=== PATIENT | male | born 1960 | race Caucasian/White ===

== ENCOUNTER 2020-12-09 10:29 | Outpatient (REF) | payer MEDICARE, SELFPAY ==
[2020-12-09 11:38] LABS: MANUAL DIFF FLAG NO
[2020-12-09 11:49] LABS: Basophils Absolute Auto 0.1 X10*3/uL (0.0-0.2); Eosinophils Absolute Auto 0.2 X10*3/uL (0.0-0.4); Hematocrit 36.5 % (42-52); Imm Gran Abs Auto 0.03 X10*3/uL (0.00-0.03); Imm Gran Pct Auto 0.5 % (0.0-0.4); Lymphocytes Absolute Auto 1.3 X10*3/uL (1.2-4.9); Lymphocytes Percent Auto 21.9 % (20-40); Mean Corpuscular HGB Conc 35.6 g/dl (31.0-36.0); Mean Corpuscular Hemoglobin 34.6 pg (27.0-33.0); Mean Corpuscular Volume 97.1 fL (80-98); Mean Platelet Volume 9.7 fL (9.4-12.4); Monocytes Absolute Auto 0.4 X10*3/uL (0.1-1.2); Monocytes Percent Auto 5.8 % (2-11); Neutrophils Percent Auto 66.8 % (45-73); Platelet Count 158 X10*3/uL (160-400); Red Blood Count 3.76 X10*6/uL (4.60-5.80); Red Cell Distribution Width 12.1 % (11.0-16.0)
[2020-12-09 11:57] LABS: Alanine Aminotransferase 37 U/L (0-40); Albumin Level 4.5 g/dL (3.5-5.0); Alkaline Phosphatase 88 U/L (39-117); Anion Gap 12 (12-20); Aspartate Amino Transferase 32 U/L (5-37); Bilirubin Total 0.5 mg/dL (0.0-1.0); Blood Urea Nitrogen 18 mg/dL (9-16); Calcium 8.9 mg/dL (8.4-10.2); Carbon Dioxide 24 mmol/L (22-29); Chloride 107 mmol/L (96-108); Cholesterol 180 mg/dL; Estimated Glomerular Filt Rate > 60; Glucose Random 220 mg/dL (60-115); HDL Cholesterol 47 mg/dL; LDL Cholesterol Calculated 72 mg/dl; Potassium 3.8 mmol/L (3.3-5.1); Sodium 139 mmol/L (135-145); Total Protein 7.1 g/dL (6.5-8.0); Triglycerides 306 mg/dL
[2020-12-09 12:22] LABS: Free T4 (Free Thyroxine) 0.74 ng/dL (0.71-1.85); Prostate Specific Antigen Scr 0.68 ng/mL (<0.05-4.0); Thyroid Stimulating Hormone 2.72 uIU/mL (0.32-4.0)
[2020-12-09 12:31] LABS: Estimated Average Glucose 151 mg/dL; Hemoglobin A1c % 6.9 %
[2020-12-09 12:43] LABS: Folate > 20.0 ng/mL (> or = 4.0); Vitamin B12 916 pg/mL (200-900)
[2020-12-09 13:00] LABS: Microalbum/Creatinine Ratio Ur 26.6 ug/mg cr
== END 2020-12-09 10:30 | disposition home or self-care (01) ==
LOC: HO.LAB 10:29
PROVIDERS: PCP Internal Medicine; Visit Provider Internal Medicine
DX: Z12.5 Encounter for screening for malignant neoplasm of prostate (principal); E11.65 Type 2 diabetes mellitus with hyperglycemia; E78.00 Pure hypercholesterolemia, unspecified; I25.10 Atherosclerotic heart disease of native coronary artery without angina pectoris; I10 Essential (primary) hypertension; R56.9 Unspecified convulsions
CPT/HCPCS: 36415; 80053; 80061; 82043; 82607; 82746; 83036; 84153; 84439; 84443; 85025

== ENCOUNTER 2021-06-14 09:57 | Outpatient (REF) | payer MEDICARE, SELFPAY ==
[2021-06-14 10:04] LABS: MANUAL DIFF FLAG NO
[2021-06-14 10:51] LABS: Basophils Absolute Auto 0.1 X10*3/uL (0.0-0.2); Basophils Percent Auto 0.7 % (0-2); Eosinophils Absolute Auto 0.3 X10*3/uL (0.0-0.4); Eosinophils Percent Auto 4.1 % (0-4); Hematocrit 38.7 % (42-52); Hemoglobin 13.6 g/dl (14.0-18.0); Imm Gran Abs Auto 0.03 X10*3/uL (0.00-0.03); Imm Gran Pct Auto 0.4 % (0.0-0.4); Lymphocytes Absolute Auto 1.6 X10*3/uL (1.2-4.9); Lymphocytes Percent Auto 22.5 % (20-40); Mean Corpuscular HGB Conc 35.1 g/dl (31.0-36.0); Mean Corpuscular Hemoglobin 34.1 pg (27.0-33.0); Mean Platelet Volume 9.3 fL (9.4-12.4); Monocytes Absolute Auto 0.5 X10*3/uL (0.1-1.2); Monocytes Percent Auto 6.8 % (2-11); Neutrophils Absolute Auto 4.6 X10*3/uL (2.0-8.3); Neutrophils Percent Auto 65.5 % (45-73); Platelet Count 167 X10*3/uL (160-400); Red Blood Count 3.99 X10*6/uL (4.60-5.80); Red Cell Distribution Width 11.7 % (11.0-16.0)
[2021-06-14 11:18] LABS: Alanine Aminotransferase 34 U/L (0-40); Albumin Level 4.5 g/dL (3.5-5.0); Alkaline Phosphatase 89 U/L (39-117); Anion Gap 14 (12-20); Aspartate Amino Transferase 32 U/L (5-37); Bilirubin Total 0.5 mg/dL (0.0-1.0); Blood Urea Nitrogen 15 mg/dL (9-16); Calcium 9.1 mg/dL (8.4-10.2); Carbon Dioxide 25 mmol/L (22-29); Chloride 105 mmol/L (96-108); Cholesterol 188 mg/dL; Estimated Glomerular Filt Rate > 60; Glucose Random 127 mg/dL (60-115); HDL Cholesterol 42 mg/dL; Iron 107 mcg/dL (45-160); LDL Cholesterol Calculated 68 mg/dl; Percent Iron Saturation 39 % (15-50); Potassium 4.4 mmol/L (3.3-5.1); Sodium 140 mmol/L (135-145); Total Iron Binding Capacity 275 mcg/dL (228-428); Total Protein 7.3 g/dL (6.5-8.0); Triglycerides 392 mg/dL; Unsaturated Iron Binding 168 ug/dL
[2021-06-14 11:25] LABS: Estimated Average Glucose 111 mg/dL; Hemoglobin A1c % 5.5 %
[2021-06-14 11:39] LABS: Ferritin 275 ng/mL (20-250); Free T4 (Free Thyroxine) 0.76 ng/dL (0.71-1.85); Thyroid Stimulating Hormone 4.39 uIU/mL (0.32-4.0)
[2021-06-14 11:40] LABS: Creatinine Urine 149.97 mg/dL; Microalbum/Creatinine Ratio Ur 3.3 ug/mg cr
[2021-06-14 13:18] LABS: Prostate Specific Antigen Scr 0.76 ng/mL (<0.05-4.0)
[2021-06-16 08:50] LABS: Folate > 20.0 ng/mL (> or = 4.0); Vitamin B12 820 pg/mL (200-900)
== END 2021-06-14 09:58 | disposition home or self-care (01) ==
LOC: HO.LAB 09:57
PROVIDERS: PCP Internal Medicine; Visit Provider Internal Medicine
DX: E11.65 Type 2 diabetes mellitus with hyperglycemia (principal); E78.00 Pure hypercholesterolemia, unspecified; Z12.5 Encounter for screening for malignant neoplasm of prostate
CPT/HCPCS: 36415; 80053; 80061; 82043; 82607; 82728; 82746; 83036; 83540; 84153; 84439; 84443; 85025

== ENCOUNTER 2021-09-17 10:09 | Outpatient (REF) | payer MEDICARE, SELFPAY ==
[2021-09-17 10:20] LABS: MANUAL DIFF FLAG NO
[2021-09-17 10:50] LABS: Basophils Absolute Auto 0.1 X10*3/uL (0.0-0.2); Basophils Percent Auto 1.2 % (0-2); Eosinophils Absolute Auto 0.2 X10*3/uL (0.0-0.4); Eosinophils Percent Auto 3.5 % (0-4); Hematocrit 40.3 % (42.0-52.0); Hemoglobin 13.9 g/dl (14.0-18.0); Imm Gran Abs Auto 0.03 X10*3/uL (0.00-0.03); Imm Gran Pct Auto 0.5 % (0.0-0.4); Lymphocytes Absolute Auto 1.2 X10*3/uL (1.2-4.9); Lymphocytes Percent Auto 19.7 % (20-40); Mean Corpuscular HGB Conc 34.5 g/dl (31.0-36.0); Mean Corpuscular Volume 95.7 fL (80.0-98.0); Mean Platelet Volume 9.2 fL (9.4-12.4); Monocytes Absolute Auto 0.3 X10*3/uL (0.1-1.2); Monocytes Percent Auto 5.7 % (2-11); Neutrophils Absolute Auto 4.1 x10*3/uL (2.0-8.3); Neutrophils Percent Auto 69.4 % (45-73); Platelet Count 171 X10*3/uL (160-400); Red Blood Count 4.21 X10*6/uL (4.60-5.80); Red Cell Distribution Width 11.9 % (11.0-16.0); White Blood Count 5.9 X10*3/uL (4.8-10.8)
[2021-09-17 11:15] LABS: Alanine Aminotransferase 46 U/L (0-40); Albumin Level 4.6 g/dL (3.5-5.0); Alkaline Phosphatase 83 U/L (39-117); Anion Gap 13 (12-20); Aspartate Amino Transferase 36 U/L (5-37); Bilirubin Total 0.5 mg/dL (0.0-1.0); Blood Urea Nitrogen 14 mg/dL (9-16); Calcium 9.5 mg/dL (8.4-10.2); Carbon Dioxide 25 mmol/L (22-29); Chloride 103 mmol/L (96-108); Cholesterol 196 mg/dL; Estimated Glomerular Filt Rate > 60; Glucose Random 173 mg/dL (60-115); HDL Cholesterol 48 mg/dL; LDL Cholesterol Calculated 80 mg/dl; Potassium 4.4 mmol/L (3.3-5.1); Sodium 137 mmol/L (135-145); Total Protein 7.6 g/dL (6.5-8.0); Triglycerides 343 mg/dL
[2021-09-17 11:39] LABS: Thyroid Stimulating Hormone 2.84 uIU/mL (0.32-4.0)
[2021-09-17 11:45] LABS: Creatinine Urine 139.21 mg/dL
[2021-09-17 11:47] LABS: Carbamazepine Tegretol 9.5 mcg/mL (5.0-12.0)
== END 2021-09-17 10:10 | disposition home or self-care (01) ==
LOC: HO.LAB 10:09
PROVIDERS: PCP Internal Medicine; Visit Provider Internal Medicine
DX: E11.65 Type 2 diabetes mellitus with hyperglycemia (principal); R56.9 Unspecified convulsions; E78.00 Pure hypercholesterolemia, unspecified; I10 Essential (primary) hypertension
CPT/HCPCS: 36415; 80053; 80061; 80156; 84439; 84443; 85025

== ENCOUNTER 2021-12-18 13:41 | Outpatient (REF) | payer MEDICARE, SELFPAY ==
[2021-12-18 13:59] LABS: MANUAL DIFF FLAG NO
[2021-12-18 14:29] LABS: Basophils Absolute Auto 0.1 X10*3/uL (0.0-0.2); Basophils Percent Auto 1.4 % (0-2); Eosinophils Absolute Auto 0.2 X10*3/uL (0.0-0.4); Eosinophils Percent Auto 3.8 % (0-4); Hematocrit 36.9 % (42.0-52.0); Hemoglobin 13.2 g/dl (14.0-18.0); Imm Gran Abs Auto 0.02 X10*3/uL (0.00-0.03); Imm Gran Pct Auto 0.4 % (0.0-0.4); Lymphocytes Absolute Auto 0.8 X10*3/uL (1.2-4.9); Lymphocytes Percent Auto 16.3 % (20-40); Mean Corpuscular HGB Conc 35.8 g/dl (31.0-36.0); Mean Corpuscular Hemoglobin 34.1 pg (27.0-33.0); Mean Corpuscular Volume 95.3 fL (80.0-98.0); Mean Platelet Volume 9.3 fL (9.4-12.4); Monocytes Absolute Auto 0.4 X10*3/uL (0.1-1.2); Monocytes Percent Auto 8.6 % (2-11); Neutrophils Absolute Auto 3.5 x10*3/uL (2.0-8.3); Neutrophils Percent Auto 69.5 % (45-73); Platelet Count 147 X10*3/uL (160-400); Red Blood Count 3.87 X10*6/uL (4.60-5.80); Retic HGB Equivalent 37.4 pg (30.0-35.0); Reticulocytes Absolute 0.115 X10*6/uL (0.026-0.095)
[2021-12-18 14:36] LABS: Alanine Aminotransferase 39 U/L (0-40); Albumin Level 4.4 g/dL (3.5-5.0); Alkaline Phosphatase 80 U/L (39-117); Anion Gap 11 (12-20); Aspartate Amino Transferase 34 U/L (5-37); Bilirubin Total 0.8 mg/dL (0.0-1.0); Blood Urea Nitrogen 14 mg/dL (9-16); Calcium 9.3 mg/dL (8.4-10.2); Carbon Dioxide 25 mmol/L (22-29); Chloride 103 mmol/L (96-108); Cholesterol 149 mg/dL; Estimated Glomerular Filt Rate > 60; Glucose Random 232 mg/dL (60-115); HDL Cholesterol 42 mg/dL; Iron 105 mcg/dL (45-160); LDL Cholesterol Calculated 45 mg/dl; Percent Iron Saturation 37 % (15-50); Potassium 4.3 mmol/L (3.3-5.1); Sodium 135 mmol/L (135-145); Total Iron Binding Capacity 281 mcg/dL (228-428); Total Protein 7.3 g/dL (6.5-8.0); Triglycerides 312 mg/dL; Unsaturated Iron Binding 176 ug/dL
[2021-12-18 14:58] LABS: Ferritin 291 ng/mL (20-250)
[2021-12-18 15:14] LABS: Folate > 20.0 ng/mL (> or = 4.0); Vitamin B12 774 pg/mL (200-900)
== END 2021-12-18 13:42 | disposition home or self-care (01) ==
LOC: HO.LAB 13:41
PROVIDERS: PCP Internal Medicine; Visit Provider Internal Medicine
DX: E11.65 Type 2 diabetes mellitus with hyperglycemia (principal); E78.00 Pure hypercholesterolemia, unspecified
CPT/HCPCS: 36415; 80053; 80061; 82607; 82728; 82746; 83540; 85025; 85045

== ENCOUNTER 2022-02-09 08:16 | Day surgery (SDC) | payer MEDICARE, SELFPAY ==
[2022-02-03 15:03] VITALS: BMI 32.5
--- NOTE | 2022-02-05 13:48 | HO.ANESPROP2 ---
Documented by User: Hannah Harkins NP 02/05/22 13:49 HPI - Anesthesia Eval Consult details Narrative: 61yo M for Colonoscopy PMFSH Active Problems Active Problems: All Active Problems (Updated 02/03/22 @ 15:03 by Carolyn Valdes, ANGELO) Eczema (Acute) TSH elevation (Acute) Generalized anxiety disorder (Acute) Tubular adenoma of colon (Acute) CKD (chronic kidney disease) stage 3, GFR 30-59 ml/min (Acute) Melanoma (Acute) Hypertension (Acute) Type 2 diabetes mellitus with hyperglycemia (Acute) Anxiety (Acute) GERD (gastroesophageal reflux disease) (Acute) Obesity (BMI 30-39.9) (Acute) Seizures (Acute) Hypercholesterolemia (Acute) Coronary artery disease (Acute) DDD (degenerative disc disease), lumbar (Acute) Past Medical History Medical History Anxiety Bile salt-induced diarrhea Coronary artery disease DDD (degenerative disc disease), lumbar GERD (gastroesophageal reflux disease) Hypercholesterolemia Hypertension Melanoma Obesity (BMI 30-39.9) Seizures Type 2 diabetes mellitus with hyperglycemia Family History Family History Father No problems noted. Mother Myocardial infarction Diabetes Hypertension CVD (cardiovascular disease) Son In good health Daughter In good health Surgical History Surgical History History of cholecystectomy History of excision of mass History of inguinal hernia repair History of intravascular stent placement History of melanoma excision History of surgery History of umbilical hernia repair Social History Social History Housing: Apartment Are you a primary resident caregiver to a significant other at home: No Do you presently have visiting nurse or other home services: No Alcohol intake: current Alcohol intake frequency: does not drink Patient Tobacco Use Status: Former Tobacco user Quit Date: 1992 Tobacco use type: Cigarette e-Cigarette/Vaping Use: Never Used Second Hand Smoke Exposure: No Have you been hit, kicked, punched, or otherwise hurt by someone within the past year? If so, by whom?: No Are you DNR?: No Advance Directives: No (will bring dos) Advance Directives Information Provided: Yes Advance Directives on File: No Recently lost weight without trying: No service: No Current occupational status: disabled Cognitive needs: No Hearing needs: No Vision needs: Yes Meds Allergies Allergy/AdvReac Type Severity Reaction Status Date / Time atorvastatin Allergy Intermediate Muscle Verified 02/03/22 15:01 cramps hydrochlorothiazide Allergy Intermediate advised to Verified 02/03/22 15:01 avoid metformin Allergy Intermediate Gastrointestinal Verified 02/03/22 15:01 Upset Home Medications Medication Instructions Recorded Confirmed Last Taken Type aspirin 81 mg tablet,delayed 81 mg PO DAILY 09/10/20 02/03/22 Unknown History release (Adult Aspirin Regimen) tadalafil 20 mg tablet (Cialis) 20 mg PO DAILY PRN 09/10/20 02/03/22 Unknown History sodium bicarbonate 650 mg tablet 650 mg PO BID 02/03/22 02/03/22 02/09/22 07:00 History Exam Exam Date and Time: February 05, 2022 1348 Height,Weight and Vital Signs: Height 6 ft Weight 108.862 kg Pertinent Lab Results Pertinent Lab Results: Laboratory Tests 12/18/21 12/18/21 13:58 13:58 WBC 5.0 Hgb 13.2 L Hct 36.9 L Plt Count 147 L Sodium 135 Potassium 4.3 Chloride 103 Carbon Dioxide 25 BUN 14 Creatinine 1.01 Assessment and Plan Assessment Anesthesia Assessment: Chart Reviewed Documented by User: Regina Gates MD 02/09/22 10:22 [facility] Active Problems Active Problems: All Active Problems (Updated 02/03/22 @ 15:03 by Carolyn Valdes, ANGELO) Eczema (Acute) TSH elevation (Acute) Tubular adenoma of colon (Acute) CKD (chronic kidney disease) stage 3, GFR 30-59 ml/min (Acute) Melanoma (Acute) Hypertension (Acute) Type 2 diabetes mellitus with hyperglycemia (Acute) Anxiety (Acute) GERD (gastroesophageal reflux disease) (Acute) Obesity (BMI 30-39.9) (Acute) Seizures (Acute) Hypercholesterolemia (Acute) Coronary artery disease (Acute). Denies recent chest pain DDD (degenerative disc disease), lumbar (Acute) Denies HARRIETT or snoring Denies use of tadalafil in last couple of weeks Past Medical History Medical History Anxiety Bile salt-induced diarrhea Coronary artery disease DDD (degenerative disc disease), lumbar GERD (gastroesophageal reflux disease) Hypercholesterolemia Hypertension Melanoma Obesity (BMI 30-39.9) Seizures Type 2 diabetes mellitus with hyperglycemia Family History Family History Father No problems noted. Mother Myocardial infarction Diabetes Hypertension CVD (cardiovascular disease) Son In good health Daughter In good health Family history of problems with anesthesia: No Surgical History Surgical History History of cholecystectomy History of excision of mass History of inguinal hernia repair History of intravascular stent placement History of melanoma excision History of surgery History of umbilical hernia repair History of Problems with Anesthesia: No Social History Social History Housing: Apartment Are you a primary resident caregiver to a significant other at home: No Do you presently have visiting nurse or other home services: No Alcohol intake: current Alcohol intake frequency: does not drink Patient Tobacco Use Status: Former Tobacco user Quit Date: 1992 Tobacco use type: Cigarette e-Cigarette/Vaping Use: Never Used Second Hand Smoke Exposure: No Have you been hit, kicked, punched, or otherwise hurt by someone within the past year? If so, by whom?: No Are you DNR?: No Advance Directives: No (will bring dos) Advance Directives Information Provided: Yes Advance Directives on File: No Recently lost weight without trying: No service: No Current occupational status: disabled Cognitive needs: No Hearing needs: No Vision needs: Yes Meds Allergies Allergy/AdvReac Type Severity Reaction Status Date / Time atorvastatin Allergy Intermediate Muscle Verified 02/03/22 15:01 cramps hydrochlorothiazide Allergy Intermediate advised to Verified 02/03/22 15:01 avoid metformin Allergy Intermediate Gastrointestinal Verified 02/03/22 15:01 Upset Home Medications Medication Instructions Recorded Confirmed Last Taken Type aspirin 81 mg tablet,delayed 81 mg PO DAILY 09/10/20 02/03/22 Unknown History release (Adult Aspirin Regimen) tadalafil 20 mg tablet (Cialis) 20 mg PO DAILY PRN 09/10/20 02/03/22 Unknown History sodium bicarbonate 650 mg tablet 650 mg PO BID 02/03/22 02/03/22 02/09/22 07:00 History Exam Height,Weight and Vital Signs: Height 6 ft Weight 108.862 kg Vital Signs Temp Pulse Resp BP Pulse Ox 02/09/22 08:48 97.7 F 72 16 152/71 H 97 Pertinent Lab Results Pertinent Lab Results: Laboratory Tests 12/18/21 12/18/21 13:58 13:58 WBC 5.0 Hgb 13.2 L Hct 36.9 L Plt Count 147 L Sodium 135 Potassium 4.3 Chloride 103 Carbon Dioxide 25 BUN 14 Creatinine 1.01 Lab Results 02/09/22 Range/Units 09:13 POC Glucose 105 (60-115) mg/dL Airway Mallampati Class: III TM Dist: >3cm Neck ROM: Full Denture: Upper and Lower Heart: RRR Lungs: CTAB Assessment and Plan Final Anesthetic Review Family History of Problems with Anesthesia: No History of Problems with Anesthesia: No NPO: Yes ASA Class: III Final Preanesthetic Review: No Changes in Pt Med Stat, Meds/Allgs Chart Reviewed, Consent Obtained/Reviewed and Anes Risks/Benef Reviewed Patient Risk: Intermediate Procedure Risk: Low Assessment/Block/Sedation in SS: Assess/Block/Sedation-SS Anesthetic Plan Anesthetic Plan: MAC: Disposition: Standard PACU
[2022-02-09 08:34] VITALS: BMI 32.5
[2022-02-09 08:48] VITALS: BP 152/71; PULSE 72; RESP 16; TEMP 36.5; O2SAT 97; BMI 32.5
[2022-02-09] MEDS: Lactated Ringers 1,000 ML 100 ML IVCONT (09:18)
[2022-02-09 09:21] LABS: Glucose, Whole Blood 105 mg/dL (60-115)
[2022-02-09 10:30] VITALS: BP 107/41; PULSE 82; RESP 12; TEMP 36.6; O2SAT 94
--- NOTE | 2022-02-09 10:31 | P.BOP_ITS ---
Brief Operative Note Date of Service: 02/09/22 Pre-op diagnosis: Screening Post-op diagnosis: other (Diverticulosis) Procedure: Colonoscopy to the cecum and TI Surgeon: Juanito Youssef Anesthesia: MAC Was an Quality Review Specialist used for this Procedure?: No Estimated blood loss (mL): 0 Pathology: none sent Condition: stable Disposition: PACU
[2022-02-09 10:45] VITALS: BP 119/61; PULSE 80; RESP 15; TEMP 36.6; O2SAT 96
--- NOTE | 2022-02-09 12:10 | OP_ITS ---
SURGEON: Juanito Youssef MD INDICATIONS: The patient presents for evaluation of colorectal cancer screening and personal history of tubular adenoma of the colon. Full consent was obtained from him for this, including risks of bleeding and perforation. PREOPERATIVE DIAGNOSIS: POSTOPERATIVE DIAGNOSIS: PROCEDURE PERFORMED: Colonoscopy to the cecum and terminal ileum. ESTIMATED BLOOD LOSS: COMPLICATIONS: ANESTHESIA: Monitored anesthesia care. ASSISTANTS: SPECIMENS: PREOPERATIVE DIAGNOSES: Colorectal cancer screening and personal history of tubular adenoma of the colon. POSTOPERATIVE DIAGNOSES: Colorectal cancer screening and personal history of tubular adenoma of the colon, diverticulosis and internal hemorrhoids. DESCRIPTION OF PROCEDURE: The patient was placed in the left lateral decubitus position. The digital rectal exam revealed no abnormalities. The Olympus video pediatric colonoscope was entered into the rectum and advanced easily to the cecum. Once in the cecum, I did identify normal-appearing cecal pouch with appendiceal orifice and a normal-appearing ileocecal valve. The terminal ileum was cannulated and appeared normal. The scope was withdrawn back in the colon. The entire cecum and ileocecal valve appeared normal. The scope was slowly withdrawn assessing all mucosal surfaces carefully. Preparation for the most part was excellent other than some small areas of liquid stool, which were suctioned away as best as possible. I did not visualize any sign of polyps, colitis, nor angiodysplasia. There was a mild amount of sigmoid diverticulosis. In the rectum, scope was retroflexed visualizing small internal hemorrhoids, but no other pathology. The rectal mucosa appeared normal. The scope was straightened and withdrawn from the patient. He tolerated the procedure well and was returned to the recovery area in stable condition. IMPRESSION: 1. Sigmoid diverticulosis. 2. Small internal hemorrhoids. PLAN: Given his previous history, I would recommend a followup colonoscopy in 5 years for further screening. He will otherwise see me on a p.r.n. basis. He was advised to resume his aspirin today. MD JAMEEL Liu/ADAN / [id number]
== END 2022-02-09 11:28 | disposition home or self-care (01) ==
PROVIDERS: PCP Internal Medicine; Visit Provider Internal Medicine
PROC: 0DJD8ZZ Inspection of Lower Intestinal Tract, Via Natural or Artificial Opening Endoscopic (ICD-10-PCS; CPT 45378; principal; 2022-02-09 09:10)
DX: Z12.11 Encounter for screening for malignant neoplasm of colon (principal); Z86.010 Personal history of colon polyps; K57.30 Diverticulosis of large intestine without perforation or abscess without bleeding; K64.8 Other hemorrhoids; K21.9 Gastro-esophageal reflux disease without esophagitis; I25.10 Atherosclerotic heart disease of native coronary artery without angina pectoris; Z98.61 Coronary angioplasty status; I25.2 Old myocardial infarction; E78.5 Hyperlipidemia, unspecified; I10 Essential (primary) hypertension; R56.9 Unspecified convulsions; E11.9 Type 2 diabetes mellitus without complications; Z79.84 Long term (current) use of oral hypoglycemic drugs; Z79.82 Long term (current) use of aspirin; Z79.899 Other long term (current) drug therapy; Z85.820 Personal history of malignant melanoma of skin; Z90.49 Acquired absence of other specified parts of digestive tract; Z87.891 Personal history of nicotine dependence
CPT/HCPCS: G0105; 82947

== ENCOUNTER 2022-03-24 10:39 | Outpatient (REF) | payer MEDICARE, SELFPAY ==
[2022-03-24 13:05] LABS: Alanine Aminotransferase 22 U/L (0-40); Albumin Level 4.7 g/dL (3.5-5.0); Alkaline Phosphatase 45 U/L (39-117); Anion Gap 11 (12-20); Aspartate Amino Transferase 25 U/L (5-37); Bilirubin Total 0.5 mg/dL (0.0-1.0); Blood Urea Nitrogen 13 mg/dL (9-16); Calcium 9.1 mg/dL (8.4-10.2); Carbon Dioxide 25 mmol/L (22-29); Chloride 103 mmol/L (96-108); Cholesterol 131 mg/dL; Estimated Glomerular Filt Rate > 60; Glucose Random 93 mg/dL (60-115); HDL Cholesterol 52 mg/dL; LDL Cholesterol Calculated 63 mg/dl; Potassium 4.4 mmol/L (3.3-5.1); Sodium 135 mmol/L (135-145); Total Protein 7.3 g/dL (6.5-8.0); Triglycerides 84 mg/dL
== END 2022-03-24 10:40 | disposition home or self-care (01) ==
LOC: HO.LAB 10:39
PROVIDERS: PCP Internal Medicine; Visit Provider Internal Medicine
DX: E78.00 Pure hypercholesterolemia, unspecified (principal)
CPT/HCPCS: 36415; 80053; 80061

== ENCOUNTER 2022-03-27 15:15 | Outpatient (REF) | payer MEDICARE, SELFPAY ==
--- NOTE | ~2022-03-27 | XR_ITS ---
EXAMINATION: XR RIBS, LEFT CLINICAL INFORMATION: Chest pain COMPARISON: None TECHNIQUE: 3 views of the left ribs were obtained. Chest PA 1 view FINDINGS: Lungs: Both lungs are well-expanded and clear acute process. The heart size and pulmonary vascularity is normal. There is moderate spondylosis and levoscoliosis of dorsal spine. No lytic process. There are surgical allison along the left axilla from previous intervention. XR/XR ribs LT min 3V w CXR1V IMPRESSION: Unremarkable chest exam. Moderate levoscoliosis.
== END 2022-03-27 15:16 | disposition home or self-care (01) ==
LOC: HO.XRAY 15:15
PROVIDERS: PCP Internal Medicine; Visit Provider Internal Medicine
DX: R07.9 Chest pain, unspecified (principal)
CPT/HCPCS: 71101

== ENCOUNTER 2022-07-20 13:46 | Outpatient (RCR) | payer MEDICARE, SELFPAY ==
--- NOTE | 2022-07-20 15:09 | MHC.PT.EP ---
[facility] [place] Office [place] Office [place] Office [address] [phone] F: [phone] F: [phone] F: [phone] F: [phone] Physical Therapy Plan of Care Date of Evaluation: Date of Surgery: n/a Diagnosis: R leg achilles tendinitis Assessment: Patient is a 61 year old male presenting to PT with complaints of pain in his R Achilles. Pt reports onset of pain began a few weeks ago due to insidious onset. He presents today with impairments in pain, gastroc tightness, functional strength. Pt's current occupation is retired, with baseline physical activities including ambulating, stair negotiation, ADLs. 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 Clinical presentation today is most consistent with signs and sx associated with possible achilles tendonitis and pt will benefit from skilled PT to address the following problems and impairments noted upon evaluation: pain, gastroc tightness, functional strength. These problems limit the patient with the following functional activities: ambulating, stair negotiation, ADLs. The prescribed treatment plan of care is medically necessary. Co-morbidities of hx cancer melanoma not currently getting treatment, T2DM, HTN, seizures were identified and taken into considerations of plan of care. Pt was educated on HEP, role of PT, prognosis, POC. Pt would benefit from skilled PT 2 x week x 4 weeks however he would prefer to work on an HEP at home so this was provided for him today and chart will be left open x 30 days. Frequency and Duration: The patient will be seen 2 x week x 4 weeks Short Term Goals: Pt will demonstrate initial understanding of HEP in 1 visit. Weld Technician Goals: Pt will demonstrate compliance with HEP in 2 visits. Treatment Plan: Modalities to reduce pain, spasms and effusion. Manual therapy to restore motion and function. Therapeutic exercise to improve strength and flexibility. Neuromuscular re-education for posture and balance. Therapeutic activities to return to functional activities of daily living. Electronically signed by: Lilliam Arroyo, PT, DPT, ATC Please sign and return to therapist. Thank you for your referral.
--- NOTE | 2022-08-19 10:53 | MHC.PT.DC ---
[facility] [place] Office [place] Office [place] Office [address] [phone] F: [phone] F: [phone] F: [phone] F: [phone] Physical Therapy Discharge Report Diagnosis: R leg achilles tendinitis Date of Surgery: n/a Date of Evaluation: 07/20/22 Date of Discharge: 08/19/22 Treatments to Date: 1 Cancellations to Date: 0 No Shows to Date: 0 Discharge Status: Discharge Summary: Pt has not attended PT in >30 days. Pt status unknown at this time and therefore to be d/c per policy. Electronically signed by: Lilliam Arroyo, PT, DPT, ATC Please sign and return to therapist. Thank you for your referral.
== END 2022-08-19 10:53 | disposition home or self-care (01) ==
LOC: HO.PTCHIC 13:46
PROVIDERS: PCP Internal Medicine; Visit Provider Internal Medicine
DX: M76.61 Achilles tendinitis, right leg (principal)
CPT/HCPCS: 97110; 97162

== ENCOUNTER 2022-09-23 11:20 | Outpatient (REF) | payer MEDICARE, SELFPAY ==
[2022-09-23 11:36] LABS: MANUAL DIFF FLAG NO
[2022-09-23 12:15] LABS: Basophils Absolute Auto 0.1 X10*3/uL (0.0-0.2); Basophils Percent Auto 1.6 % (0-2); Eosinophils Absolute Auto 0.2 X10*3/uL (0.0-0.4); Eosinophils Percent Auto 3.3 % (0-4); Hematocrit 37.2 % (42.0-52.0); Imm Gran Abs Auto 0.02 X10*3/uL (0.00-0.03); Imm Gran Pct Auto 0.4 % (0.0-0.4); Lymphocytes Absolute Auto 1.5 X10*3/uL (1.2-4.9); Lymphocytes Percent Auto 26.6 % (20-40); Mean Corpuscular HGB Conc 34.9 g/dl (31.0-36.0); Mean Corpuscular Hemoglobin 33.7 pg (27.0-33.0); Mean Corpuscular Volume 96.4 fL (80.0-98.0); Monocytes Absolute Auto 0.4 X10*3/uL (0.1-1.2); Monocytes Percent Auto 7.1 % (2-11); Neutrophils Absolute Auto 3.3 x10*3/uL (2.0-8.3); Platelet Count 200 X10*3/uL (160-400); Red Blood Count 3.86 X10*6/uL (4.60-5.80); Red Cell Distribution Width 11.9 % (11.0-16.0); White Blood Count 5.5 X10*3/uL (4.8-10.8)
[2022-09-23 12:35] LABS: Estimated Average Glucose 82 mg/dL; Hemoglobin A1c % 4.5 %
[2022-09-23 12:53] LABS: B Type Natriuretic Peptide 16 pg/mL (<100)
[2022-09-23 13:12] LABS: Alanine Aminotransferase 22 U/L (0-40); Albumin Level 4.6 g/dL (3.5-5.0); Alkaline Phosphatase 44 U/L (39-117); Anion Gap 11 (12-20); Aspartate Amino Transferase 24 U/L (5-37); Bilirubin Total 0.5 mg/dL (0.0-1.0); Blood Urea Nitrogen 12 mg/dL (9-16); Calcium 9.3 mg/dL (8.4-10.2); Carbon Dioxide 24 mmol/L (22-29); Chloride 104 mmol/L (96-108); Cholesterol 124 mg/dL; Estimated Glomerular Filt Rate > 60; Glucose Random 87 mg/dL (60-115); HDL Cholesterol 50 mg/dL; LDL Cholesterol Calculated 56 mg/dl; Potassium 4.4 mmol/L (3.3-5.1); Sodium 135 mmol/L (135-145); Triglycerides 93 mg/dL
[2022-09-23 13:30] LABS: Free T4 (Free Thyroxine) 0.83 ng/dL (0.71-1.85); Prostate Specific Antigen Scr 0.83 ng/mL (<0.05-4.0); Thyroid Stimulating Hormone 2.69 uIU/mL (0.32-4.0)
[2022-09-23 13:33] LABS: Folate 17.3 ng/mL (> or = 4.0); Vitamin B12 919 pg/mL (200-900)
[2022-09-23 14:02] LABS: Appearance Urine Clear; Color Urine Dark Yellow; Glucose Urine UA Negative (Negative); Leukocyte Esterase Urine Negative (Negative); Nitrite Urine Negative (Negative); PH 6.5 (5.0-9.0); Urine Blood Negative (Negative); Urine Ketones Negative (Negative); Urine Protein Negative (Neg-Trace)
[2022-09-23 14:10] LABS: Bacteria Urine None Seen (None Seen); Hyaline Casts Urine 0-2 /LPF (0-2); RBC Urine 0-2 /HPF (0-2); Squamous Epithelial Cell Urine 0-2 /HPF (0-2); WBC Urine 0-5 /HPF (0-5)
[2022-09-23 14:33] LABS: Microalbum/Creatinine Ratio Ur 5.6 ug/mg cr
== END 2022-09-23 11:21 | disposition home or self-care (01) ==
LOC: HO.LAB 11:20
PROVIDERS: PCP Internal Medicine; Visit Provider Internal Medicine
DX: E11.65 Type 2 diabetes mellitus with hyperglycemia (principal); E78.00 Pure hypercholesterolemia, unspecified; Z12.5 Encounter for screening for malignant neoplasm of prostate
CPT/HCPCS: 36415; 80053; 80061; 81001; 82043; 82607; 82746; 83036; 83880; 84153; 84439; 84443; 85025

== ENCOUNTER 2022-12-15 13:34 | Outpatient (REF) | payer MEDICARE, SELFPAY ==
[2022-12-15 13:53] LABS: MANUAL DIFF FLAG NO
[2022-12-15 14:32] LABS: Basophils Absolute Auto 0.1 X10*3/uL (0.0-0.2); Basophils Percent Auto 0.8 % (0-2); Eosinophils Absolute Auto 0.2 X10*3/uL (0.0-0.4); Eosinophils Percent Auto 3.4 % (0-4); Hematocrit 35.9 % (42.0-52.0); Imm Gran Abs Auto 0.03 X10*3/uL (0.00-0.03); Imm Gran Pct Auto 0.5 % (0.0-0.4); Immature Retic Fraction 21.5 % (2.3-13.4); Lymphocytes Absolute Auto 1.7 X10*3/uL (1.2-4.9); Mean Corpuscular HGB Conc 36.2 g/dl (31.0-36.0); Mean Corpuscular Hemoglobin 34.7 pg (27.0-33.0); Mean Corpuscular Volume 95.7 fL (80.0-98.0); Mean Platelet Volume 9.3 fL (9.4-12.4); Monocytes Absolute Auto 0.4 X10*3/uL (0.1-1.2); Monocytes Percent Auto 5.5 % (2-11); Neutrophils Absolute Auto 4.1 x10*3/uL (2.0-8.3); Neutrophils Percent Auto 63.8 % (45-73); Platelet Count 193 X10*3/uL (160-400); Red Blood Count 3.75 X10*6/uL (4.60-5.80); Red Cell Distribution Width 12.2 % (11.0-16.0); Retic HGB Equivalent 39.1 pg (30.0-35.0); Reticulocyte Percent 3.1 % (0.5-1.8); Reticulocytes Absolute 0.117 X10*6/uL (0.026-0.095); White Blood Count 6.4 X10*3/uL (4.8-10.8)
[2022-12-15 14:45] LABS: Estimated Average Glucose 94 mg/dL; Hemoglobin A1c % 4.9 %
[2022-12-15 15:03] LABS: Carbamazepine Tegretol 10.9 mcg/mL (5.0-12.0)
[2022-12-15 15:05] LABS: Iron 137 mcg/dL (45-160); Percent Iron Saturation 44 % (15-50); Total Iron Binding Capacity 309 mcg/dL (228-428); Unsaturated Iron Binding 172 ug/dL
[2022-12-15 15:19] LABS: Ferritin 343 ng/mL (20-250)
== END 2022-12-15 13:35 | disposition home or self-care (01) ==
LOC: HO.LAB 13:34
PROVIDERS: PCP Internal Medicine; Visit Provider Internal Medicine
DX: R56.9 Unspecified convulsions (principal); K21.9 Gastro-esophageal reflux disease without esophagitis; E11.65 Type 2 diabetes mellitus with hyperglycemia
CPT/HCPCS: 36415; 80156; 82728; 83036; 83540; 85025; 85045

== ENCOUNTER 2023-06-18 13:59 | Outpatient (REF) | payer MEDICARE, SELFPAY ==
[2023-06-18 14:21] LABS: MANUAL DIFF FLAG NO
[2023-06-18 14:50] LABS: Basophils Absolute Auto 0.1 X10*3/uL (0.0-0.2); Basophils Percent Auto 1.3 % (0-2); Eosinophils Absolute Auto 0.2 X10*3/uL (0.0-0.4); Eosinophils Percent Auto 3.8 % (0-4); Hematocrit 36.1 % (42.0-52.0); Hemoglobin 12.6 g/dl (14.0-18.0); Imm Gran Abs Auto 0.02 X10*3/uL (0.00-0.03); Imm Gran Pct Auto 0.4 % (0.0-0.4); Lymphocytes Absolute Auto 1.5 X10*3/uL (1.2-4.9); Lymphocytes Percent Auto 26.5 % (20-40); Mean Corpuscular HGB Conc 34.9 g/dl (31.0-36.0); Mean Corpuscular Hemoglobin 33.9 pg (27.0-33.0); Mean Platelet Volume 9.1 fL (9.4-12.4); Monocytes Absolute Auto 0.4 X10*3/uL (0.1-1.2); Monocytes Percent Auto 7.2 % (2-11); Neutrophils Absolute Auto 3.4 x10*3/uL (2.0-8.3); Neutrophils Percent Auto 60.8 % (45-73); Platelet Count 184 X10*3/uL (160-400); Red Blood Count 3.72 X10*6/uL (4.60-5.80); Red Cell Distribution Width 11.8 % (11.0-16.0); White Blood Count 5.5 X10*3/uL (4.8-10.8)
[2023-06-18 15:29] LABS: Carbamazepine Tegretol 8.9 mcg/mL (5.0-12.0)
[2023-06-18 15:36] LABS: Alanine Aminotransferase 22 U/L (0-40); Albumin Level 4.6 g/dL (3.5-5.0); Alkaline Phosphatase 40 U/L (39-117); Anion Gap 12 (12-20); Aspartate Amino Transferase 25 U/L (5-37); Bilirubin Total 0.5 mg/dL (0.0-1.0); Blood Urea Nitrogen 13 mg/dL (9-16); Calcium 9.3 mg/dL (8.4-10.2); Carbon Dioxide 25 mmol/L (22-29); Chloride 104 mmol/L (96-108); Estimated Average Glucose 88 mg/dL; Estimated Glomerular Filt Rate > 60; Glucose Random 107 mg/dL (60-115); Hemoglobin A1c % 4.7 % (<6.0); Potassium 4.2 mmol/L (3.3-5.1); Sodium 137 mmol/L (135-145)
[2023-06-18 15:46] LABS: Free T4 (Free Thyroxine) 0.82 ng/dL (0.71-1.85)
[2023-06-18 16:28] LABS: Creatinine Urine 119.39 mg/dL
== END 2023-06-18 14:00 | disposition home or self-care (01) ==
LOC: HO.LAB 13:59
PROVIDERS: PCP Internal Medicine; Visit Provider Internal Medicine
DX: E11.65 Type 2 diabetes mellitus with hyperglycemia (principal); R56.9 Unspecified convulsions; Z79.899 Other long term (current) drug therapy
CPT/HCPCS: 36415; 80053; 80156; 82570; 83036; 84439; 84443; 85025

== ENCOUNTER 2023-06-22 13:11 | Outpatient (AMB) | payer MEDICARE, SELFPAY ==
[2023-06-22 13:14] VITALS: BP 144/88; PULSE 84; O2SAT 98; BMI 31.7
--- NOTE | 2023-06-22 13:14 | MHC.PC.OV ---
Vital Signs 06/22/23 13:14 Height 6 ft Weight 234 lb BMI 31.7 BP 144/88 H Blood Pressure Location Lt brachial Position Sitting Pulse 84 Pulse Source Pulse Oximeter Pulse Oximetry (%) 98 Oxygen Delivery Method Room Air Intake Visit Reasons: 6 month FLU Allergies atorvastatin Allergy (Intermediate, Verified 06/22/23 13:14) Muscle cramps hydrochlorothiazide Allergy (Intermediate, Verified 06/22/23 13:14) advised to avoid metformin Allergy (Intermediate, Verified 06/22/23 13:14) Gastrointestinal Upset Medication List - Last Reconciled 06/22/23 by Mati Richter MD amlodipine 10 mg PO DAILY aspirin (Adult Aspirin Regimen) 81 mg PO DAILY blood sugar diagnostic ([employer] Verio test strips) 1 strip miscellaneous BID 90 days carbamazepine 400 mg (2 x 200 mg) PO BID diclofenac sodium 1% (Voltaren Arthritis Pain) 4 grams topical QID fenofibrate 160 mg PO DAILY 90 days glimepiride 4 mg PO BID 90 days lancets (Mesh Systemsuch Delica Plus Lancet) 33 gauge miscellaneous BID 90 days metoprolol tartrate 100 mg PO BID omeprazole 40 mg PO DAILY rosuvastatin 20 mg PO DAILY 90 days semaglutide (Ozempic) 2 mg (0.75 mL) subcut QWEEK sodium bicarbonate 650 mg PO BID tadalafil (Cialis) 20 mg PO DAILY PRN tizanidine 4 mg PO Q8H PRN tramadol 100 mg (2 x 50 mg) PO TID PRN 90 days Tobacco use date assessed: 09/28/22 Fall risk assessment: No Falls in past year Last assessed Fall Risk: 06/22/23 Dental Screening Dental Screen Date: 06/22/23 Did you have a dental visit in the last 12 months?: No Did you have a dental problem in the last 6 months where you did not have access to dental care?: No Was dental information given to patient?: Patient has dentist HPI 6 month FLU HPI Details 62-year-old obese male with coronary artery disease hypertension GERD hypercholesterolemia diabetes mellitus controlled and generalized anxiety disorder last seen in December 2022. Patient is up-to-date with colonoscopy. Patient is up-to-date with eye exam I sent and surgery associates May 2023 [facility] Medical History Hypertension Type 2 diabetes mellitus with hyperglycemia Anxiety GERD (gastroesophageal reflux disease) Bile salt-induced diarrhea Obesity (BMI 30-39.9) Melanoma Seizures Hypercholesterolemia Coronary artery disease DDD (degenerative disc disease), lumbar Surgical History History of surgery History of excision of mass History of cholecystectomy History of intravascular stent placement History of umbilical hernia repair History of melanoma excision History of inguinal hernia repair Family History Father No problems noted. Mother Myocardial infarction Diabetes Hypertension CVD (cardiovascular disease) Son In good health Daughter In good health Social History Housing: Apartment Are you a primary rn care manager to a significant other at home: No Do you presently have visiting nurse or other home services: No Alcohol intake: current Alcohol intake frequency: does not drink Patient Tobacco Use Status: Former Tobacco user Quit Date: 1992 Tobacco use type: Cigarette e-Cigarette/Vaping Use: Never Used Second Hand Smoke Exposure: No service: No Current occupational status: disabled Cognitive needs: No Hearing needs: No Vision needs: Yes Questionnaire PHQ-9 Over the last 2 weeks, how often have you been bothered by any of the following problems? 1. Little interest or pleasure in doing things: not at all 2. Feeling down, depressed, or hopeless: not at all 3. Trouble falling or staying asleep, or sleeping too much: not at all 4. Feeling tired or having little energy: not at all 5. Poor appetite or overeating: not at all 6. Feeling bad about yourself - or that you are a failure or have let yourself or your family down: not at all 7. Trouble concentrating on things, such as reading the newspaper or watching television: not at all 8. Moving or speaking so slowly that other people could have noticed. Or the opposite - being so fidgety or restless that you have been moving around a lot more than usual: not at all 9. Thoughts that you would be better off or of hurting yourself in some way: not at all Total score: 0 Depression Screening Interpretation: Negative Depression Screening Done: Yes Source: Developed by Drs. Juanito Barroso, Julia Dickinson, Benny Odonnell and colleagues, with an educational micheal from [employer]. Thrive Questionnaire Date Thrive assessed: 09/28/22 AUDIT C Alcohol Use Questionnaire (AUDIT-C) 1. How often do you have a drink containing alcohol?: Never 2. How many drinks containing alcohol do you have on a typical day when you are drinking?: 1 or 2 3. How often do you have six or more drinks on one occasion?: Never Total Score: 0 NATALIE-7 AMB Questionnaire NATALIE-7 Date NATALIE - 7 assessed: 09/28/22 Source: Developed by Drs. Juanito Barroso, Julia Dickinson, Benny Odonnell and colleagues, with an educational micheal from [employer]. Physical exam (Primary Care) Vital Signs: Last Vital Signs Pulse 84 06/22/23 13:14 BP 144/88 H 06/22/23 13:14 Pulse Ox 98 06/22/23 13:14 Oxygen Delivery Method Room Air 06/22/23 13:14 BMI result Body Mass Index 31.7 Tobacco/Smoking Status: Tobacco use Status Tobacco use date assessed 09/28/22 06/22/23 13:20 Patient Tobacco Use Status Former Tobacco user 06/22/23 13:20 Tobacco use type Cigarette 06/22/23 13:20 e-Cigarette/Vaping Use Never Used 06/22/23 13:20 PHQ-9: PHQ-9 Score PHQ-9: Total score 0 06/22/23 13:20 Depression Screening Interpretation: Negative Thrive Assessment: Date of Thrive Assessment Date Thrive assessed 09/28/22 06/22/23 13:20 Const General: alert; No acute distress Eyes Conjunctivae: conjunctivae normal Resp Auscultation: clear to auscultation bilaterally Cardio Rate: regular rate Rhythm: regular rhythm GI Inspection: Yes normal to inspection Extrem General: Yes normal to inspection and No edema Assessment and Plan Assessment & Plan (1) Type 2 diabetes mellitus with hyperglycemia: Comment: [facility] Code(s): E11.65 - Type 2 diabetes mellitus with hyperglycemia Qualifiers: Diabetes mellitus academic affairs assistant insulin use: without care home use Qualified Code(s): E11.65 - Type 2 diabetes mellitus with hyperglycemia Plan: Decrease the amount of carbohydrate intake, pasta, bread, rice and potatoes are all sugar and that is aside from all the sweet stuff, remember that fruits are good but they are Sweet also. Hemoglobin A1c goal of less than 6.5. Patient is on Ozempic glimepiride 4 mg twice a day (2) Obesity (BMI 30-39.9): Code(s): E66.9 - Obesity, unspecified Plan: Diet and exercise (3) Coronary artery disease: Comment: PTCA RCA and OM 2002 occluded LAD diagonal Code(s): I25.10 - Atherosclerotic heart disease of council coronary artery without angina pectoris Qualifiers: Coronary Disease-Associated Artery/Lesion type: council artery [place] vs. transplanted heart: council heart Associated angina: without angina Qualified Code(s): I25.10 - Atherosclerotic heart disease of council coronary artery without angina pectoris Plan: Control the cholesterol, weight, blood pressure, diabetes (4) Hypercholesterolemia: Code(s): E78.00 - Pure hypercholesterolemia, unspecified Plan: Avoid fried foods, chicken skin, eggs, butter margarine, pastries and meat. Be it pork or beef they have a lot of cholesterol LDL goal of less than 70 and triglyceride of less than 150 patient is taking fenofibrate 160 mg once a day and rosuvastatin 20 mg once a day last blood work was September 2022 (5) Generalized anxiety disorder: Code(s): F41.1 - Generalized anxiety disorder Plan: Stable (6) Hypertension: Code(s): I10 - Essential (primary) hypertension Qualifiers: Hypertension type: essential hypertension Qualified Code(s): I10 - Essential (primary) hypertension Plan: Continue with blood pressure medication. Decrease salt intake and exercise patient takes amlodipine 10 mg once a day metoprolol 100 mg twice a day Orders: Orders Comprehensive Met. Panel Today E11.65 - Type 2 diabetes mellitus with hyperglycemia Free T4 (Free Thyroxine) Today E11.65 - Type 2 diabetes mellitus with hyperglycemia Ferritin Today N18.30 - Chronic kidney disease, stage 3 unspecified Complete Blood Count Auto Diff Today E11.65 - Type 2 diabetes mellitus with hyperglycemia Vitamin B12 and Folate Today E11.65 - Type 2 diabetes mellitus with hyperglycemia Lipid Panel Today E11.65 - Type 2 diabetes mellitus with hyperglycemia, E78.00 - Pure hypercholesterolemia, unspecified Prostate Specific Antigen Scr Today E11.65 - Type 2 diabetes mellitus with hyperglycemia Creatinine Urine Today E11.65 - Type 2 diabetes mellitus with hyperglycemia Microalbumin, Random (w Creat) Today E11.65 - Type 2 diabetes mellitus with hyperglycemia IRON PROFILE Today N18.30 - Chronic kidney disease, stage 3 unspecified Reticulocyte Count Today N18.30 - Chronic kidney disease, stage 3 unspecified Coding Level of Care Code Est Pt Level 4 (42515) Diagnoses Type 2 diabetes mellitus with hyperglycemia, without long-term current use of insulin E11.65 Diabetes mellitus academic affairs assistant insulin use: without academic affairs assistant use Obesity (BMI 30-39.9) E66.9 Coronary artery disease involving council coronary artery of council heart without angina pectoris I25.10 Coronary Disease-Associated Artery/Lesion type: council artery [place] vs. transplanted heart: council heart Associated angina: without angina Hypercholesterolemia E78.00 Generalized anxiety disorder F41.1 Essential hypertension I10 Hypertension type: essential hypertension
== END 2023-06-22 13:47 | disposition home or self-care (01) ==
PROVIDERS: PCP Internal Medicine; Visit Provider Internal Medicine
DX: E11.65 Type 2 diabetes mellitus with hyperglycemia (principal); E66.9 Obesity, unspecified; I25.10 Atherosclerotic heart disease of native coronary artery without angina pectoris; Z68.31 Body mass index [BMI] 31.0-31.9, adult; E78.00 Pure hypercholesterolemia, unspecified; F41.1 Generalized anxiety disorder; I10 Essential (primary) hypertension
CPT/HCPCS: 99214

== ENCOUNTER 2023-07-20 14:06 | Outpatient (AMB) | payer MEDICARE, SELFPAY ==
[2023-07-20 16:17] VITALS: BP 148/80; PULSE 78; TEMP 36.5; O2SAT 98
--- NOTE | 2023-07-20 16:17 | AM.OFFWIN_ITS ---
Intake Vital Signs 07/20/23 16:17 Height 6 ft BMI Reason not done Patient refused/unable BP 148/80 H Blood Pressure Location Rt brachial Position Sitting Pulse 78 Pulse Source Pulse Oximeter Temp 97.7 F Temp Source Temporal Artery Scan Pulse Oximetry (%) 98 Oxygen Delivery Method Room Air Intake Visit Reasons: EP lower back pain Intake Note: pt is here for c/o back pain denies injury Patient Tobacco Use Status: Former Tobacco user Quit Date: 1992 Allergies atorvastatin Allergy (Intermediate, Verified 07/29/23 17:42) Muscle cramps hydrochlorothiazide Allergy (Intermediate, Verified 07/29/23 17:42) advised to avoid metformin Allergy (Intermediate, Verified 07/29/23 17:42) Gastrointestinal Upset Medication List - Last Reconciled 07/29/23 by Kong Bae MD amlodipine 10 mg PO DAILY aspirin (Adult Aspirin Regimen) 81 mg PO DAILY blood sugar diagnostic (LocalL[employer]uch Verio test strips) 1 strip miscellaneous BID 90 days carbamazepine 400 mg (2 x 200 mg) PO BID diclofenac sodium 1% (Voltaren Arthritis Pain) 4 grams topical QID fenofibrate 160 mg PO DAILY 90 days glimepiride 4 mg PO BID 90 days lancets (Thrill OnTouch Delica Plus Lancet) 33 gauge miscellaneous BID 90 days metoprolol tartrate 100 mg PO BID omeprazole 40 mg PO DAILY rosuvastatin 20 mg PO DAILY 90 days semaglutide (Ozempic) 2 mg (0.75 mL) subcut QWEEK sodium bicarbonate 650 mg PO BID tadalafil (Cialis) 20 mg PO DAILY PRN tizanidine 4 mg PO Q8H PRN tramadol 100 mg (2 x 50 mg) PO TID PRN 90 days Do you need a note to return to daycare/school/sports/work: Yes HPI EP lower back pain HPI Details Patient presents to the office for a sick visit. Complaining of lower back pain for the past week. No history of fall or trauma prior to the onset of symptoms. No urinary incontinence. No fevers or chills. Pain is worse on bending forwards or sideways. Relieve done sitting down. Pain is radiating into the gluteal area. [facility] Medical History Hypertension Type 2 diabetes mellitus with hyperglycemia Anxiety GERD (gastroesophageal reflux disease) Bile salt-induced diarrhea Obesity (BMI 30-39.9) Melanoma Seizures Hypercholesterolemia Coronary artery disease DDD (degenerative disc disease), lumbar Surgical History History of surgery History of excision of mass History of cholecystectomy History of intravascular stent placement History of umbilical hernia repair History of melanoma excision History of inguinal hernia repair Family History Father No problems noted. Mother Myocardial infarction Diabetes Hypertension CVD (cardiovascular disease) Son In good health Daughter In good health Housing: Apartment Are you a primary vocational childcare teacher to a significant other at home: No Do you presently have visiting nurse or other home services: No Alcohol intake: current Alcohol intake frequency: does not drink Patient Tobacco Use Status: Former Tobacco user Quit Date: 1992 Tobacco use type: Cigarette e-Cigarette/Vaping Use: Never Used Second Hand Smoke Exposure: No service: No Current occupational status: disabled Cognitive needs: No Hearing needs: No Vision needs: Yes Physical Exam Vital Signs: Last Vital Signs Temp 97.7 F 07/20/23 16:17 Pulse 78 07/20/23 16:17 BP 148/80 H 07/20/23 16:17 Pulse Ox 98 07/20/23 16:17 Oxygen Delivery Method Room Air 07/20/23 16:17 General: Yes no CVA tenderness Back/Spine/Pelvis Other: No paraspinal spasm. Back: no CVA tenderness Assessment & Plan Assessment & Plan (1) Lower thoracic back pain: Code(s): M54.6 - Pain in thoracic spine Plan: Continue to use tramadol. Heating pad and stretching exercises suggested. If symptoms do not improve, to follow up here. Coding Level of Care Code Est Pt Level 3 (81278) Diagnoses Lower thoracic back pain M54.6
== END 2023-07-20 16:52 | disposition home or self-care (01) ==
PROVIDERS: PCP Internal Medicine; Visit Provider Internal Medicine
DX: M54.6 Pain in thoracic spine (principal)
CPT/HCPCS: 99213

== ENCOUNTER 2023-12-27 10:19 | Outpatient (REF) | payer MEDICARE, SELFPAY ==
[2023-12-27 10:34] LABS: MANUAL DIFF FLAG NO
[2023-12-27 10:47] LABS: Basophils Absolute Auto 0.1 X10*3/uL (0.0-0.2); Basophils Percent Auto 1.2 % (0-2); Eosinophils Absolute Auto 0.2 X10*3/uL (0.0-0.4); Eosinophils Percent Auto 4.2 % (0-4); Hematocrit 35.7 % (42.0-52.0); Hemoglobin 12.9 g/dl (14.0-18.0); Imm Gran Abs Auto 0.02 X10*3/uL (0.00-0.03); Imm Gran Pct Auto 0.4 % (0.0-0.4); Immature Retic Fraction 17.8 % (2.3-13.4); Lymphocytes Absolute Auto 1.3 X10*3/uL (1.2-4.9); Lymphocytes Percent Auto 26.4 % (20-40); Mean Corpuscular HGB Conc 36.1 g/dl (31.0-36.0); Mean Corpuscular Hemoglobin 34.2 pg (27.0-33.0); Mean Corpuscular Volume 94.7 fL (80.0-98.0); Mean Platelet Volume 8.8 fL (9.4-12.4); Monocytes Absolute Auto 0.3 X10*3/uL (0.1-1.2); Monocytes Percent Auto 6.7 % (2-11); Neutrophils Absolute Auto 3.1 x10*3/uL (2.0-8.3); Neutrophils Percent Auto 61.1 % (45-73); Platelet Count 178 X10*3/uL (160-400); Red Blood Count 3.77 X10*6/uL (4.60-5.80); Red Cell Distribution Width 11.9 % (11.0-16.0); Retic HGB Equivalent 38.3 pg (30.0-35.0); Reticulocyte Percent 3.1 % (0.5-1.8); Reticulocytes Absolute 0.115 X10*6/uL (0.026-0.095)
[2023-12-27 11:25] LABS: Alanine Aminotransferase 27 U/L (0-40); Albumin Level 4.6 g/dL (3.5-5.0); Alkaline Phosphatase 47 U/L (39-117); Anion Gap 9 (12-20); Aspartate Amino Transferase 27 U/L (5-37); Bilirubin Total 0.4 mg/dL (0.0-1.0); Blood Urea Nitrogen 12 mg/dL (9-16); Calcium 9.2 mg/dL (8.4-10.2); Carbon Dioxide 25 mmol/L (22-29); Chloride 106 mmol/L (96-108); Cholesterol 118 mg/dL (<200); Estimated Glomerular Filt Rate > 60; Glucose Random 105 mg/dL (60-115); HDL Cholesterol 43 mg/dL (>40); Iron 101 mcg/dL (45-160); LDL Cholesterol Calculated 52 mg/dL (<100); Percent Iron Saturation 34 % (15-50); Potassium 4.1 mmol/L (3.3-5.1); Sodium 136 mmol/L (135-145); Total Iron Binding Capacity 298 mcg/dL (228-428); Triglycerides 119 mg/dL (<150); Unsaturated Iron Binding 197 ug/dL
[2023-12-27 11:42] LABS: Ferritin 332 ng/mL (20-250); Free T4 (Free Thyroxine) 0.86 ng/dL (0.71-1.85)
[2023-12-27 11:44] LABS: Creatinine Urine 198.19 mg/dL
[2023-12-27 11:51] LABS: Folate 16.2 ng/mL (> or = 4.0); Prostate Specific Antigen Scr 0.58 ng/mL (<0.05-4.0); Vitamin B12 944 pg/mL (200-900)
== END 2023-12-27 10:20 | disposition home or self-care (01) ==
LOC: HO.LAB 10:19
PROVIDERS: PCP Internal Medicine; Visit Provider Internal Medicine
DX: Z12.5 Encounter for screening for malignant neoplasm of prostate (principal); E11.22 Type 2 diabetes mellitus with diabetic chronic kidney disease; E11.65 Type 2 diabetes mellitus with hyperglycemia; N18.30 Chronic kidney disease, stage 3 unspecified; E78.00 Pure hypercholesterolemia, unspecified
CPT/HCPCS: 36415; 80053; 80061; 82043; 82570; 82607; 82728; 82746; 83540; 84153; 84439; 85025; 85045

== ENCOUNTER 2023-12-28 14:02 | Outpatient (AMB) | payer MEDICARE, SELFPAY ==
--- NOTE | 2023-12-28 14:42 | A.OFFPC_ITS ---
Vital Signs 12/28/23 14:43 Height 6 ft Weight 241 lb BMI 32.7 BP 138/70 Blood Pressure Location Lt brachial Position Sitting Pulse 75 Pulse Source Pulse Oximeter Pulse Oximetry (%) 97 Oxygen Delivery Method Room Air Intake Visit Reasons: DM Allergies atorvastatin Allergy (Intermediate, Verified 12/28/23 14:43) Muscle cramps hydrochlorothiazide Allergy (Intermediate, Verified 12/28/23 14:43) advised to avoid metformin Allergy (Intermediate, Verified 12/28/23 14:43) Gastrointestinal Upset Tobacco use date assessed: 12/28/23 Fall risk assessment: No Falls in past year Last assessed Fall Risk: 12/28/23 Dental Screening Dental Screen Date: 12/28/23 Did you have a dental visit in the last 12 months?: No Did you have a dental problem in the last 6 months where you did not have access to dental care?: No Was dental information given to patient?: No HPI DM HPI Details 63-year-old obese male with controlled d iabetes mellitus coronary artery disease hypercholesterolemia generalized anxiety disorder hypertension last seen in June 2023. Patient's colonoscopy was last done in 2021 and 5 years. Review of the notes was seen by the Urgent Center in July for low back pain on tramadol. Patient is being followed up by Nephrology also June 2023 diagnosis of chronic kidney disease stage 2 hypertensive diabetes renal tubular acidosis question of Keytruda related advised to keep hydrated continue to monitor blood work on sodium bicarb 650 mg t once a day deny hypoglycemia [facility] Medical History (Updated 12/28/23 @ 15:03 by Mati Richter MD) CKD (chronic kidney disease) stage 3, GFR 30-59 ml/min Hypertension Type 2 diabetes mellitus with hyperglycemia Anxiety GERD (gastroesophageal reflux disease) Bile salt-induced diarrhea Obesity (BMI 30-39.9) Melanoma Seizures Hypercholesterolemia Coronary artery disease DDD (degenerative disc disease), lumbar Surgical History History of surgery History of excision of mass History of cholecystectomy History of intravascular stent placement History of umbilical hernia repair History of melanoma excision History of inguinal hernia repair Family History Father No problems noted. Mother Myocardial infarction Diabetes Hypertension CVD (cardiovascular disease) Son In good health Daughter In good health Social History Housing: Apartment Are you a primary customer care assistant to a significant other at home: No Do you presently have visiting nurse or other home services: No Alcohol intake: current Alcohol intake frequency: does not drink Patient Tobacco Use Status: Former Tobacco user Quit Date: 1992 Tobacco use type: Cigarette e-Cigarette/Vaping Use: Never Used Second Hand Smoke Exposure: No service: No Current occupational status: disabled Cognitive needs: No Hearing needs: No Vision needs: Yes Questionnaire PHQ-9 Over the last 2 weeks, how often have you been bothered by any of the following problems? 1. Little interest or pleasure in doing things: not at all 2. Feeling down, depressed, or hopeless: not at all 3. Trouble falling or staying asleep, or sleeping too much: not at all 4. Feeling tired or having little energy: not at all 5. Poor appetite or overeating: not at all 6. Feeling bad about yourself - or that you are a failure or have let yourself or your family down: not at all 7. Trouble concentrating on things, such as reading the newspaper or watching television: not at all 8. Moving or speaking so slowly that other people could have noticed. Or the opposite - being so fidgety or restless that you have been moving around a lot more than usual: not at all 9. Thoughts that you would be better off or of hurting yourself in some way: not at all Total score: 0 Depression Screening Interpretation: Negative Depression Screening Done: Yes Source: Developed by Drs. Juanito Barroso, Julia Dickinson, Benny Odonnell and colleagues, with an educational micheal from [employer]. Thrive Questionnaire Date Thrive assessed: 12/28/23 I am a: Patient What is your living situation today?: I have a steady place to live Within the past 12 months, did the food you bought not last and you didn't have the money to get more?: Never true Within the past 12 months, did you worry whether your food would run out before you got money to buy more?: Never true Do you have trouble paying for medicines?: No Do you have trouble getting transportation to medical appointments?: No Do you have trouble paying your heating and electricity bill?: No Do you have trouble taking care of your child, family member or friend?: No Do you have trouble with day-to-day activities such as bathing, preparing meals, shopping, managing finances, etc.?: No Are you currently unemployed and looking for a job?: No Are you interested in more education?: No Currently or been in a relationship where the following occur: no concerns reported THRIVE Score: 0 AUDIT C Alcohol Use Questionnaire (AUDIT-C) 1. How often do you have a drink containing alcohol?: Never 2. How many drinks containing alcohol do you have on a typical day when you are drinking?: 1 or 2 3. How often do you have six or more drinks on one occasion?: Never Total Score: 0 NATALIE-7 AMB Questionnaire NATALIE-7 Date NATALIE - 7 assessed: 12/28/23 Feeling nervous, anxious, or on edge: 0 = Not at all Not being able to stop or control worryin = Not at all Worrying too much about different things: 0 = Not at all Trouble relaxin = Not at all Being so restless that it is hard to sit still: 0 = Not at all Becoming easily annoyed or irritable: 0 = Not at all Feeling afraid as if something awful might happen: 0 = Not at all Total NATALIE-7 score (0-4 normal; 5-9 mild; 10-14 moderate; 15-21 severe): 0 Source: Developed by Drs. Juanito Barroso, Julia Dickinson, Benny Odonnell and colleagues, with an educational micheal from [employer]. Physical exam (Primary Care) Vital Signs: Last Vital Signs Pulse 75 12/28/23 14:43 BP 138/70 12/28/23 14:43 Pulse Ox 97 12/28/23 14:43 Oxygen Delivery Method Room Air 12/28/23 14:43 BMI result Body Mass Index 32.7 Tobacco/Smoking Status: Tobacco use Status Tobacco use date assessed 12/28/23 12/28/23 14:44 Patient Tobacco Use Status Former Tobacco user 12/28/23 14:44 Tobacco use type Cigarette 12/28/23 14:44 e-Cigarette/Vaping Use Never Used 12/28/23 14:44 PHQ-9: PHQ-9 Score PHQ-9: Total score 0 12/28/23 15:22 Depression Screening Interpretation: Negative Thrive Assessment: Date of Thrive Assessment Date Thrive assessed 12/28/23 12/28/23 14:44 Currently or been in a relationship where the following occur: no concerns reported Const General: alert; No acute distress Eyes Conjunctivae: conjunctivae normal Resp Auscultation: clear to auscultation bilaterally Cardio Rate: regular rate Rhythm: regular rhythm GI Inspection: Yes normal to inspection Extrem General: Yes normal to inspection and No edema Results AMB Hemoglobin A1c AMB Hemoglobin A1c 4.7 % Last Edit by Mily Velazco CMA on 12/28/23 15 :06 Immunizations pneumoc 20-daya conj-dip cr(PF) 0.5 mL IM syringe Performing Provider: Mati Richter MD Performing Location: [facility] Administered by: Mily Velazco CMA on 12/28/23 15:19 Dose Route Admin Location Dispensed Lot Number Expiration Date [employer] 0.5 mL IM Right Deltoid 0.5 mL [id number] 01/04/25 [employer] VIS Given Date VIS Provided VIS Publication Date 12/28/23 Single Vaccine 21 Eligibility Eligibility Date Funding Source Not [facility] Eligible 12/28/23 Private Results Reviewed Results Reviewed: Laboratory Last Values Hgb A1c (Clinic) 4.7 % (4.0-6.0) 12/28/23 14:45 Assessment and Plan Assessment & Plan (1) Type 2 diabetes mellitus with hyperglycemia: Comment: [facility] Code(s): E11.65 - Type 2 diabetes mellitus with hyperglycemia Qualifiers: Diabetes mellitus penitentiary insulin use: without terminal carman use Qualified Code(s): E11.65 - Type 2 diabetes mellitus with hyperglycemia Plan: Decrease the amount of carbohydrate intake, pasta, bread, rice and potatoes are all sugar and that is aside from all the sweet stuff, remember that fruits are good but they are Sweet also. Hemoglobin A1c goal of less than 7.0. Patient on Ozempic glimepiride (2) GERD (gastroesophageal reflux disease): Code(s): K21.9 - Gastro-esophageal reflux disease without esophagitis Qualifiers: Esophagitis presence: without esophagitis Qualified Code(s): K21.9 - Gastro-esophageal reflux disease without esophagitis Plan: Avoid the foods that causes that usually spicy foods, tomato products, juices, coffee, soda and foods that your sensitive to. After eating do not lie down, allow 3-4 hours before in lie down. And keep the head of bed above 30 degrees to avoid the acid from going up. (3) Obesity (BMI 30-39.9): Code(s): E66.9 - Obesity, unspecified Plan: Diet and exercise (4) Hypercholesterolemia: Code(s): E78.00 - Pure hypercholesterolemia, unspecified Plan: Avoid fried foods, chicken skin, eggs, butter margarine, pastries and meat. Be it pork or beef they have a lot of cholesterol LDL goal of less than 70 and triglyceride of less than 150 on fenofibrate and rosuvastatin (5) Coronary artery disease: Comment: PTCA RCA and OM 2002 occluded LAD diagonal Code(s): I25.10 - Atherosclerotic heart disease of [place] coronary artery without angina pectoris Qualifiers: Associated angina: without angina Coronary Disease-Associated Artery/Lesion type: [place] artery [place] vs. transplanted heart: [place] heart Qualified Code(s): I25.10 - Atherosclerotic heart disease of [place] coronary artery without angina pectoris Plan: Control the cholesterol, weight, blood pressure, diabetes continue with aspirin 81 mg once a day (6) Chronic kidney disease, stage II (mild): Code(s): N18.2 - Chronic kidney disease, stage 2 (mild) Plan: Patient follows up with Nephrology keep diabetes under control keep blood pressure under control avoid NSAIDs keep well hydrated Orders: Orders AMB Hemoglobin A1c Today Z13.9 - Encounter for screening, unspecified Pneumococcal 20 Immunization Today Z23 - Encounter for immunization Coding Level of Care Code Est Pt Level 4 (19960) Diagnoses Type 2 diabetes mellitus with hyperglycemia, without long-term current use of insulin E11.65 Diabetes mellitus penitentiary insulin use: without terminal carman use Gastroesophageal reflux disease without esophagitis K21.9 Esophagitis presence: without esophagitis Obesity (BMI 30-39.9) E66.9 Hypercholesterolemia E78.00 Coronary artery disease involving [place] coronary artery of [place] heart without angina pectoris I25.10 Associated angina: without angina Coronary Disease-Associated Artery/Lesion type: [place] artery [place] vs. transplanted heart: [place] heart Chronic kidney disease, stage II (mild) N18.2
[2023-12-28 14:43] VITALS: BP 138/70; PULSE 75; O2SAT 97; BMI 32.7
== END 2023-12-28 15:37 | disposition home or self-care (01) ==
PROVIDERS: PCP Internal Medicine; Visit Provider Internal Medicine
DX: Z23 Encounter for immunization (principal); E11.65 Type 2 diabetes mellitus with hyperglycemia; K21.9 Gastro-esophageal reflux disease without esophagitis; E78.00 Pure hypercholesterolemia, unspecified; I25.10 Atherosclerotic heart disease of native coronary artery without angina pectoris; N18.2 Chronic kidney disease, stage 2 (mild)
CPT/HCPCS: 83036; 90471; 90677; 99214

== ENCOUNTER 2024-05-09 10:49 | Outpatient (REF) | payer MEDICARE, SELFPAY ==
[2024-05-09 11:10] LABS: MANUAL DIFF FLAG NO
[2024-05-09 11:42] LABS: Basophils Absolute Auto 0.1 X10*3/uL (0.0-0.2); Eosinophils Absolute Auto 0.2 X10*3/uL (0.0-0.4); Eosinophils Percent Auto 4.1 % (0-4); Hematocrit 35.4 % (42.0-52.0); Hemoglobin 12.7 g/dl (14.0-18.0); Imm Gran Abs Auto 0.04 X10*3/uL (0.00-0.03); Imm Gran Pct Auto 0.8 % (0.0-0.4); Immature Retic Fraction 20.2 % (2.3-13.4); Lymphocytes Absolute Auto 1.1 X10*3/uL (1.2-4.9); Mean Corpuscular HGB Conc 35.9 g/dl (31.0-36.0); Mean Corpuscular Hemoglobin 33.9 pg (27.0-33.0); Mean Corpuscular Volume 94.4 fL (80.0-98.0); Mean Platelet Volume 8.9 fL (9.4-12.4); Monocytes Absolute Auto 0.4 X10*3/uL (0.1-1.2); Monocytes Percent Auto 7.6 % (2-11); Neutrophils Absolute Auto 3.1 x10*3/uL (2.0-8.3); Neutrophils Percent Auto 63.5 % (45-73); Platelet Count 196 X10*3/uL (160-400); Red Blood Count 3.75 X10*6/uL (4.60-5.80); Red Cell Distribution Width 11.7 % (11.0-16.0); Reticulocyte Percent 3.1 % (0.5-1.8); Reticulocytes Absolute 0.115 X10*6/uL (0.026-0.095); White Blood Count 4.9 X10*3/uL (4.8-10.8)
[2024-05-09 11:49] LABS: Estimated Average Glucose 85 mg/dL; Hemoglobin A1c % 4.6 % (<6.0)
[2024-05-09 12:46] LABS: Creatinine Urine 141.15 mg/dL
[2024-05-09 12:47] LABS: Alanine Aminotransferase 18 U/L (0-40); Albumin Level 4.6 g/dL (3.5-5.0); Alkaline Phosphatase 42 U/L (39-117); Anion Gap 10 (12-20); Aspartate Amino Transferase 22 U/L (5-37); Bilirubin Total 0.5 mg/dL (0.0-1.0); Blood Urea Nitrogen 14 mg/dL (9-16); Calcium 9.2 mg/dL (8.4-10.2); Carbon Dioxide 24 mmol/L (22-29); Chloride 103 mmol/L (96-108); Cholesterol 115 mg/dL (<200); Estimated Glomerular Filt Rate > 60; Glucose Random 101 mg/dL (60-115); HDL Cholesterol 48 mg/dL (>40); Iron 113 mcg/dL (45-160); LDL Cholesterol Calculated 43 mg/dL (<100); Percent Iron Saturation 37 % (15-50); Potassium 4.4 mmol/L (3.3-5.1); Sodium 133 mmol/L (135-145); Total Iron Binding Capacity 306 mcg/dL (228-428); Triglycerides 120 mg/dL (<150); Unsaturated Iron Binding 193 ug/dL
[2024-05-09 12:50] LABS: Ferritin 284 ng/mL (20-250); Free T4 (Free Thyroxine) 0.82 ng/dL (0.71-1.85); Thyroid Stimulating Hormone 2.71 uIU/mL (0.32-4.0)
[2024-05-09 13:03] LABS: Folate > 20.0 ng/mL (> or = 4.0); Prostate Specific Antigen Scr 0.59 ng/mL (<0.05-4.0); Vitamin B12 904 pg/mL (200-900)
== END 2024-05-09 10:50 | disposition home or self-care (01) ==
LOC: HO.LAB 10:49
PROVIDERS: PCP Internal Medicine; Visit Provider Internal Medicine
DX: N18.2 Chronic kidney disease, stage 2 (mild) (principal); E78.00 Pure hypercholesterolemia, unspecified; E11.65 Type 2 diabetes mellitus with hyperglycemia; E11.22 Type 2 diabetes mellitus with diabetic chronic kidney disease; Z12.5 Encounter for screening for malignant neoplasm of prostate
CPT/HCPCS: 36415; 80053; 80061; 82043; 82570; 82607; 82728; 82746; 83036; 83540; 84153; 84439; 84443; 85025; 85045

== ENCOUNTER 2024-05-11 14:00 | Outpatient (AMB) | payer MEDICARE, SELFPAY ==
--- NOTE | 2024-05-11 14:01 | MHC.PC.OV ---
Vital Signs 05/11/24 14:02 Height 6 ft Weight 235 lb BMI 31.9 BP 124/58 L Blood Pressure Location Lt brachial Position Sitting Pulse 79 Pulse Source Pulse Oximeter Pulse Oximetry (%) 95 Oxygen Delivery Method Room Air Intake Visit Reasons: DM [employer] Travel Counselor Required: No Accompanied by: Spouse Allergies atorvastatin Allergy (Intermediate, Verified 05/11/24 14:02) Muscle cramps hydrochlorothiazide Allergy (Intermediate, Verified 05/11/24 14:02) advised to avoid metformin Allergy (Intermediate, Verified 05/11/24 14:02) Gastrointestinal Upset Tobacco use date assessed: 12/28/23 Fall risk assessment: No Falls in past year Last assessed Fall Risk: 05/11/24 Dental Screening Dental Screen Date: 12/28/23 HPI DM HPI Details 63-year-old obese male(noted 6 lb weight loss) with diabetes mellitus controlled GERD hypercholesterolemia coronary artery disease chronic kidney disease coming in for follow-up. Last seen in December 2023. Patient's colonoscopy is up-to-date February 2022. [facility] Medical History (Updated 12/28/23 @ 15:03 by Mati Richter MD) CKD (chronic kidney disease) stage 3, GFR 30-59 ml/min Hypertension Type 2 diabetes mellitus with hyperglycemia Anxiety GERD (gastroesophageal reflux disease) Bile salt-induced diarrhea Obesity (BMI 30-39.9) Melanoma Seizures Hypercholesterolemia Coronary artery disease DDD (degenerative disc disease), lumbar Surgical History History of surgery History of excision of mass History of cholecystectomy History of intravascular stent placement History of umbilical hernia repair History of melanoma excision History of inguinal hernia repair Family History Father No problems noted. Mother Myocardial infarction Diabetes Hypertension CVD (cardiovascular disease) Son In good health Daughter In good health Social History Housing: Apartment Are you a primary health care consultant to a significant other at home: No Do you presently have visiting nurse or other home services: No Alcohol intake: current Alcohol intake frequency: does not drink Patient Tobacco Use Status: Former Tobacco user Tobacco use type: Cigarette e-Cigarette/Vaping Use: Never Used Second Hand Smoke Exposure: No service: No Current occupational status: disabled Cognitive needs: No Hearing needs: No Vision needs: Yes Questionnaire PHQ-9 Over the last 2 weeks, how often have you been bothered by any of the following problems? 1. Little interest or pleasure in doing things: not at all 2. Feeling down, depressed, or hopeless: not at all 3. Trouble falling or staying asleep, or sleeping too much: not at all 4. Feeling tired or having little energy: not at all 5. Poor appetite or overeating: not at all 6. Feeling bad about yourself - or that you are a failure or have let yourself or your family down: not at all 7. Trouble concentrating on things, such as reading the newspaper or watching television: not at all 8. Moving or speaking so slowly that other people could have noticed. Or the opposite - being so fidgety or restless that you have been moving around a lot more than usual: not at all 9. Thoughts that you would be better off or of hurting yourself in some way: not at all Total score: 0 Depression Screening Interpretation: Negative Depression Screening Done: Yes Source: Developed by Drs. Juanito Barroso, Julia Dickinson, Benny Odonnell and colleagues, with an educational micheal from [employer]. Thrive Questionnaire Date Thrive assessed: 12/28/23 AUDIT C Alcohol Use Questionnaire (AUDIT-C) 1. How often do you have a drink containing alcohol?: Never 2. How many drinks containing alcohol do you have on a typical day when you are drinking?: 1 or 2 3. How often do you have six or more drinks on one occasion?: Never Total Score: 0 NATALIE-7 AMB Questionnaire NATALIE-7 Date NATALIE - 7 assessed: 12/28/23 Source: Developed by Drs. Juanito Barroso, Julia Dickinson, Benny Odonnell and colleagues, with an educational micheal from [employer]. Physical exam (Primary Care) Vital Signs: Last Vital Signs Pulse 79 05/11/24 14:02 BP 124/58 L 05/11/24 14:02 Pulse Ox 95 05/11/24 14:02 Oxygen Delivery Method Room Air 05/11/24 14:02 BMI result Body Mass Index 31.9 Tobacco/Smoking Status: Tobacco use Status Tobacco use date assessed 12/28/23 05/11/24 14:01 Patient Tobacco Use Status Former Tobacco user 05/11/24 14:01 Tobacco use type Cigarette 05/11/24 14:01 e-Cigarette/Vaping Use Never Used 05/11/24 14:01 PHQ-9: PHQ-9 Score PHQ-9: Total score 0 05/11/24 14:08 Depression Screening Interpretation: Negative Thrive Assessment: Date of Thrive Assessment Date Thrive assessed 12/28/23 05/11/24 14:01 Const General: alert; No acute distress Eyes Conjunctivae: conjunctivae normal Resp Auscultation: clear to auscultation bilaterally Cardio Rate: regular rate Rhythm: regular rhythm GI Inspection: Yes normal to inspection Extrem General: Yes normal to inspection and No edema Assessment and Plan Assessment & Plan (1) Type 2 diabetes mellitus with hyperglycemia: Comment: [facility] Code(s): E11.65 - Type 2 diabetes mellitus with hyperglycemia Qualifiers: Diabetes mellitus assisted insulin use: without assisted use Qualified Code(s): E11.65 - Type 2 diabetes mellitus with hyperglycemia Plan: Decrease the amount of carbohydrate intake, pasta, bread, rice and potatoes are all sugar and that is aside from all the sweet stuff, remember that fruits are good but they are Sweet also. Hemoglobin A1c goal of less than 6.5. Patient takes glimepiride 4 mg twice a day Ozempic 2 mg once a week (2) Obesity (BMI 30-39.9): Code(s): E66.9 - Obesity, unspecified Plan: Diet and exercise (3) GERD (gastroesophageal reflux disease): Code(s): K21.9 - Gastro-esophageal reflux disease without esophagitis Qualifiers: Esophagitis presence: without esophagitis Qualified Code(s): K21.9 - Gastro-esophageal reflux disease without esophagitis Plan: Avoid the foods that causes that usually spicy foods, tomato products, juices, coffee, soda and foods that your sensitive to. After eating do not lie down, allow 3-4 hours before in lie down. And keep the head of bed above 30 degrees to avoid the acid from going up. (4) Hypercholesterolemia: Code(s): E78.00 - Pure hypercholesterolemia, unspecified Plan: Avoid fried foods, chicken skin, eggs, butter margarine, pastries and meat. Be it pork or beef they have a lot of cholesterol LDL goal of less than 70 and triglyceride of less than 150. Fenofibrate 160 mg once a day and rosuvastatin 20 mg once a (5) Coronary artery disease: Comment: PTCA RCA and OM 2002 occluded LAD diagonal Code(s): I25.10 - Atherosclerotic heart disease of [place] coronary artery without angina pectoris Qualifiers: Coronary Disease-Associated Artery/Lesion type: [place] artery [place] vs. transplanted heart: [place] heart Associated angina: without angina Qualified Code(s): I25.10 - Atherosclerotic heart disease of [place] coronary artery without angina pectoris Plan: Control the cholesterol, weight, blood pressure, diabetes continue with aspirin 81 mg once (6) Hypertension: Code(s): I10 - Essential (primary) hypertension Qualifiers: Hypertension type: essential hypertension Qualified Code(s): I10 - Essential (primary) hypertension Plan: Continue with blood pressure medication. Decrease salt intake and exercise presently on metoprolol 100 mg twice a day amlodipine 10 mg once a day. (7) Generalized anxiety disorder: Code(s): F41.1 - Generalized anxiety disorder Plan: On carbamazepine. Coding Level of Care Code Est Pt Level 4 (59326) Complex EM visit Add On G2211 Diagnoses Type 2 diabetes mellitus with hyperglycemia, without long-term current use of insulin E11.65 Diabetes mellitus intermediate accountant insulin use: without assisted use Obesity (BMI 30-39.9) E66.9 Gastroesophageal reflux disease without esophagitis K21.9 Esophagitis presence: without esophagitis Hypercholesterolemia E78.00 Coronary artery disease involving [place] coronary artery of [place] heart without angina pectoris I25.10 Coronary Disease-Associated Artery/Lesion type: [place] artery [place] vs. transplanted heart: [place] heart Associated angina: without angina Essential hypertension I10 Hypertension type: essential hypertension Generalized anxiety disorder F41.1
[2024-05-11 14:02] VITALS: BP 124/58; PULSE 79; O2SAT 95; BMI 31.9
== END 2024-05-11 15:14 | disposition home or self-care (01) ==
PROVIDERS: PCP Internal Medicine; Visit Provider Internal Medicine
DX: E11.65 Type 2 diabetes mellitus with hyperglycemia (principal); K21.9 Gastro-esophageal reflux disease without esophagitis; E78.00 Pure hypercholesterolemia, unspecified; I25.10 Atherosclerotic heart disease of native coronary artery without angina pectoris; I10 Essential (primary) hypertension; F41.1 Generalized anxiety disorder
CPT/HCPCS: 99214; G2211

== ENCOUNTER 2024-07-12 13:11 | Outpatient (AMB) | payer MEDICARE, SELFPAY ==
[2024-07-12 13:17] VITALS: BP 130/68; PULSE 72; O2SAT 98; BMI 32.0
--- NOTE | 2024-07-12 13:17 | A.OFFPC_ITS ---
Vital Signs 07/12/24 13:17 Height 6 ft Weight 236 lb BMI 32.0 BP 130/68 Blood Pressure Location Lt brachial Position Sitting Pulse 72 Pulse Source Pulse Oximeter Pulse Oximetry (%) 98 Oxygen Delivery Method Room Air Intake Visit Reasons: PE-see comm Allergies atorvastatin Allergy (Intermediate, Verified 07/12/24 13:17) Muscle cramps hydrochlorothiazide Allergy (Intermediate, Verified 07/12/24 13:17) advised to avoid metformin Allergy (Intermediate, Verified 07/12/24 13:17) Gastrointestinal Upset pembrolizumab [From Keytruda] Allergy (Intermediate, Unverified 07/12/24 13:35) creatinine lisinopril Adverse Reaction (Intermediate, Unverified 07/12/24 13:35) increase creatinine Medication List - Last Reconciled 07/12/24 by Mati Richter MD amlodipine 10 mg PO DAILY aspirin (Adult Aspirin Regimen) 81 mg PO DAILY blood sugar diagnostic (Service[employer] Verio test strips) 1 strip miscellaneous BID 90 days carbamazepine 400 mg (2 x 200 mg) PO BID diclofenac sodium 1% (Voltaren Arthritis Pain) 4 grams topical QID fenofibrate 160 mg PO DAILY 90 days glimepiride 4 mg PO BID 90 days lancets (GumiyoTouch Delica Plus Lancet) 33 gauge miscellaneous BID 90 days metoprolol tartrate 100 mg PO BID omeprazole 40 mg PO DAILY rosuvastatin 20 mg PO DAILY 90 days semaglutide (Ozempic) 2 mg (0.75 mL) subcut QWEEK sodium bicarbonate 650 mg PO BID tizanidine 4 mg PO Q8H PRN tramadol 100 mg (2 x 50 mg) PO TID PRN 90 days Tobacco use date assessed: 12/28/23 Fall risk assessment: No Falls in past year Last assessed Fall Risk: 07/12/24 Dental Screening Dental Screen Date: 12/28/23 HPI PE-see comm HPI Details 63-year-old obese male with diabetes ann-marie litus GERD hypercholesterolemia coronary artery disease hypertension generalized anxiety disorder coming in for physical exam last seen in 05/26/2024. Patient's last colonoscopy was done in February 2022 5 years review of the notes just so Nephrology June 26 2024 diagnosis of chronic kidney disease stage 2 hypertension renal hypoperfusion, Ender inhibitor resolved non-anion gap metabolic acidosis with positive urine anion gap consistent with renal tubular acidosis question of Keytruda related. Prescribed sodium bicarb 650 mg twice a day avoid using NSAIDs need to get blood sugars under better control fluid restriction of 1.5 L per day diabetes I test 06/01/2024 no retinopathy mild cataract floaters PFSH Medical History (Updated 07/12/24 @ 13:57 by Mati Richter MD) CKD (chronic kidney disease) stage 3, GFR 30-59 ml/min Hypertension Type 2 diabetes mellitus with hyperglycemia Anxiety GERD (gastroesophageal reflux disease) Bile salt-induced diarrhea Obesity (BMI 30-39.9) Melanoma Seizures Hypercholesterolemia Coronary artery disease DDD (degenerative disc disease), lumbar Surgical History History of surgery History of excision of mass History of cholecystectomy History of intravascular stent placement History of umbilical hernia repair History of melanoma excision History of inguinal hernia repair Family History Father No problems noted. Mother Myocardial infarction Diabetes Hypertension CVD (cardiovascular disease) Son In good health Daughter In good health Social History (Updated 07/12/24 @ 13:38 by Mati Richter MD) Housing: Apartment Are you a primary caretaker to a significant other at home: No Do you presently have visiting nurse or other home services: No Alcohol intake: former Patient Tobacco Use Status: Former Tobacco user Tobacco use type: Cigarette Years Smoked: quit 1996 e-Cigarette/Vaping Use: Never Used Second Hand Smoke Exposure: No service: No Current occupational status: disabled Cognitive needs: No Hearing needs: No Vision needs: Yes Questionnaire PHQ-9 Over the last 2 weeks, how often have you been bothered by any of the following problems? 1. Little interest or pleasure in doing things: not at all 2. Feeling down, depressed, or hopeless: not at all 3. Trouble falling or staying asleep, or sleeping too much: not at all 4. Feeling tired or having little energy: not at all 5. Poor appetite or overeating: not at all 6. Feeling bad about yourself - or that you are a failure or have let yourself or your family down: not at all 7. Trouble concentrating on things, such as reading the newspaper or watching television: not at all 8. Moving or speaking so slowly that other people could have noticed. Or the opposite - being so fidgety or restless that you have been moving around a lot more than usual: not at all 9. Thoughts that you would be better off or of hurting yourself in some way: not at all Total score: 0 Source: Developed by Drs. Juanito Barroso, Julia Dickinson, Benny Odonnell and colleagues, with an educational micheal from [employer]. Thrive Questionnaire Date Thrive assessed: 07/12/24 I am a: Patient What is your living situation today?: I have a steady place to live Within the past 12 months, did the food you bought not last and you didn't have the money to get more?: Often true Within the past 12 months, did you worry whether your food would run out before you got money to buy more?: Never true Do you have trouble paying for medicines?: No Do you have trouble getting transportation to medical appointments?: No Do you have trouble paying your heating and electricity bill?: No Do you have trouble taking care of your child, family member or friend?: No Do you have trouble with day-to-day activities such as bathing, preparing meals, shopping, managing finances, etc.?: No Are you currently unemployed and looking for a job?: No Are you interested in more education?: No Please select the resources that you would like help with: None Currently or been in a relationship where the following occur: No concerns reported THRIVE Score: 1 AUDIT C Alcohol Use Questionnaire (AUDIT-C) 1. How often do you have a drink containing alcohol?: Never 2. How many drinks containing alcohol do you have on a typical day when you are drinking?: 1 or 2 3. How often do you have six or more drinks on one occasion?: Never Total Score: 0 NATALIE-7 AMB Questionnaire NATALIE-7 Date NATALIE - 7 assessed: 07/12/24 Feeling nervous, anxious, or on edge: 1 = Several days Not being able to stop or control worryin = Several days Worrying too much about different things: 1 = Several days Trouble relaxin = Not at all Being so restless that it is hard to sit still: 0 = Not at all Becoming easily annoyed or irritable: 1 = Several days Feeling afraid as if something awful might happen: 0 = Not at all Total NATALIE-7 score (0-4 normal; 5-9 mild; 10-14 moderate; 15-21 severe): 4 Source: Developed by Drs. Juanito Barroso, Julia Dickinson, Benny Odonnell and colleagues, with an educational micheal from [employer]. Review of Systems Const Denies poor appetite and Denies weakness Eyes Denies no additional complaints ENT Reports Normal hearing present, Denies dizziness, Denies nasal congestion, Denies tinnitus and Denies sore throat Card Denies chest pain, Denies syncope, Denies rapid heart rate and Denies dyspnea Resp Denies cough and Denies dyspnea GI Denies change in stool character, Reports constipation, Denies diarrhea, Denies nausea and Denies vomiting Denies dysuria and Denies urinary frequency Neuro Reports Normal hearing present, Denies confusion, Denies dizziness, Denies syncope and Denies weakness Psych Denies confusion Physical exam (Primary Care) Vital Signs: Last Vital Signs Pulse 72 07/12/24 13:17 BP 130/68 07/12/24 13:17 Pulse Ox 98 07/12/24 13:17 Oxygen Delivery Method Room Air 07/12/24 13:17 BMI result Body Mass Index 32.0 Tobacco/Smoking Status: Tobacco use Status Tobacco use date assessed 12/28/23 07/12/24 13:23 Patient Tobacco Use Status Former Tobacco user 07/12/24 13:23 Tobacco use type Cigarette 07/12/24 13:23 e-Cigarette/Vaping Use Never Used 07/12/24 13:23 PHQ-9: PHQ-9 Score PHQ-9: Total score 0 07/12/24 13:23 Thrive Assessment: Date of Thrive Assessment Date Thrive assessed 07/12/24 07/12/24 13:23 Currently or been in a relationship where the following occur: No concerns reported Const General: alert and awake; No confusion Orientation/consciousness: No confusion HENMT Head: Yes normocephalic Ears: external ears normal and TM's normal bilaterally Face and sinus: Yes normal facial exam Mouth: moist mucous membranes Throat: Yes tonsils normal Eyes Conjunctivae: conjunctivae normal Pupils: Equal, round and reactive pupils present and Pupil accommodation reflex normal Direct Ophthalmoscopy: normal light reflex Neck Neck: No lymphadenopathy Thyroid: Thyroid normal Chest Chest palpation & inspection: normal inspection of the chest Resp Effort & Inspection: normal respiratory effort and no audible wheezes Auscultation: clear to auscultation bilaterally, no crackles, no wheezes and lung sounds not diminished Cardio Rate: regular rate Rhythm: regular rhythm Peripheral pulses: radial pulses present and dorsalis pedis present GI Other: declinedrectal diastasis recti and umbilical hernia Palpation (GI): no masses Auscultation: normal bowel sounds and normoactive bowel sounds Rectal Exam - Male: Yes deferred Other: declined Back/Spine/Pelvis Other: pedal pulse good pin prick sensory problem on the sole of feet Skin General skin exam: no rashes or lesions noted Rashes: no rashes Neuro General: deep tendon reflexes 2+ bilaterally and No confusion Cranial nerves: Yes Equal, round and reactive pupils present, Yes Midline tongue present, Yes Normal hearing present and Yes Ability to bilaterally elevate shoulders present Cognition (Neuro): normal cognition Gait exam (Neuro): Normal gait present Motor exam (neuro): 5/5 motor strength present throughout Deep tendon reflexes (DTR's): Right brachioradialis reflex intensity grade: 2+, Left brachioradialis reflex intensity grade: 2+, Right patellar reflex intensity grade: 2+ and Left patellar reflex intensity grade: 2+ Extrem General: No edema Coding Level of Care Code Est Pt Prev Care >65y(87698) Diagnoses Annual physical exam Z00.00 Type 2 diabetes mellitus with hyperglycemia, without long-term current use of insulin E11.65 Diabetes mellitus oysterman insulin use: without oysterman use Obesity (BMI 30-39.9) E66.9 Coronary artery disease involving [place] coronary artery of [place] heart without angina pectoris I25.10 Coronary Disease-Associated Artery/Lesion type: [place] artery [place] vs. transplanted heart: [place] heart Associated angina: without angina Hypercholesterolemia E78.00 Generalized anxiety disorder F41.1 Chronic kidney disease, stage II (mild) N18.2 Essential hypertension I10 Hypertension type: essential hypertension Diabetic polyneuropathy associated with type 2 diabetes mellitus E11.42 Diabetes mellitus type: type 2 Diabetes mellitus complication detail: diabetic polyneuropathy Diastasis recti M62.08 Umbilical hernia without obstruction and without gangrene K42.9 Obstruction and gangrene presence: without obstruction or gangrene Assessment & Plan Assessment & Plan (1) Annual physical exam: Code(s): Z00.00 - Encounter for general adult medical examination without abnormal findings Category: Medical Plan: Patient is advised to eat healthy, keep well hydrated, keep active and have adequate sleep. (2) Type 2 diabetes mellitus with hyperglycemia: Comment: [facility] Code(s): E11.65 - Type 2 diabetes mellitus with hyperglycemia Category: Medical Qualifiers: Diabetes mellitus oysterman insulin use: without oysterman use Qualified Code(s): E11.65 - Type 2 diabetes mellitus with hyperglycemia Plan: Decrease the amount of carbohydrate intake, pasta, bread, rice and potatoes are all sugar and that is aside from all the sweet stuff, remember that fruits are good but they are Sweet also. Hemoglobin A1c goal of less than 7.0 on glimepiride 4 mg twice a day Ozempic 2 mg once a week up-to-date with eye exam (3) Obesity (BMI 30-39.9): Code(s): E66.9 - Obesity, unspecified Category: Medical Plan: Diet and exercise (4) Coronary artery disease: Comment: PTCA RCA and OM 2002 occluded LAD diagonal Code(s): I25.10 - Atherosclerotic heart disease of [place] coronary artery without angina pectoris Category: Medical Qualifiers: Coronary Disease-Associated Artery/Lesion type: [place] artery [place] vs. transplanted heart: [place] heart Associated angina: without angina Qualified Code(s): I25.10 - Atherosclerotic heart disease of [place] coronary artery without angina pectoris Plan: Control the cholesterol, weight, blood pressure, diabetes continue with aspirin 81 mg once a (5) Hypercholesterolemia: Code(s): E78.00 - Pure hypercholesterolemia, unspecified Category: Medical Plan: Avoid fried foods, chicken skin, eggs, butter margarine, pastries and meat. Be it pork or beef they have a lot of cholesterol LDL goal of less than 70 and triglyceride of less than 150 05/26/2024 last blood work patient on fenofibrate 160 mg once a day and rosuvastatin 20 mg once a day (6) Generalized anxiety disorder: Code(s): F41.1 - Generalized anxiety disorder Category: Medical Plan: Stable (7) Chronic kidney disease, stage II (mild): Code(s): N18.2 - Chronic kidney disease, stage 2 (mild) Category: Medical Plan: Patient has seen Nephrology and continuing to monitor. Need to control the blood pressure and cholesterol and diabetes (8) Hypertension: Code(s): I10 - Essential (primary) hypertension Category: Medical Qualifiers: Hypertension type: essential hypertension Qualified Code(s): I10 - Essential (primary) hypertension Plan: Continue with blood pressure medication. Decrease salt intake and exercise on metoprolol 100 mg twice a day amlodipine 10 mg once a day. (9) Diabetic neuropathy: Code(s): E11.40 - Type 2 diabetes mellitus with diabetic neuropathy, unspecified Category: Medical Qualifiers: Diabetes mellitus type: type 2 Diabetes mellitus complication detail: diabetic polyneuropathy Qualified Code(s): E11.42 - Type 2 diabetes mellitus with diabetic polyneuropathy Plan: monitor to prevent infections (10) Diastasis recti: Code(s): M62.08 - Separation of muscle (nontraumatic), other site Category: Medical Plan: Discussed that the abdominal wall muscles are weak and discussed about strengthening that with exercise (11) Umbilical hernia: Code(s): K42.9 - Umbilical hernia without obstruction or gangrene Category: Medical Qualifiers: Obstruction and gangrene presence: without obstruction or gangrene Qualified Code(s): K42.9 - Umbilical hernia without obstruction or gangrene Plan: Avoid heavy lifting
== END 2024-07-12 13:57 | disposition home or self-care (01) ==
LOC: HO.HMCH 13:11
PROVIDERS: PCP Internal Medicine; Visit Provider Internal Medicine
DX: Z00.00 Encounter for general adult medical examination without abnormal findings (principal); I12.9 Hypertensive chronic kidney disease with stage 1 through stage 4 chronic kidney disease, or unspecified chronic kidney disease; E11.65 Type 2 diabetes mellitus with hyperglycemia; E11.42 Type 2 diabetes mellitus with diabetic polyneuropathy; E66.9 Obesity, unspecified; Z68.32 Body mass index [BMI] 32.0-32.9, adult; I25.10 Atherosclerotic heart disease of native coronary artery without angina pectoris; E78.00 Pure hypercholesterolemia, unspecified; F41.1 Generalized anxiety disorder; N18.2 Chronic kidney disease, stage 2 (mild); M62.08 Separation of muscle (nontraumatic), other site; K42.9 Umbilical hernia without obstruction or gangrene

== ENCOUNTER → 2024-07-12 13:11 | Outpatient (BNVA) | payer MEDICARE, SELFPAY | PROVIDERS: PCP Internal Medicine; Visit Provider Internal Medicine | DX: E11.65 Type 2 diabetes mellitus with hyperglycemia (principal); E66.9 Obesity, unspecified; I25.10 Atherosclerotic heart disease of native coronary artery without angina pectoris; E78.00 Pure hypercholesterolemia, unspecified; F41.1 Generalized anxiety disorder; I12.9 Hypertensive chronic kidney disease with stage 1 through stage 4 chronic kidney disease, or unspecified chronic kidney disease; E11.22 Type 2 diabetes mellitus with diabetic chronic kidney disease; N18.2 Chronic kidney disease, stage 2 (mild); E11.42 Type 2 diabetes mellitus with diabetic polyneuropathy; M62.08 Separation of muscle (nontraumatic), other site; K42.9 Umbilical hernia without obstruction or gangrene | CPT/HCPCS: 96127; 99397 ==

== ENCOUNTER 2025-01-03 11:08 | Outpatient (REF) | payer MEDICARE, SELFPAY ==
--- OUTSIDE RECORDS SUMMARY | 2025-01-03 12:43 | XMS_ITS | Clinical Summary ---
Author Organization [facility] Address [address] [place] [address] Phone Care Team Providers Care Beef Breaker Name Role Phone Mati Richter MD Primary Care Provider [phone] Allergies Active Allergy Reactions Criticality Noted Date Comments Metformin Other (see comments) 01/26/2021 Medications Semaglutide,0.25 or 0.5MG/DOS, (Ozempic, 0.25 or 0.5 MG/DOSE,) 2 MG/1.5ML solution pen-injector Inject under the skin Active carBAMazepine (Carbatrol) 200 MG 12 hr capsule Take 1 capsule by mouth 4 (four) times a day Active metoprolol tartrate (LOPRESSOR) 100 MG tablet Take 100 mg by mouth 2 (two) times a day 0 Active omeprazole (PriLOSEC) [address] capsule Take 1 capsule by mouth 1 (one) time each day Active traMADol (ULTRAM) 50 MG tablet Take 1 tablet by mouth 4 (four) times a day Active tiZANidine (ZANAFLEX) 4 MG tablet TAKE 1 TABLET BY MOUTH EVERY 8 HOURS NEEDED FOR MUSCLE SPASTICITY 1 Active rosuvastatin (CRESTOR) 20 MG tablet Take 20 mg by mouth 1 (one) time each day 2 Active fenofibrate (TRIGLIDE) 160 MG tablet Take 160 mg by mouth 1 (one) time each day 3 Active Lancets (OneTouch Delica Plus [id number]) [facility] [place] USE TO TEST TWICE DAILY DIRECTED 3 Active aspirin (ST ANGEL) 81 MG EC tablet Take 81 mg by mouth 1 (one) time each day Active sodium bicarbonate 650 MG tablet Take 1 tablet (650 mg total) by mouth 1 (one) time each day 90 tablet 3 3 Active amLODIPine (NORVASC) 10 MG tablet Take 10 mg by mouth 1 (one) time each day Active glimepiride (AMARYL) 4 MG tablet Take 4 mg by mouth 1 (one) time each day before breakfast Active Active Problems Problem Noted Date Diagnosed Date Metabolic acidosis 06/22/2022 Hypertensive chronic kidney disease 06/22/2022 Acute nontraumatic kidney injury 01/26/2021 Hypertensive heart and renal disease with (congestive) heart failure 01/26/2021 Chronic kidney disease stage 2 01/26/2021 Abscess of axilla 05/21/2020 Anemia in neoplastic disease 05/21/2020 Stage 3 chronic kidney disease 05/21/2020 Weight loss 05/21/2020 Diabetes mellitus 04/22/2020 History of myocardial infarction 04/22/2020 History of placement of stent for coronary arter y disease 04/22/2020 History of cholecystectomy 04/22/2020 H/O Spinal surgery 04/22/2020 History of repair of umbilical hernia 04/22/2020 Malignant melanoma 04/22/2020 History of malignant basal cell neoplasm of skin 07/26/2019 Overview (01/26/2021): Overview: 2019 L medial cheek Chronic pain 05/22/2019 Disorder of coronary artery 05/22/2019 Overview (01/26/2021): Overview: S/p Old WI and stent Gastroesophageal reflux disease 05/22/2019 H/O Malignant melanoma 05/22/2019 Overview (01/26/2021): Overview: 05/2010 original left upper back, surveillance x 5yrs Hyperlipidemia 05/22/2019 Seizure disorder 05/22/2019 Type 2 diabetes mellitus without complication Metastatic malignant neoplasm to skin of back Overview (01/26/2021): Overview: Excision 07/2018, 05/2019; Dx 07/2016 Malignant melanoma of skin of trunk 08/12/2018 Resolved Problems Problem Noted Date Diagnosed Date Resolved Date Metabolic renal disease 01/26/202106/06 Family History Medical History Relation Comments Diabetes Mother Hypertension Mother Diabetes Sibling brother Relation Status Comments Father Mother Sibling Social History Tobacco Use Types Packs/Day Years Used Date Smoking Tobacco: Never Smokeless Tobacco: Never Tobacco Cessation:Counseling Given: No Alcohol Use Standard Drinks/Week Comments No 0 (1 standard drink = 0.6 oz pur e alcohol) Sex and Gender Information Value Date Recorded Sex Assigned at Not on file Legal Sex Male 4:58 PM EST Gender Identity Not on file Sexual Orientation Not on file Last Filed Vital Signs Vital Sign Reading Time Taken Comments Blood Pressure 132/70 06/26/2024 1:23 PM EDT Pulse 82 06/26/2024 1:23 PM EDT Temperature - - Respiratory Rate - - Oxygen Saturation 98% 05/19/2021 9:52 AM EDT Inhaled Oxygen Concentration - - Weight 107 kg (236 lb 12.8 oz) 06/26/2024 1:23 P M EDT Height 182.9 cm (6') 11/10/2021 4:36 PM EST Body Mass Index 32.12 11/10/2021 4:36 PM EST Plan of Treatment Upcoming Encounters Date Type Department Care Team (Late st Contact Info) Description 06/25/2025 2:15 PM EDT Office Visit [facility] [address] [phone] Jeromy Mancia MD [address] [phone] Health Maintenance Due Date Last Done Comments Pneumococcal Vaccine: 50+ Ye ars (1 of 2 - PCV) 1977 Colorectal Cancer Screening: Annual FOBT 12/23/2007 Colorectal Cancer Screening: Colonoscopy 12/23/2007 Colorectal Cancer Screening: Sigmoidoscopy 12/23/2007 Diabetes: Hemoglobin A1C 10/04/2020 Diabetes: Ophthalmology Exam 10/04/2020 Diabetes: Pedal Pulse Checked 10/04/2020 Diabetes: Sensory Foot Exam 10/04/2020 Diabetes: Visual Foot Exam 10/04/2020 Influenza Vaccine (Season Ended) 2025 05/17/20 23 Hepatitis B Vaccine Aged Out No longe r eligible based on patient's age to complete this topic Insurance [employer] [place] [id number] [employer] Care Teams Beef Breaker Relationship Specialty Start Date End Date Mati Richter MD [address] [place] PCP - General 09/16/20
--- OUTSIDE RECORDS SUMMARY | 2025-01-03 12:43 | XMS_ITS | Clinical Summary ---
Author Organization [employer] [facility] it Address [address] [place] [address] Care Team Providers Care Senior Instructional Designer Name Role Phone Mati Richter MD Primary Care Provider [phone] Surgical History Surgery Date Site/Laterality Comments CHOLECYSTECTOMY PROCEDURE: MD CHOLECYSTECTOMY OTHER SURGICAL HISTORY 05/15/2019 Left PROCEDURE: HISTORY OTHER; COMMENT: lateral to scar Malig melanoma,07/22/18left mid back-metastatic malignant melanoma,05/2010excision of Melanoma mid back,Bilat axil sentinel lymph node biopsies; HERNIA REPAIR Bilateral PROCEDURE: HISTORICAL HERNIA REPAIR/ING Medical History Medical History Date Comments History of melanoma 05/22/2019 DX:History o f melanoma; COMMENT: 05/2010 original left upper back, surveillance x 5yrs Seizure disorder (CMS/HCC V2 4, CMS/HCC V28) 05/22/2019 DX:Seizure disorder (HCC) Hyperlipidemia 05/22/2019 DX:Hyperlipidemi a GERD (gastroesophageal reflux disease) 05/22/2019 DX:GERD (gastroesophageal reflux disease) Hypertension 05/22/2019 DX:Hypertension Osteoarthritis 05/22/2019 DX:Osteoarthriti s Type 2 diabetes mellitus wit hout complications (CMS/HCC V24, CMS/HCC V28) 05/22/2019 DX:Type 2 diabetes mellitus without complications (HCC) CAD (coronary artery disease) 05/22/2019 DX :CAD (coronary artery disease); COMMENT: S/p Old [place] and stent Secondary malignant neoplasm of skin of back (CMS/HCC V24, CMS/HCC V28) 05/15/2019 DX:Secondary malign ant neoplasm of skin of back (HCC); COMMENT: Excision 07/2018, 05/2019; Dx 07/2016 Chronic neck and back pain 05/22/2019 DX:Ch ronic neck and back pain History of basal cell carcinoma (BCC) 07/26/2019 DX:History of basal cell carcinoma (BCC); COMMENT: 2019 L medial cheek Family History Medical History Relation Name Comments No Known Problems Brother x 4 Other: Metastatic Cancer Mother's side Au nt, from cancer Breast cancer Sister Relation Name Status Comments Brother Mother's side Sister Alive Social History Tobacco Use Types Packs/Day Years Used Date Smoking Tobacco: Former Cigarettes Q uit: 09/06/1997 Smokeless Tobacco: Never Alcohol Use Standard Drinks/Week Comments No 0 (1 standard drink = 0.6 oz pur e alcohol) Sex and Gender Information Value Date Recorded Sex Assigned at Not on file Legal Sex Male 11:01 PM EST Gender Identity Not on file Sexual Orientation Not on file Obstetrics History Plan of Treatment Health Maintenance Due Date Last Done Comments Diabetes: Annual GFR (Glomer ular Filtration Rate) 1958 COVID-19 Vaccine (#1) 12/23/1963 Diabetes: Annual Foot Exam 1968 Diabetes: Annual Retina Eye Exam 1968 DTaP,Tdap,and Td Vaccines (1 - Tdap) 1977 Pneumococcal Vaccine: 50+ Ye ars (1 of 2 - PCV) 1977 Zoster Vaccines (1 of 2) 1977 Abdominal Aortic Aneurysm (A AA) Screen 08/09/2022 Cholesterol Screening (Lipid Panel) 08/09/2022 Colorectal Cancer Screening: Colonoscopy 08/09/2022 Depression Screening 08/09/2022 Hepatitis C Screening 08/09/2022 Social Influencers of Health Screening 08/09/2022 Diabetes: Annual Urine Albumin-Creatinine Ratio (uACR) 08/20/2022 Diabetes: Blood Sugar Contro l Test (HGBA1C) 08/20/2022 Hypertension/CHF/CAD Annual BMP Blood Test 08/20/2022 Falls Risk Assessment 12/23/2023 Influenza Vaccine (Season Ended) 2025 RSV Immunization Adult Patie nts (1 - 1-dose 75+ series) 2033 HIB Vaccines Aged Out No longer eligi ble based on patient's age to complete this topic HPV Vaccines Aged Out No longer eligi ble based on patient's age to complete this topic Hepatitis A Vaccines Aged Out No long er eligible based on patient's age to complete this topic Hepatitis B Vaccines Aged Out No long er eligible based on patient's age to complete this topic IPV Vaccines Aged Out No longer eligi ble based on patient's age to complete this topic MMR Vaccines Aged Out No longer eligi ble based on patient's age to complete this topic Meningococcal ACWY Vaccine Aged Out N o longer eligible based on patient's age to complete this topic Meningococcal B Vaccine Aged Out No l onger eligible based on patient's age to complete this topic RSV Immunization Patients Un irma 20 months Aged Out No longer eligible b ased on patient's age to complete this topic Varicella Vaccines Aged Out No longer eligible based on patient's age to complete this topic Care Teams Senior Instructional Designer Relationship Specialty Start Date End Date Mati Richter MD [address] [place] [address] Dr [address] [facility] [place] [place] [address] PCP - General Internal Medicine 04/06/19
--- OUTSIDE RECORDS SUMMARY | 2025-01-03 12:43 | XMS_ITS | Clinical Summary ---
Author Organization [facility] Address [address] [place] [address] Care Team Providers Care Appraiser Land Name Role Phone Po, Mati Ramon MD Primary Care Provider [phone] Allergies Active Allergy Reactions Criticality Noted Date Comments Metformin 07/26/2019 Medications Medication Sig Dispensed Refills Start Date End Date Status omeprazole (PriLOSEC) 40 MG capsule Take 40 mg by mouth daily. 0 Active glimepiride (AMARYL) tablet 4 mg Take 4 mg by mouth every morning before breakfast. 0 Active traMADol (ULTRAM) 50 MG tablet Take 50 mg by mouth every 6 (six) hours as needed for pain. 0 Active tiZANidine (ZANAFLEX) 4 MG tablet Take 4 mg by mouth every 6 (six) hours as needed. 0 Active SITagliptin (JANUVIA) 100 MG tablet Take 100 mg by mouth daily. 0 Active AMLODIPINE BESYLATE 10 MG PO TABS Take 10 mg by mouth daily. 0 Active carBAMazepine (CARBATROL) 200 MG 12 hr capsule Take 200 mg by mouth 2 (two) times a day. 0 Active rosuvastatin (CRESTOR) tablet 10 mg Take 5 mg by mouth daily. 0 Active metoprolol tartrate (LOPRESSOR) 100 MG tablet Take 100 mg by mouth 2 (two) times a day. 0 02/20/2020 Active sodium bicarbonate 650 MG tablet Take 1 tablet (650 mg total) by mouth 2 (two) times a day. 60 tablet 1 05/09/2020 Active Semaglutide (OZEMPIC, 0.25 OR 0.5 MG/DOSE, SC) Inject under the skin once a week. 0 Active Active Problems Problem Noted Date Diagnosed Date Anemia complicating neoplastic disease 0 Stage 3 chronic kidney disease 05/21/2020 Weight loss 05/21/2020 Axillary abscess 05/21/2020 Diabetes mellitus 04/22/2020 History of coronary artery stent placement 04/22 History of laparoscopic cholecystectomy 04/22/20 History of lymph node biopsy 04/22/2020 History of lymph node dissection of left axilla 04/22/2020 History of umbilical hernia repair 04/22/2020 History of myocardial infarction 04/22/2020 Malignant melanoma 04/22/2020 History of basal cell carcinoma (BCC) 07/26/2019 Overview: Overview: 2019 L medial cheek Coronary artery disease invo lving autologous vein coronary bypass graft without angina pectoris 05/22/2019 Overview: Overview: S/p Old [place] and stent Chronic neck and back pain 05/22/2019 Gastroesophageal reflux disease 05/22/2019 History of melanoma 05/22/2019 Overview: Overview: 05/2010 original left upper back, surveillance x 5yrs Hyperlipidemia 05/22/2019 Seizure disorder 05/22/2019 Type 2 diabetes mellitus without complications 0 05/22/2019 Secondary malignant neoplasm of skin of back 05/2019 Overview: Overview: Excision 07/2018, 05/2019; Dx 07/2016 Malignant melanoma of torso excluding breast 03/2018 Social History Tobacco Use Types Packs/Day Years Used Date Smoking Tobacco: Former Smokeless Tobacco: Never Sex and Gender Information Value Date Recorded Sex Assigned at Not on file Gender Identity Not on file Sexual Orientation Not on file Last Filed Vital Signs Vital Sign Reading Time Taken Comments Blood Pressure 154/63 04/01/2021 3:31 PM EDT Pulse 79 04/01/2021 3:31 PM EDT Temperature 36.7 ??C (98.1 ??F) 04/01/2021 3:31 PM ED T Respiratory Rate - - Oxygen Saturation 97% 04/01/2021 3:31 PM EDT Inhaled Oxygen Concentration - - Weight 110.5 kg (243 lb 9.6 oz) 04/01/2021 3:31 PM EDT Height 175.3 cm (5' 9 ) 04/01/2021 3:31 PM EDT Body Mass Index 35.97 04/01/2021 3:31 PM EDT Plan of Treatment Health Maintenance Due Date Last Done Comments Hepatitis C Screening 1960 COVID-19 Vaccine (#1) 12/23/1963 Depression Screening 1970 BMI Counseling 1976 Preventative Health Evaluation 1976 DTap / Tdap / Td (1 - Tdap) 1977 Colon Cancer Screening (Colonoscopy) 12/23/2003 Pneumococcal Vaccine (2 of 2 - PCV) 09/18/2017 09/18/2016 Fall Risk Assessment 12/23/2023 Influenza Vaccine (#1) 2024 8, 06/01/2017, 06/26/2016 RSV Adult > 60+ Yrs or (1 - 1-dose 75+ series) 2033 Shingrix-Zoster Vaccine Completed 07/20/20 18, 05/18/2018 Hepatitis B Vaccines Aged Out No long er eligible based on patient's age to complete this topic RSV Ped < 20 months Aged Out No longe r eligible based on patient's age to complete this topic Care Teams Appraiser Land Relationship Specialty Start Date End Date Mati Richter MD [address] [place] [address] [address] [facility] [place] [address] PCP - General Internal Medicine 08/12/18
[2025-01-03 13:25] LABS: MANUAL DIFF FLAG NO
[2025-01-03 13:49] LABS: Basophils Absolute Auto 0.1 X10*3/uL (0.0-0.2); Basophils Percent Auto 0.9 % (0-2); Eosinophils Absolute Auto 0.2 X10*3/uL (0.0-0.4); Eosinophils Percent Auto 3.1 % (0-4); Hematocrit 35.4 % (42.0-52.0); Hemoglobin 12.1 g/dl (14.0-18.0); Imm Gran Abs Auto 0.05 X10*3/uL (0.00-0.03); Imm Gran Pct Auto 0.8 % (0.0-0.4); Immature Retic Fraction 29.4 % (2.3-13.4); Lymphocytes Absolute Auto 1.3 X10*3/uL (1.2-4.9); Mean Corpuscular HGB Conc 34.2 g/dl (31.0-36.0); Mean Corpuscular Hemoglobin 33.4 pg (27.0-33.0); Mean Corpuscular Volume 97.8 fL (80.0-98.0); Mean Platelet Volume 9.1 fL (9.4-12.4); Monocytes Absolute Auto 0.4 X10*3/uL (0.1-1.2); Monocytes Percent Auto 5.8 % (2-11); Neutrophils Absolute Auto 4.4 x10*3/uL (2.0-8.3); Neutrophils Percent Auto 68.4 % (45-73); Platelet Count 278 X10*3/uL (160-400); Red Blood Count 3.62 X10*6/uL (4.60-5.80); Red Cell Distribution Width 12.2 % (11.0-16.0); Retic HGB Equivalent 36.2 pg (30.0-35.0); Reticulocyte Percent 3.5 % (0.5-1.8); Reticulocytes Absolute 0.127 X10*6/uL (0.026-0.095); White Blood Count 6.4 X10*3/uL (4.8-10.8)
[2025-01-03 13:58] LABS: Estimated Average Glucose 94 mg/dL; Hemoglobin A1C 98.8375 umol/L; Hemoglobin A1c % 4.9 % (<6.0); Total Hemoglobin (HGBA1C) 3244.2658 umol/L
[2025-01-03 14:13] LABS: Alanine Aminotransferase 22 U/L (0-40); Albumin Level 4.5 g/dL (3.5-5.0); Alkaline Phosphatase 45 U/L (39-117); Anion Gap 12 (12-20); Aspartate Amino Transferase 28 U/L (5-37); Bilirubin Total 0.4 mg/dL (0.0-1.0); Blood Urea Nitrogen 13 mg/dL (9-16); Calcium 9.5 mg/dL (8.4-10.2); Carbon Dioxide 26 mmol/L (22-29); Chloride 102 mmol/L (96-108); Estimated Glomerular Filt Rate > 60; Glucose Random 119 mg/dL (60-115); Iron 95 mcg/dL (45-160); Percent Iron Saturation 34 % (15-50); Potassium 4.8 mmol/L (3.3-5.1); Sodium 135 mmol/L (135-145); Total Iron Binding Capacity 277 mcg/dL (228-428); Total Protein 7.3 g/dL (6.5-8.0); Unsaturated Iron Binding 182 ug/dL
[2025-01-03 14:16] LABS: Ferritin 366 ng/mL (20-250); Free T4 (Free Thyroxine) 0.89 ng/dL (0.71-1.85); Thyroid Stimulating Hormone 2.37 uIU/mL (0.32-4.0)
[2025-01-03 14:23] LABS: Folate 16.4 ng/mL (> or = 4.0); Vitamin B12 1173 pg/mL (200-900)
== END 2025-01-03 11:09 | disposition home or self-care (01) ==
LOC: HO.HMGCLDS 11:08
PROVIDERS: PCP Internal Medicine; Visit Provider Internal Medicine
DX: E11.65 Type 2 diabetes mellitus with hyperglycemia (principal)
CPT/HCPCS: 36415; 80053; 82607; 82728; 82746; 83036; 83540; 84439; 84443; 85025; 85045

== ENCOUNTER 2025-01-09 13:11 | Outpatient (AMB) | payer MEDICARE, SELFPAY ==
[2025-01-09 13:24] VITALS: BP 138/72; PULSE 92; O2SAT 96; BMI 32.4
--- NOTE | 2025-01-09 13:24 | MHC.PC.OV ---
Vital Signs 01/09/25 13:24 Height 6 ft Weight 239 lb BMI 32.4 BP 138/72 Blood Pressure Location Rt brachial Position Sitting Pulse 92 Pulse Source Pulse Oximeter Pulse Oximetry (%) 96 Oxygen Delivery Method Room Air Intake Visit Reasons: DM Allergies atorvastatin Allergy (Intermediate, Verified 01/09/25 13:24) Muscle cramps hydrochlorothiazide Allergy (Intermediate, Verified 01/09/25 13:24) advised to avoid metformin Allergy (Intermediate, Verified 01/09/25 13:24) Gastrointestinal Upset pembrolizumab [From Keytruda] Allergy (Intermediate, Verified 01/09/25 13:24) creatinine lisinopril Adverse Reaction (Intermediate, Verified 01/09/25 13:24) increase creatinine Medication List - Last Reconciled 01/09/25 by Mati Richter MD amlodipine 10 mg PO DAILY aspirin (Adult Aspirin Regimen) 81 mg PO DAILY blood sugar diagnostic (SPORT[employer] Verio test strips) 1 strip miscellaneous BID 90 days carbamazepine 400 mg (2 x 200 mg) PO BID diclofenac sodium 1% (Voltaren Arthritis Pain) 4 grams topical QID fenofibrate 160 mg PO DAILY 90 days glimepiride 4 mg PO BID 90 days lancets (Big Data PartnershipTouch Delica Plus Lancet) 33 gauge miscellaneous BID 90 days metoprolol tartrate 100 mg PO BID omeprazole 40 mg PO DAILY rosuvastatin 20 mg PO DAILY 90 days semaglutide (Ozempic) 2 mg (0.75 mL) subcut QWEEK sodium bicarbonate 650 mg PO BID tizanidine 4 mg PO Q8H PRN tramadol 100 mg (2 x 50 mg) PO TID PRN 90 days Tobacco use date assessed: 01/09/25 Fall risk assessment: No Falls in past year Last assessed Fall Risk: 01/09/25 Dental Screening Dental Screen Date: 01/09/25 Did you have a dental visit in the last 12 months?: Yes Did you have a dental problem in the last 6 months where you did not have access to dental care?: No Was dental information given to patient?: Patient has dentist [facility] Medical History (Updated 01/09/25 @ 14:04 by Mati Richter MD) CKD (chronic kidney disease) stage 3, GFR 30-59 ml/min Hypertension Type 2 diabetes mellitus with hyperglycemia Anxiety GERD (gastroesophageal reflux disease) Bile salt-induced diarrhea Obesity (BMI 30-39.9) Melanoma Seizures Hypercholesterolemia Coronary artery disease DDD (degenerative disc disease), lumbar Surgical History History of surgery History of excision of mass History of cholecystectomy History of intravascular stent placement History of umbilical hernia repair History of melanoma excision History of inguinal hernia repair Family History Father No problems noted. Mother Myocardial infarction Diabetes Hypertension CVD (cardiovascular disease) Son In good health Daughter In good health Social History (Updated 07/12/24 @ 13:38 by Mati Richter MD) Housing: Apartment Are you a primary family day carer to a significant other at home: No Do you presently have visiting nurse or other home services: No Alcohol intake: former Patient Tobacco Use Status: Former Tobacco user Tobacco use type: Cigarette Years Smoked: quit 1996 e-Cigarette/Vaping Use: Never Used Second Hand Smoke Exposure: No service: No Current occupational status: disabled Cognitive needs: No Hearing needs: No Vision needs: Yes Questionnaire PHQ-9 Over the last 2 weeks, how often have you been bothered by any of the following problems? 1. Little interest or pleasure in doing things: not at all 2. Feeling down, depressed, or hopeless: not at all 3. Trouble falling or staying asleep, or sleeping too much: not at all 4. Feeling tired or having little energy: several days 5. Poor appetite or overeating: not at all 6. Feeling bad about yourself - or that you are a failure or have let yourself or your family down: not at all 7. Trouble concentrating on things, such as reading the newspaper or watching television: not at all 8. Moving or speaking so slowly that other people could have noticed. Or the opposite - being so fidgety or restless that you have been moving around a lot more than usual: not at all 9. Thoughts that you would be better off or of hurting yourself in some way: not at all Total score: 1 Depression Screening Interpretation: Positive Depression Screening Done: Yes 81520 - PHQ-9 Billing: Yes Source: Developed by Drs. Juanito Barroso, Julia BBenny Shane and colleagues, with an educational micheal from [employer]. Thrive Questionnaire Date Thrive assessed: 01/09/25 I am a: Patient What is your living situation today?: I have a steady place to live Within the past 12 months, did the food you bought not last and you didn't have the money to get more?: Never true Within the past 12 months, did you worry whether your food would run out before you got money to buy more?: Never true Do you have trouble paying for medicines?: No Do you have trouble getting transportation to medical appointments?: No Do you have trouble paying your heating and electricity bill?: No Do you have trouble taking care of your child, family member or friend?: No Do you have trouble with day-to-day activities such as bathing, preparing meals, shopping, managing finances, etc.?: No Are you currently unemployed and looking for a job?: No Are you interested in more education?: No Please select the resources that you would like help with: None Currently or been in a relationship where the following occur: No concerns reported THRIVE Score: 0 AUDIT C Alcohol Use Questionnaire (AUDIT-C) 1. How often do you have a drink containing alcohol?: Never 3. How often do you have six or more drinks on one occasion?: Never Total Score: 0 NATALIE-7 AMB Questionnaire NATALIE-7 Date NATALIE - 7 assessed: 01/09/25 Feeling nervous, anxious, or on edge: 1 = Several days Not being able to stop or control worryin = Not at all Worrying too much about different things: 0 = Not at all Trouble relaxin = Not at all Being so restless that it is hard to sit still: 0 = Not at all Becoming easily annoyed or irritable: 0 = Not at all Feeling afraid as if something awful might happen: 0 = Not at all Total NATALIE-7 score (0-4 normal; 5-9 mild; 10-14 moderate; 15-21 severe): 1 Source: Developed by Drs. Juanito Barroso, Benny Rae and colleagues, with an educational micheal from [employer]. NATALIE-7 Assessment Billing NATALIE-7 Assessment Tool: NATALIE-7 Assessment 04262 Physical exam (Primary Care) Vital Signs: Last Vital Signs Pulse 92 05/06/25 13:24 BP 138/72 01/09/25 13:24 Pulse Ox 96 01/09/25 13:24 Oxygen Delivery Method Room Air 01/09/25 13:24 BMI result Body Mass Index 32.4 Tobacco/Smoking Status: Tobacco use Status Tobacco use date assessed 01/09/25 01/09/25 13:25 Patient Tobacco Use Status Former Tobacco user 01/09/25 13:25 Tobacco use type Cigarette 01/09/25 13:25 e-Cigarette/Vaping Use Never Used 01/09/25 13:25 PHQ-9: PHQ-9 Score PHQ-9: Total score 1 01/09/25 14:18 Depression Screening Interpretation: Positive Thrive Assessment: Date of Thrive Assessment Date Thrive assessed 01/09/25 01/09/25 13:25 Currently or been in a relationship where the following occur: No concerns reported Const General: alert; No acute distress Eyes Conjunctivae: conjunctivae normal Resp Auscultation: clear to auscultation bilaterally Cardio Rate: regular rate Rhythm: regular rhythm GI Inspection: Yes normal to inspection Extrem General: Yes normal to inspection and No edema Immunizations Tenivac (PF) 5 Lf unit-2 Lf unit/0.5 mL intramuscular suspension Performing Provider: Mati Richter MD [facility] Administered by: Mily Velazco CMA on 01/09/25 14:18 Dose Route Admin Location Dispensed Lot Number Expiration Date NDC Main Line Station Engineer 0.5 mL IM Left Deltoid 0.5 mL [id number] 11/04/26 29909-697-44 [employer] VIS Given Date VIS Provided VIS Publication Date 01/09/25 Single Vaccine 21 Eligibility Eligibility Date Funding Source Not [facility] Eligible 01/09/25 Private Coding Level of Care Code Est Pt Level 4 (77834) Complex EM visit Add On G2211 Diagnoses Essential hypertension I10 Hypertension type: essential hypertension Type 2 diabetes mellitus with hyperglycemia, without long-term current use of insulin E11.65 Diabetes mellitus marine oil terminal superintendent insulin use: without [facility] use Hypercholesterolemia E78.00 Coronary artery disease involving chitim[place] coronary artery of chitimacha heart without angina pectoris I25.10 Associated angina: without angina Coronary Disease-Associated Artery/Lesion type: chitimacha artery Lime vs. transplanted heart: chitimacha heart Obesity (BMI 30-39.9) E66.9 Gastroesophageal reflux disease without esophagitis K21.9 Esophagitis presence: without esophagitis Chronic kidney disease, stage II (mild) N18.2 Low back pain M54.50 Shoulder pain, right M25.511 Additional Codes NATALIE-7 Assessment Billing - NATALIE-7 Assessment Tool: NATALIE-7 Assessment 78151 ([id number]) PHQ-9 - 06039 - PHQ-9 Billing: Yes ([id number]) Assessment & Plan Assessment & Plan (1) Hypertension: Code(s): I10 - Essential (primary) hypertension Category: Medical Qualifiers: Hypertension type: essential hypertension Qualified Code(s): I10 - Essential (primary) hypertension Plan: Continue with blood pressure medication. Decrease salt intake and exercise on amlodipine 10 mg once a day metoprolol 100 mg twice a day (2) Type 2 diabetes mellitus with hyperglycemia: Comment: [facility] Code(s): E11.65 - Type 2 diabetes mellitus with hyperglycemia Category: Medical Qualifiers: Diabetes mellitus marine oil terminal superintendent insulin use: without marine oil terminal superintendent use Qualified Code(s): E11.65 - Type 2 diabetes mellitus with hyperglycemia Plan: Decrease the amount of carbohydrate intake, pasta, bread, rice and potatoes are all sugar and that is aside from all the sweet stuff, remember that fruits are good but they are Sweet also. Normal hemoglobin A1c hemoglobin A1c goal of less than 6.5 on glimepiride 4 mg twice a day Ozempic 2 mg once a week (3) Hypercholesterolemia: Code(s): E78.00 - Pure hypercholesterolemia, unspecified Category: Medical Plan: Avoid fried foods, chicken skin, eggs, butter margarine, pastries and meat. Be it pork or beef they have a lot of cholesterol on rosuvastatin 20 mg once a day (4) Coronary artery disease: Comment: PTCA RCA and OM 2002 occluded LAD diagonal Code(s): I25.10 - Atherosclerotic heart disease of chitimacha coronary artery without angina pectoris Category: Medical Qualifiers: Associated angina: without angina Coronary Disease-Associated Artery/Lesion type: chitim[place] artery Lime vs. transplanted heart: chitimacha heart Qualified Code(s): I25.10 - Atherosclerotic heart disease of chitimacha coronary artery without angina pectoris Plan: Control the cholesterol, weight, blood pressure, diabetes continue with aspirin 81 mg once a day (5) Obesity (BMI 30-39.9): Code(s): E66.9 - Obesity, unspecified Category: Medical Plan: Diet and exercise (6) GERD (gastroesophageal reflux disease): Code(s): K21.9 - Gastro-esophageal reflux disease without esophagitis Category: Medical Qualifiers: Esophagitis presence: without esophagitis Qualified Code(s): K21.9 - Gastro-esophageal reflux disease without esophagitis Plan: Avoid the foods that causes that usually spicy foods, tomato products, juices, coffee, soda and foods that your sensitive to. After eating do not lie down, allow 3-4 hours before in lie down. And keep the head of bed above 30 degrees to avoid the acid from going up. (7) Chronic kidney disease, stage II (mild): Code(s): N18.2 - Chronic kidney disease, stage 2 (mild) Category: Medical Plan: Keep well hydrated, avoid NSAIDs (8) Low back pain: Code(s): M54.50 - Low back pain, unspecified Category: Medical (9) Shoulder pain, right: Code(s): M25.511 - Pain in right shoulder Category: Medical Plan History of Present Illness The patient is a 64-year-old male presenting with a follow-up for chronic conditions including diabetes, hypertension, hypercholesterolemia, chronic kidney disease, and complaints of lower back and shoulder pain. He has a comprehensive medical history, including diabetes mellitus, GERD, seizures, hypercholesterolemia, coronary artery disease, hypertension, generalized anxiety disorder, and chronic kidney disease. Labs from December show stable anemia, normal platelet count, normal white blood cell count, normal electrolytes, and stable renal function. LDL cholesterol is well-controlled at 43 mg/dL as of May. Recent blood glucose was 119 mg/dL with normal hemoglobin A1c. He reports chronic lower back pain without specific history of trauma, and shoulder pain with some radiation into the arms. He is unsure about recent imaging for these pains. No alarming neurological signs were mentioned. Gastrointestinal and blood sugar control appears stable with existing medications. Dietary limitations due to financial constraints were noted, impacting his red meat consumption. Health Maintenance - Colonoscopy last done in 2021. - Blood pressure management: Amlodipine 10 mg once daily; Metoprolol 100 mg twice daily. - Diabetes management: Glimepiride 4 mg twice daily; Ozempic 2 mg weekly with an A1c goal of less than 6.5. - Cholesterol management: Rosuvastatin 20 mg daily. - CAD management: Aspirin 81 mg daily; emphasis on diet and exercise. - Adequate hydration and GERD management: Avoid NSAIDs. Social History - Financial constraints impacting dietary choices, limiting red meat intake. - Reports eating chicken and pork, avoids red meat due to financial limitations. - Not currently on any multivitamins due to lack of necessity and external supplements available. Review of Systems - Musculoskeletal: Reports lower back and shoulder pain with radiation into the arms. - Gastrointestinal: Denies any new or alarming symptoms; GERD known and managed. - Hematologic: Denies new symptoms regarding anemia; chronic anemia identified as stable. - Endocrine: Reports stable blood sugar levels; denies symptoms of hypoglycemia. - Psychiatric: Denies new or worsening symptoms of anxiety disorder. Physical Exam Results - Labs: - LDL cholesterol at 43 mg/dL (May 2024) - Blood glucose at 119 mg/dL (most recent) - Hemoglobin A1c within normal range - Stable anemia with normal platelet and white blood cell counts - Normal electrolytes and stable kidney function Plan The patient's glucose and cholesterol management remain on track with existing medication regimens focusing on maintaining target levels. Current blood pressure management with amlodipine and metoprolol continues effectively. Emphasis on maintaining current non-invasive management strategies for GERD and coronary artery disease remains with hydration and aspirin. Consideration is given to imaging studies for musculoskeletal complaints to assess any degenerative disease. Dietary options discussed concerning financial limitations impacting food choices, as well as addressing stable chronic anemia without further intervention unless changes occur. Patient was informed and verbally consented to the use of an ambient scribe for clinic note documentation during this visit. Discussion Notes I discussed with the patient the importance of maintaining control over his chronic conditions. We covered the rationale for his current medication regimen and reiterated the benefits and minor risks involved with his treatments, such as potential side effects of ozempic, glimepiride, and other medications involved in his care. Alternatives like Mounjaro were mentioned should weight management concerns persist with Ozempic. The patient understands the importance of routine monitoring and will schedule imaging when convenient to evaluate his musculoskeletal complaints. We emphasized adequate hydration, especially around NSAID avoidance for GERD management. Finally, he is aware of the importance of consistent dietary habits to mitigate anemia symptoms and agreed upon the provided instructions. Follow-up initiatives were scheduled according to routine care intervals for ongoing evaluation of his chronic conditions. Patient Instructions - Continue with current medications for blood pressure, cholesterol, and diabetes. - Maintain hydration and avoid NSAIDs to manage GERD. - Schedule imaging for lower back and shoulder when possible. - Monitor blood sugar levels and follow dietary recommendations. - Report any worsening of pain or new symptoms. - Seek follow-up for routine care and reevaluation of conditions. Orders: Orders Comprehensive Met. Panel 6 Months . - Type 2 diabetes mellitus with hyperglycemia Free T4 (Free Thyroxine) 6 Months . - Type 2 diabetes mellitus with hyperglycemia Vitamin B12 and Folate 6 Months . - Type 2 diabetes mellitus with hyperglycemia Microalbumin, Random (w Creat) 6 Months . - Type 2 diabetes mellitus with hyperglycemia Td Immunization Today Z23 - Encounter for immunization Complete Blood Count Auto Diff 6 Months . - Type 2 diabetes mellitus with hyperglycemia Thyroid Stimulating Hormone 6 Months . - Type 2 diabetes mellitus with hyperglycemia Prostate Specific Antigen Scr 6 Months . - Type 2 diabetes mellitus with hyperglycemia Lipid Panel 6 Months . - Type 2 diabetes mellitus with hyperglycemia, E78.00 - Pure hypercholesterolemia, unspecified Creatinine Urine 6 Months . - Type 2 diabetes mellitus with hyperglycemia Hemoglobin A1c 6 Months . - Type 2 diabetes mellitus with hyperglycemia XR lumbar spine 2-3V Today M54.50 - Low back pain, unspecified XR shoulder RT min 2V Today M25.511 - Pain in right shoulder Medications: Refilled semaglutide (Ozempic) administer 0.25 mg once weekly x 4 weeks; increase dose to 0.5 mg once weekly after 4 weeks 2 mg (0.75 mL) subcut QWEEK 3 mL 3RF . - Type 2 diabetes mellitus with hyperglycemia glimepiride 4 mg PO BID 180 tabs 2RF 90 days - Type 2 diabetes mellitus with hyperglycemia blood sugar diagnostic ([employer] Verio test strips) 1 strip miscellaneous BID 100 ea 3RF 90 days . - Type 2 diabetes mellitus with hyperglycemia
--- OUTSIDE RECORDS SUMMARY | 2025-01-09 14:23 | XMS_ITS | Clinical Summary ---
Author Organization [facility] Address [address] [place] [address] Phone Care Team Providers Care Survey Data Technician Name Role Phone Mati Richter MD Primary Care Provider [phone] Allergies Active Allergy Reactions Criticality Noted Date [...] day 3 Active Lancets (OneTouch Delica Plus [id number]) [facility] USE TO TEST TWICE DAILY DIRECTED 3 [...] artery 05/22/2019 Overview (01/26/2021): Overview: S/p Old PA and stent Gastroesophageal reflux disease 05/22/2019 H/O [...] Visit [facility] [address] [phone] Jeromy Mancia MD [address] [phone] Health Maintenance Due Date Last Done Comments [...] topic Insurance [employer] [place] [id number] [employer] Care Teams Survey Data Technician Relationship Specialty Start Date End Date Mati Richter MD [address] [place] PCP - General 09/16/20
--- OUTSIDE RECORDS SUMMARY | 2025-01-09 14:23 | XMS_ITS | Patient Health Record ---
Author Organization [facility] Address [address] [place] [address] Care Team Providers Care Practice Office Associate Name Role Phone Po Mati MATA Primary Care Provider Juanito Hart [phone] Allergies No Known Allergies Reason For Referral No Information Medications Medication SIG (Take, Route, Frequency, Duration) Notes Start Date End Date Status Januvia 100 MG 1 tablet Orally Once a day Active Lisinopril Active Metoprolol Tartrate 100 MG as directed O rally Twice a day Active traMADol HCl 50 MG 1 tablet as needed Orally Once a day Active amLODIPine Besy-Benazepril HCl 5-10 MG as directed Orally Active carBAMazepine ER 400 MG 1 tablet Orally Twice a day for 30 day(s) Active Lancets - as directed Active Glimepiride 4 MG 1 tablet with breakf ast or the first main meal of the day Orally Once a day Active One Touch/One Touch II Starter - as directed In Vitro Active FreeStyle Lite Activ e Omeprazole 40 MG 1 capsule 30 minutes before morning meal Orally Once a day for 30 day(s) Active Motrin Active Sodium Bicarbonate 650 MG as directed Orally Active TEGretol Active Rosuvastatin Calcium 20 MG 1 tablet Oral ly Once a day for 30 day(s) Active Aspirin 81 MG 1 tablet Orally Active tiZANidine HCl 4 MG 1 tablet as needed Orally Three times a day Active Immunizations Vaccine Route Administration Date Status Comme nts Influenza Unknown 07/23/2021 Administered Problems Problem Type SNOMED Code ICD Code Onset Dates Problem Status W/U Status Risk Notes Problem 580856948 Encounter for screening for malignant neoplasm of colon (Z12.11) Active confirmed Problem 656477348 History of adenomatous polyp of colon (Z86.010) Active confirmed Problem Screening for malignant neoplasm of rectum (477115874) Encounter for screening for malignant neoplasm of rectum (Z12.12) Active confirmed Problem 95861211 Abdominal pain, epigastric (R10.13) Active confirmed Problem History of polyp of colon (103027403) History of colon polyps (Z86.010) Active confirmed Problem 455721670 Gastroesophageal reflux disease, esophagitis presence not specified (K21.9) Active confirmed Problem Diverticulosis of colon (176443523) Diverticulosis of colon (K57.30) Active confirmed Plan Of Treatment Future Test Test Name Order Date UPPER GI ENDOSCOPY 10/08/2015 COLONOSCOPY 10/08/2015 COLONOSCOPY 01/07/2022 Insurance Providers Payer Name Payer Address Payer Phone Subscriber Number Group Number Insured Name Patient Relationship to Insured Coverage Start Date Coverage End Date [place] [employer] [facility] [address] [place] [phone] [id number] [employer] Self - patient is the insured Medical (General) History Medical History History ICD Code NIDDM [place] approx 2003 with 3 stents--no problem s since Melanoma--on the back--surgery as below Hyperlipidemia HTN Denies CVA,Lung disease,renal disease Seizures Colonoscopy 12/2015-multiple tubular kavitha omas removed EGD in 12/2015 with a minimal hiatal ashley ia, no esophagitis, no 's Surgical History Surgery Date(Month/Year) Melanoma with lymph nodes removed from l eft axilla 2009 Hernia-umbilical, abdominal wal [facility]
--- OUTSIDE RECORDS SUMMARY | 2025-01-09 14:23 | XMS_ITS | Clinical Summary ---
Author Organization [facility] it Address [address] [place] [address] Care Team Providers Care Master Yacht Name Role Phone Mati Richter MD Primary Care Provider [phone] Surgical History Surgery Date Site/Laterality Comments CHOLECYSTECTOMY PROCEDURE: [place] CHOLECYSTECTOMY OTHER SURGICAL HISTORY 05/15/2019 Left PROCEDURE: [...] :CAD (coronary artery disease); COMMENT: S/p Old ND and stent Secondary malignant neoplasm of skin [...] age to complete this topic Care Teams Master Yacht Relationship Specialty Start Date End Date Mati Richter MD [address] [place] [address] [address] [facility] [place] [address] PCP - General Internal Medicine 04/06/19
--- OUTSIDE RECORDS SUMMARY | 2025-01-09 14:23 | XMS_ITS | Clinical Summary ---
Author Organization [facility] Address [address] [place] [address] Care Team Providers Care Manager Strategic Name Role Phone Po, Mati Ramon MD Primary Care Provider [phone] Allergies Active Allergy Reactions Criticality Noted Date [...] angina pectoris 05/22/2019 Overview: Overview: S/p Old SC and stent Chronic neck and back pain [...] age to complete this topic Care Teams Manager Strategic Relationship Specialty Start Date End Date Mati Richter MD [address] [place] [address] [address] [facility] [place] [address] PCP - General Internal Medicine 08/12/18
== END 2025-01-09 14:26 | disposition home or self-care (01) ==
LOC: HO.HMCH 13:11
PROVIDERS: PCP Internal Medicine; Visit Provider Internal Medicine
DX: I12.9 Hypertensive chronic kidney disease with stage 1 through stage 4 chronic kidney disease, or unspecified chronic kidney disease (principal); E11.65 Type 2 diabetes mellitus with hyperglycemia; E66.9 Obesity, unspecified; Z68.32 Body mass index [BMI] 32.0-32.9, adult; N18.2 Chronic kidney disease, stage 2 (mild); E78.00 Pure hypercholesterolemia, unspecified; I25.10 Atherosclerotic heart disease of native coronary artery without angina pectoris; K21.9 Gastro-esophageal reflux disease without esophagitis; M54.50 Low back pain, unspecified; M25.511 Pain in right shoulder; Z23 Encounter for immunization

== ENCOUNTER → 2025-01-09 13:11 | Outpatient (BNVA) | payer MEDICARE, SELFPAY | PROVIDERS: PCP Internal Medicine; Visit Provider Internal Medicine | DX: E11.65 Type 2 diabetes mellitus with hyperglycemia (principal); Z23 Encounter for immunization; I12.9 Hypertensive chronic kidney disease with stage 1 through stage 4 chronic kidney disease, or unspecified chronic kidney disease; E11.22 Type 2 diabetes mellitus with diabetic chronic kidney disease; N18.2 Chronic kidney disease, stage 2 (mild); E78.00 Pure hypercholesterolemia, unspecified; I25.10 Atherosclerotic heart disease of native coronary artery without angina pectoris; E66.9 Obesity, unspecified; K21.9 Gastro-esophageal reflux disease without esophagitis; M54.50 Low back pain, unspecified; M25.511 Pain in right shoulder; Z79.82 Long term (current) use of aspirin; Z79.899 Other long term (current) drug therapy | CPT/HCPCS: 90471; 90714; 96127; 99212 ==

== ENCOUNTER 2025-01-12 13:22 | Outpatient (REF) | payer MEDICARE, SELFPAY ==
--- NOTE | ~2025-01-12 | XR_ITS ---
EXAMINATION: XR SHOULDER, RIGHT CLINICAL INFORMATION: M25.511 - Pain in right shoulder COMPARISON: None available. TECHNIQUE: AP external rotation, Grashey, scapular Y, and axillary views of the right shoulder. FINDINGS: No acute cortical disruption or malalignment. Well-corticated calcifications at the supraspinatus tendon insertion. Degenerative changes in the acromion clavicular joint. Vascular clips overlapping the right axillary region. XR/XR shoulder RT min 2V IMPRESSION: Tendinosis versus tendinopathy, supraspinatus. Electronically signed by: Jimmie Lugo MD 01/12/2025 02:04 PM EDT
--- NOTE | ~2025-01-12 | XR_ITS ---
EXAMINATION: XR LUMBOSACRAL SPINE CLINICAL INFORMATION: M54.50 - Low back pain, unspecified COMPARISON: March 29, 2017. TECHNIQUE: Three views of the lumbosacral spine. FINDINGS: Syndesmophyte formation and to the right L5-S1 and to the left L2-3. Multilevel endplate sclerosis and marginal osteophyte formation throughout the thoracic and lumbar spine with decreased intervertebral disc height. Multilevel marginal osteophyte formation lower thoracic spine. No acute cortical disruption or malalignment. Vascular complications, aorta. Vascular clips in the right upper quadrant abdomen. XR/XR lumbar spine 2-3V IMPRESSION: Multilevel thoracolumbar spondylosis without acute fracture or listhesis. Atherosclerosis disease, aorta. Prior cholecystectomy. Electronically signed by: Jimmie Lugo MD 01/12/2025 02:04 PM EDT
--- OUTSIDE RECORDS SUMMARY | 2025-01-12 13:26 | XMS_ITS | Patient Health Record ---
Author Organization [facility] Address [address] [place] [address] Care Team Providers Care Prizer Hand Name Role Phone Po Mati MATA Primary Care Provider Juanito Hart [phone] Allergies No Known Allergies Reason For Referral [...] Problem Status W/U Status Risk Notes Problem [id number] Encounter for screening for malignant neoplasm of colon (Z12.11) Active confirmed Problem 923483730 History of adenomatous polyp of colon (Z86.010) Active confirmed Problem Screening for malignant neoplasm of rectum (886674210) Encounter for screening for malignant neoplasm of rectum (Z12.12) Active confirmed Problem 93901008 Abdominal pain, epigastric (R10.13) Active confirmed Problem History of polyp of colon (059179402) History of colon polyps (Z86.010) Active confirmed Problem 111363778 Gastroesophageal reflux disease, esophagitis presence not specified (K21.9) Active confirmed Problem Diverticulosis of colon (341049473) Diverticulosis of colon (K57.30) Active confirmed Plan Of Treatment Future Test Test Name Order Date UPPER GI ENDOSCOPY 10/08/2015 COLONOSCOPY 10/08/2015 COLONOSCOPY 01/07/2022 Insurance Providers Payer Name Payer Address Payer Phone Subscriber Number Group Number Insured Name Patient Relationship to Insured Coverage Start Date Coverage End Date [employer] [facility] [address] [place] [phone] [id number] EVANS LR Self - patient is the insured Medical (General) History Medical History History ICD Code NIDDM SD approx 2003 with 3 stents--no problem s [...]
--- OUTSIDE RECORDS SUMMARY | 2025-01-12 13:27 | XMS_ITS | Clinical Summary ---
Author Organization [facility] Address [address] [place] [address] Phone Care Team Providers Care Photo Tech Name Role Phone Mati Richter MD Primary Care Provider [phone] Allergies Active Allergy Reactions Criticality Noted Date [...] day 3 Active Lancets (OneTouch Delica Plus [id number]) [facility] USE TO TEST TWICE DAILY [...] artery 05/22/2019 Overview (01/26/2021): Overview: S/p Old [place] and stent Gastroesophageal reflux disease 05/22/2019 H/O [...] Visit [facility] [address] [phone] Jeromy Mancia MD [address] [phone] Health Maintenance Due Date Last Done Comments [...] topic Insurance [employer] [place] [id number] [employer] Care Teams Photo Tech Relationship Specialty Start Date End Date Mati Richter MD [address] [place] PCP - General 09/16/20
--- OUTSIDE RECORDS SUMMARY | 2025-01-12 13:27 | XMS_ITS | Clinical Summary ---
Author Organization [facility] Address [address] [place] [address] Care Team Providers Care Industrial Roofer Name Role Phone Po, Mati Ramon MD Primary Care Provider [phone] Allergies Active Allergy Reactions Criticality Noted Date [...] angina pectoris 05/22/2019 Overview: Overview: S/p Old [place] and stent Chronic neck and back pain [...] age to complete this topic Care Teams Industrial Roofer Relationship Specialty Start Date End Date Mati Richter MD [address] [place] [address] [address] [facility] [place] [address] PCP - General Internal Medicine 08/12/18
== END 2025-01-12 13:23 | disposition home or self-care (01) ==
LOC: HO.XRAY 13:22
PROVIDERS: Visit Provider Internal Medicine
DX: M54.50 Low back pain, unspecified (principal); M25.511 Pain in right shoulder
CPT/HCPCS: 72100; 73030

== ENCOUNTER → 2025-01-12 13:27 | Outpatient (BNV) | payer MEDICARE, SELFPAY | PROVIDERS: Visit Provider Radiology Diagnostic Radiology | DX: M47.815 Spondylosis without myelopathy or radiculopathy, thoracolumbar region (principal); I70.0 Atherosclerosis of aorta; M25.511 Pain in right shoulder | CPT/HCPCS: 72100; 73030 ==

== ENCOUNTER 2025-02-13 14:41 | Outpatient (REF) | payer MEDICARE, SELFPAY ==
--- NOTE | ~2025-02-13 | XR_ITS ---
EXAMINATION: XR CHEST CLINICAL INFORMATION: R06.02 - Shortness of breath COMPARISON: March 27, 2022. TECHNIQUE: 2 views of the chest were obtained. FINDINGS: No consolidation, pleural effusion or pneumothorax. Cardiomediastinal silhouette size is normal. Multilevel thoracic spondylosis. Mild S-shaped curvature of the thoracic spine. Vascular clips in the both axillary regions and lateral aspect of the upper breast shadow. Metallic ring in the left nipple areolar region. XR/XR chest 2V IMPRESSION: No acute airspace disease. Stable chest. Electronically signed by: Jimmie Lugo MD 02/14/2025 07:10 AM EDT
[2025-02-13 16:06] LABS: MANUAL DIFF FLAG NO
[2025-02-13 16:36] LABS: Basophils Absolute Auto 0.1 X10*3/uL (0.0-0.2); Basophils Percent Auto 0.6 % (0-2); Eosinophils Absolute Auto 0.4 X10*3/uL (0.0-0.4); Eosinophils Percent Auto 2.4 % (0-4); Hematocrit 30.7 % (42.0-52.0); Hemoglobin 10.1 g/dl (14.0-18.0); Imm Gran Abs Auto 0.11 X10*3/uL (0.00-0.03); Imm Gran Pct Auto 0.8 % (0.0-0.4); Mean Corpuscular HGB Conc 32.9 g/dl (31.0-36.0); Mean Corpuscular Hemoglobin 31.6 pg (27.0-33.0); Mean Corpuscular Volume 95.9 fL (80.0-98.0); Mean Platelet Volume 9.1 fL (9.4-12.4); Monocytes Absolute Auto 0.6 X10*3/uL (0.1-1.2); Monocytes Percent Auto 4.2 % (2-11); Neutrophils Absolute Auto 12.2 x10*3/uL (2.0-8.3); Platelet Count 301 X10*3/uL (160-400); Red Cell Distribution Width 12.3 % (11.0-16.0); White Blood Count 14.4 X10*3/uL (4.8-10.8)
[2025-02-13 16:42] LABS: Appearance Urine Clear; Color Urine Dark Yellow; Glucose Urine UA 250 mg/dL (Negative); Leukocyte Esterase Urine Negative (Negative); Nitrite Urine Negative (Negative); PH 6.5 (5.0-9.0); Specific Gravity - Urine 1.025 (1.005-1.025); Urine Blood Negative (Negative); Urine Ketones Trace mg/dL (Negative); Urine Protein Trace mg/dL (Neg-Trace)
[2025-02-13 16:54] LABS: Creatinine Urine 142.85 mg/dL
[2025-02-13 17:07] LABS: Alanine Aminotransferase 28 U/L (0-40); Albumin Level 3.9 g/dL (3.5-5.0); Alkaline Phosphatase 85 U/L (39-117); Anion Gap 8 (12-20); Aspartate Amino Transferase 38 U/L (5-37); Bilirubin Total 0.4 mg/dL (0.0-1.0); Blood Urea Nitrogen 11 mg/dL (9-16); C Reactive Protein 15.48 mg/dL (< or = 0.50); Calcium 9.2 mg/dL (8.4-10.2); Carbon Dioxide 28 mmol/L (22-29); Chloride 105 mmol/L (96-108); Estimated Glomerular Filt Rate > 60; Glucose Random 156 mg/dL (60-115); Magnesium 2.1 mg/dL (1.6-2.6); Phosphorus 1.1 mg/dL (2.7-4.5); Sodium 137 mmol/L (135-145); Total Protein 7.6 g/dL (6.5-8.0)
[2025-02-13 17:21] LABS: Free T4 (Free Thyroxine) 1.05 ng/dL (0.71-1.85)
[2025-02-13 17:26] LABS: Erythrocyte Sedimentation Rate 117 MM/HR (0-15)
[2025-02-13 18:34] LABS: Amylase 60 U/L (28-100); Lipase 42 U/L (8-78)
== END 2025-02-13 14:42 | disposition home or self-care (01) ==
LOC: HO.XRAY 14:41
PROVIDERS: PCP Internal Medicine; Visit Provider Internal Medicine
DX: M54.50 Low back pain, unspecified (principal); M25.511 Pain in right shoulder; E11.65 Type 2 diabetes mellitus with hyperglycemia; I12.9 Hypertensive chronic kidney disease with stage 1 through stage 4 chronic kidney disease, or unspecified chronic kidney disease; N18.2 Chronic kidney disease, stage 2 (mild); K21.9 Gastro-esophageal reflux disease without esophagitis; E66.9 Obesity, unspecified; Z68.31 Body mass index [BMI] 31.0-31.9, adult; I25.10 Atherosclerotic heart disease of native coronary artery without angina pectoris; E78.00 Pure hypercholesterolemia, unspecified; R06.02 Shortness of breath; R30.0 Dysuria; Z79.82 Long term (current) use of aspirin; Z79.899 Other long term (current) drug therapy
CPT/HCPCS: 36415; 71046; 80053; 81003; 82150; 82550; 82570; 83690; 83735; 84100; 84439; 85025; 85652; 86140; 96127; 99212

== ENCOUNTER 2025-02-13 14:41 | Outpatient (AMB) | payer MEDICARE, SELFPAY ==
[2025-02-13 14:45] VITALS: BP 144/68; PULSE 85; TEMP 36.2; O2SAT 98; BMI 31.1
--- NOTE | 2025-02-13 14:45 | MHC.PC.OV ---
Vital Signs 02/13/25 14:45 Height 6 ft Weight 229 lb 8 oz BMI 31.1 BP 144/68 H Blood Pressure Location Lt brachial Position Sitting Pulse 85 Pulse Source Pulse Oximeter Temp 97.1 F Temp Source Temporal Artery Scan Pulse Oximetry (%) 98 Oxygen Delivery Method Room Air Intake Visit Reasons: stomach pain not much of an appetite Director Talent Acquisition Required: No Accompanied by: Spouse Allergies atorvastatin Allergy (Intermediate, Verified 02/13/25 14:59) Muscle cramps hydrochlorothiazide Allergy (Intermediate, Verified 02/13/25 14:59) advised to avoid metformin Allergy (Intermediate, Verified 02/13/25 14:59) Gastrointestinal Upset pembrolizumab [From Keytruda] Allergy (Intermediate, Verified 02/13/25 14:59) creatinine lisinopril Adverse Reaction (Intermediate, Verified 02/13/25 14:59) increase creatinine Medication List - Last Reconciled 02/13/25 by Mati Richter MD amlodipine 10 mg PO DAILY aspirin (Adult Aspirin Regimen) 81 mg PO DAILY blood sugar diagnostic ([employer] Verio test strips) 1 strip miscellaneous BID 90 days carbamazepine 400 mg (2 x 200 mg) PO BID diclofenac sodium 1% (Voltaren Arthritis Pain) 4 grams topical QID fenofibrate 160 mg PO DAILY 90 days glimepiride 4 mg PO BID 90 days lancets ([employer] Delica Plus Lancet) 33 gauge miscellaneous BID 90 days metoprolol tartrate 100 mg PO BID omeprazole 40 mg PO DAILY rosuvastatin 20 mg PO DAILY 90 days semaglutide (Ozempic) 2 mg (0.75 mL) subcut QWEEK sodium bicarbonate 650 mg PO BID tizanidine 4 mg PO Q8H PRN tramadol 100 mg (2 x 50 mg) PO TID PRN 90 days Tobacco use date assessed: 02/13/25 Fall risk assessment: No Falls in past year Last assessed Fall Risk: 02/13/25 Dental Screening Dental Screen Date: 02/13/25 Did you have a dental visit in the last 12 months?: No Did you have a dental problem in the last 6 months where you did not have access to dental care?: No Was dental information given to patient?: No (No teeth) PFSH Medical History CKD (chronic kidney disease) stage 3, GFR 30-59 ml/min Hypertension Type 2 diabetes mellitus with hyperglycemia Anxiety GERD (gastroesophageal reflux disease) Bile salt-induced diarrhea Obesity (BMI 30-39.9) Melanoma Seizures Hypercholesterolemia Coronary artery disease DDD (degenerative disc disease), lumbar Surgical History History of surgery History of excision of mass History of cholecystectomy History of intravascular stent placement History of umbilical hernia repair History of melanoma excision History of inguinal hernia repair Family History Father No problems noted. Mother Myocardial infarction Diabetes Hypertension CVD (cardiovascular disease) Son In good health Daughter In good health Social History Housing: Apartment Are you a primary daycare assistant to a significant other at home: No Do you presently have visiting nurse or other home services: No Alcohol intake: former Patient Tobacco Use Status: Former Tobacco user Tobacco use type: Cigarette Years Smoked: quit 1996 e-Cigarette/Vaping Use: Never Used Second Hand Smoke Exposure: No service: No Current occupational status: disabled Cognitive needs: No Hearing needs: No Vision needs: Yes Questionnaire PHQ-9 Over the last 2 weeks, how often have you been bothered by any of the following problems? 1. Little interest or pleasure in doing things: not at all 2. Feeling down, depressed, or hopeless: not at all 3. Trouble falling or staying asleep, or sleeping too much: not at all 4. Feeling tired or having little energy: several days 5. Poor appetite or overeating: not at all 6. Feeling bad about yourself - or that you are a failure or have let yourself or your family down: not at all 7. Trouble concentrating on things, such as reading the newspaper or watching television: not at all 8. Moving or speaking so slowly that other people could have noticed. Or the opposite - being so fidgety or restless that you have been moving around a lot more than usual: not at all 9. Thoughts that you would be better off or of hurting yourself in some way: not at all Total score: 1 Depression Screening Interpretation: Negative Depression Screening Done: Yes 01861 - PHQ-9 Billing: Yes Source: Developed by Drs. Juanito Barroso, Benny Rae and colleagues, with an educational micheal from [employer]. Thrive Questionnaire Date Thrive assessed: 02/13/25 I am a: Patient What is your living situation today?: I have a steady place to live Within the past 12 months, did the food you bought not last and you didn't have the money to get more?: Never true Within the past 12 months, did you worry whether your food would run out before you got money to buy more?: Never true Do you have trouble paying for medicines?: No Do you have trouble getting transportation to medical appointments?: No Do you have trouble paying your heating and electricity bill?: No Do you have trouble taking care of your child, family member or friend?: No Do you have trouble with day-to-day activities such as bathing, preparing meals, shopping, managing finances, etc.?: No Are you currently unemployed and looking for a job?: No Are you interested in more education?: No Please select the resources that you would like help with: None Currently or been in a relationship where the following occur: No concerns reported THRIVE Score: 0 AUDIT C Alcohol Use Questionnaire (AUDIT-C) 1. How often do you have a drink containing alcohol?: Never 3. How often do you have six or more drinks on one occasion?: Never Total Score: 0 NATALIE-7 AMB Questionnaire NATALIE-7 Date NATALIE - 7 assessed: 01/09/25 Feeling nervous, anxious, or on edge: 1 = Several days Not being able to stop or control worryin = Not at all Worrying too much about different things: 0 = Not at all Trouble relaxin = Not at all Being so restless that it is hard to sit still: 0 = Not at all Becoming easily annoyed or irritable: 0 = Not at all Feeling afraid as if something awful might happen: 0 = Not at all Total NATALIE-7 score (0-4 normal; 5-9 mild; 10-14 moderate; 15-21 severe): 1 Source: Developed by Drs. Juanito Barroso, Benny Rae and colleagues, with an educational micheal from [employer]. NATALIE-7 Assessment Billing NATALIE-7 Assessment Tool: NATALIE-7 Assessment 08030 Physical exam (Primary Care) Vital Signs: Last Vital Signs Temp 97.1 F 02/13/25 14:45 Pulse 85 02/13/25 14:45 BP 144/68 H 02/13/25 14:45 Pulse Ox 98 02/13/25 14:45 Oxygen Delivery Method Room Air 02/13/25 14:45 BMI result Body Mass Index 31.1 Tobacco/Smoking Status: Tobacco use Status Tobacco use date assessed 02/13/25 02/13/25 14:46 Patient Tobacco Use Status Former Tobacco user 02/13/25 14:46 Tobacco use type Cigarette 02/13/25 14:46 e-Cigarette/Vaping Use Never Used 02/13/25 14:46 PHQ-9: PHQ-9 Score PHQ-9: Total score 1 02/13/25 15:27 Depression Screening Interpretation: Negative Thrive Assessment: Date of Thrive Assessment Date Thrive assessed 02/13/25 02/13/25 15:02 Currently or been in a relationship where the following occur: No concerns reported Const General: alert; No acute distress Eyes Conjunctivae: conjunctivae normal Resp Auscultation: clear to auscultation bilaterally Cardio Rate: regular rate Rhythm: regular rhythm GI Inspection: Yes normal to inspection Extrem General: Yes normal to inspection and No edema Coding Level of Care Code Est Pt Level 4 (98581) Complex EM visit Add On G2211 Diagnoses Low back pain M54.50 Shoulder pain, right M25.511 Type 2 diabetes mellitus with hyperglycemia, without long-term current use of insulin E11.65 Diabetes mellitus exterminator insulin use: without care home use Essential hypertension I10 Hypertension type: essential hypertension Gastroesophageal reflux disease without esophagitis K21.9 Esophagitis presence: without esophagitis Obesity (BMI 30-39.9) E66.9 Coronary artery disease involving [place] coronary artery of [place] heart without angina pectoris I25.10 Associated angina: without angina Coronary Disease-Associated Artery/Lesion type: [place] artery [place] vs. transplanted heart: [place] heart Hypercholesterolemia E78.00 SOB (shortness of breath) R06.02 Additional Codes NATALIE-7 Assessment Billing - NATALIE-7 Assessment Tool: NATALIE-7 Assessment 91284 ([id number]) PHQ-9 - 82959 - PHQ-9 Billing: Yes ([id number]) Assessment & Plan Assessment & Plan (1) Low back pain: Code(s): M54.50 - Low back pain, unspecified Category: Medical Plan: About keeping active and losing the weight (2) Shoulder pain, right: Code(s): M25.511 - Pain in right shoulder Category: Medical Plan: X-ray results showing tendinosis (3) Type 2 diabetes mellitus with hyperglycemia: Comment: [facility] Code(s): E11.65 - Type 2 diabetes mellitus with hyperglycemia Category: Medical Qualifiers: Diabetes mellitus care home insulin use: without care home use Qualified Code(s): E11.65 - Type 2 diabetes mellitus with hyperglycemia Plan: Decrease the amount of carbohydrate intake, pasta, bread, rice and potatoes are all sugar and that is aside from all the sweet stuff, remember that fruits are good but they are Sweet also. On glimepiride 4 mg twice a day Ozempic 2 mg once a week (4) Hypertension: Code(s): I10 - Essential (primary) hypertension Category: Medical Qualifiers: Hypertension type: essential hypertension Qualified Code(s): I10 - Essential (primary) hypertension Plan: Continue with blood pressure medication. Decrease salt intake and exercise on metoprolol 100 mg twice a day amlodipine 10 mg once a day (5) GERD (gastroesophageal reflux disease): Code(s): K21.9 - Gastro-esophageal reflux disease without esophagitis Category: Medical Qualifiers: Esophagitis presence: without esophagitis Qualified Code(s): K21.9 - Gastro-esophageal reflux disease without esophagitis Plan: Avoid the foods that causes that usually spicy foods, tomato products, juices, coffee, soda and foods that your sensitive to. After eating do not lie down, allow 3-4 hours before in lie down. And keep the head of bed above 30 degrees to avoid the acid from going up. (6) Obesity (BMI 30-39.9): Code(s): E66.9 - Obesity, unspecified Category: Medical Plan: Diet and exercise (7) Coronary artery disease: Comment: PTCA RCA and OM 2002 occluded LAD diagonal Code(s): I25.10 - Atherosclerotic heart disease of [place] coronary artery without angina pectoris Category: Medical Qualifiers: Associated angina: without angina Coronary Disease-Associated Artery/Lesion type: [place] artery [place] vs. transplanted heart: [place] heart Qualified Code(s): I25.10 - Atherosclerotic heart disease of [place] coronary artery without angina pectoris Plan: Control the cholesterol, weight, blood pressure, diabetes on aspirin 81 mg once a day (8) Hypercholesterolemia: Code(s): E78.00 - Pure hypercholesterolemia, unspecified Category: Medical Plan: Avoid fried foods, chicken skin, eggs, butter margarine, pastries and meat. Be it pork or beef they have a lot of cholesterol on rosuvastatin 20 mg once a day (9) SOB (shortness of breath): Code(s): R06.02 - Shortness of breath Category: Medical Plan History of Present Illness The patient is a 64-year-old male presenting with musculoskeletal pain and unexplained weight loss. He has chronic back pain due to multilevel thoracolumbar spondylosis without fracture and shoulder pain associated with tendon inflammation. Additionally, the patient has lost 10 pounds over the last month, and reports extreme fatigue, reduced appetite, and daily headaches. His diabetes regimen includes glimepiride and Ozempic, though he questions their role in his current health status due to nausea concerns. December's labs indicated chronic anemia, normal electrolytes, stable renal function, and normal liver numbers. The patient has chest pain and has experienced increased shortness of breath and fatigue, consistent with his history of coronary artery disease. No recent procedures have been performed, and he has not articulated specific dietary or activity alterations. Health Maintenance - Colonoscopy last performed in 2021 - LDL cholesterol of 43 noted in May; current plan includes rosuvastatin 20 mg once a day - Discussed keeping active and weight loss strategies Social History - Patient is obese and has reported difficulties with mobility due to back and shoulder pains - Mentioned reduced appetite and current intake of minimal food such as toast - Reports drinking sugar-free electrolyte drinks to maintain hydration Review of Systems - Cardiovascular: Reports chest pain; denies productive cough - Respiratory: Reports shortness of breath - Gastrointestinal: Denies nausea; reports diminished appetite and bowel irregularities - Musculoskeletal: Reports back and shoulder pain - Neurological: Reports daily headaches - General: Reports fatigue - Genitourinary: Denies urinary problems - Dermatological: Denies rashes Physical Exam - Musculoskeletal- Pain on the right shoulder noted upon examination, difficulty with mobility due to back and shoulder pain mentioned Results - X-rays indicating tendon inflammation in the right shoulder and multilevel thoracolumbar spondylosis - Blood tests in December showing chronic anemia, normal electrolytes, stable renal function, and normal liver studies - Blood sugar elevated at 119; hemoglobin A1c within normal range Plan We shall perform a chest X-ray as well as obtain laboratory tests to evaluate muscle breakdown and electrolyte, renal, and metabolic statuses to better understand the patient's musculoskeletal pain and unexplained weight loss. Adjustments in the management of diabetes include considering lowering glimepiride dosage due to reduced intake. The coronary artery disease requires continued adherence to aspirin and rosuvastatin therapy. Monitoring and managing renal function with awareness of potential dehydration is emphasized. Follow-up assessment after test results will ascertain any necessary treatment modification. Patient was informed and verbally consented to the use of an ambient scribe for clinic note documentation during this visit. Discussion Notes We discussed with the patient the potential causes of his musculoskeletal pain and the need for X-ray and additional lab work to understand better and evaluate ongoing symptoms like unexplained weight loss, fatigue, and headaches. We considered medication adjustment for diabetes management while ensuring awareness of dehydration risks due to nausea and poor appetite. The patient was informed about continuing coronary care, the benefits of regular monitoring, and refraining from activities that could exacerbate his current pain symptoms. The patient consented to all diagnostic and management plans, understanding the balance of controlling chronic conditions while addressing acute issues. Patient Instructions - Go to the lab today for blood tests and the chest X-ray. - Return for follow-up after test results are available. - Monitor your blood sugar at home; if it becomes too low, reduce glimepiride dosage. - Stay hydrated with sugar-free electrolyte drinks. - Engage in light activity but avoid strenuous exercises that worsen pain. - Continue taking medications as prescribed for your coronary artery disease and cholesterol. Orders: Orders Complete Blood Count Auto Diff Today R06.02 - Shortness of breath Comprehensive Met. Panel Today R06.02 - Shortness of breath Creatine Kinase Total Today R06.02 - Shortness of breath C Reactive Protein Today R06.02 - Shortness of breath XR chest 2V Today R06.02 - Shortness of breath Free T4 (Free Thyroxine) Today R06.02 - Shortness of breath UA CC w/rflx Micro + Cult Today R06.02 - Shortness of breath, R30.0 - Dysuria Magnesium Today R06.02 - Shortness of breath Phosphorus Today R06.02 - Shortness of breath Erythrocyte Sedimentation Rate Today R06.02 - Shortness of breath Medications: Changed From glimepiride 4 mg PO BID 90 days 180 tabs 2RF E11.65 - Type 2 diabetes mellitus with hyperglycemia To glimepiride 4 mg PO QAM 90 tabs 2RF 90 days E11.65 - Type 2 diabetes mellitus with hyperglycemia
--- OUTSIDE RECORDS SUMMARY | 2025-02-13 17:40 | XMS_ITS | Patient Health Record ---
Author Organization [facility] Address [address] [place] [address] Care Team Providers Care Income Auditor Name Role Phone Po Mati MATA Primary Care Provider Juanito Hart [phone] Allergies No Known Allergies Reason For Referral [...] Problem Status W/U Status Risk Notes Problem 342253961 Encounter for screening for malignant neoplasm of colon (Z12.11) Active confirmed Problem 298477516 History of adenomatous polyp of colon (Z86.010) Active confirmed Problem Screening for malignant neoplasm of rectum (739872525) Encounter for screening for malignant neoplasm of rectum (Z12.12) Active confirmed Problem 43155143 Abdominal pain, epigastric (R10.13) Active confirmed Problem History of polyp of colon (594498105) History of colon polyps (Z86.010) Active confirmed Problem 227856588 Gastroesophageal reflux disease, esophagitis presence not specified (K21.9) Active confirmed Problem Diverticulosis of colon (433817877) Diverticulosis of colon (K57.30) Active confirmed Plan Of Treatment Future Test Test Name Order Date UPPER GI ENDOSCOPY 10/08/2015 COLONOSCOPY 10/08/2015 COLONOSCOPY 01/07/2022 Insurance Providers Payer Name Payer Address Payer Phone Subscriber Number Group Number Insured Name Patient Relationship to Insured Coverage Start Date Coverage End Date [employer] [facility] [address] [place] [phone] [id number] EVANS LR Self - patient is the insured Medical (General) History Medical History History ICD Code NIDDM DE approx 2003 with 3 stents--no problem s [...]
== END 2025-02-13 15:50 | disposition home or self-care (01) ==
LOC: HO.HMCH 14:42
PROVIDERS: Visit Provider Internal Medicine
DX: E11.65 Type 2 diabetes mellitus with hyperglycemia (principal); E66.9 Obesity, unspecified; Z68.31 Body mass index [BMI] 31.0-31.9, adult; M54.50 Low back pain, unspecified; M25.511 Pain in right shoulder; I10 Essential (primary) hypertension; K21.9 Gastro-esophageal reflux disease without esophagitis; I25.10 Atherosclerotic heart disease of native coronary artery without angina pectoris; E78.00 Pure hypercholesterolemia, unspecified; R06.02 Shortness of breath

== ENCOUNTER → 2025-02-13 16:11 | Outpatient (BNV) | payer MEDICARE, SELFPAY | PROVIDERS: PCP Internal Medicine; Visit Provider Radiology Diagnostic Radiology | DX: R06.02 Shortness of breath (principal) | CPT/HCPCS: 71046 ==

== ENCOUNTER 2025-02-20 11:46 | Inpatient (IN) | payer MEDICARE, SELFPAY ==
[2025-02-20] VITALS (8 sets, daily range): BP systolic 140–167; BP diastolic 59–72; PULSE 84–95; RESP 16–25; TEMP 36.4–37.3; O2SAT 95–100; BMI 31.1
--- NOTE | ~2025-02-20 | XR_ITS ---
EXAMINATION: XR HIP, RIGHT CLINICAL INFORMATION: leg pain COMPARISON: None available. TECHNIQUE: AP pelvis, and Two views of the right hip. FINDINGS: No fracture. Alignment is anatomic. Hip joint space is maintained. Vascular calcifications noted in the soft tissues. XR/XR hip RT w PEL1V IMPRESSION: Normal right hip. Electronically signed by: Jack Cohen MD 02/21/2025 04:11 PM EDT RP
--- NOTE | ~2025-02-20 | XR_ITS ---
EXAMINATION: XR FEMUR, LEFT CLINICAL INFORMATION: pain; lung/civer lesions?bone involvment COMPARISON: None available. TECHNIQUE: AP and lateral views of the left femur were obtained. FINDINGS: No fracture, dislocation, or suspicious bone lesion. Imaged joints appear grossly normal. Vascular calcifications present in the soft tissues. XR/XR femur LT 2V IMPRESSION: No suspicious bone lesion detected. Normal left femur. Electronically signed by: Jack Cohen MD 02/21/2025 04:12 PM EDT
--- NOTE | ~2025-02-20 | CT_ITS ---
EXAMINATION: CT ABDOMEN AND PELVIS WITH CONTRAST CLINICAL INFORMATION: Abdominal pain and nausea COMPARISON: December 02, 2015 TECHNIQUE: Multidetector volumetric images were obtained from the superior aspect of the liver through the pubic symphysis following administration 85 mL of Omnipaque 350 intravenous contrast. Sagittal and coronal reformatted images were obtained on the technologist's workstation. Oral contrast: No This CT examination was performed using dose optimization techniques as appropriate, variously including the following: *Automated exposure control *Adjustment of mA and/or kV according to patient size (this includes techniques or standardized protocols for targeted exams where dose is matched to indication/reason for exam; i.e. extremities or head) *Use of iterative reconstruction technique DLP: 693 mGY*cm FINDINGS: LUNG BASES: There is an incompletely imaged mass in the posterior left lower lobe contacting pleura. It measures 14 x 22 mm (AP by transverse). The cephalad half of the mass is not included in this study. Centrally, it demonstrates fluid signal. Posteriorly, there is a 5 mm thick solid appearing wall. The anterior wall is thin. LIVER, GALLBLADDER, AND BILIARY TREE: There are numerous low attenuating lesions in the liver that are not clearly cystic and not present on the prior CT The gallbladder is surgically absent. There are clips in the gallbladder fossa. PANCREAS: Unremarkable. SPLEEN: 16.9 cm long axis, previously 15 cm ADRENAL GLANDS: [Line appears thickened. Right adrenal gland is within normal limits. KIDNEYS AND URETERS: The kidneys are normal in size, shape, and attenuation. No hydronephrosis, hydroureter, or calculi seen. No perinephric stranding. BLADDER: Unremarkable. GASTROINTESTINAL TRACT: Stomach and duodenum are unremarkable. Numerous pseudodiverticula are present in the descending and sigmoid colon without evidence of adjacent inflammatory response. Findings internal ileum are within normal limits. ABDOMINAL WALL: Fat-containing umbilical hernia is present. It is unchanged. LYMPH NODES: Normal. VASCULAR: Moderate atherosclerotic calcification is present in the abdominal aorta, renal artery celiac, and SMA origins, iliac, and femoral arteries. Vascular calcifications are increased from the prior. PELVIC VISCERA: Unremarkable. OSSEOUS STRUCTURES: Moderate to severe degenerative disc disease is noted throughout the lumbar spine with moderate facet arthropathy. Degenerative changes are also present in the lower thoracic spine. Degenerative changes are increased since the prior. There is a healed posterior right rib fracture, unchanged. Moderate degenerative changes present in the SI joints. CT/CT abdomen pelvis w IV con IMPRESSION: Numerous indeterminate liver lesions are present that could represent metastatic disease or hepatocellular carcinoma. Consider nonemergent dynamic CT or MR liver exam after IV contrast has cleared. Indeterminate nodule in the posterior left lower lung contacting pleura. There is central fluid density, but the posterior wall is 5 mm thick and the cephalad half of the mass is not included in the study. Follow up CT chest with IV contrast. Splenomegaly, increased. Degenerative changes, increased. Vascular atherosclerotic disease, increased. Diverticulosis of the descending and sigmoid colon. No acute inflammation. Fleischner guidelines were followed. Electronically signed by: Alex Dueñas MD 02/20/2025 03:27 PM EDT
--- NOTE | ~2025-02-20 | US_ITS ---
CLINICAL HISTORY: ? DVT; PAIN VENOUS DUPLEX ULTRASOUND RIGHT LOWER EXTREMITY Comparison: None provided Findings: The visualized deep veins are fully compressible with normal Doppler color flow and spectral tracings. There is a cystic lesion in the popliteal fossa measuring 2.1 x 0.5 x 1.8 cm. IMPRESSION: 1. Negative for right lower extremity deep vein thrombosis. 2. Small popliteal/Gordon's cyst. This document has been electronically signed by: Magdalene Medina DO on 02/20/2025 17:56:49
--- NOTE | ~2025-02-20 | XR_ITS ---
EXAMINATION: XR CHEST CLINICAL INFORMATION: cough COMPARISON: None available. TECHNIQUE: 2 views of the chest were obtained. FINDINGS: The cardiac, hilar, and mediastinal contours are normal. The lungs are clear bilaterally. There is no pneumothorax or pleural effusion. There is no focal osseous or soft tissue abnormality. Surgical clips noted left greater than right axillary regions. XR/XR chest 2V IMPRESSION: No active pulmonary disease. Electronically signed by: Jack Cohen MD 02/20/2025 01:27 PM EDT
--- NOTE | 2025-02-20 11:52 | ED.GENADULT ---
HPI - General Adult General Chief complaint: General Medical Stated complaint: Kidney Faiure Time Seen by Provider: 02/20/25 11:56 History of Present Illness HPI narrative: Patient is a 64-year-old male with a history of coronary artery disease. Status post stent x2. Also had a history of abdominal hernia status post mesh status post gallbladder removal presented today with having nonspecific abdominal pain generalized malaise weakness. No fever no chills. No chest pain no diaphoresis. Feels very tired has a history of low phosphate. Patient denies any pain in the legs. Denies any coughing congestion upper respiratory symptoms that is new. Has a history of coughing. Feels very tired. Has abdominal cramping. There has been decrease in appetite. Patient's stool questionably is darker in color. Related Data Home Medications ?Medication ?Instructions ?Recorded ?Confirmed aspirin 81 mg tablet,delayed 81 mg PO DAILY 09/10/20 02/13/25 release (Adult Aspirin Regimen) semaglutide 2 mg/dose (8 mg/3 mL) 2 mg subcut QWEEK 02/20/25 02/20/25 subcutaneous pen injector (Ozempic) Previous Rx's ?Medication ?Instructions ?Recorded sodium bicarbonate 650 mg tablet 650 mg PO BID #270 tabs 07/28/24 lancets 33 gauge (OneTouch Delica 33 gauge miscellaneous BID 90 days 08/12/24 Plus Lancet) #100 ea amlodipine 10 mg tablet 10 mg PO DAILY #90 tabs 10/06/24 fenofibrate 160 mg tablet 160 mg PO DAILY 90 days #90 tabs 11/04/24 carbamazepine 200 mg tablet 400 mg (2 x 200 mg) PO BID #360 12/15/24 tabs rosuvastatin 20 mg tablet 20 mg PO DAILY 90 days #90 tabs 01/05/25 glimepiride 4 mg tablet 4 mg PO QAM 90 days #90 tabs 02/13/25 potassium phosphate, monobasic 500 1,000 mg (2 x 500 mg) PO DAILY #6 02/13/25 mg soluble tablet (K-Phos Original) tabs blood sugar diagnostic (OneTouch 1 strip miscellaneous BID 90 days 02/16/25 Verio test strips) #100 ea diclofenac sodium 1 % topical gel 4 g topical QID #100 grams 02/17/25 (Voltaren Arthritis Pain) metoprolol tartrate 100 mg tablet 100 mg PO BID #180 tabs 02/17/25 omeprazole 40 mg capsule,delayed 40 mg PO DAILY #90 caps 02/17/25 release tizanidine 4 mg tablet 4 mg PO Q8H PRN for muscle spasm 02/18/25 #90 tabs tramadol 50 mg tablet 100 mg (2 x 50 mg) PO TID PRN pain 02/18/25 90 days #450 tabs Allergies Allergy/AdvReac Type Severity Reaction Status Date / Time atorvastatin Allergy Intermediate Muscle Verified 02/20/25 11:50 cramps hydrochlorothiazide Allergy Intermediate advised to Verified 02/20/25 11:50 avoid metformin Allergy Intermediate Gastrointestinal Verified 02/20/25 11:50 Upset pembrolizumab [From Keytruda] Allergy Intermediate creatinine Verified 02/20/25 11:50 lisinopril AdvReac Intermediate increase Verified 02/20/25 11:50 creatinine Review of Systems Review of Systems: No fever no chills positive generalized malaise positive decreased appetite positive aches Yes all other systems are reviewed and are negative [facility] Past Medical History Attestation statement: The following information was validated with the patient. Medical History CKD (chronic kidney disease) stage 3, GFR 30-59 ml/min Hypertension Type 2 diabetes mellitus with hyperglycemia Anxiety GERD (gastroesophageal reflux disease) Bile salt-induced diarrhea Obesity (BMI 30-39.9) Melanoma Seizures Hypercholesterolemia Coronary artery disease DDD (degenerative disc disease), lumbar Surgical History History of surgery History of excision of mass History of cholecystectomy History of intravascular stent placement History of umbilical hernia repair History of melanoma excision History of inguinal hernia repair Family History Family History Father No problems noted. Mother Myocardial infarction Diabetes Hypertension CVD (cardiovascular disease) Son In good health Daughter In good health Social History Social History Housing: Apartment Are you a primary home health care coordinator to a significant other at home: No Do you presently have visiting nurse or other home services: No Alcohol intake: former Patient Tobacco Use Status: Former Tobacco user Tobacco use type: Cigarette Years Smoked: quit 1997 Smoked in Last 30 Days: No e-Cigarette/Vaping Use: Never Used Second Hand Smoke Exposure: No Use of substances other than those prescribed or required for medical reasons: No Advance Directives: No Advance Directives Information Provided: Yes Do you have a plan to hurt others: No Plan service: No Current occupational status: disabled Cognitive needs: No Hearing needs: No Vision needs: Yes Physical Exam ED Vital Signs: Vital Signs - 24 hr 02/20/25 11:49 02/20/25 14:00 02/20/25 16:06 Temperature 97.6 F 98.0 F 97.9 F Pulse Rate 87 84 91 Respiratory Rate 18 20 25 H Blood Pressure 167/72 H 163/67 H Pulse Oximetry 97 99 98 Oxygen Delivery Method Room Air Room Air Room Air BMI result Body Mass Index 31.1 Appearance: Alert. Oriented X3. No acute distress. Eyes: Pupils equal, round and reactive to light. ENT: Pharynx normal. Neck: Normal inspection. Neck supple. No lymph nodes noted. No crepitus CVS: Normal heart rate and rhythm. Pulses normal. Normal S1 and S2 Respiratory: No respiratory distress. Breath sounds normal. No Wheezing. No rales Abdomen: Soft and nontender. No rigidity. No distention. good BS x4 Skin: Skin warm and dry. Normal skin color. Normal skin turgor. Extremities: No lower extremity edema. Neurovascular intact to all extremities. No Lacerations. No Rash Neuro: Oriented X 3. No motor deficit. No sensory deficit. Moving all extermities. No slurred speech Course Course Course Narrative: RME, this is a rapid medical exam performed by Rufus Guerrero please refer to primary provider for complete H&P- 64-year-old male past medical history significant for diabetes, chronic kidney disease, GERD, coronary artery disease presents for evaluation of general malaise. He reports he feels similar to when he had renal failure 5 years ago. He reports decreased urination. He complains of subjective fevers and chills. Plan for basic labs, urinalysis and virus testing Medications Administered Generic Name Dose Route Start Last Admin Trade Name Freq PRN Reason Stop Dose Admin Enoxaparin Sodium 40 mg 02/20/25 18:00 02/20/25 17:55 Enoxaparin Sodium 40 Mg/0.4 Ml Syringe SUBCUT 40 mg Q24H ILA Administration Potassium Phosphate 15 mmol in 250 mls @ 62.5 mls/hr 02/20/25 13:30 02/20/25 17:22 Kphos IV 02/20/25 21:29 62.5 mls/hr Q4H ILA Administration Discontinued Medications Generic Name Dose Route Start Last Admin Trade Name Freq PRN Reason Stop Dose Admin Sodium Chloride 1,000 mls @ 999 mls/hr 02/20/25 13:15 02/20/25 13:52 Ns IV 02/20/25 14:15 999 mls/hr .Q1H1M ILA Administration Iohexol 100 ml 02/20/25 15:05 02/20/25 15:05 Iohexol 350 Mg/Ml 100 Ml Infus..Btl IV 02/20/25 15:06 85 ml ONCE ONE Administration Medical Decision Making Medical Decision Making [facility] Narrative: Patient is a 64-year-old male presented today with a history of abdominal pain generalized malaise weakness leg cramps. He is from home. Lost about 10 lb. I checked patient's labs which showed an elevated white count. A low phosphorus. Question etiology. Because the patient has nonspecific abdominal pain a CT scan of the abdomen pelvis was done. I reviewed radiology's reading the liver had multiple lesion consistent with possible metastasis. Finding was discussed with GI. Also discussed with hospitalist team for admission. IV hydration. Pain control. Workup of malignancy. Differential Diagnosis Differential Diagnoses: The differential diagnosis associated with the presentation includes Liver mass, low phosphorus Admission/Observation Consideration of admission/observation: Escalation of care including admission/observation considered Consult Healthcare Provider Management of the patient was discussed with: Hospitalist and Steam Pan Sponger (GI) Lab Data [facility] Lab Attestation statement: I reviewed the patient's lab results. 02/20/25 12:24 02/20/25 12:24 Labs: Lab Results 02/20/25 02/20/25 02/20/25 Range/Units 12:24 12:35 12:54 WBC 19.2 H (4.8-10.8) X10*3/uL RBC 3.27 L (4.60-5.80) X10*6/uL Hgb 10.1 L (14.0-18.0) g/dl Hct 31.0 L (42.0-52.0) % MCV 94.8 (80.0-98.0) fL MCH 30.9 (27.0-33.0) pg MCHC 32.6 (31.0-36.0) g/dl RDW 12.7 (11.0-16.0) % Plt Count 347 (160-400) X10*3/uL MPV 9.0 L (9.4-12.4) fL Immature Gran % (Auto) 0.8 H (0.0-0.4) % Neut % (Auto) 89.3 H (45-73) % Lymph % (Auto) 5.4 L (20-40) % [place] % (Auto) 3.2 (2-11) % Eos % (Auto) 0.9 (0-4) % Baso % (Auto) 0.4 (0-2) % Lymph # (Auto) 1.0 L (1.2-4.9) X10*3/uL [place] # (Auto) 0.6 (0.1-1.2) X10*3/uL Eos # (Auto) 0.2 (0.0-0.4) X10*3/uL Baso # (Auto) 0.1 (0.0-0.2) X10*3/uL Abs Immat Gran (auto) 0.16 H (0.00-0.03) X10*3/uL Absolute Neuts (auto) 17.1 H (2.0-8.3) x10*3/uL Absolute Nucleated RBC 0.000 (0.0-0.012) X10*3/uL Nucleated RBC % (auto) 0.0 (0.0-0.2) /100WBC Sodium 138 (135-145) mmol/L Potassium 4.8 (3.3-5.1) mmol/L Chloride 108 (96-108) mmol/L Carbon Dioxide 22 (22-29) mmol/L Anion Gap 13 (12-20) BUN 12 (9-16) mg/dL Creatinine 0.76 (0.5-1.4) mg/dL Estim Creat Clear Calc 119.1 Estimated GFR > 60 Random Glucose 209 H (60-115) mg/dL Lactic Acid (0.5-2.0) mmol/L Calcium 9.2 (8.4-10.2) mg/dL Phosphorus 1.4 L (2.7-4.5) mg/dL Magnesium 2.0 (1.6-2.6) mg/dL Total Bilirubin 0.3 (0.0-1.0) mg/dL AST 63 H (5-37) U/L ALT 25 (0-40) U/L Alkaline Phosphatase 107 (39-117) U/L Total Protein 8.1 H (6.5-8.0) g/dL Albumin 3.7 (3.5-5.0) g/dL Lipase 58 (8-78) U/L TSH 1.83 (0.32-4.0) uIU/mL Urine Color Yellow Urine Appearance Clear Urine pH 7.0 (5.0-9.0) Ur Specific [place] >= 1.030 H (1.005-1.025) Urine Protein Trace (Neg-Trace) mg/dL Urine Glucose (UA) >=1000 H (Negative) mg/dL Urine Ketones Negative (Negative) mg/dL Urine Blood Negative (Negative) Urine Nitrite Negative (Negative) Ur Leukocyte Esterase Negative (Negative) Urine RBC 0-2 (0-2) /HPF Urine WBC 0-5 (0-5) /HPF Ur Squamous Epith Cells 0-2 (0-2) /HPF Urine Bacteria None Seen (None Seen) Hyaline Casts 0-2 (0-2) /LPF Stool Occult Blood NEGATIVE (NEGATIVE) Influenza Type A (PCR) NEGATIVE (Negative) Influenza Type B (PCR) NEGATIVE (Negative) RSV RNA Qual (PCR) NEGATIVE (Negative) SARS-CoV-2 RNA (RT-PCR) NEGATIVE (Negative) 02/20/25 Range/Units 13:44 WBC (4.8-10.8) X10*3/uL RBC (4.60-5.80) X10*6/uL Hgb (14.0-18.0) g/dl Hct (42.0-52.0) % MCV (80.0-98.0) fL MCH (27.0-33.0) pg MCHC (31.0-36.0) g/dl RDW (11.0-16.0) % Plt Count (160-400) X10*3/uL MPV (9.4-12.4) fL Immature Gran % (Auto) (0.0-0.4) % Neut % (Auto) (45-73) % Lymph % (Auto) (20-40) % [place] % (Auto) (2-11) % Eos % (Auto) (0-4) % Baso % (Auto) (0-2) % Lymph # (Auto) (1.2-4.9) X10*3/uL [place] # (Auto) (0.1-1.2) X10*3/uL Eos # (Auto) (0.0-0.4) X10*3/uL Baso # (Auto) (0.0-0.2) X10*3/uL Abs Immat Gran (auto) (0.00-0.03) X10*3/uL Absolute Neuts (auto) (2.0-8.3) x10*3/uL Absolute Nucleated RBC (0.0-0.012) X10*3/uL Nucleated RBC % (auto) (0.0-0.2) /100WBC Sodium (135-145) mmol/L Potassium (3.3-5.1) mmol/L Chloride (96-108) mmol/L Carbon Dioxide (22-29) mmol/L Anion Gap (12-20) BUN (9-16) mg/dL Creatinine (0.5-1.4) mg/dL Estim Creat Clear Calc Estimated GFR Random Glucose (60-115) mg/dL Lactic Acid 1.9 (0.5-2.0) mmol/L Calcium (8.4-10.2) mg/dL Phosphorus (2.7-4.5) mg/dL Magnesium (1.6-2.6) mg/dL Total Bilirubin (0.0-1.0) mg/dL AST (5-37) U/L ALT (0-40) U/L Alkaline Phosphatase (39-117) U/L Total Protein (6.5-8.0) g/dL Albumin (3.5-5.0) g/dL Lipase (8-78) U/L TSH (0.32-4.0) uIU/mL Urine Color Urine Appearance Urine pH (5.0-9.0) Ur Specific [place] (1.005-1.025) Urine Protein (Neg-Trace) mg/dL Urine Glucose (UA) (Negative) mg/dL Urine Ketones (Negative) mg/dL Urine Blood (Negative) Urine Nitrite (Negative) Ur Leukocyte Esterase (Negative) Urine RBC (0-2) /HPF Urine WBC (0-5) /HPF Ur Squamous Epith Cells (0-2) /HPF Urine Bacteria (None Seen) Hyaline Casts (0-2) /LPF Stool Occult Blood (NEGATIVE) Influenza Type A (PCR) (Negative) Influenza Type B (PCR) (Negative) RSV RNA Qual (PCR) (Negative) SARS-CoV-2 RNA (RT-PCR) (Negative) Independent Interpretation I performed an independent interpretation of an: EKG (My interpretation patient's EKG showed a sinus rhythm heart rate is 90 CO QRS QTC normal no acute ST segment elevation), Plain X-Ray (My interpretation patient's chest x-ray is grossly negative no pneumonia no pneumothorax) and CT Scan (Questionable finding noted in the liver) Radiology Impression Discussion of test interpretation with radiology: I have reviewed the radiologist's reading. External Record Review External record reviewed: Inpatient record and Office record Social Determinants Patient?s care significantly limited by Social Determinants of Health including: Problems related to primary support group Discharge Plan Discharge Clinical Impression: Hypophosphatemia, Lesion of liver Patient Disposition: Admitted As Inpatient
[2025-02-20 12:28] LABS: MANUAL DIFF FLAG NO
[2025-02-20 12:30] LABS: Basophils Absolute Auto 0.1 X10*3/uL (0.0-0.2); Basophils Percent Auto 0.4 % (0-2); Eosinophils Absolute Auto 0.2 X10*3/uL (0.0-0.4); Eosinophils Percent Auto 0.9 % (0-4); Hemoglobin 10.1 g/dl (14.0-18.0); Imm Gran Abs Auto 0.16 X10*3/uL (0.00-0.03); Imm Gran Pct Auto 0.8 % (0.0-0.4); Lymphocytes Percent Auto 5.4 % (20-40); Mean Corpuscular HGB Conc 32.6 g/dl (31.0-36.0); Mean Corpuscular Hemoglobin 30.9 pg (27.0-33.0); Mean Corpuscular Volume 94.8 fL (80.0-98.0); Monocytes Absolute Auto 0.6 X10*3/uL (0.1-1.2); Monocytes Percent Auto 3.2 % (2-11); Neutrophils Absolute Auto 17.1 x10*3/uL (2.0-8.3); Neutrophils Percent Auto 89.3 % (45-73); Platelet Count 347 X10*3/uL (160-400); Red Blood Count 3.27 X10*6/uL (4.60-5.80); Red Cell Distribution Width 12.7 % (11.0-16.0); White Blood Count 19.2 X10*3/uL (4.8-10.8)
[2025-02-20 12:44] LABS: Appearance Urine Clear; Color Urine Yellow; Glucose Urine UA >=1000 mg/dL (Negative); Leukocyte Esterase Urine Negative (Negative); Nitrite Urine Negative (Negative); Specific Gravity - Urine >= 1.030 (1.005-1.025); UMIC TRIGGER UACC YES; Urine Blood Negative (Negative); Urine Ketones Negative (Negative); Urine Protein Trace mg/dL (Neg-Trace)
[2025-02-20 12:46] LABS: Bacteria Urine None Seen (None Seen); Hyaline Casts Urine 0-2 /LPF (0-2); RBC Urine 0-2 /HPF (0-2); Squamous Epithelial Cell Urine 0-2 /HPF (0-2); WBC Urine 0-5 /HPF (0-5)
[2025-02-20 12:46] LABS: Alanine Aminotransferase 25 U/L (0-40); Albumin Level 3.7 g/dL (3.5-5.0); Alkaline Phosphatase 107 U/L (39-117); Anion Gap 13 (12-20); Aspartate Amino Transferase 63 U/L (5-37); Bilirubin Total 0.3 mg/dL (0.0-1.0); Blood Urea Nitrogen 12 mg/dL (9-16); Calcium 9.2 mg/dL (8.4-10.2); Carbon Dioxide 22 mmol/L (22-29); Chloride 108 mmol/L (96-108); Creatinine Clr Calc Pharmacy 119.1; Estimated Glomerular Filt Rate > 60; Glucose Random 209 mg/dL (60-115); Lipase 58 U/L (8-78); Potassium 4.8 mmol/L (3.3-5.1); Sodium 138 mmol/L (135-145); Total Protein 8.1 g/dL (6.5-8.0)
[2025-02-20 13:00] LABS: OBS Int Ctl Valid YES; OBS1 NEGATIVE (NEGATIVE)
[2025-02-20 13:10] LABS: Influenza A PCR NEGATIVE (Negative); Influenza B PCR NEGATIVE (Negative); Resp Syncy Virus RNA Qual PCR NEGATIVE (Negative); SARS COV2 PCR INHOUSE NEGATIVE (Negative)
[2025-02-20 13:22] LABS: Phosphorus 1.4 mg/dL (2.7-4.5)
--- NOTE | 2025-02-20 13:22 | ECG_ITS ---
Test Reason : CP/ GENERAL WEAKNESS Blood Pressure : */* mmHG Vent. Rate : 83 BPM Atrial Rate : 83 BPM P-R Int : 192 ms QRS Dur : 126 ms QT Int : 394 ms P-R-T Axes : 55 45 11 degrees QTcB Int : 462 ms Normal sinus rhythm Possible Left atrial enlargement Left ventricular hypertrophy with QRS widening ( Sokolow-Cali , Mario product ) Abnormal ECG When compared with ECG of 02-Dec-2015 12:23, No significant change was found Referred By: Eugenie Welch Electronically Signed By: Austin Cueto
[2025-02-20 13:36] LABS: Thyroid Stimulating Hormone 1.83 uIU/mL (0.32-4.0)
[2025-02-20] MEDS: Potassium Phosphate/NS 15 MMOL/250 ML PLAST..BAG 62.5 MMOL IV ×2 (13:50→17:22)
[2025-02-20] MEDS: 0.9 % Sodium Chloride 1,000 ML 999 ML IV (13:52)
[2025-02-20 14:05] LABS: Lactic Acid 1.9 mmol/L (0.5-2.0)
--- OUTSIDE RECORDS SUMMARY | 2025-02-20 14:17 | XMS_ITS | Patient Health Record ---
Author Organization [facility] Address [address] [place] [address] Care Team Providers Care District Branch Manager Name Role Phone Po Mati MATA Primary Care Provider Juanito Hart [phone] Allergies No Known Allergies Reason For Referral [...] Problem Status W/U Status Risk Notes Problem [id number] Encounter for screening for malignant neoplasm of colon (Z12.11) Active confirmed Problem 967154644 History of adenomatous polyp of colon (Z86.010) Active confirmed Problem Screening for malignant neoplasm of rectum (894691953) Encounter for screening for malignant neoplasm of rectum (Z12.12) Active confirmed Problem [id number] Abdominal pain, epigastric (R10.13) Active confirmed Problem History of polyp of colon (578896668) History of colon polyps (Z86.010) Active confirmed Problem 069332948 Gastroesophageal reflux disease, esophagitis presence not specified (K21.9) Active confirmed Problem Diverticulosis of colon (090993756) Diverticulosis of colon (K57.30) Active confirmed Plan Of Treatment Future Test Test Name Order Date UPPER GI ENDOSCOPY 10/08/2015 COLONOSCOPY 10/08/2015 COLONOSCOPY 01/07/2022 Insurance Providers Payer Name Payer Address Payer Phone Subscriber Number Group Number Insured Name Patient Relationship to Insured Coverage Start Date Coverage End Date [place] [employer] [employer] [facility] [place] [address] [place] [phone] [id number] [employer] [place] Self - patient is the insured Medical (General) History Medical History History ICD Code NIDDM PR approx 2003 with 3 stents--no problem s [...]
[2025-02-20] MEDS: iohexoL 350 MG/ML 100 ML INFUS..BTL IV (15:05)
--- NOTE | 2025-02-20 16:45 | P.HPHOSP_ITS ---
History of Present Illness Date of Service: 02/20/25 Chief Complaint: tiredness Patient is a 64-year-old male with a history of coronary artery disease. Status post stent x2. Also had a history of abdominal hernia status post mesh status post gallbladder removal presented today with having nonspecific abdominal pain generalized malaise weakness. Apparently he has felt unwell over the last 5 weeks with poor appetite and possibly a 15 lb weight loss. Patient reports that normally he is independent. He denied fever, chills, nausea, vomiting, diarrhea, recent travel, sick contacts. Denies alcohol or tobacco use. Reported diffuse abdominal pain. Also reported right leg pain. Recently found to have hypophosphatemia. Abdominal CT showing numerous indeterminate liver lesions concerning for metastatic or hepatocellular carcinoma. White blood cell count of 19.2, mildly elevated blood pressure. Patient received 1 L of IV fluid in the ER. He will be admitted for further management and treatment of abdominal pain. Review of Systems 2 Review of Systems: Denies any recent fever chills or decrease in appetite respiratory denies any shortness of breath or cough cardiovascular denied chest pain gastrointestinal see HPI genitourinary denies any dysuria frequency or hematuria musculoskeletal denies any joint pain or swelling neuropsych denies any weakness or seizures all other systems reviewed are negative [facility] Medical History CKD (chronic kidney disease) stage 3, GFR 30-59 ml/min Hypertension Type 2 diabetes mellitus with hyperglycemia Anxiety GERD (gastroesophageal reflux disease) Bile salt-induced diarrhea Obesity (BMI 30-39.9) Melanoma Seizures Hypercholesterolemia Coronary artery disease DDD (degenerative disc disease), lumbar Family History Father No problems noted. Mother Myocardial infarction Diabetes Hypertension CVD (cardiovascular disease) Son In good health Daughter In good health Surgical History History of surgery History of excision of mass History of cholecystectomy History of intravascular stent placement History of umbilical hernia repair History of melanoma excision History of inguinal hernia repair Social History Housing: Apartment Are you a primary insurance healthcare consultant to a significant other at home: No Do you presently have visiting nurse or other home services: No Alcohol intake: former Patient Tobacco Use Status: Former Tobacco user Tobacco use type: Cigarette Years Smoked: quit 1997 Smoked in Last 30 Days: No e-Cigarette/Vaping Use: Never Used Second Hand Smoke Exposure: No Use of substances other than those prescribed or required for medical reasons: No Advance Directives: No Advance Directives Information Provided: Yes Do you have a plan to hurt others: No Plan service: No Current occupational status: disabled Cognitive needs: No Hearing needs: No Vision needs: Yes Meds Allergies Allergy/AdvReac Type Severity Reaction Status Date / Time atorvastatin Allergy Intermediate Muscle Verified 02/20/25 11:50 cramps hydrochlorothiazide Allergy Intermediate advised to Verified 02/20/25 11:50 avoid metformin Allergy Intermediate Gastrointestinal Verified 02/20/25 11:50 Upset pembrolizumab [From Keytruda] Allergy Intermediate creatinine Verified 02/20/25 11:50 lisinopril AdvReac Intermediate increase Verified 02/20/25 11:50 creatinine Active Medications: Current Medications Potassium Phosphate (Kphos) 15 mmol in 250 mls @ 62.5 mls/hr IV Q4H ILA Stop: 02/20/25 21:29 Last Admin: 02/20/25 13:50 Dose: 62.5 mls/hr Home Medications ?Medication ?Instructions ?Recorded ?Confirmed ?Last Taken ?Type aspirin 81 mg tablet,delayed 81 mg PO DAILY 09/10/20 02/13/25 Unknown History release (Adult Aspirin Regimen) semaglutide 2 mg/dose (8 mg/3 mL) 2 mg subcut QWEEK 02/20/25 02/20/25 Unknown History subcutaneous pen injector (Ozempic) Physical Exam 2 Vital Signs and Narrative: Vital Signs: Last Vital Signs Temp 97.9 F 02/20/25 16:06 Pulse 91 02/20/25 16:06 Resp 25 H 02/20/25 16:06 BP 163/67 H 02/20/25 16:06 Pulse Ox 98 02/20/25 16:06 O2 Del Method Room Air 02/20/25 16:06 BMI result Body Mass Index 31.1 Appearing in no acute distress head is normocephalic atraumatic eyes pupils are PERRLA sclera is anicteric mouth throat mucous membranes are intact and moist neck is supple no lymphadenopathy, no JVD noted lung sounds are clear to auscultation heart regular rate rhythm, clear S1, S2 positive bowel sounds, abdomen is soft, nontender neuro patient is alert x3, no focal deficits Results Labs 02/20/25 12:24 02/20/25 12:24 Labs: Laboratory Results - last 24 hr 02/20/25 02/20/25 02/20/25 12:24 12:35 12:54 MCV 94.8 MCH 30.9 MCHC 32.6 RDW 12.7 Plt Count 347 MPV 9.0 L Immature Gran % (Auto) 0.8 H Neut % (Auto) 89.3 H Lymph % (Auto) 5.4 L [place] % (Auto) 3.2 Eos % (Auto) 0.9 Baso % (Auto) 0.4 Lymph # (Auto) 1.0 L [place] # (Auto) 0.6 Eos # (Auto) 0.2 Baso # (Auto) 0.1 Abs Immat Gran (auto) 0.16 H Absolute Neuts (auto) 17.1 H Absolute Nucleated RBC 0.000 Nucleated RBC % (auto) 0.0 Anion Gap 13 Estim Creat Clear Calc 119.1 Estimated GFR > 60 Random Glucose 209 H Lactic Acid Calcium 9.2 Phosphorus 1.4 L Magnesium 2.0 Total Bilirubin 0.3 AST 63 H ALT 25 Alkaline Phosphatase 107 Total Protein 8.1 H Albumin 3.7 Lipase 58 TSH 1.83 Urine Color Yellow Urine Appearance Clear Urine pH 7.0 Ur Specific [place] >= 1.030 H Urine Protein Trace Urine Glucose (UA) >=1000 H Urine Ketones Negative Urine Blood Negative Urine Nitrite Negative Ur Leukocyte Esterase Negative Urine RBC 0-2 Urine WBC 0-5 Ur Squamous Epith Cells 0-2 Urine Bacteria None Seen Hyaline Casts 0-2 Stool Occult Blood NEGATIVE Influenza Type A (PCR) NEGATIVE Influenza Type B (PCR) NEGATIVE RSV RNA Qual (PCR) NEGATIVE SARS-CoV-2 RNA (RT-PCR) NEGATIVE 02/20/25 13:44 MCV MCH MCHC RDW Plt Count MPV Immature Gran % (Auto) Neut % (Auto) Lymph % (Auto) [place] % (Auto) Eos % (Auto) Baso % (Auto) Lymph # (Auto) [place] # (Auto) Eos # (Auto) Baso # (Auto) Abs Immat Gran (auto) Absolute Neuts (auto) Absolute Nucleated RBC Nucleated RBC % (auto) Anion Gap Estim Creat Clear Calc Estimated GFR Random Glucose Lactic Acid 1.9 Calcium Phosphorus Magnesium Total Bilirubin AST ALT Alkaline Phosphatase Total Protein Albumin Lipase TSH Urine Color Urine Appearance Urine pH Ur Specific [place] Urine Protein Urine Glucose (UA) Urine Ketones Urine Blood Urine Nitrite Ur Leukocyte Esterase Urine RBC Urine WBC Ur Squamous Epith Cells Urine Bacteria Hyaline Casts Stool Occult Blood Influenza Type A (PCR) Influenza Type B (PCR) RSV RNA Qual (PCR) SARS-CoV-2 RNA (RT-PCR) Imaging Radiologist's Impressions: Impressions Chest X-Ray 02/20/25 13:15 IMPRESSION: No active pulmonary disease. Electronically signed by: Jack Cohen MD 02/20/2025 01:27 PM EDT RP Abdomen/Pelvis CT 02/20/25 14:23 IMPRESSION: Numerous indeterminate liver lesions are present that could represent metastatic disease or hepatocellular carcinoma. Consider nonemergent dynamic CT or MR liver exam after IV contrast has cleared. Indeterminate nodule in the posterior left lower lung contacting pleura. There is central fluid density, but the posterior wall is 5 mm thick and the cephalad half of the mass is not included in the study. Follow up CT chest with IV contrast. Splenomegaly, increased. Degenerative changes, increased. Vascular atherosclerotic disease, increased. Diverticulosis of the descending and sigmoid colon. No acute inflammation. Fleischner guidelines were followed. Electronically signed by: Alex Dueñas MD 02/20/2025 03:27 PM EDT RP Assessment and Plan (1) Type 2 diabetes mellitus with hyperglycemia: Qualifiers: Diabetes mellitus laborer marine terminal insulin use: without laborer marine terminal use Q ualified Code(s): E11.65 - Type 2 diabetes mellitus with hyperglycemia Status: Acute Plan 64-year-old man admitted with abdominal pain and nausea Abdominal pain and nausea Abdominal CT showing numerous indeterminate liver lesions, nodule in the posterior left lower lung, splenomegaly Gastroenterology consultation Oncology consultation Pain management, antiemetics PPI Right leg pain DVT studies pending Leukocytosis No signs of infection at this time Monitor Normocytic anemia No obvious bleeding Monitor CBC Hypertension Stable blood pressure Diabetes mellitus type 2 Sliding scale GERD PPI DVT prophylaxis with Lovenox Full code Quality Stroke Does the patient have a stroke diagnosis?: No VTE Prior VTE?: No VTE Risk Level:: Medical - moderate - high VTE Device Contraindication: Treatment Not Indicated VTE Drug Contraindication: N/A - Med Ordered
[2025-02-20] MEDS: Enoxaparin Sodium 40 MG/0.4 ML SYRINGE SUBCUT (17:55)
[2025-02-20 18:16] LABS: Glucose, Whole Blood 103 mg/dL (60-115)
--- NOTE | 2025-02-20 19:41 | PHA.MEDREC ---
Addendum entered by Trent Kapoor [facility] 02/20/25 19:46: med rec reviewed Original Note: Pharmacy Consult ? Medication Reconciliation Pharmacy has completed the medication reconciliation. Spoke to patient to confirm med list. Patient states he is no longer taking Potassium Phosphate 1,000 mg. Patient confirmed Ozempic 2 mg every , last dose was 02/15/25. patient had all his morning medications today.
[2025-02-20] MEDS: Morphine Sulfate 4 MG/ML CARTRIDGE 3 MG IVPUSH (20:05)
[2025-02-20 20:20] LABS: Glucose, Whole Blood 133 mg/dL (60-115)
[2025-02-20] MEDS: amLODIPine Besylate 10 MG TABLET PO (23:38)
[2025-02-20] MEDS: Sodium Bicarbonate 650 MG TABLET PO (23:38)
[2025-02-20] MEDS: carBAMazepine 200 MG TABLET 400 MG PO (23:38)
[2025-02-20] MEDS: Aspirin Enteric Coated 81 MG TABLET.DR PO (23:38)
[2025-02-20] MEDS: Metoprolol Tartrate 100 MG TABLET PO (23:39)
[2025-02-21 02:48] VITALS: BP 151/64; PULSE 96; RESP 20; TEMP 37.2; O2SAT 96
[2025-02-21 06:08] LABS: MANUAL DIFF FLAG NO
[2025-02-21 06:23] LABS: Basophils Absolute Auto 0.1 X10*3/uL (0.0-0.2); Basophils Percent Auto 0.4 % (0-2); Eosinophils Absolute Auto 0.1 X10*3/uL (0.0-0.4); Eosinophils Percent Auto 0.8 % (0-4); Hematocrit 30.5 % (42.0-52.0); Hemoglobin 9.6 g/dl (14.0-18.0); Imm Gran Abs Auto 0.12 X10*3/uL (0.00-0.03); Imm Gran Pct Auto 0.7 % (0.0-0.4); Lymphocytes Absolute Auto 1.2 X10*3/uL (1.2-4.9); Lymphocytes Percent Auto 6.8 % (20-40); Mean Corpuscular HGB Conc 31.5 g/dl (31.0-36.0); Mean Corpuscular Hemoglobin 30.3 pg (27.0-33.0); Mean Corpuscular Volume 96.2 fL (80.0-98.0); Mean Platelet Volume 9.2 fL (9.4-12.4); Monocytes Absolute Auto 0.8 X10*3/uL (0.1-1.2); Monocytes Percent Auto 4.6 % (2-11); Neutrophils Absolute Auto 15.8 x10*3/uL (2.0-8.3); Neutrophils Percent Auto 86.7 % (45-73); Platelet Count 380 X10*3/uL (160-400); Red Blood Count 3.17 X10*6/uL (4.60-5.80); Red Cell Distribution Width 12.6 % (11.0-16.0); White Blood Count 18.2 X10*3/uL (4.8-10.8)
[2025-02-21 06:31] LABS: Anion Gap 12 (12-20); Blood Urea Nitrogen 9 mg/dL (9-16); Calcium 9.2 mg/dL (8.4-10.2); Carbon Dioxide 24 mmol/L (22-29); Chloride 107 mmol/L (96-108); Creatinine Clr Calc Pharmacy 137.2; Estimated Glomerular Filt Rate > 60; Glucose Random 123 mg/dL (60-115); Magnesium 1.9 mg/dL (1.6-2.6); Potassium 3.9 mmol/L (3.3-5.1); Sodium 139 mmol/L (135-145)
[2025-02-21 07:00] VITALS: BP 137/59; PULSE 81; RESP 15; TEMP 36.8; O2SAT 99
[2025-02-21 07:26] LABS: Glucose, Whole Blood 108 mg/dL (60-115)
[2025-02-21] MEDS: Morphine Sulfate 4 MG/ML CARTRIDGE 3 MG IVPUSH (07:55)
[2025-02-21] MEDS: Omeprazole 20 MG CAPSULE.DR PO (07:56)
[2025-02-21 08:01] LABS: Alanine Aminotransferase 22 U/L (0-40); Albumin Level 3.6 g/dL (3.5-5.0); Alkaline Phosphatase 108 U/L (39-117); Aspartate Amino Transferase 39 U/L (5-37); Bilirubin Direct 0.2 mg/dL (0.0-0.5); Bilirubin Total 0.3 mg/dL (0.0-1.0); Total Protein 7.5 g/dL (6.5-8.0)
[2025-02-21 08:22] VITALS: BP 155/64; PULSE 88; RESP 18; TEMP 36.5; O2SAT 98
[2025-02-21 08:37] LABS: Glucose, Whole Blood 114 mg/dL (60-115)
--- NOTE | 2025-02-21 09:20 | MHC.CM.PN ---
IMM DELIVERED PT LIVES WITH SPOUSE AND IS FUNCTIONALLY INDEPENDENT. PT HAS NO SERVICES OR DME. + HCP ON FILE AND VERIFIED. PCP DR[place] RE[place] [facility] [place]: HOME, NO SERVICES IS THE GOAL. PT'S SPOUSE WILL TRANSPORT. CM WILL CONTINUE TO FOLLOW FOR ANY CHANGE TO DC PLAN/NEEDS.
[2025-02-21] MEDS: Metoprolol Tartrate 100 MG TABLET PO (09:37)
[2025-02-21] MEDS: Multivitamin TABLET 1 TAB PO (09:37)
[2025-02-21] MEDS: carBAMazepine 200 MG TABLET 400 MG PO (09:37)
[2025-02-21] MEDS: Sodium Bicarbonate 650 MG TABLET PO (09:38)
[2025-02-21] MEDS: Fenofibrate 160 MG TABLET PO (09:38)
[2025-02-21] MEDS: 0.9 % Sodium Chloride Flush 3 ML SYRINGE IVFLUSH (09:38)
[2025-02-21] MEDS: Acetaminophen 325 MG TABLET 650 MG PO (09:50)
--- NOTE | 2025-02-21 10:58 | PM.HEMONCCN ---
Subjective - Subjective Chief complaint: Right leg pain Patient: new to practice Consult date: 02/21/25 Primary Care Provider: Mati Richter MD Senior Pl Sql Developer Utilized?: No - Yi Speaking HPI - Consult Narrative Reason for consult: Probable metastatic melanoma Narrative: Dedrick Cali is a 64 year old male with past medical history significant for malignant melanoma that was initially diagnosed and treated in [facility] who presented to ED with symptoms of chronic right leg pain. Patient is rather poor historian, information was gathered from his via telephone. Patient states that his leg pain has been ongoing for several months but in the last week it got worse. He has been in the process of going to physical therapy. He denies any swelling, numbness or tingling. He denies any problems moving his bowels or urinating. More recently, he is being followed by Dr. Orozco at [facility]. He says his last imaging for surveillance was over a year ago. Patient's also stated that patient received Keytruda for his melanoma around . He developed kidney problems and it was abandoned after a couple of cycles, he did not finished course. Patient has no other complaints such as loss of appetite or unexplained weight loss. No chest pain or shortness of breath. No cough, fever or chills. Review of Systems - Constitutional Reports as per [facility] Medical History: Medical History (Last Reviewed 02/20/25 @ 13:21 by Eugenie Welch MD) Anxiety Bile salt-induced diarrhea CKD (chronic kidney disease) stage 3, GFR 30-59 ml/min Coronary artery disease DDD (degenerative disc disease), lumbar GERD (gastroesophageal reflux disease) Hypercholesterolemia Hypertension Melanoma Obesity (BMI 30-39.9) Seizures Type 2 diabetes mellitus with hyperglycemia Family History: Family History (Last Reviewed 02/20/25 @ 13:21 by Eugenie Welch MD) Father No problems noted. Mother Myocardial infarction Diabetes Hypertension CVD (cardiovascular disease) Son In good health Daughter In good health Surgical History: Surgical History (Last Reviewed 02/20/25 @ 13:21 by Eugenie Welch MD) History of cholecystectomy History of excision of mass History of inguinal hernia repair History of intravascular stent placement History of melanoma excision History of surgery History of umbilical hernia repair Social History: Social History (Last Reviewed 02/20/25 @ 13:21 by Eugenie Welch MD) Living Situation History: Household Members: Spouse Housing: House Are you a primary emergency care tech to a significant other at home: No Do you presently have visiting nurse or other home services: No Tobacco History: Patient Tobacco Use Status: Former Tobacco user Tobacco use type: Cigarette Years Smoked: quit 1996 e-Cigarette/Vaping Use: Never Used Second Hand Smoke Exposure: No Occupation Assessmet: service: No Current occupational status: disabled Home Medications and Allergies Current Medications: Current Medications Acetaminophen (Acetaminophen 325 Mg Tablet) 650 mg PO Q6H PRN PRN Reason: Pain, Mild 1-3,fever,headache Last Admin: 02/21/25 09:50 Dose: 650 mg Amlodipine Besylate (Amlodipine Besylate 10 Mg Tablet) 10 mg PO BEDTIME [facility]; Protocol Last Admin: 02/20/25 23:38 Dose: 10 mg Aspirin (Aspirin Enteric Coated 81 Mg Tablet.Dr) 81 mg PO BEDTIME [facility] Last Admin: 02/20/25 23:38 Dose: 81 mg Calcium Carbonate (Calcium Carbonate 750 Mg Tab.Chew) 750 mg PO Q4H PRN PRN Reason: Heartburn Carbamazepine (Carbamazepine 200 Mg Tablet) 400 mg PO BID [facility] Last Admin: 02/21/25 09:37 Dose: 400 mg Dextrose (Dextrose 50 % 25 Gm/50 Ml Syringe) 25 gm IVPUSH Q15M PRN; Protocol PRN Reason: per Hypoglycemia Standing Ord. Enoxaparin Sodium (Enoxaparin Sodium 40 Mg/0.4 Ml Syringe) 40 mg SUBCUT Q24H [facility] Last Admin: 02/20/25 17:55 Dose: 40 mg Fenofibrate (Fenofibrate 160 Mg Tablet) 160 mg PO DAILY@0800 [facility] Last Admin: 02/21/25 09:38 Dose: 160 mg Glucose (Glucose Gel 15 Gm Gel..Gram.) 15 gm PO Q15M PRN; Protocol PRN Reason: per Hypoglycemia Standing Ord. Insulin Human Lispro (Insulin Lispro 100 Unit/Ml 3 Ml Vial) 0 unit SUBCUT QIDACHS [facility]; Protocol Last Admin: 02/21/25 09:40 Dose: Not Given Magnesium Hydroxide (Milk Of Magnesia 30 Ml Oral.Susp) 30 ml PO DAILY PRN PRN Reason: Constipation Melatonin (Melatonin 3 Mg Tablet) 6 mg PO BEDTIME PRN PRN Reason: Insomnia Metoprolol Tartrate (Metoprolol Tartrate 100 Mg Tablet) 100 mg PO BID [facility]; Protocol Last Admin: 02/21/25 09:37 Dose: 100 mg Morphine Sulfate (Morphine Sulfate 4 Mg/Ml Cartridge) 3 mg IVPUSH Q4H PRN; Protocol PRN Reason: Pain, Severe (Pain Scale 7-10) Last Admin: 02/21/25 07:55 Dose: 3 mg Multivitamins/Vitamin C (Multivitamin Tablet) 1 tab PO DAILY [facility] Last Admin: 02/21/25 09:37 Dose: 1 tab Patient Own Medication ( Rosuvastatin 10mg) 1 each PO BEDTIME [facility] Omeprazole (Omeprazole 20 Mg Capsule.Dr) 20 mg PO DAILY@629 [facility] Last Admin: 02/21/25 07:56 Dose: 20 mg Ondansetron HCl (Ondansetron Hcl 4 Mg/2 Ml Vial) 4 mg IVPUSH Q8H PRN PRN Reason: Nausea and Vomiting Sodium Bicarbonate (Sodium Bicarbonate 650 Mg Tablet) 650 mg PO BID [facility] Last Admin: 02/21/25 09:38 Dose: 650 mg Sodium Chloride (0.9 % Sodium Chloride Flush 3 Ml Syringe) 3 ml IVFLUSH QSHIFT [facility] Last Admin: 02/21/25 09:38 Dose: 3 ml Tramadol HCl (Tramadol Hcl 50 Mg Tablet) 100 mg PO TID PRN PRN Reason: Pain, Moderate(Pain Scale 4-6) Home Medications ?Medication ?Instructions ?Recorded ?Confirmed ?Type aspirin 81 mg tablet,delayed 81 mg PO BEDTIME 09/10/20 02/20/25 History release (Adult Aspirin Regimen) amlodipine 10 mg tablet 10 mg PO BEDTIME 02/20/25 02/20/25 History glimepiride 4 mg tablet 4 mg PO DAILY 02/20/25 02/20/25 History multivitamin with minerals-folic 1 tab PO DAILY 02/20/25 02/20/25 History acid 80 mcg chewable tablet (Centrum Adult 50 Plus) omeprazole 40 mg capsule,delayed 40 mg PO DAILY@30 02/20/25 02/20/25 History release rosuvastatin 20 mg tablet 20 mg PO BEDTIME 02/20/25 02/20/25 History semaglutide 2 mg/dose (8 mg/3 mL) 2 mg subcut TH 02/20/25 02/20/25 History subcutaneous pen injector (Ozempic) Allergies Allergy/AdvReac Type Severity Reaction Status Date / Time atorvastatin Allergy Intermediate Muscle Verified 02/20/25 11:50 cramps hydrochlorothiazide Allergy Intermediate advised to Verified 02/20/25 11:50 avoid metformin Allergy Intermediate Gastrointestinal Verified 02/20/25 11:50 Upset pembrolizumab (From Keytruda) Allergy Intermediate creatinine Verified 02/20/25 11:50 lisinopril AdvReac Intermediate increase Verified 02/20/25 11:50 creatinine Physical Exam Vital signs: Vital Signs Temp 97.7 F 02/21/25 08:22 Pulse 88 02/21/25 08:22 Resp 18 02/21/25 08:22 BP 155/64 H 02/21/25 08:22 Pulse Ox 98 02/21/25 08:22 O2 Del Method Room Air 02/21/25 08:22 Intake & Output 02/20/25 02/21/25 02/21/25 18:59 06:59 18:59 Intake Total 220.833 / 6787.230 9518 / 1470.833 Balance 220.833 / 0507.055 8270 / 1470.833 Intake: Intake, IV Amount 220.833 / 7056.202 0975 / 1470.833 0.9 % Sodium Chloride 1,000 ml 1000 / 1000 @ 999 mls/hr IV .Q1H1M [facility] Rx#: [id number] Potassium Phosphate/NS 15 mmol 220.833 / 470.833 250 / 470.833 In 250 ml @ 62.5 mls/hr IV Q4H [facility] Rx#:[id number] Other: Last Bowel Movement 02/20/25 Weight 103.873 kg Weight 103.873 kg - Constitutional Present: no acute distress, obese - Routine HEENT Exam Head: Present: normal inspection Eye: Present: EOMI, PERRL - Routine Neck Exam Present: supple. Absent: lymphadenopathy - Routine Respiratory Exam Present: CTAB. Absent: accessory muscle use - Routine Cardiovascular Exam Cardiovascular: Present: RRR, S1, S2 - Routine Abdominal Exam Present: soft - Routine Extremities Exam Absent: calf tenderness - Routine Skin Exam Present: intact. Absent: cyanosis - Routine Neurological Exam Present: alert, oriented X3 Hem/Onc Consult Result - Labs CBC & Chem 7: 02/21/25 04:24 02/21/25 04:24 Labs: Short CBC 02/20/25 02/21/25 Range/Units 12:24 04:24 WBC 19.2 H 18.2 H (4.8-10.8) X10*3/uL Hgb 10.1 L 9.6 L (14.0-18.0) g/dl Hct 31.0 L 30.5 L (42.0-52.0) % Plt Count 347 380 (160-400) X10*3/uL BMP 02/20/25 02/21/25 12:24 04:24 Sodium 138 139 Potassium 4.8 3.9 Chloride 108 107 Carbon Dioxide 22 24 BUN 12 9 Creatinine 0.76 0.66 Calcium 9.2 9.2 Liver Function 02/20/25 02/21/25 Range/Units 12:24 04:24 Total Bilirubin 0.3 0.3 (0.0-1.0) mg/dL Direct Bilirubin 0.2 (0.0-0.5) mg/dL AST 63 H 39 H (5-37) U/L ALT 25 22 (0-40) U/L Alkaline Phosphatase 107 108 (39-117) U/L Albumin 3.7 3.6 (3.5-5.0) g/dL Urine 02/20/25 Range/Units 12:35 Urine Color Yellow Urine Appearance Clear Urine pH 7.0 (5.0-9.0) Ur Specific [place] >= 1.030 H (1.005-1.025) Urine Protein Trace (Neg-Trace) mg/dL Urine Glucose (UA) >=1000 H (Negative) mg/dL Assessment and Plan Patient Active problem list reviewed?: Yes (1) Lesion of liver Status: Acute Assessment and plan: 1. This is a 64-year-old male with a history of malignant melanoma who presented with complaints of right leg pain and abdominal pain. Imaging with CT abdomen/pelvis with IV contrast demonstrated numerous indeterminate liver lesions that could represent metastatic disease. Incompletely imaged mass in the left lower lobe of lung. Reviewing scans with radiologist, these lesions appeared to be metastatic both at lung bases and in the liver. Patient has a history of malignant melanoma involving the back more than 10 years ago. Apparently he had surgery at [facility], 8 years after his surgery he had recurrence in his left axilla. He underwent axillary dissection and later received adjuvant immunotherapy with Keytruda for a couple of cycles. Unfortunately he developed renal failure and this was not pursued. He now follows up with Dr. Orozco at [facility]. He is being monitored by surveillance scans. His last scan or was over a year ago. I spoke to patient and about probable diagnosis of metastatic melanoma. He will need whole-body PET-CT and biopsy to confirm diagnosis. They would like to pursue this at [facility] with Dr. Orozco their current oncologist. 2. Right leg pain. CT abdomen shows degenerative changes in the spine. No lytic lesions noted. Recommend x-ray of right hip and femur, if negative ambulate patient. 3. Leukocytosis and normocytic anemia probably related to malignancy. LDH, CEA and ferritin level has been added to labs today. Thank you for the consultation. - Time Spent With Patient Time Spent with Patient (in minutes): 30
[2025-02-21 11:13] LABS: Glucose, Whole Blood 142 mg/dL (60-115)
[2025-02-21 12:00] VITALS: BP 145/65; PULSE 89; RESP 16; TEMP 36.1; O2SAT 92
[2025-02-21 14:17] LABS: Lactate Dehydrogenase 319 U/L (118-273)
[2025-02-21 14:32] LABS: Carcinoembryonic Antigen < 1.73 ng/mL; Ferritin 869 ng/mL (20-250)
[2025-02-21 15:09] VITALS: BP 153/65; PULSE 87; RESP 16; TEMP 37.3; O2SAT 97
--- NOTE | 2025-02-21 15:29 | P.DS_ITS ---
DS: Providers Provider Date of Service: 02/21/25 Date of admission: 02/20/25 16:50 Date of discharge: 02/21/25 Primary care physician: Mati Richter MD Consults: 02/21/25 07:46 Consult to Hematology / Oncology Routine Consulting Provider: [facility] Oncology/Hematology Reason for consultation: lung mass, liver mets Has provider been notified: No Attending physician on discharge: Andres Lewis Discharging clinician: Mily Wiseman DS: Diagnosis Discharge Diagnosis (1) Lesion of liver: Status: Acute DS: Summary Hospital Course Hospital Course: From H&P on the day of admission Patient is a 64-year-old male with a history of coronary artery disease. Status post stent x2. Also had a history of abdominal hernia status post mesh status post gallbladder removal presented today with having nonspecific abdominal pain generalized malaise weakness. Apparently he has felt unwell over the last 5 weeks with poor appetite and possibly a 15 lb weight loss. Patient reports that normally he is independent. He denied fever, chills, nausea, vomiting, diarrhea, recent travel, sick contacts. Denies alcohol or tobacco use. Reported diffuse abdominal pain. Also reported right leg pain. Recently found to have hypophosphatemia. Abdominal CT showing numerous indeterminate liver lesions concerning for metastatic or hepatocellular carcinoma. White blood cell count of 19.2, mildly elevated blood pressure. Patient received 1 L of IV fluid in the ER. He will be admitted for further management and treatment of abdominal pain. Abdominal pain/leg pain Patient has a history of malignant melanoma status post excision initially treated at [facility]. Came to the emergency department for evaluation of right lower extremity pain. Denies any abdominal pain. Abdominal imaging showing numerous indeterminate liver lesions, incompletely imaged mass in the posterior left lower lung. Concerning for malignancy, possible metastatic melanoma. We will need whole- body PET-CT and biopsy to confirm diagnosis. Patient and would like to pursue at [facility] where he is followed by Dr. Orozco, his current oncologist. Right leg pain DVT study negative for DVT. Did show Gordon cyst. Patient was able to ambulate without difficulty. Imaging of right femur,pelvis and hip unremarkable. Pain likely due to degenerative changes seen on imaging.. Moderate to severe degenerative disc disease is noted throughout the lumbar spine with moderate facet arthropathy. Degenerative changes are also present in the lower thoracic spine. Moderate degenerative changes present in the SI joints. Leukocytosis and normocytic anemia. Likely due to malignancy. LDH 319, CEA <1.73, ferritin level 869. Outpatient follow-up with Oncology Time Attestation Discharge Coordination Time (in mins): 32 Quality: Safe Use of Opioids Does Pt have an Active Cancer Diagnosis on the Problem List?: Yes Opioid Measure Date for [facility] Report: 01/22/25 Opioid Measure Time for [facility] Report: 16:50 Quality: Stroke Does the patient have a stroke diagnosis?: No Physical Exam Vital Signs: Vital Signs: Last Vital Signs Temp 99.1 F 02/21/25 15:09 Pulse 87 02/21/25 15:09 Resp 16 02/21/25 15:09 BP 153/65 H 02/21/25 15:09 Pulse Ox 97 02/21/25 15:09 O2 Del Method Room Air 02/21/25 15:09 BMI result Body Mass Index 31.1 Const: General: cooperative, no acute distress, alert and awake Nutritional Appearance: overweight Orientation/consciousness: patient oriented x3 Resp: Effort & Inspection: normal respiratory effort, able to speak in complete sentences, no respiratory distress and no use of accessory muscles Cardio: Rate: regular rate Neuro: General: patient oriented x3, moves all extremities and CN's II-XI intact bilaterally Extrem: Other: no edema or redness General: Yes no calf tenderness DS: Data Data Completed and Pending Labs on day of discharge: Laboratory Results - last 24 hr 02/20/25 02/20/25 02/21/25 18:10 20:07 04:24 WBC 18.2 H RBC 3.17 L Hgb 9.6 L Hct 30.5 L MCV 96.2 MCH 30.3 MCHC 31.5 RDW 12.6 Plt Count 380 MPV 9.2 L Immature Gran % (Auto) 0.7 H Neut % (Auto) 86.7 H Lymph % (Auto) 6.8 L [place] % (Auto) 4.6 Eos % (Auto) 0.8 Baso % (Auto) 0.4 Lymph # (Auto) 1.2 [place] # (Auto) 0.8 Eos # (Auto) 0.1 Baso # (Auto) 0.1 Abs Immat Gran (auto) 0.12 H Absolute Neuts (auto) 15.8 H Absolute Nucleated RBC 0.000 Nucleated RBC % (auto) 0.0 Sodium 139 Potassium 3.9 Chloride 107 Carbon Dioxide 24 Anion Gap 12 BUN 9 Creatinine 0.66 Estim Creat Clear Calc 137.2 Estimated GFR > 60 POC Glucose 103 133 H Random Glucose 123 H Calcium 9.2 Magnesium 1.9 Ferritin 869 H Total Bilirubin 0.3 Direct Bilirubin 0.2 AST 39 H ALT 22 Alkaline Phosphatase 108 Lactate Dehydrogenase 319 H Total Protein 7.5 Albumin 3.6 Carcinoembryonic Ag < 1.73 02/21/25 02/21/25 02/21/25 07:21 08:33 11:10 WBC RBC Hgb Hct MCV MCH MCHC RDW Plt Count MPV Immature Gran % (Auto) Neut % (Auto) Lymph % (Auto) [place] % (Auto) Eos % (Auto) Baso % (Auto) Lymph # (Auto) [place] # (Auto) Eos # (Auto) Baso # (Auto) Abs Immat Gran (auto) Absolute Neuts (auto) Absolute Nucleated RBC Nucleated RBC % (auto) Sodium Potassium Chloride Carbon Dioxide Anion Gap BUN Creatinine Estim Creat Clear Calc Estimated GFR POC Glucose 108 114 142 H Random Glucose Calcium Magnesium Ferritin Total Bilirubin Direct Bilirubin AST ALT Alkaline Phosphatase Lactate Dehydrogenase Total Protein Albumin Carcinoembryonic Ag Imaging CT scan - abdomen: Radiologist's impression: ITS Impressions Chest X-Ray 02/20/25 13:15 IMPRESSION: No active pulmonary disease. Electronically signed by: Jack Cohen MD 02/20/2025 01:27 PM EDT Abdomen/Pelvis CT 02/20/25 14:23 IMPRESSION: Numerous indeterminate liver lesions are present that could represent metastatic disease or hepatocellular carcinoma. Consider nonemergent dynamic CT or MR liver exam after IV contrast has cleared. Indeterminate nodule in the posterior left lower lung contacting pleura. There is central fluid density, but the posterior wall is 5 mm thick and the cephalad half of the mass is not included in the study. Follow up CT chest with IV contrast. Splenomegaly, increased. Degenerative changes, increased. Vascular atherosclerotic disease, increased. Diverticulosis of the descending and sigmoid colon. No acute inflammation. Fleischner guidelines were followed. Electronically signed by: Alex Dueñas MD 02/20/2025 03:27 PM EDT Femur X-Ray 02/21/25 14:57 IMPRESSION: No suspicious bone lesion detected. Normal left femur. Electronically signed by: Jack Cohen MD 02/21/2025 04:12 PM EDT RP Hip/Pelvis X-Ray 02/21/25 14:57 IMPRESSION: Normal right hip. Electronically signed by: Jack Cohen MD 02/21/2025 04:11 PM EDT RP Discharge Plan Discharge Anticipated Discharge Date/Time: 02/21/25 15:38 Patient Disposition: Home, Self-Care Discharge Diagnosis: Lung mass, liver lesions concerning for metastatic melanoma Referrals: Mati Richter MD [Primary Care Provider, Internal Medicine] - 1 Week Emi Boothe MD [Physician, Hematology & Oncology] - 1 Week Referral Note: numerous liver lesions; lung nodule Discharge Medications: Continued sodium bicarbonate 650 mg tablet 650 mg PO BID Qty: 270 2RF fenofibrate 160 mg tablet 160 mg PO DAILY 90 Days Qty: 90 3RF carbamazepine 200 mg tablet 400 mg PO BID Qty: 360 2RF diclofenac sodium [Voltaren Arthritis Pain] 1 % gel 4 g topical QID Qty: 100 2RF Rx Instructions: apply to single knee, ankle, foot; for foot includes sole/toes/top of foot metoprolol tartrate 100 mg tablet 100 mg PO BID Qty: 180 1RF tramadol 50 mg tablet 100 mg PO TID PRN (Reason: pain) 90 Days Qty: 450 1RF tizanidine 4 mg tablet 4 mg PO Q8H PRN (Reason: for muscle spasm) Qty: 90 2RF Ozempic 2 mg/dose (8 mg/3 mL) pen injector 2 mg subcut TH omeprazole 40 mg capsule,delayed release(DR/EC) 40 mg PO DAILY@0630 glimepiride 4 mg tablet 4 mg PO DAILY amlodipine 10 mg tablet 10 mg PO BEDTIME rosuvastatin 20 mg tablet 20 mg PO BEDTIME Centrum Adult 50 Plus 80 mcg Tablet,Chewable 1 tab PO DAILY aspirin [Adult Aspirin Regimen] 81 mg tablet,delayed release (DR/EC) 81 mg PO BEDTIME Discharge Orders: Discharge Order (Routine); Ordered 02/21/25 Ordered By: Mily Wiseman Activity on Discharge: As tolerated Stand Alone Forms: Patient Portal Discharge page Print Language: Khmer Care Plan Goals: See below Health Concerns: Lung nodule, liver lesions bakers cyst RLE leukocytosis anemia Plan of Treatment: Call to schedule follow-up appointment with oncologist for outpatient PET scan degenerative changes of lumbar spine, lower thoracic spine, SI joint likely cause of hip/leg pain Assessment: See discharge summary
[2025-02-21 16:15] LABS: Glucose, Whole Blood 99 mg/dL (60-115)
[2025-02-21] MEDS: Enoxaparin Sodium 40 MG/0.4 ML SYRINGE SUBCUT (17:55)
--- NOTE | 2025-02-21 18:38 | PC.NURSE ---
D/C With Cori STEPHENS.
== END 2025-02-21 18:43 | disposition home or self-care (01) | DRG 436 ==
LOC: HO.ED 16:15 → HO.EDOVER 17:14 → HO.S3 02-21 07:21
PROVIDERS: Internal Medicine; Physician Assistant; Admitting Provider Nurse Practitioner Acute Care; Emergency Provider Emergency Medicine Emergency Medical Services; PCP Internal Medicine; Visit Provider Physician Assistant Medical
DX: C78.7 Secondary malignant neoplasm of liver and intrahepatic bile duct (principal); C78.02 Secondary malignant neoplasm of left lung; M71.21 Synovial cyst of popliteal space [Baker], right knee; I12.9 Hypertensive chronic kidney disease with stage 1 through stage 4 chronic kidney disease, or unspecified chronic kidney disease; N18.9 Chronic kidney disease, unspecified; D63.0 Anemia in neoplastic disease; E11.22 Type 2 diabetes mellitus with diabetic chronic kidney disease; I25.10 Atherosclerotic heart disease of native coronary artery without angina pectoris; E83.39 Other disorders of phosphorus metabolism; Z95.5 Presence of coronary angioplasty implant and graft; Z20.822 Contact with and (suspected) exposure to COVID-19; Z79.82 Long term (current) use of aspirin; Z79.899 Other long term (current) drug therapy
CPT/HCPCS: 0241U; 36415; 71046; 73502; 73552; 74177; 80048; 80053; 80076; 81001; 82272; 82378; 82728; 82947; 83605; 83615; 83690; 83735; 84100; 84443; 85025; 87040; 93005; 93971; 99221; 99285; J1650; J2270; Q9967

== ENCOUNTER → 2025-02-20 13:11 | Outpatient (BNV) | payer MEDICARE, SELFPAY | PROVIDERS: Emergency Provider Emergency Medicine Emergency Medical Services; PCP Internal Medicine; Visit Provider Radiology Diagnostic Radiology | DX: K76.89 Other specified diseases of liver (principal); M71.21 Synovial cyst of popliteal space [Baker], right knee; R05.9 Cough, unspecified | CPT/HCPCS: 71046; 93971 ==

== ENCOUNTER → 2025-02-20 13:22 | Outpatient (BNV) | payer MEDICARE, SELFPAY | PROVIDERS: Admitting Provider Nurse Practitioner Acute Care; Emergency Provider Emergency Medicine Emergency Medical Services; PCP Internal Medicine; Visit Provider Internal Medicine Cardiovascular Disease | DX: I51.7 Cardiomegaly (principal) | CPT/HCPCS: 93010 ==

== ENCOUNTER 2025-02-20 16:50 | Outpatient (BNV) | payer MEDICARE, SELFPAY | END 2025-02-21 14:57 | PROVIDERS: Admitting Provider Nurse Practitioner Acute Care; Emergency Provider Emergency Medicine Emergency Medical Services; PCP Internal Medicine; Visit Provider Radiology Diagnostic Radiology | DX: M25.551 Pain in right hip (principal); M79.605 Pain in left leg | CPT/HCPCS: 73502; 73552 ==

== ENCOUNTER → 2025-02-20 16:50 | Outpatient (BNV) | payer MEDICARE, SELFPAY | PROVIDERS: Admitting Provider Nurse Practitioner Acute Care; Emergency Provider Emergency Medicine Emergency Medical Services; PCP Internal Medicine; Visit Provider Internal Medicine | DX: K76.89 Other specified diseases of liver (principal) | CPT/HCPCS: 99222 ==

== ENCOUNTER → 2025-02-20 16:50 | Outpatient (BNV) | payer MEDICARE, SELFPAY | PROVIDERS: Admitting Provider Nurse Practitioner Acute Care; Emergency Provider Emergency Medicine Emergency Medical Services; PCP Internal Medicine; Visit Provider Nurse Practitioner Acute Care | DX: K76.9 Liver disease, unspecified (principal) | CPT/HCPCS: 99223; 99239 ==

== ENCOUNTER 2025-02-27 13:06 | Outpatient (AMB) | payer MEDICARE, SELFPAY ==
--- NOTE | 2025-02-27 13:08 | MHC.PC.OV ---
Vital Signs 02/27/25 13:09 Height 6 ft Weight 217 lb 4 oz BMI 29.5 BP 142/68 H Blood Pressure Location Lt brachial Position Sitting Pulse 87 Pulse Source Pulse Oximeter Pulse Oximetry (%) 97 Oxygen Delivery Method Room Air Intake Visit Reasons: [facility] abd pain Bead Stringer Required: No Accompanied by: Spouse Allergies atorvastatin Allergy (Intermediate, Verified 02/27/25 13:09) Muscle cramps hydrochlorothiazide Allergy (Intermediate, Verified 02/27/25 13:09) advised to avoid metformin Allergy (Intermediate, Verified 02/27/25 13:09) Gastrointestinal Upset pembrolizumab (From [email or web address]) Allergy (Intermediate, Verified 02/27/25 13:09) creatinine lisinopril Adverse Reaction (Intermediate, Verified 02/27/25 13:09) increase creatinine Medication List - Last Reconciled 02/27/25 by Mati Richter MD amlodipine 10 mg PO BEDTIME aspirin (Adult Aspirin Regimen) 81 mg PO BEDTIME carbamazepine 400 mg (2 x 200 mg) PO BID diclofenac sodium 1% (Voltaren Arthritis Pain) 4 grams topical QID fenofibrate 160 mg PO DAILY 90 days glimepiride 4 mg PO DAILY metoprolol tartrate 100 mg PO BID multivit with min-folic acid 80 mcg (Centrum Adult 50 Plus) 1 tab PO DAILY omeprazole 40 mg PO DAILY@0630 rosuvastatin 20 mg PO BEDTIME semaglutide (Ozempic) 2 mg subcut TH sodium bicarbonate 650 mg PO BID tizanidine 4 mg PO Q8H PRN tramadol 100 mg (2 x 50 mg) PO TID PRN 90 days Tobacco use date assessed: 02/27/25 Fall risk assessment: No Falls in past year Last assessed Fall Risk: 02/27/25 Dental Screening Dental Screen Date: 02/27/25 Did you have a dental visit in the last 12 months?: No Did you have a dental problem in the last 6 months where you did not have access to dental care?: No Was dental information given to patient?: No [facility] Medical History CKD (chronic kidney disease) stage 3, GFR 30-59 ml/min Hypertension Type 2 diabetes mellitus with hyperglycemia Anxiety GERD (gastroesophageal reflux disease) Bile salt-induced diarrhea Obesity (BMI 30-39.9) Melanoma Seizures Hypercholesterolemia Coronary artery disease DDD (degenerative disc disease), lumbar Surgical History History of surgery History of excision of mass History of cholecystectomy History of intravascular stent placement History of umbilical hernia repair History of melanoma excision History of inguinal hernia repair Family History Father No problems noted. Mother Myocardial infarction Diabetes Hypertension CVD (cardiovascular disease) Son In good health Daughter In good health Social History Household Members: Spouse Housing: House Are you a primary care coordination manager to a significant other at home: No Do you presently have visiting nurse or other home services: No Alcohol intake: former Patient Tobacco Use Status: Former Tobacco user Tobacco use type: Cigarette Years Smoked: quit 1996 e-Cigarette/Vaping Use: Never Used Second Hand Smoke Exposure: No service: No Current occupational status: disabled Cognitive needs: No Hearing needs: No Vision needs: Yes Questionnaire PHQ-9 Over the last 2 weeks, how often have you been bothered by any of the following problems? 1. Little interest or pleasure in doing things: not at all 2. Feeling down, depressed, or hopeless: not at all 3. Trouble falling or staying asleep, or sleeping too much: not at all 4. Feeling tired or having little energy: several days 5. Poor appetite or overeating: not at all 6. Feeling bad about yourself - or that you are a failure or have let yourself or your family down: not at all 7. Trouble concentrating on things, such as reading the newspaper or watching television: not at all 8. Moving or speaking so slowly that other people could have noticed. Or the opposite - being so fidgety or restless that you have been moving around a lot more than usual: not at all 9. Thoughts that you would be better off or of hurting yourself in some way: not at all Total score: 1 Depression Screening Interpretation: Negative Depression Screening Done: Yes 38356 - PHQ-9 Billing: Yes Source: Developed by Drs. Juanito Barroso, Julia Dickinson, Benny Odonnell and colleagues, with an educational micheal from [employer]. Thrive Questionnaire Date Thrive assessed: 02/27/25 I am a: Patient What is your living situation today?: I have a steady place to live Within the past 12 months, did the food you bought not last and you didn't have the money to get more?: Never true Within the past 12 months, did you worry whether your food would run out before you got money to buy more?: Never true Do you have trouble paying for medicines?: No Do you have trouble getting transportation to medical appointments?: No Do you have trouble paying your heating and electricity bill?: No Do you have trouble taking care of your child, family member or friend?: No Do you have trouble with day-to-day activities such as bathing, preparing meals, shopping, managing finances, etc.?: No Are you currently unemployed and looking for a job?: No Are you interested in more education?: No Please select the resources that you would like help with: None Currently or been in a relationship where the following occur: No concerns reported THRIVE Score: 0 AUDIT C Alcohol Use Questionnaire (AUDIT-C) 1. How often do you have a drink containing alcohol?: Never 3. How often do you have six or more drinks on one occasion?: Never Total Score: 0 NATALIE-7 AMB Questionnaire NATALIE-7 Date NATALIE - 7 assessed: 02/27/25 Feeling nervous, anxious, or on edge: 1 = Several days Not being able to stop or control worryin = Not at all Worrying too much about different things: 0 = Not at all Trouble relaxin = Not at all Being so restless that it is hard to sit still: 0 = Not at all Becoming easily annoyed or irritable: 0 = Not at all Feeling afraid as if something awful might happen: 0 = Not at all Total NATALIE-7 score (0-4 normal; 5-9 mild; 10-14 moderate; 15-21 severe): 1 Source: Developed by Drs. Juanito Barroso, Julia Dickinson, Benny Odonnell and colleagues, with an educational micheal from [employer]. NATALIE-7 Assessment Billing NATALIE-7 Assessment Tool: NATALIE-7 Assessment 39279 Physical exam (Primary Care) Vital Signs: Oxygen Delivery Method Room Air 02/27/25 13:09 BMI result Body Mass Index 29.5 Tobacco/Smoking Status: Tobacco use Status Tobacco use date assessed 02/13/25 02/13/25 14:46 Patient Tobacco Use Status Former Tobacco user 02/21/25 16:30 Tobacco use type Cigarette 02/13/25 14:46 e-Cigarette/Vaping Use Never Used 02/13/25 14:46 Depression Screening Interpretation: Negative Thrive Assessment: Date of Thrive Assessment Date Thrive assessed 01/03/25 02/27/25 13:07 Currently or been in a relationship where the following occur: No concerns reported Const General: alert; No acute distress Eyes Conjunctivae: conjunctivae normal Resp Auscultation: clear to auscultation bilaterally Cardio Rate: regular rate Rhythm: regular rhythm GI Inspection: Yes normal to inspection Extrem General: Yes normal to inspection and No edema Coding Level of Care Code Est Pt Level 4 (84081) Complex EM visit Add On G2211 Diagnoses Lesion of liver K76.9 Pulmonary mass R91.8 Coronary artery disease involving [place] coronary artery of [place] heart without angina pectoris I25.10 Associated angina: without angina Coronary Disease-Associated Artery/Lesion type: [place] artery [place] vs. transplanted heart: [place] heart Essential hypertension I10 Hypertension type: essential hypertension Hypercholesterolemia E78.00 Generalized anxiety disorder F41.1 Type 2 diabetes mellitus with hyperglycemia, without long-term current use of insulin E11.65 Diabetes mellitus moth exterminator insulin use: without alf use Gastroesophageal reflux disease without esophagitis K21.9 Esophagitis presence: without esophagitis Melanoma C43.9 Additional Codes NATALIE-7 Assessment Billing - NATALIE-7 Assessment Tool: NATALIE-7 Assessment 87612 ([id number]) PHQ-9 - 11095 - PHQ-9 Billing: Yes ([id number]) Assessment & Plan Assessment & Plan (1) Lesion of liver: Comment: February 2025Numerous indeterminate liver lesions are present that could represent metastatic disease or hepatocellular carcinoma. Consider nonemergent dynamic CT or MR liver exam after IV contrast has cleared. Indeterminate nodule in the posterior left lower lung contacting pleura. There is central fluid density, but the posterior wall is 5 mm thick and the cephalad half of the mass is not included in the study. Follow up CT chest with IV contrast. Code(s): K76.9 - Liver disease, unspecified Category: Medical (2) Pulmonary mass: Comment: February 2025Numerous indeterminate liver lesions are present that could represent metastatic disease or hepatocellular carcinoma. Consider nonemergent dynamic CT or MR liver exam after IV contrast has cleared. Indeterminate nodule in the posterior left lower lung contacting pleura. There is central fluid density, but the posterior wall is 5 mm thick and the cephalad half of the mass is not included in the study. Follow up CT chest with IV contrast. Code(s): R91.8 - Other nonspecific abnormal finding of lung field Category: Medical (3) Coronary artery disease: Comment: PTCA RCA and OM 2002 occluded LAD diagonal Code(s): I25.10 - Atherosclerotic heart disease of [place] coronary artery without angina pectoris Category: Medical Qualifiers: Associated angina: without angina Coronary Disease-Associated Artery/Lesion type: [place] artery [place] vs. transplanted heart: [place] heart Qualified Code(s): I25.10 - Atherosclerotic heart disease of [place] coronary artery without angina pectoris Plan: Control the cholesterol, weight, blood pressure, diabetes (4) Hypertension: Code(s): I10 - Essential (primary) hypertension Category: Medical Qualifiers: Hypertension type: essential hypertension Qualified Code(s): I10 - Essential (primary) hypertension Plan: Continue with blood pressure medication. Decrease salt intake and exercise presently on amlodipine 10 mg once a day metoprolol 100 mg twice a day (5) Hypercholesterolemia: Code(s): E78.00 - Pure hypercholesterolemia, unspecified Category: Medical Plan: Avoid fried foods, chicken skin, eggs, butter margarine, pastries and meat. Be it pork or beef they have a lot of cholesterol LDL goal of less than 70 patient is on rosuvastatin 20 mg at bedtime and fenofibrate and triglyceride of less than 150 (6) Generalized anxiety disorder: Code(s): F41.1 - Generalized anxiety disorder Category: Medical Plan: Stable (7) Type 2 diabetes mellitus with hyperglycemia: Comment: [facility] Code(s): E11.65 - Type 2 diabetes mellitus with hyperglycemia Category: Medical Qualifiers: Diabetes mellitus alf insulin use: without alf use Qualified Code(s): E11.65 - Type 2 diabetes mellitus with hyperglycemia Plan: Decrease the amount of carbohydrate intake, pasta, bread, rice and potatoes are all sugar and that is aside from all the sweet stuff, remember that fruits are good but they are Sweet also. On glimepiride only (8) GERD (gastroesophageal reflux disease): Code(s): K21.9 - Gastro-esophageal reflux disease without esophagitis Category: Medical Qualifiers: Esophagitis presence: without esophagitis Qualified Code(s): K21.9 - Gastro-esophageal reflux disease without esophagitis Plan: Avoid the foods that causes that usually spicy foods, tomato products, juices, coffee, soda and foods that your sensitive to. After eating do not lie down, allow 3-4 hours before in lie down. And keep the head of bed above 30 degrees to avoid the acid from going up. (9) Melanoma: Comment: 2009 recurrence August 2018 Code(s): C43.9 - Malignant melanoma of skin, unspecified Category: Medical Plan History of Present Illness The patient is a 64-year-old male presenting with muscle aches, low back pain, right shoulder pain, and shortness of breath. He has a history of coronary artery disease, hypercholesterolemia, seizure disorder, diabetes mellitus, hypertension, generalized anxiety disorder, and melanoma. The patient reports experiencing muscle aches and pain in the low back and right shoulder, which have been persistent. He also reports shortness of breath, which prompted today's follow-up visit. Recent blood work indicated hypophosphatemia, for which replacement therapy was initiated. The patient has also experienced poor appetite and weight loss, but denies fever, chills, nausea, vomiting, or diarrhea. An abdominal CT was performed due to vague diffuse abdominal pain. The patient's last blood work revealed anemia with hemoglobin at 9.6 g/dL and hematocrit at 30.5%, along with elevated white blood cells at 18.2 x 10^9/L. Health Maintenance Social History Review of Systems - Musculoskeletal: Reports muscle aches, low back pain, right shoulder pain. - Respiratory: Reports shortness of breath. - Gastrointestinal: Reports poor appetite, weight loss, vague diffuse abdominal pain. Denies fever, chills, nausea, vomiting, diarrhea. Physical Exam Results - Labs: Hypophosphatemia identified in recent blood work. - Labs: Anemia with hemoglobin at 9.6 g/dL and hematocrit at 30.5%. - Labs: Elevated white blood cells at 18.2 x 10^9/L. - Imaging: Abdominal CT performed due to vague diffuse abdominal pain. Plan The management plan includes addressing the patient's coronary artery disease with a focus on maintaining cholesterol levels, aiming for an LDL goal of less than 100 mg/dL and triglycerides less than 150 mg/dL. The patient is currently on rosuvastatin 20 mg at bedtime and fenofibrate for lipid management. For hypertension, the patient is prescribed amlodipine 10 mg once daily and metoprolol 100 mg twice daily. Diabetes management includes glimepiride, with the condition noted as stable. Patient was informed and verbally consented to the use of an ambient scribe for clinic note documentation during this visit. Discussion Notes Patient Instructions Orders: Orders CT chest w IV con Today R91.8 - Other nonspecific abnormal finding of lung field US biopsy liver Today K76.9 - Liver disease, unspecified MR abdomen wo/w con Today K76.9 - Liver disease, unspecified Referrals Hematology & Oncology Referral C43.9 - Malignant melanoma of skin, unspecified, K76.9 - Liver disease, unspecified, R91.8 - Other nonspecific abnormal finding of lung field Medications: New oxycodone Partial Fill upon patient request. 5 mg PO BID PRN 30 tabs 0RF pain R91.8 - Other nonspecific abnormal finding of lung field Discontinued tramadol Discontinued Reason: Doctor's Order 100 mg (2 x 50 mg) PO TID 90 days PRN 450 tabs 1RF pain M51.36 - Other intervertebral disc degeneration, lumbar region
[2025-02-27 13:09] VITALS: BP 142/68; PULSE 87; O2SAT 97; BMI 29.5
--- OUTSIDE RECORDS SUMMARY | 2025-02-27 14:56 | XMS_ITS | Patient Health Record ---
Author Organization [facility] Address [address] [place] [address] Care Team Providers Care Vp Design Name Role Phone Po Mati MATA Primary Care Provider Juanito Hart [phone] Allergies No Known Allergies Reason For Referral [...] Problem Status W/U Status Risk Notes Problem [id number] Encounter for screening for malignant neoplasm of colon (Z12.11) Active confirmed Problem 968273792 History of adenomatous polyp of colon (Z86.010) Active confirmed Problem Screening for malignant neoplasm of rectum (935112333) Encounter for screening for malignant neoplasm of rectum (Z12.12) Active confirmed Problem 19525638 Abdominal pain, epigastric (R10.13) Active confirmed Problem History of polyp of colon (834265514) History of colon polyps (Z86.010) Active confirmed Problem 794538777 Gastroesophageal reflux disease, esophagitis presence not specified (K21.9) Active confirmed Problem Diverticulosis of colon (028230524) Diverticulosis of colon (K57.30) Active confirmed Plan Of Treatment Future Test Test Name Order Date UPPER GI ENDOSCOPY 10/08/2015 COLONOSCOPY 10/08/2015 COLONOSCOPY 01/07/2022 Insurance Providers Payer Name Payer Address Payer Phone Subscriber Number Group Number Insured Name Patient Relationship to Insured Coverage Start Date Coverage End Date [employer] [facility] [address] [place] [phone] [id number] [place] Self - patient is the insured Medical (General) History Medical History History ICD Code NIDDM PA approx 2003 with 3 stents--no problem s [...]
== END 2025-02-27 13:49 | disposition home or self-care (01) ==
LOC: HO.HMCH 13:07
PROVIDERS: PCP Internal Medicine; Visit Provider Internal Medicine
DX: E11.65 Type 2 diabetes mellitus with hyperglycemia (principal); K76.9 Liver disease, unspecified; C43.9 Malignant melanoma of skin, unspecified; R91.8 Other nonspecific abnormal finding of lung field; I25.10 Atherosclerotic heart disease of native coronary artery without angina pectoris; I10 Essential (primary) hypertension; E78.00 Pure hypercholesterolemia, unspecified; F41.1 Generalized anxiety disorder; K21.9 Gastro-esophageal reflux disease without esophagitis

== ENCOUNTER → 2025-02-27 13:06 | Outpatient (BNVA) | payer MEDICARE, SELFPAY | PROVIDERS: PCP Internal Medicine; Visit Provider Internal Medicine | DX: M51.360 Other intervertebral disc degeneration, lumbar region with discogenic back pain only (principal); R10.9 Unspecified abdominal pain; K76.9 Liver disease, unspecified; R91.8 Other nonspecific abnormal finding of lung field; I25.10 Atherosclerotic heart disease of native coronary artery without angina pectoris; I10 Essential (primary) hypertension; E78.00 Pure hypercholesterolemia, unspecified; F41.1 Generalized anxiety disorder; E11.65 Type 2 diabetes mellitus with hyperglycemia; K21.9 Gastro-esophageal reflux disease without esophagitis; C43.9 Malignant melanoma of skin, unspecified; M25.511 Pain in right shoulder; R06.02 Shortness of breath; G40.909 Epilepsy, unspecified, not intractable, without status epilepticus | CPT/HCPCS: 96127; 99212 ==

== ENCOUNTER → 2025-04-19 23:59 | Outpatient (BNV) | payer MEDICARE, SELFPAY | PROVIDERS: PCP Internal Medicine; Visit Provider Internal Medicine | DX: I13.0 Hypertensive heart and chronic kidney disease with heart failure and stage 1 through stage 4 chronic kidney disease, or unspecified chronic kidney disease (principal); I50.9 Heart failure, unspecified; E11.22 Type 2 diabetes mellitus with diabetic chronic kidney disease; N18.31 Chronic kidney disease, stage 3a | CPT/HCPCS: G0180 ==

== ENCOUNTER 2025-04-20 15:20 | Outpatient (AMB) | payer MEDICARE, SELFPAY ==
[2025-04-20 15:22] VITALS: BP 128/76; PULSE 88; O2SAT 97; BMI 28.3
--- NOTE | 2025-04-20 15:22 | MHC.PC.OV ---
Vital Signs 04/20/25 15:22 Height 6 ft Weight 208 lb 5.389 oz BMI 28.3 BP 128/76 Blood Pressure Location Lt brachial Position Sitting Pulse 88 Pulse Source Pulse Oximeter Pulse Oximetry (%) 97 Oxygen Delivery Method Room Air Intake Visit Reasons: [facility] 04/06 Research Contracts Supervisor Required: No Accompanied by: Self / Same As Patient Allergies atorvastatin Allergy (Intermediate, Verified 04/20/25 15:22) Muscle cramps hydrochlorothiazide Allergy (Intermediate, Verified 04/20/25 15:22) advised to avoid metformin Allergy (Intermediate, Verified 04/20/25 15:22) Gastrointestinal Upset pembrolizumab (From Keytruda) Allergy (Intermediate, Verified 04/20/25 15:22) creatinine lisinopril Adverse Reaction (Intermediate, Verified 04/20/25 15:22) increase creatinine Tobacco use date assessed: 04/20/25 Fall risk assessment: 1 Fall in past year Last assessed Fall Risk: 04/20/25 Dental Screening Dental Screen Date: 04/20/25 Did you have a dental visit in the last 12 months?: No Did you have a dental problem in the last 6 months where you did not have access to dental care?: No Was dental information given to patient?: No HPI HPI Comments History of Present Illness Details 64 y/o Male patient who presents to the clinic for HDF. He was admitted at [facility] on 03/27 - 04/09 for Rehab after he had ORIF right Femur. Pt has Melanoma with Metastatic to the Bones, Liver ?prostate etc Currently managed by [facility]. States that he recently had PET scan that showed possibly CHF. Pt c/o Chronic cough, and unable to lie flat due to SOB and Dsypnea. Pt asking for Cardiology referral. [facility] Medical History (Updated 03/26/25 @ 19:08 by Mati Richter MD) CKD (chronic kidney disease) stage 3, GFR 30-59 ml/min Hypertension Type 2 diabetes mellitus with hyperglycemia Anxiety GERD (gastroesophageal reflux disease) Bile salt-induced diarrhea Obesity (BMI 30-39.9) Melanoma Seizures Hypercholesterolemia Coronary artery disease DDD (degenerative disc disease), lumbar Surgical History (Updated 04/20/25 @ 17:18 by Barbara Snyder NP) S/P open reduction and internal fixation (ORIF) of fracture of lateral condyle of left femur History of surgery History of excision of mass History of cholecystectomy History of intravascular stent placement History of umbilical hernia repair History of melanoma excision History of inguinal hernia repair Family History Father No problems noted. Mother Myocardial infarction Diabetes Hypertension CVD (cardiovascular disease) Son In good health Daughter In good health Social History Household Members: Spouse Housing: House Are you a primary care program resident to a significant other at home: No Do you presently have visiting nurse or other home services: No Alcohol intake: former Patient Tobacco Use Status: Former Tobacco user Tobacco use type: Cigarette Years Smoked: 1996 e-Cigarette/Vaping Use: Never Used Second Hand Smoke Exposure: No service: No Current occupational status: disabled Cognitive needs: No Hearing needs: No Vision needs: Yes Questionnaire PHQ-9 Over the last 2 weeks, how often have you been bothered by any of the following problems? 1. Little interest or pleasure in doing things: not at all 2. Feeling down, depressed, or hopeless: not at all 3. Trouble falling or staying asleep, or sleeping too much: not at all 4. Feeling tired or having little energy: several days 5. Poor appetite or overeating: not at all 6. Feeling bad about yourself - or that you are a failure or have let yourself or your family down: not at all 7. Trouble concentrating on things, such as reading the newspaper or watching television: not at all 8. Moving or speaking so slowly that other people could have noticed. Or the opposite - being so fidgety or restless that you have been moving around a lot more than usual: not at all 9. Thoughts that you would be better off or of hurting yourself in some way: not at all Total score: 1 Depression Screening Interpretation: Negative Depression Screening Done: Yes Source: Developed by Drs. Juanito Barroso, Julia Dickinson, Benny Odonnell and colleagues, with an educational micheal from [employer]. Thrive Questionnaire Date Thrive assessed: 04/20/25 I am a: Patient What is your living situation today?: I have a steady place to live Within the past 12 months, did the food you bought not last and you didn't have the money to get more?: Never true Within the past 12 months, did you worry whether your food would run out before you got money to buy more?: Never true Do you have trouble paying for medicines?: No Do you have trouble getting transportation to medical appointments?: No Do you have trouble paying your heating and electricity bill?: No Do you have trouble taking care of your child, family member or friend?: No Do you have trouble with day-to-day activities such as bathing, preparing meals, shopping, managing finances, etc.?: No Are you currently unemployed and looking for a job?: No Are you interested in more education?: No Please select the resources that you would like help with: None Currently or been in a relationship where the following occur: No concerns reported THRIVE Score: 0 AUDIT C Alcohol Use Questionnaire (AUDIT-C) 1. How often do you have a drink containing alcohol?: Never 3. How often do you have six or more drinks on one occasion?: Never Total Score: 0 NATALIE-7 AMB Questionnaire NATALIE-7 Date NATALIE - 7 assessed: 04/20/25 Feeling nervous, anxious, or on edge: 1 = Several days Not being able to stop or control worryin = Not at all Worrying too much about different things: 0 = Not at all Trouble relaxin = Not at all Being so restless that it is hard to sit still: 0 = Not at all Becoming easily annoyed or irritable: 0 = Not at all Feeling afraid as if something awful might happen: 0 = Not at all Total NATALIE-7 score (0-4 normal; 5-9 mild; 10-14 moderate; 15-21 severe): 1 Source: Developed by Drs. Juanito Barroso, Julia Dickinson, Benny Odonnell and colleagues, with an educational micheal from [employer]. NATALIE-7 Assessment Billing NATALIE-7 Assessment Tool: NATALIE-7 Assessment 96402 Review of Systems Const All systems reviewed & are unremarkable except as noted in HPI and below Physical exam (Primary Care) Vital Signs: Last Vital Signs Pulse 88 04/20/25 15:22 BP 128/76 04/20/25 15:22 Pulse Ox 97 04/20/25 15:22 Oxygen Delivery Method Room Air 04/20/25 15:22 BMI result Body Mass Index 28.3 Tobacco/Smoking Status: Tobacco use Status Tobacco use date assessed 04/20/25 04/20/25 15:29 Patient Tobacco Use Status Former Tobacco user 04/20/25 15:29 Tobacco use type Cigarette 04/20/25 15:29 e-Cigarette/Vaping Use Never Used 04/20/25 15:29 PHQ-9: PHQ-9 Score PHQ-9: Total score 1 04/20/25 15:29 Depression Screening Interpretation: Negative Thrive Assessment: Date of Thrive Assessment Date Thrive assessed 04/20/25 04/20/25 15:29 Currently or been in a relationship where the following occur: No concerns reported Const General: no acute distress Nutritional Appearance: overweight Orientation/consciousness: patient oriented x3 Limitations: ambulation with walker Resp Effort & Inspection: normal respiratory effort Auscultation: clear to auscultation bilaterally Cardio Heart sounds: S1 normal heart sound present and S2 normal heart sound present GI Inspection: Yes distended Palpation (GI): Soft to palpation, Tenderness to palpation present (GI), no guarding and not rigid Auscultation: normal bowel sounds Rectal Exam - Male: Yes deferred Neuro General: patient oriented x3 and moves all extremities Psych Speech and movement: Normal speech and movement present Coding Level of Care Code Est Pt Level 4 (68877) Diagnoses Coronary artery disease involving [place] coronary artery of [place] heart without angina pectoris I25.10 Coronary Disease-Associated Artery/Lesion type: [place] artery [place] vs. transplanted heart: [place] heart Associated angina: without angina Melanoma C43.9 S/P open reduction and internal fixation (ORIF) of fracture of lateral condyle of left femur Z98.890; Z87.81 Additional Codes NATALIE-7 Assessment Billing - NATALIE-7 Assessment Tool: NATALIE-7 Assessment 08387 ([id number]) Time Spent (min) 20 Assessment & Plan Assessment & Plan (1) Coronary artery disease: Comment: PTCA RCA and OM 2002 occluded LAD diagonal Code(s): I25.10 - Atherosclerotic heart disease of [place] coronary artery without angina pectoris Category: Medical Qualifiers: Coronary Disease-Associated Artery/Lesion type: [place] artery [place] vs. transplanted heart: [place] heart Associated angina: without angina Qualified Code(s): I25.10 - Atherosclerotic heart disease of [place] coronary artery without angina pectoris Plan: Placed referral to Cardiology. (2) Melanoma: Comment: 2009 recurrence August 2018 Code(s): C43.9 - Malignant melanoma of skin, unspecified Category: Medical Plan: Managed by Oncology (3) S/P open reduction and internal fixation (ORIF) of fracture of lateral condyle of left femur: Code(s): Z98.890 - Other specified postprocedural states; Z87.81 - Personal history of (healed) traumatic fracture Category: Surgical Plan: Stable. Continue with Physical Therapy. Orders: Referrals Cardiology Referral I25.10 - Atherosclerotic heart disease of [place] coronary artery without angina pectoris
--- OUTSIDE RECORDS SUMMARY | 2025-04-20 15:22 | XMS_ITS | Encounter Summary ---
Author Organization [facility] Address [address] [address] Phone Care Team Providers Care Director Electrical Engineering Name Role Phone Mati Richter MD Primary Care Provider [phone] Encounter Details Date Type Department Care Team (Late st Contact Info) Description 04/16/2025 Orders Only [facility] [address] [phone] Jeromy Mancia MD [address] [phone] Chronic kidney disease stage 2; Metabolic acidosis, not otherwise specified; Hypertensive chronic kidney disease Social History Tobacco Use Types Packs/Day Years Used Date Smoking Tobacco: Never Smokeless Tobacco: Never Alcohol Use Standard Drinks/Week Comments No 0 (1 standard drink = 0.6 oz pur e alcohol) Sex and Gender Information Value Date Recorded Sex Assigned at Not on file Legal Sex Male 4:58 PM EST Gender Identity Not on file Sexual Orientation Not on file documented as of this encounter Plan of Treatment Upcoming Encounters Date Type Department Care Team (Late st Contact Info) Description 07/09/2025 2:15 PM EST Office Visit [facility] [address] [phone] Jeromy Mancia MD [address] [phone] documented as of this encounter Visit Diagnoses Diagnosis Chronic kidney disease stage 2 Metabolic acidosis, not otherwise specified Hypertensive chronic kidney disease documented in this encounter Care Teams Director Electrical Engineering Relationship Specialty Start Date End Date Mati Richter MD [address] [place], [place] PCP - General 09/16/20 documented as of this encounter
--- OUTSIDE RECORDS SUMMARY | 2025-04-20 15:22 | XMS_ITS | Patient Health Record ---
Author Organization [facility] Address [address] [place] [address] Care Team Providers Care Maintenance Mechanic 2Nd Shift Name Role Phone Po Mati MATA Primary Care Provider Juanito Hart [phone] Allergies No Known Allergies Reason For Referral [...] Problem Status W/U Status Risk Notes Problem [id number] Encounter for screening for malignant neoplasm of colon (Z12.11) Active confirmed Problem 493749619 History of adenomatous polyp of colon (Z86.010) Active confirmed Problem Screening for malignant neoplasm of rectum (590454826) Encounter for screening for malignant neoplasm of rectum (Z12.12) Active confirmed Problem 82567839 Abdominal pain, epigastric (R10.13) Active confirmed Problem History of polyp of colon (449207023) History of colon polyps (Z86.010) Active confirmed Problem 822589877 Gastroesophageal reflux disease, esophagitis presence not specified (K21.9) Active confirmed Problem Diverticulosis of colon (091342728) Diverticulosis of colon (K57.30) Active confirmed Plan Of Treatment Future Test Test Name Order Date UPPER GI ENDOSCOPY 10/08/2015 COLONOSCOPY 10/08/2015 COLONOSCOPY 01/07/2022 Insurance Providers Payer Name Payer Address Payer Phone Subscriber Number Group Number Insured Name Patient Relationship to Insured Coverage Start Date Coverage End Date [employer] [facility] [address] [place] [phone] [id number] [place] Self - patient is the [...]
--- OUTSIDE RECORDS SUMMARY | 2025-04-20 15:23 | XMS_ITS | Clinical Summary ---
Author Organization [facility] Address [address] [place] [address] Care Team Providers Care Thoracic Medicine Physician Name Role Phone Po, Mati Ramon MD Primary Care Provider [phone] Allergies Active Allergy Reactions Criticality Noted Date [...] angina pectoris 05/22/2019 Overview: Overview: S/p Old LA and stent Chronic neck and back pain [...] 79 04/01/2021 3:31 PM EDT Temperature 36.7 C (98.1 F) 04/01/2021 3:31 PM EDT Respiratory Rate - - Oxygen Saturation 97% [...] Fall Risk Assessment 12/23/2023 Influenza Vaccine (#1) 2025 8, 06/01/2017, 06/26/2016 RSV Adult > 60+ Yrs or (1 - 1-dose 75+ series) 2033 Shingrix-Zoster Vaccine Completed 07/20/20 18, 05/18/2018 Hepatitis B Vaccines Aged Out No long er eligible based on patient's age to complete this topic RSV Ped < 20 months Aged Out No longe r eligible based on patient's age to complete this topic Care Teams Thoracic Medicine Physician Relationship Specialty Start Date End Date Po, Mati Ramon MD [address] [place] [address] [address] [facility] [place] [address] PCP - General Internal Medicine 08/12/18
--- OUTSIDE RECORDS SUMMARY | 2025-04-20 15:23 | XMS_ITS | Clinical Summary ---
Author Organization [facility] Address [address] [place] [address] Phone Care Team Providers Care Employment Service Specialist Name Role Phone Mati Richter MD Primary Care Provider [phone] Allergies No known active allergies Medications amLODIPine (NORVASC) 10 mg tablet Take 1 tablet (10 mg total) by mouth at bedtime. Active carBAMazepine (TEGretol) 200 mg tablet Take 2 tablets (400 mg total) by mouth 2 (two) times a day. Active aspirin 81 mg EC tablet Take 1 tablet (81 mg total) by mouth at bedtime. Active blood sugar diagnostic (OneTouch Verio test strips) test strip TEST BLOOD GLUCOSE TWICE DAILY DIRECTED 5 Active glimepiride (AMARYL) 4 mg tablet Take 1 tablet (4 mg total) by mouth 2 (two) times a day. Active metoprolol tartrate (LOPRESSOR) 100 mg tablet Take 1 tablet (100 mg total) by mouth 2 (two) times a day. Active omeprazole (PriLOSEC) [address] capsule Take 1 capsule (40 mg total) by mouth 1 (one) time each day. Active rosuvastatin (CRESTOR) 20 mg tablet Take 1 tablet (20 mg total) by mouth at bedtime. Active Ozempic 2 mg/dose (8 mg/3 mL) injection pen INEJCT 2 MG UNDER THE SKIN EVERY WEEK 5 Active tiZANidine (ZANAFLEX) 4 mg tablet Take 1 tablet (4 mg total) by mouth every 8 (eight) hours if needed for muscle spasms. Active diclofenac (VOLTAREN) 1 % topical gel Apply 2 g topically 4 (four) times a day. Active fenofibrate (LOFIBRA) 160 mg tablet Take 1 tablet (160 mg total) by mouth 1 (one) time each day. Active sodium bicarbonate 650 mg tablet Take 1 tablet (650 mg total) by mouth 2 (two) times a day. Active traMADoL (ULTRAM) 50 mg tablet Take 2 tablets (100 mg total) by mouth every 8 (eight) hours if needed for severe pain. Max Daily Amount: 300 mg Active oxyCODONE (ROXICODONE) 5 mg immediate release tablet Take 1 tablet (5 mg total) by mouth every 6 (six) hours if needed for moderate pain. Max Daily Amount: 20 mg 15 tablet 5 Active oxyCODONE (ROXICODONE) 5 mg immediate release tablet take 1 tablet orally 2 times a day as needed for pain 5 03/22/20 Discontinu ed(Entered in Error) K-Phos Original 500 mg tablet Take 2 tablets (1,000 mg total) by mouth 1 (one) time each day. 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 ([facility] V24, [facility] V28) 03/02/2025 Seizure disorder ([facility] V24, [facility] V28) 02/05 Stage 3a chronic kidney disease ([facility] V24, S/[facility] V28) 03/02/2025 Malignant melanoma of torso excluding breast ([facility] V24, [facility] V28) 03/02/2025 Anemia complicating neoplastic disease 5 Encounters Date Type Department Care Team Description 04/12/2025 9:40 AM EDT - 04/12/2025 11:59 PM EDT Hospital Encounter [facility] Ortho Xray [address] [place] [address] Pain Discharge Disposition: Home or Self Care 04/05/2025 Lab Requisition [facility] [address] [place] [phone] Lindsey Alexander PA Encounter for other general examination 04/04/2025 Lab Requisition [facility] [address] [place] [address] Lindsey Alexander PA Encounter for other general examination 04/03/2025 Lab Requisition [facility] [address] [place] [phone] Lindsey Alexander PA Encounter for other general examination 03/29/2025 Lab Requisition [facility] [address] [place] [phone] Lindsey Alexander PA Encounter for other general examination 03/28/2025 Lab Requisition [facility] [address] [place] [phone] Brenna Payton PA Encounter for other general examination 03/27/[address] [facility] Hematology Oncology [address] [place] [address] Emi Alejandra MD 03/23/2025 7:48 AM EDT Anesthesia Event [facility] OR [address] [place] [phone] Jose Brunson MD 03/23/2025 7:30 AM EDT - 03/23/2025 9:[address] [facility] Main OR [address] [place] [address] Thomas Alarcon MD ORIF FEMUR, GLOBUS NAIL 03/23/[address] [facility] Hematology Oncology [address] [place] [phone] Keerthi Gamboa MA 03/22/2025 1:41 PM EDT - 03/27/2025 11:53 AM EDT Hospital Encounter [facility] Urology Unit [address] [place] [phone] Jose Perla MD Seralathan, Manikandan, MD Alam, Aroosa, MD Other fracture of right femur, initial encounter for closed fracture ([facility] V24, [facility] V28) (Primary Dx) Discharge Disposition: Care Home Facility 03/14/2025 9:01 AM EDT - 03/14/2025 11:59 PM EDT Hospital Encounter [facility] PET Scan [address] [place] [phone] Malignant melanoma of torso excluding breast ([facility] V24, [facility] V28) Discharge Disposition: Home or Self Care 03/02/2025 1:30 PM EDT Office Visit 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 Hematology Oncology [address] [place] [phone] Keerthi Gamboa MA from Last 3 Months Surgical History Surgery Date Site/Laterality Comments CHOLECYSTECTOMY PROCEDURE: IN CHOLECYSTECTOMY OTHER SURGICAL HISTORY 05/15/2019 Left PROCEDURE: HISTORY OTHER; COMMENT: lateral to scar Malig melanoma,07/22/18left mid back-metastatic malignant melanoma,05/2010excision of Melanoma mid back,Bilat axil sentinel lymph node biopsies; HERNIA REPAIR Bilateral PROCEDURE: HISTORICAL HERNIA REPAIR/ING CL PCI - PERCUTANEOUS CORONARY INTERVENT Medical History Medical History Date Comments History of melanoma 05/22/201905/2010 origi nal left upper back, surveillance x 5yrs Seizure disorder ([facility] V2 4, [facility] V28) 05/22/2019 DX:Seizure disorder ([facility]) Hyperlipidemia 05/22/2019 DX:Hyperlipidemi a GERD (gastroesophageal reflux disease) 05/22/2019 DX:GERD (gastroesophageal reflux disease) Hypertension 05/22/2019 DX:Hypertension Osteoarthritis 05/22/2019 DX:Osteoarthriti s Type 2 diabetes mellitus wit hout complications ([facility] V24, [facility] V28) 05/22/2019 DX:Type 2 diabetes mellitus without complications ([facility]) CAD (coronary artery disease) 05/22/2019 DX :CAD (coronary artery disease); COMMENT: S/p Old LA and stent Secondary malignant neoplasm of skin of back ([facility] V24, [facility] V28) 05/15/2019 DX:Secondary malign ant neoplasm of skin of back ([facility]); COMMENT: Excision 07/2018, 05/2019; Dx 07/2016 Chronic neck and back pain 05/22/2019 DX:Ch ronic neck and back pain History of basal cell carcinoma (BCC) 07/26/2019 DX:History of basal cell carcinoma (BCC); COMMENT: 2018 L medial cheek CHF (congestive heart failur e) ([facility] V24, [facility] V28) Anemia CKD (chronic kidney disease) Metastatic melanoma ([facility] V24, [facility] V28) to lymph nodes Family History Medical History Relation Name Comments [...] drink = 0.6 oz pur e alcohol) Food Risk Answer Date Recorded Within the past 12 months we worried whether our food would run out before we got money to buy more. Never true 03/26/2025 Within the past 12 months th e food we bought just didn't last and we didn't have money to get more. Never true 03/26/2025 Interpersonal Safety Answer Date Record ed Physical Abuse 03/22/2025 Verbal Abuse 03/22/2025 Sex and Gender Information Value Date Recorded Sex Assigned at Not on file Legal Sex Male 11:01 PM EST Gender Identity Not on file Sexual Orientation Not on file Obstetrics History Last Filed Vital Signs Vital Sign Reading Time Taken Comments Blood Pressure 130/52 03/27/2025 8:43 AM EDT Pulse 89 03/27/2025 8:43 AM EDT Temperature 36.7 C (98.1 F) 03/27/2025 8:43 AM EDT Respiratory Rate 18 03/27/2025 8:43 AM EDT Oxygen Saturation 100% 03/27/2025 8:43 AM EDT Inhaled Oxygen Concentration - - Weight 98.1 kg (216 lb 4.8 oz) 03/22/2025 9:07 P M EDT Height 177.8 cm (5' 10 ) 03/22/2025 9:07 PM EDT Body Mass Index 31.04 03/22/2025 9:07 PM EDT Plan of Treatment Upcoming Encounters Date Type Department Care Team (Late st Contact Info) Description 04/30/2025 10:[address] [facility] Ultrasound [address] [place] [phone] 05/03/2025 2:45 PM EDT Office Visit [facility] Hematology Oncology [address] [place] [phone] Chela-Emi Orozco MD [address] [place] [phone] Health Maintenance Due Date Last Done Comments Diabetes: Annual Foot Exam 1968 Diabetes: Annual Retina Eye Exam 1970 Hepatitis B Vaccines (3 of 3 - 19+ 3-dose series) 10/28/2019 09/02/2019, 02/28/2019 Abdominal Aortic Aneurysm (AAA) Screen 08/09/2022 Cholesterol Screening (Lipid Panel) 08/09/2022 Colorectal Cancer Screening: Colonoscopy 08/09/2022 Hepatitis C Screening 08/09/2022 Medicare Annual Wellness Visit 08/09/2022 Diabetes: Annual Urine Albumin-Creatinine Ratio (uACR) 08/20/2022 Diabetes: Blood Sugar Control Test (HGBA1C) 08/20/2022 Depression Screening 09/06/2024 COVID-19 Vaccine (8 - Pfizer risk ) 11/26/2024 05/29/2024, 06/15/2023, 07/01/2022, Additional history exists Influenza Vaccine (#1) 2025 , 05/17/2023, 06/10/2022, Additional history exists Social Influencers of Health Screening 03/26/2026 03/26/2025 Falls Risk Assessment 03/27/2026 03/27/2025 Diabetes: Annual GFR (Glomerular Filtration Rate) 04/05/2026 04/05/2025, 04/03/2025, 03/28/2025, Additional history exists Hypertension/CHF/CAD Annual BMP Blood Test 04/05/2026 04/05/2025, 04/03/2025, 03/28/2025, Additional history exists DTaP,Tdap,and Td Vaccines (3 - Td or Tdap) 01/09/2035 01/09/2025, 06/24/2015 Zoster Vaccines Completed 07/24/2018, 05/18/2018 RSV Immunization Adult Patients Completed 07/15/2023 Pneumococcal Vaccine: 50+ Years Completed 02/10/2024, 12/28/2023, 09/18/2016 HIB Vaccines Aged Out No longer eligi [...] to complete this topic RSV Immunization Patients Under 20 months Aged Out No longer eligible based on patient's age to complete this topic Varicella Vaccines Aged Out No longer eligible based on patient's age to complete this topic Medical Devices Implanted Type Area Optical Instrument Specialist Device Identifier Shelf Expiration Date Model / Serial / Lot K-Wire Ball Tip Guidewire [id number] [employer] - Sn/A - [id number] Implanted:Qty: 1 on 03/23/2025 by Thomas Alarcon MD at [facility] Internal and External Fixation Right: Femur [facility] [id number] 01/25/2032 6176.002 2S / N/A / [id number] K-Wire Thrd Drill Point [id number] - Sn/A - [id number] Implanted:Qty: 2 on 03/23/2025 by Thomas Alarcon MD at [facility] Internal and External Fixation Right: Femur [facility] [id number] 04/27/2031 6176.002 1S / N/A / [id number] Nail Trochant [id number] 130deg Rt [employer] Ti - Sn/A - [id number] Implanted:Qty: 1 on 03/23/2025 by Thomas Alarcon MD at [facility] Internal and External Fixation Right: Femur [facility] 08/23/2029 1176.604 0S / N/A / [id number] Screw Lag [id number] Ti [employer] Troch Nail Sys - Sn/A - [id number] Implanted:Qty: 1 on 03/23/2025 by Thomas Alarcon MD at [facility] Internal and External Fixation Right: Femur [facility] 1176.011 0S / N/A / N/A Screw Lcking 5x45mm Ti Ft [employer] Tibial Nail Sys - Sn/A - [id number] Implanted:Qty: 1 on 03/23/2025 by Thomas Alarcon MD at [facility] Internal and External Fixation Right: Femur [facility] [id number] 5S / N/A / N/A Procedures Procedure Name Priority Date/Time Associated Diagnosis Comments XR FEMUR 2+ VIEWS RIGHT Routine 04/12/2025 10:39 AM EDT Pain BASIC METABOLIC PANEL Routine 04/05/2025 5:27 AM EDT Encounter for other general examination OSMOLALITY Routine 04/05/2025 5:27 AM EDT Encounter for other general examination OSMOLALITY, URINE Routine 04/04/2025 5:4 6 AM EDT Encounter for other general examination SODIUM, URINE, RANDOM Routine 04/04/2025 5:46 AM EDT Encounter for other general examination COMPREHENSIVE METABOLIC PANEL Routine 04/03/2025 5:14 AM EDT Encounter for other general examination COMPLETE BLOOD COUNT Routine 04/03/2025 5:14 AM EDT Encounter for other general examination TYPE AND SCREEN Routine 03/29/2025 5:25 AM EDT Anemia, unspecified COMPLETE BLOOD COUNT Routine 03/29/2025 5:05 AM EDT Encounter for other general examination FERRITIN Routine 03/29/2025 5:05 AM EDT Encounter for other general examination IRON AND TIBC Routine 03/29/2025 5:05 AM EDT Encounter for other general examination MANUAL DIFFERENTIAL - SYSMEX WAM Routine 03/28/2025 7:02 AM EDT Encounter for other general examination CBC WITH AUTO DIFFERENTIAL Routine 03/28/2025 7:02 AM EDT Encounter for other general examination AMMONIA Routine 03/28/2025 7:02 AM EDT Encounter for other general examination MAGNESIUM Routine 03/28/2025 7:02 AM EDT Encounter for other general examination COMPREHENSIVE METABOLIC PANEL Routine 03/28/2025 7:02 AM EDT Encounter for other general examination CBC AND DIFFERENTIAL Routine 03/28/2025 7:02 AM EDT Encounter for other general examination POCT GLUCOSE BLOOD Routine 03/27/2025 11 :27 AM EDT POCT GLUCOSE BLOOD Routine 03/27/2025 8: 47 AM EDT POCT GLUCOSE BLOOD Routine 03/26/2025 7: 42 PM EDT POCT GLUCOSE BLOOD Routine 03/26/2025 4: 04 PM EDT POCT GLUCOSE BLOOD Routine 03/26/2025 11 :37 AM EDT POCT GLUCOSE BLOOD Routine 03/26/2025 8: 00 AM EDT POCT GLUCOSE BLOOD Routine 03/25/2025 7: 45 PM EDT POCT GLUCOSE BLOOD Routine 03/25/2025 4: 25 PM EDT POCT GLUCOSE BLOOD Routine 03/25/2025 10 :56 AM EDT POCT GLUCOSE BLOOD Routine 03/25/2025 8: 12 AM EDT POCT GLUCOSE BLOOD Routine 03/24/2025 7: 53 PM EDT POCT GLUCOSE BLOOD Routine 03/24/2025 5: 03 PM EDT POCT GLUCOSE BLOOD Routine 03/24/2025 11 :15 AM EDT POCT GLUCOSE BLOOD Routine 03/24/2025 6: 09 AM EDT POCT GLUCOSE BLOOD Routine 03/24/2025 12 :16 AM EDT POCT GLUCOSE BLOOD Routine 03/23/2025 9: 28 PM EDT POCT GLUCOSE BLOOD Routine 03/23/2025 11 :16 AM EDT OXYGEN THERAPY, ADULT Routine 03/23/2025 9:46 AM EDT OXYGEN THERAPY, ADULT Routine 03/23/2025 9:46 AM EDT XR FEMUR 2+ VIEWS RIGHT Routine 03/23/2025 9:27 AM EDT TH AN ENDOTRACHEAL(NO CHARGE) Routine 03/23/2025 8:13 AM EDT ORIF FEMUR 03/23/2025 7:48 AM EDT Fracture, hip, right, closed, initial encounter (CMS/HCC V24, CMS/HCC V28) Case Notes C ARM, MOVE TO 9 POCT GLUCOSE BLOOD Routine 03/23/2025 7: 02 AM EDT POCT GLUCOSE BLOOD Routine 03/23/2025 6: 18 AM EDT CBC WITH AUTO DIFFERENTIAL Routine 03/23/2025 6:17 AM EDT COMPREHENSIVE METABOLIC PANEL Routine 03/23/2025 6:17 AM EDT CBC AND DIFFERENTIAL Routine 03/23/2025 6:17 AM EDT POCT GLUCOSE BLOOD Routine 03/23/2025 4: 21 AM EDT ECG 12-LEAD Routine 03/22/2025 9:26 PM EDT CBC WITH AUTO DIFFERENTIAL STAT 03/22/2025 9:22 PM EDT TROPONIN I HIGH SENSITIVITY Timed 03/22/2025 9:22 PM EDT CBC AND DIFFERENTIAL STAT 03/22/2025 9:22 PM EDT TROPONIN I HIGH SENSITIVITY Timed 03/22/2025 8:20 PM EDT TY URINE CULTURE TUBE STAT 03/22/2025 7:32 PM EDT URINALYSIS WITH REFLEX MICROSCOPIC AND CULTURE STAT 03/22/2025 7:32 PM EDT URINALYSIS WITH REFLEX MICROSCOPIC AND CULTURE STAT 03/22/2025 7:[address] LOWER EXTREMITY WO CONTRAST RIGHT STAT 03/22/2025 3:[address] PELVIS WO CONTRAST STAT 03/22/2025 3:[address] CERVICAL SPINE WO CONTRAST STAT 03/22/2025 3:[address] HEAD WO CONTRAST STAT 03/22/2025 3 :58 PM EDT CBC WITH AUTO DIFFERENTIAL STAT 03/22/2025 2:03 PM EDT COMPREHENSIVE METABOLIC PANEL STAT 03/22/2025 2:03 PM EDT CBC AND DIFFERENTIAL STAT 03/22/2025 2:[address] WHOLE BODY SUBSEQUENT Routine 03/14/2025 11:34 AM EDT Malignant melanoma of torso excluding breast (CMS/HCC V24, CMS/HCC V28) CBC WITH AUTO DIFFERENTIAL Routine 03/02/2025 1:56 PM EDT Malignant melanoma of torso excluding breast (CMS/HCC V24, CMS/HCC V28) LACTATE DEHYDROGENASE Routine 03/02/2025 1:56 PM EDT Malignant melanoma of torso excluding breast (CMS/HCC V24, CMS/HCC V28) COMPREHENSIVE METABOLIC PANEL Routine 03/02/2025 1:56 PM EDT Malignant melanoma of torso excluding breast (CMS/HCC V24, CMS/HCC V28) CBC AND DIFFERENTIAL Routine 03/02/2025 1:56 PM EDT Malignant melanoma of torso excluding breast (CMS/HCC V24, CMS/HCC V28) from Last 3 Months Results * XR Femur 2+ Views Right (04/12/2025 10:39 AM EDT) Only the most recent of2 resultswithin the time period is included. Narrative [facility] PACS/VR - 04/12/2025 10:39 AM EDT This order has been auto-finalized and does not contain a result. us Raf Kaufman MD IMG XR PROCEDURES Final Resul t Performing Organization Address City/[facility]/ZIP Co de Phone Number [facility] PACS/VR * Osmolality (04/05/2025 5:27 AM EDT) Pathologist [facility] Osmolality Kyaw [phone] - 300 mOsm/kg LAB CHEMISTRY METHOD 04/05/2025 10:11 AM EDT [facility] Blood Venous blood specimen / Unknown Venipuncture / Unknown 04/05/2025 5:27 AM EDT 04/05/2025 8:15 AM EDT Lindsey HIDALGO LAB BLOOD ORDERABLES Final Re sult Performing Organization Address [facility] de Phone Number [facility] [address] [place] [address], [place] [phone] * (ABNORMAL) Basic metabolic panel (04/05/2025 5:27 AM EDT) [facility] Sodium 134 133 - 145 mmol/L LAB CHEMISTRY METHOD 04/05/2025 9:43 AM EDT [facility] Potassium 4.2 3.5 - 5.5 mmol/L LAB CHEMISTRY METHOD 04/05/2025 9:43 AM EDT [facility] Chloride 101 96 - 110 mmol/L LAB CHEMISTRY METHOD 04/05/2025 9:43 AM EDT [facility] CO2 28 21 - 32 mmol/L LAB CHEMISTRY METHOD 04/05/2025 9:43 AM EDT [facility] Anion Gap 5 3 - 11 LAB CHEMISTRY METHOD 04/05/2025 9:43 AM EDT [facility] Glucose 70 70 - 100 mg/dL LAB CHEMISTRY METHOD 04/05[facility]25 [facility] BUN 12 5 - 25 mg/dL LAB CHEMISTRY METHOD 04/05/2025 9:43 AM EDT [facility] Creatinine 0.64(L) 0.70 - 1.30 mg/dL LAB CHEMISTRY METHOD 04/05/2025 9:43 AM EDT [facility] eGFR 104 >=60 mL/min/1. 73m2 LAB CHEMISTRY METHOD 04/05/2025 9:43 AM EDT [facility] Comment:Calculation based on the Chronic Kidney Disease Epidemiology Collaboration (CKD-EPI) equation refit without adjustment for race. BUN/Creatinine Ratio 18.8 LAB CHEMISTRY METHOD 04/05/2025 9:43 AM EDT [facility] Calcium 10.0 8.5 - 10.5 mg/dL LAB CHEMISTRY METHOD 04/05/2025 9:43 AM EDT [facility] Blood Venous blood specimen / Unknown Venipuncture / Unknown 04/05/2025 5:27 AM EDT 04/05/2025 8:15 AM EDT us Lindsey HIDALGO LAB BLOOD ORDERABLES Final Re sult Performing Organization Address [facility]/ZIP Co de Phone Number [facility] [address] [place] [address], * Sodium, urine, random (04/04/2025 5:46 AM EDT) Sodium, Ur 36 mmol/L LAB CHEMISTRY METHOD 04/04/2025 9:33 AM EDT [facility] Urine Urine specimen obtained by clean catch procedure / Unknown Non-blood Collection / Unknown 04/04/2025 5:46 AM EDT 04/04/2025 7:18 AM EDT us Lindsey HIDALGO LAB URINE ORDERABLES Final Re sult [facility] [address] [place] [address], [place] [phone] * (ABNORMAL) Osmolality, urine (04/04/2025 5:46 AM EDT) [facility] Osmolality, Urine 225(L) 300 - 1,300 mOsm/kg LAB CHEMISTRY METHOD 04/04/2025 9:43 AM EDT [facility] Urine Urine specimen obtained by clean catch procedure / Unknown Non-blood Collection / Unknown 04/04/2025 5:46 AM EDT 04/04/2025 7:18 AM EDT Lindsey HIDALGO LAB URINE ORDERABLES Final Re sult [facility] [address] [place] [address], [place] [phone] * (ABNORMAL) Complete blood count (04/03/2025 5:14 AM EDT) Only the most recent of2 resultswithin the time period is included. [facility] WBC 27.8(H) 4.8 - 10.8 K/mcL LAB HEMETOLOGY METHOD 04/03/2025 8:52 AM [facility] RBC 2.80(L) 4.50 - 5.50 M/[facility] LAB HEMETOLOGY METHOD 04/03/2025 8:52 AM EDT [facility] Hemoglobin 8.2(L) 13.5 - 17.5 g/dL LAB HEMETOLOGY METHOD 04/03/2025 8:52 AM [facility] Hematocrit 27.7(L) 42.0 - 54.0 % LAB HEMETOLOGY METHOD 04/03/2025 8:52 AM T [facility] MCV 98.6(H) 79.0 - 98.0 FL LAB HEMETOLOGY METHOD 04/03/2025 8:52 AM EDT [facility] MCH 29.2 27.0 - 32.0 pcg LAB HEMETOLOGY METHOD 04/03/2025 8:52 AM EDT [facility] MCHC 29.6(L) 32.0 - 37.0 g/dL LAB HEMETOLOGY METHOD 04/03/2025 8:52 AM EDT [facility] RDW 17.8(H) 11.0 - 15.0 % LAB HEMETOLOGY METHOD 04/03/2025 8:52 AM EDT [facility] Platelets 350 130 - 400 K/mcL LAB HEMETOLOGY METHOD 04/03/2025 8:52 AM EDT [facility] MPV 9.5 7.0 - 11.0 FL LAB HEMETOLOGY METHOD 04/03/2025 8:52 AM EDT [facility] NRBC 0.1 <1.0 % LAB HEMETOLOGY METHOD 04/03/2025 8:52 AM EDT [facility] NRBC Absolute 0.02 <0.10 K/mcL LAB HEMETOLOGY METHOD 04/03/2025 8:52 AM EDT [facility] Blood Venous blood specimen / Unknown Venipuncture / Unknown 04/03/2025 5:14 AM EDT 04/03/2025 8:11 AM EDT us Lindsey HIDALGO LAB BLOOD ORDERABLES Final Re sult [facility] [address] [place] [address], * (ABNORMAL) Comprehensive metabolic panel (04/03/2025 5:14 AM EDT) Only the most recent of5 resultswithin the time period is included. Sodium 132(L) 133 - 145 mmol/L LAB CHEMISTRY METHOD 04/03/2025 9:34 AM EDT [facility] Potassium 4.1 3.5 - 5.5 mmol/L LAB CHEMISTRY METHOD 04/03/2025 9:34 AM [facility] Chloride 100 96 - 110 mmol/L LAB CHEMISTRY METHOD 04/03/2025 9:34 AM [facility] CO2 24 21 - 32 mmol/L LAB CHEMISTRY METHOD 04/03/2025 9:34 AM [facility] Anion Gap 8 3 - 11 LAB CHEMISTRY METHOD 04/03/2025 9:34 AM [facility] Glucose 72 70 - 100 mg/dL LAB CHEMISTRY METHOD 04/03/2025 9:34 AM [facility] BUN 16 5 - 25 mg/dL LAB CHEMISTRY METHOD 04/03/2025 9:34 AM [facility] Creatinine 0.67(L) 0.70 - 1.30 mg/dL LAB CHEMISTRY METHOD 04/03/2025 9:34 AM [facility] eGFR 103 >=60 mL/min/1. 73m2 LAB CHEMISTRY METHOD 04/03/2025 9:34 AM [facility] Comment:Calculation based on the Chronic Kidney Disease Epidemiology Collaboration (CKD-EPI) equation refit without adjustment for race. BUN/Creatinine Ratio 23.9 LAB CHEMISTRY METHOD 04/03/2025 9:34 AM [facility] Calcium 9.7 8.5 - 10.5 mg/dL LAB CHEMISTRY METHOD 04/03/2025 9:34 AM [facility] AST (SGOT) 20 10 - 42 unit/L LAB CHEMISTRY METHOD 04/03/2025 9:34 AM [facility] ALT (SGPT) 19 10 - 60 unit/L LAB CHEMISTRY METHOD 04/03/2025 9:34 AM [facility] Alkaline Phosphatase 303(H) 42 - 121 unit/L LAB CHEMISTRY METHOD 04/03/2025 9:34 AM [facility] Total Protein 7.3 6.0 - 8.0 g/dL LAB CHEMISTRY METHOD 04/03/2025 9:34 AM EDT [facility] Albumin 2.9(L) 3.2 - 5.0 g/dL LAB CHEMISTRY METHOD 04/03/2025 9:34 AM EDT [facility] Total Bilirubin 0.5 0.0 - 1.4 mg/dL LAB CHEMISTRY METHOD 04/03/2025 9:34 AM EDT [facility] Blood Venous blood specimen / Unknown Venipuncture / Unknown 04/03/2025 5:14 AM EDT 04/03/2025 8:11 AM EDT Lindsey HIDALGO LAB BLOOD ORDERABLES Final Re sult Performing Organization Address [facility]/ZIP Co de Phone Number [facility] [address] [place] [address], * Type and screen (03/29/2025 5:25 AM EDT) ABO Group O 03/29/2025 10:03 AM EDT [facility] Rh Type Negative 03/29/2025 10:03 AM EDT [facility] Antibody Screen Negative 03/29/2025 10:03 AM EDT [facility] Blood Venous blood specimen / Unknown Venipuncture / Unknown 03/29/2025 5:25 AM EDT 03/29/2025 8:03 AM EDT Ana Willson MD LAB BLOOD BANK TEST ORDERABLES Final Result [facility] [address] [place] [address], [place] [phone] * (ABNORMAL) Iron and TIBC (03/29/2025 5:05 AM EDT) Iron 48(L) 50 - 160 mcg/dL LAB CHEMISTRY METHOD 03/29/2025 8:31 AM EDT [facility] TIBC 238(L) 250 - 450 mcg/dL LAB CHEMISTRY METHOD 03/29/2025 8:31 AM EDT [facility] Iron Saturation 20 20 - 50 % LAB CHEMISTRY METHOD 03/29/2025 8:31 AM EDT [facility] Blood Venous blood specimen / Unknown Venipuncture / Unknown 03/29/2025 5:05 AM EDT 03/29/2025 7:50 AM EDT Lindsey HIDALGO LAB BLOOD ORDERABLES Final Re sult Performing Organization Address [facility]/ZIP Co de Phone Number [facility] [address] [place] [address], [place] [phone] * (ABNORMAL) Ferritin (03/29/2025 5:05 AM EDT) Ferritin 503(H) 26 - 388 ng/mL LAB CHEMISTRY METHOD 03/29/2025 8:31 AM EDT [facility] Blood Venous blood specimen / Unknown Venipuncture / Unknown 03/29/2025 5:05 AM EDT 03/29/2025 7:50 AM EDT Lindsey HIDALGO LAB BLOOD ORDERABLES Final Re sult Performing Organization Address City/[facility]/ZIP Co de Phone Number [facility] [address] [place] [address], [place] [phone] * (ABNORMAL) Manual differential (03/28/2025 7:02 AM EDT) Neutrophils % 82.0 % LAB HEMETOLOGY METHOD 03/28/2025 9:36 AM EDT [facility] Lymphocytes % 6.0 % LAB HEMETOLOGY METHOD 03/28/2025 9:36 AM EDT [facility] Monocytes % 2.0 % LAB HEMETOLOGY METHOD 03/28/2025 9:36 AM [facility] Eosinophils % 11.0 % LAB HEMETOLOGY METHOD 03/28/2025 9:36 AM [facility] Basophils % 0.0 % LAB HEMETOLOGY METHOD 03/28/2025 9:36 AM [facility] Neutrophils Absolute Manual 21.32(H) 1.50 - 7.00 K/mcL LAB HEMETOLOGY METHOD 03/28/2025 9:36 AM [facility] Lymphocytes Absolute 1.56 1.00 - 5.00 K/mcL LAB HEMETOLOGY METHOD 03/28/2025 9:36 AM [facility] Monocytes Absolute Manual 0.52 0.20 - 1.00 K/mcL LAB HEMETOLOGY METHOD 03/28/2025 9:36 AM [facility] Eosinophils Absolute Manual 2.86(H) 0.00 - 0.50 K/mcL LAB HEMETOLOGY METHOD 03/28/2025 9:36 AM [facility] Basophils Absolute Manual 0.00 0.00 - 0.20 K/mcL LAB HEMETOLOGY METHOD 03/28/2025 9:36 AM [facility] Rbc Morphology Consistent with indices Consistent with indices, Normal for LAB HEMETOLOGY METHOD 03/28/2025 9:36 AM [facility] Comment:RBC: Morphology agre es with CBC Platelet Morphology - WAM See Note(A) Normal LAB HEMETOLOGY METHOD 03/28/2025 9:36 AM [facility] Comment:PLT: Normal Blood Venous blood specimen / Unknown 03/28/2025 7:02 AM EDT 03/28/2025 8:10 AM EDT us Brenna HIDALGO LAB BLOOD ORDERABLES Final Re sult [facility] [address] [place] [address], * (ABNORMAL) CBC auto differential (03/28/2025 7:02 AM EDT) Only the most recent of5 resultswithin the time period is included. WBC 26.0(H) 4.8 - 10.8 K/mcL LAB HEMETOLOGY METHOD 03/28/2025 9:36 AM EDT [facility] RBC 2.50(L) 4.50 - 5.50 M/mcL LAB HEMETOLOGY METHOD 03/28/2025 9:36 AM EDT [facility] Hemoglobin 7.3(L) 13.5 - 17.5 g/dL LAB HEMETOLOGY METHOD 03/28/2025 9:36 AM EDT [facility] Hematocrit 24.5(L) 42.0 - 54.0 % LAB HEMETOLOGY METHOD 03/28/2025 9:36 AM EDT [facility] MCV 96.8 79.0 - 98.0 FL LAB HEMETOLOGY METHOD 03/28/2025 9:36 AM EDT [facility] MCH 28.9 27.0 - 32.0 pcg LAB HEMETOLOGY METHOD 03/28/2025 9:36 AM EDT [facility] MCHC 29.8(L) 32.0 - 37.0 g/dL LAB HEMETOLOGY METHOD 03/28/2025 9:36 AM EDT [facility] RDW 16.5(H) 11.0 - 15.0 % LAB HEMETOLOGY METHOD 03/28/2025 9:36 AM [facility] Platelets 327 130 - 400 K/mcL LAB HEMETOLOGY METHOD 03/28[facility]2025 [facility] MPV 9.5 7.0 - 11.0 FL LAB HEMETOLOGY METHOD 03/28/2025 9:36 AM EDT [facility] NRBC 0.0 <1.0 % LAB HEMETOLOGY METHOD 03/28/2025 9:36 AM EDT [facility] NRBC Absolute 0.00 <0.10 K/mcL LAB HEMETOLOGY METHOD 03/28/2025 9:36 AM EDT [facility] Blood Venous blood specimen / Unknown 03/28/2025 7:02 AM EDT 03/28/2025 8:10 AM EDT Brenna HIDALGO LAB BLOOD ORDERABLES Final Re sult Performing Organization Address [facility]/ZIP Co de Phone Number [facility] [address] [place] [address], [place] [phone] * Magnesium (03/28/2025 7:02 AM EDT) Magnesium 1.9 1.9 - 2.6 mg/dL LAB CHEMISTRY METHOD 03/28/2025 8:48 AM EDT [facility] Blood Venous blood specimen / Unknown Venipuncture / Unknown 03/28/2025 7:02 AM EDT 03/28/2025 8:10 AM EDT Brenna HIDALGO LAB BLOOD ORDERABLES Final Re sult [facility] [address] [place] [address], [place] [phone] * (ABNORMAL) Ammonia (03/28/2025 7:02 AM EDT) Ammonia 37(H) 11 - 35 mcmol/L LAB CHEMISTRY METHOD 03/28/2025 8:36 AM EDT [facility] Blood Venous blood specimen / Unknown 03/28/2025 7:02 AM EDT 03/28/2025 8:10 AM EDT us Brenna HIDALGO LAB BLOOD ORDERABLES Final Re sult Performing Organization Address City/[facility]/ZIP Co de Phone Number [facility] [address] [place] [address], [place] [phone] * (ABNORMAL) POCT Glucose, blood (03/27/2025 11:27 AM EDT) Only the most recent of20 resultswithin the time period is included. [facility] Glucose POCT 184(H) 70 - 100 mg/dL 03/27/2025 4:38 PM EDT [facility] Blood Capillary blood specimen / Unknown 03/27/2025 11:27 AM EDT 03/27/2025 4:40 PM EDT us Natali Saravia MD LAB POINT OF CARE TE ST DOCKED DEVICE UNSOLICITED RESULTS Final Result Performing Organization Address [facility] Co de Phone Number [facility] [address] [place] [address], [place] [phone] * TH AN ENDOTRACHEAL(NO CHARGE) (03/23/2025 8:13 AM EDT) Narrative Jose Brunson MD - 03/23/2025 8:13 AM EDT Jose Brunson MD 03/23/2025 8:15 AM General Information and Staff Patient location during procedure: OR Anesthesiologist: Jose Brunson MD Performed: anesthesiologist Performed by: Jose Brunson MD Authorized by: Jose Brunson MD Intubation Airway not difficult Urgency: elective Final Airway Details Successful airway: ETT Cuffed: yes Successful intubation technique: direct laryngoscopy Endotracheal tube insertion site: oral Blade: Cesar Blade size: #3 ETT size (mm): 7.0 Cormack-Lehane Classification: grade I - full view of glottis Placement verified by: chest auscultation and capnometry Cuff volume (mL): 7 Measured from: lips ETT to lips (cm): 21 Number of attempts at approach: 1 Ventilation between attempts: none Number of other approaches attempted: 0Final airway type: endotracheal airway Indications and Patient Condition Indications for airway management: anesthesia Spontaneous ventilation: present Sedation level: Yes Preoxygenated: yes Soft Tissue Damage: No Dentition unchanged: edentulous. Patient position: neutral Mask difficulty assessment: 0 - not attempted Start Time: 03/23/2025 7:56 AMStop Time: 03/23/2025 7:56 AM us Jose Brunson MD ANESTHESIA ORDERABLES Final Re sult * ECG 12 lead (03/22/2025 9:26 PM EDT) Ventricular Rate ECG 89 BPM GEMUSE Atrial Rate 89 BPM GEMUSE P-R Interval 182 ms GEMUSE QRS Duration 124 ms GEMUSE Q-T Interval 390 ms GEMUSE QTc 474 ms GEMUSE P Wave [place] 65 degrees GEMUSE R [place] 63 degrees GEMUSE T [place] 3 degrees GEMUSE ECG Interpretation Normal sinus rhythm Possible Left atrial enlargement Left ventricular hypertrophy with QRS widening T wave abnormality, consider inferior ischemia Abnormal ECG When compared with ECG of 23-APR-2020 22:02, Minimal criteria for Inferior infarct are no longer Present Nonspecific T wave abnormality now evident in Lateral leads QT has lengthened Confirmed by MD [place], Lambert ([id number]) on 03/23/2025 5:36:01 PM GEMUSE 03/22/2025 9:26 PM EDT 03/23/2025 5:36 PM EDT us Sanjuana HIDALGO ECG ORDERABLES Final Result GEMUSE * Troponin I high sensitivity (03/22/2025 9:22 PM EDT) Only the most recent of2 resultswithin the time period is included. Pathologist [facility] High Sensitivity Troponin I 5 <=79 ng/L LAB CHEMISTRY METHOD 03/22/2025 10:06 PM EDT [facility] Blood Venous blood specimen / Unknown Venipuncture / Unknown 03/22/2025 9:22 PM EDT 03/22/2025 9:34 PM EDT Narrative [facility] - 03/22/2025 10:06 PM EDT High levels of biotin in samples may falsely decrease hsTroponin values. Use caution when interpreting hsTroponin results in patients taking biotin who exhibit renal impairment (eGFR <60) or in patients taking more than 20 mg/day of biotin. us Sanjuana HIDALGO LAB BLOOD ORDERABLES Final Resu lt [facility] [address] [place] [address], [place] [phone] * (ABNORMAL) Urinalysis with reflex microscopic and culture (03/22/2025 7:32 PM EDT) Specific [place] Urine 1.026 1.003 - 1.030 LAB URINALYSIS - AUTOMATED METHOD 03/22/2025 8:[facility] pH, Urine 7.0 5.0 - 8.0 pH LAB URINALYSIS - AUTOMATED METHOD 03/22/2025 8:04 PM [facility] Leukocytes, Urine Negative Negative LAB URINALYSIS - AUTOMATED METHOD 03/22/2025 8:04 PM [facility] Nitrite, Urine Negative Negative LAB URINALYSIS - AUTOMATED METHOD 03/22/2025 8:04 PM [facility] Protein, Urine 30(A) <=Trace mg/dL LAB URINALYSIS - AUTOMATED METHOD 03/22/2025 8:04 PM [facility] Glucose, Urine Negative Negative mg/dL LAB URINALYSIS - AUTOMATED METHOD 03/22/2025 8:04 PM [facility] Ketones, Urine Trace(A) Negative mg/dL LAB URINALYSIS - AUTOMATED METHOD 03/22/2025 8:04 PM [facility] Urobilinogen , Urine 1.0 0.2 - 1.0 mg/dL LAB URINALYSIS - AUTOMATED METHOD 03/22/2025 8:04 PM EDT [facility] Bilirubin, Urine Negative Negative LAB URINALYSIS - AUTOMATED METHOD 03/22/2025 8:04 PM EDT [facility] Blood, Urine Small(A) Negative LAB URINALYSIS - AUTOMATED METHOD 03/22/2025 8:04 PM EDT [facility] RBC, Urine 18.2(H) 0 - 4 /HPF LAB URINALYSIS - AUTOMATED METHOD 03/22/2025 8:04 PM EDT [facility] WBC, Urine 1.3 0 - 4 /HPF LAB URINALYSIS - AUTOMATED METHOD 03/22/2025 8:04 PM EDT [facility] Squamous Epithelial, Urine 60 0 - 60 /LPF LAB URINALYSIS - AUTOMATED METHOD 03/22/2025 8:04 PM EDT [facility] Non-Squamous Epithelial, Urine 5-10 Transitional epithelial cells. /LPF 03/22/2025 8:04 PM EDT [facility] Bacteria, Urine Negative Negative /HPF LAB URINALYSIS - AUTOMATED METHOD 03/22/2025 8:04 PM EDT [facility] Hyaline Casts, Urine 1.2 0 - 3 /LPF LAB URINALYSIS - AUTOMATED METHOD 03/22/2025 8:04 PM EDT [facility] Urine Urine specimen obtained by clean catch procedure / Unknown Non-blood Collection / Unknown 03/22/2025 7:32 PM EDT 03/22/2025 7:42 PM EDT us Jose Perla MD LAB URINE ORDERABLES Final Resul t [facility] [address] [place] [address], [place] [phone] * Ty urine culture tube (03/22/2025 7:32 PM EDT) Extra Tube Hold for add-ons. 03/22/2025 9:01 PM EDT [facility] Comment:Auto resulted. Urine Urine specimen obtained by clean catch procedure / Unknown Non-blood Collection / Unknown 03/22/2025 7:32 PM EDT 03/22/2025 7:42 PM EDT us Jose Perla MD LAB URINE ORDERABLES Final Resul t [facility] [address] [place] [address], [place] [phone] * CT Lower Extremity wo Contrast Right (03/22/2025 3:58 PM EDT) Anatomical Region Laterality Modality Lower Extremities Right Computed Tomog jordy 03/22/2025 4:39 PM EDT Impressions 03/22/2025 4:47 PM EDT Displaced and angulated fracture of the proximal right femoral diaphysis with associated intramuscular hematoma. -------- FINAL REPORT -------- Dictated By: Keely Brown Dictated Date: 03/22/2025 16:39 ET Assigned Physician: Keely Brown Reviewed and Electronically Signed By: Keely Brown Signed Date: 03/22/2025 16:47 ET Workstation ID: [id number] Transcribed By: Self Edit Transcribed Date: 03/22/2025 16:39 ET Narrative 03/22/2025 4:47 PM EDT INDICATION: Trauma with right leg pain with concern for femoral fracture TECHNIQUE: CT scan of the right lower extremity obtained from just above the right hip through the right knee. Scanner: [employer] 64 slice VCT Dose reduction technique: ASIR (Adaptive statistical iterative reconstruction) and/or AEC (automated exposure control) Dose: total exam DLP 536 mGY per cm COMPARISON: No prior studies are available for comparison. FINDINGS: Significantly displaced right proximal femoral shaft fracture. There is overlapping of the fracture fragments by approximately 5 cm. 3 cm left to right displacement with mild angulation of the proximal fracture fragment. Multiple small bony fragments are noted along the fractured segment. Intramuscular hematoma/blood products noted at the level of the fracture extending along the mid thigh. No soft tissue gas. No radiopaque foreign body. Mild vascular calcification noted along the superficial femoral artery and above-knee popliteal artery. The cephalad aspect of the distal fracture fragment is located approximately 1 cm from profunda femoris branches. Knee within normal limits with lower leg located 90 degrees laterally. No femoral head or neck fracture. Greater and lesser trochanters are intact. Procedure Note Keely Brown MD - 03/22/2025 INDICATION: Trauma with right leg pain with concern for femoral fracture TECHNIQUE: CT scan of the right lower extremity obtained from just abovethe right hip through the right knee. Scanner: [employer] 64 slice VCT Dose reduction technique: ASIR (Adaptive statistical iterativereconstruction) and/or AEC (automated exposure control) Dose: total exam DLP 536 mGY per cm COMPARISON: No prior studies are available for comparison. FINDINGS: Significantly displaced right proximal femoral shaft fracture. There isoverlapping of the fracture fragments by approximately 5 cm. 3 cm left toright displacement with mild angulation of the proximal fracture fragment.Multiple small bony fragments are noted along the fractured segment. Intramuscular hematoma/blood products noted at the level of the fractureextending along the mid thigh. No soft tissue gas. No radiopaque foreignbody. Mild vascular calcification noted along the superficial femoral artery andabove- knee popliteal artery. The cephalad aspect of the distal fracturefragment is located approximately 1 cm from profunda femoris branches. Knee within normal limits with lower leg located 90 degrees laterally. Nofemoral head or neck fracture. Greater and lesser trochanters areintact. IMPRESSION: Displaced and angulated fracture of the proximal right femoral diaphysiswith associated intramuscular hematoma. -------- FINAL REPORT -------- Dictated By: Keely Brown Dictated Date: 03/22/2025 16:39 ET Assigned Physician: Keely Brown Reviewed and Electronically Signed By: Keely Brown Signed Date: 03/22/2025 16:47 ET Workstation ID: [id number] Transcribed By: Self Edit Transcribed Date: 03/22/2025 16:39 ET Jose Perla MD IMG CT PROCEDURES Final Result * CT Pelvis wo Contrast (03/22/2025 3:58 PM EDT) Anatomical Region Laterality Modality Body, Pelvis Computed Tomogra phy 03/22/2025 4:47 PM EDT Impressions 03/22/2025 4:55 PM EDT No acute pelvic fracture. Multiple osseous lytic lesions correspond to metastatic disease as noted on recent PET/CT from February 12, 2025. -------- FINAL REPORT -------- Dictated By: Keely Brown Dictated Date: 03/22/2025 16:47 ET Assigned Physician: Keely Brown Reviewed and Electronically Signed By: Keely Brown Signed Date: 03/22/2025 16:55 ET Workstation ID: [id number] Transcribed By: Self Edit Transcribed Date: 03/22/2025 16:47 ET Narrative 03/22/2025 4:55 PM EDT INDICATION: Pelvic trauma TECHNIQUE: CT scan of the pelvis obtained without contrast. Scanner: [employer] 64 slice VCT Dose reduction technique: ASIR (Adaptive statistical iterative reconstruction) and/or AEC (automated exposure control) Dose: total exam DLP 1616 mGY per cm COMPARISON: Outside CT scan of the pelvis from February 20, 2025. FINDINGS: No pelvic fracture noted. Degenerative changes. 17 mm lytic lesion within the left iliac bone adjacent to the anterior aspect of the upper SI joint. Subtle lytic changes noted anteriorly superior aspect of the left iliac bone also measuring 17 mm. 1 cm lytic lesion noted in a similar location on the right side. Intramuscular soft tissue tissue lesion noted on prior PET scan are not well demonstrated on noncontrast imaging. Right proximal femoral shaft fracture. Please see separate report for CT scan of the right lower extremity. Visualized bowel is unremarkable. Colonic diverticulosis without acute diverticulitis. Normal appendix. No free air or free fluid. Urinary bladder unremarkable with a urachal remnant. Grossly normal prostate gland and seminal vesicles. Procedure Note Keely Brown MD - 03/22/2025 INDICATION: Pelvic trauma TECHNIQUE: CT scan of the pelvis obtained without contrast. Scanner: [employer] 64 slice VCT Dose reduction technique: ASIR (Adaptive statistical iterativereconstruction) and/or AEC (automated exposure control) Dose: total exam DLP 1616 mGY per cm COMPARISON: Outside CT scan of the pelvis from February 20, 2025. FINDINGS: No pelvic fracture noted. Degenerative changes. 17 mm lytic lesion within the left iliac bone adjacent to the anterioraspect of the upper SI joint. Subtle lytic changes noted anteriorlysuperior aspect of the left iliac bone also measuring 17 mm. 1 cm lyticlesion noted in a similar location on the right side. Intramuscular soft tissue tissue lesion noted on prior PET scan are notwell demonstrated on noncontrast imaging. Right proximal femoral shaft fracture. Please see separate report for CTscan of the right lower extremity. Visualized bowel is unremarkable. Colonic diverticulosis without acutediverticulitis. Normal appendix. No free air or free fluid. Urinary bladder unremarkable with a urachal remnant. Grossly normalprostate gland and seminal vesicles. IMPRESSION: No acute pelvic fracture. Multiple osseous lytic lesions correspond to metastatic disease as notedon recent PET/CT from February 12, 2025. -------- FINAL REPORT -------- Dictated By: Keely Brown Dictated Date: 03/22/2025 16:47 ET Assigned Physician: Keely Brown Reviewed and Electronically Signed By: Keely Brown Signed Date: 03/22/2025 16:55 ET Workstation ID: [id number] Transcribed By: Self Edit Transcribed Date: 03/22/2025 16:47 ET Jose Perla MD IM CT PROCEDURES Final Result * CT Cervical Spine wo Contrast (03/22/2025 3:58 PM EDT) Anatomical Region Laterality Modality Spine, C-spine Computed Tomogra phy 03/22/2025 4:21 PM EDT Impressions 03/22/2025 4:31 PM EDT Degenerative changes without acute fracture or soft tissue swelling. 3 mm anterior subluxation of C5 on C6. Lytic changes in the T2 and T3 vertebral bodies with upper mediastinal lymphadenopathy. Metastatic disease suspected. Please see report from recent PET/CT dated March 14, 2025. -------- FINAL REPORT -------- Dictated By: Keely Brown Dictated Date: 03/22/2025 16:21 ET Assigned Physician: Keely Brown Reviewed and Electronically Signed By: Keely Brown Signed Date: 03/22/2025 16:31 ET Workstation ID: [id number] Transcribed By: Self Edit Transcribed Date: 03/22/2025 16:21 ET Narrative 03/22/2025 4:31 PM EDT INDICATION: Neck trauma Technique: CT scan of the cervical spine obtained without contrast. Scanner: [employer]Speed 64 slice VCT Dose reduction technique: ASIR (Adaptive statistical iterative reconstruction) and/or AEC (automated exposure control) Dose: total exam DLP 1269 mGY per cm Comparison: No prior studies available for comparison. FINDINGS: Vertebral bodies: Multilevel degenerative changes with mild kyphosis at the C7 level. No acute fracture. 3 mm anterior subluxation of C5 on C6. Bony fusion at the C4- C5 level. Multilevel facet hypertrophy. Bony lucency along the left side of the T2 vertebral body with 7 mm and 11 mm lesions. Lytic changes also noted within the partially imaged T3 vertebral bodies. Soft tissue: No evidence of prevertebral or paraspinal soft tissue swelling or hematoma. Other: Airway within normal limits. Moderate carotid vascular calcifications. Lung apices are clear. No significant thyroid abnormality. No cervical lymphadenopathy however lymphadenopathy noted within the upper mediastinum. Procedure Note Keely Brown MD - 03/22/2025 INDICATION: Neck trauma Technique: CT scan of the cervical spine obtained without contrast. Scanner: [employer] 64 slice VCT Dose reduction technique: ASIR (Adaptive statistical iterativereconstruction) and/or AEC (automated exposure control) Dose: total exam DLP 1269 mGY per cm Comparison: No prior studies available for comparison. FINDINGS: Vertebral bodies: Multilevel degenerative changes with mild kyphosis atthe C7 level. No acute fracture. 3 mm anterior subluxation of C5 on C6.Bony fusion at the C4- C5 level. Multilevel facet hypertrophy. Bony lucencyalong the left side of the T2 vertebral body with 7 mm and 11 mm lesions.Lytic changes also noted within the partially imaged T3 vertebralbodies. Soft tissue: No evidence of prevertebral or paraspinal soft tissueswelling or hematoma. Other: Airway within normal limits. Moderate carotid vascularcalcifications. Lung apices are clear. No significant thyroidabnormality. No cervical lymphadenopathy however lymphadenopathy noted within the uppermediastinum. IMPRESSION: Degenerative changes without acute fracture or soft tissue swelling. 3 mm anterior subluxation of C5 on C6. Lytic changes in the T2 and T3 vertebral bodies with upper mediastinallymphadenopathy. Metastatic disease suspected. Please see report fromrecent PET/CT dated March 14, 2025. -------- FINAL REPORT -------- Dictated By: Keely Brown Dictated Date: 03/22/2025 16:21 ET Assigned Physician: Keely Brown Reviewed and Electronically Signed By: Keely Brown Signed Date: 03/22/2025 16:31 ET Workstation ID: [id number] Transcribed By: Self Edit Transcribed Date: 03/22/2025 16:21 ET Jose Perla MD IMG CT PROCEDURES Final Result * CT Head wo Contrast (03/22/2025 3:58 PM EDT) Anatomical Region Laterality Modality Head and Neck Computed Tomogra phy 03/22/2025 4:10 PM EDT Impressions 03/22/2025 4:11 PM EDT No evidence of acute intracranial process on noncontrast head CT. Atrophy and age-related changes. -------- FINAL REPORT -------- Dictated By: Keely Brown Dictated Date: 03/22/2025 16:10 ET Assigned Physician: Keely Brown Reviewed and Electronically Signed By: Keely Brown Signed Date: 03/22/2025 16:11 ET Workstation ID: [id number] Transcribed By: Self Edit Transcribed Date: 03/22/2025 16:10 ET Narrative 03/22/2025 4:11 PM EDT INDICATION: Head trauma Technique: Axial images were obtained from the skull base to the vertex without contrast enhancement. Coronal and sagittal reformats obtained. Scanner: [employer] 64 slice VCT Dose reduction technique: ASIR (Adaptive statistical iterative reconstruction) Dose: total exam DLP 901 mGY per cm Comparison: No prior studies available for comparison. FINDINGS: Intracranial contents: No acute intracranial hemorrhage, midline shift or mass-effect. The ventricles, sulci, sylvian fissures and basilar cisterns are symmetrically enlarged most consistent with atrophy. There are no abnormal intra or extra- axial fluid collections. Bony structures/soft tissues: Within normal limits for the patient's age. Sinuses: paranasal sinuses are clear. Procedure Note Keely Brown MD - 03/22/2025 INDICATION: Head trauma Technique: Axial images were obtained from the skull base to the vertexwithout contrast enhancement. Coronal and sagittal reformats obtained. Scanner: [employer]elt 64 slice VCT Dose reduction technique: ASIR (Adaptive statistical iterativereconstruction) Dose: total exam DLP 901 mGY per cm Comparison: No prior studies available for comparison. FINDINGS: Intracranial contents: No acute intracranial hemorrhage, midline shift ormass- effect. The ventricles, sulci, sylvian fissures and basilar cisternsare symmetrically enlarged most consistent with atrophy. There are noabnormal intra or extra-axial fluid collections. Bony structures/soft tissues: Within normal limits for the patient'frankie. Sinuses: paranasal sinuses are clear. IMPRESSION: No evidence of acute intracranial process on noncontrast head CT. Atrophy and age-related changes. -------- FINAL REPORT -------- Dictated By: Keely Brown Dictated Date: 03/22/2025 16:10 ET Assigned Physician: Keely Brown Reviewed and Electronically Signed By: Keely Brown Signed Date: 03/22/2025 16:11 ET Workstation ID: [id number] Transcribed By: Self Edit Transcribed Date: 03/22/2025 16:10 ET Jose Perla MD IMG CT PROCEDURES Final Result * PET CT Whole Body Subsequent (03/14/2025 11:34 AM EDT) Anatomical Region Laterality Modality Body Radiographic Maira ging 03/17/2025 7:57 PM EDT Impressions 03/17/2025 9:29 PM EDT 1. FDG avid pulmonary nodules, liver lesions, osseous and soft tissue activity within the gluteus musculature suspicious for underlying malignancy 2. FDG avid right supraclavicular, left axillary/retropectoral, thoracic and abdominal lymphadenopathy suspicious for metastatic disease 3. FDG activity in the left adrenal gland worrisome for metastatic disease 4. Enlarged prostate gland with focal FDG activity. Correlation with prostate-specific antigen values is suggested. Please note: The CT was acquired at a low radiation dose settings. The images are of nondiagnostic quality and used solely for purposes of attenuation correction and slice localization for the PET scan. If a diagnostic CT study is desired it must be ordered separately. -------- FINAL REPORT -------- Dictated By: Snow Wynne Dictated Date: 03/17/2025 19:57 ET Assigned Physician: Snow Wynne Reviewed and Electronically Signed By: Snow Wynne Signed Date: 03/17/2025 21:29 ET Workstation ID: [id number] Transcribed By: Self Edit Transcribed Date: 03/17/2025 19:57 ET Narrative 03/17/2025 9:29 PM EDT INDICATION: Malignant melanoma, lung and liver lesions -- restaging TECHNIQUE: FDG PET-CT imaging was performed from the head through the toes in a single acquisition with data set reconstructed in axial, coronal, and sagittal planes at the computer workstation with fused data from both the PET imaging study and attenuation correction CT. The CT portion of the examination was done strictly for attenuation correction and is not a true diagnostic CT examination. DLP: 1298 mGy-cm Radiopharmaceutical: 12.6 mCi of F-18 FDG IV. Blood glucose: 108 mg/dl. COMPARISON: Prior PET CT 05/[address] of the abdomen and pelvis dated February 2025 FINDINGS: HEAD AND NECK: FDG avid right supraclavicular lymph node SUV max 4.2. THORAX: FDG avid left axillary and retropectoral lymph nodes measuring up to SUV Max 19.2. Surgical clips in the axilla bilaterally. FDG avid thoracic and hilar lymphadenopathy. For example, left upper paratracheal SUV max 12.1, prevascular/anterior mediastinal/mammary SUV Max 15.7, right paratracheal SUV max 9.6, AP window/left paratracheal SUV max 11.5 , pericardial SUV Max 5.6, right hilar SUV max 12, subcarinal 14.3 SUV Max and left hilar SUV max 4.8. FDG avid 18 x 27 mm juxtapleural left lower lobe lung nodule SUV max 17.5. Smaller right lower lobe pulmonary nodules measuring up to SUV Max 1.5. Trace bilateral pleural effusions measuring up to SUV Max 1.7. Thoracic aortic and coronary artery calcifications. Cardiomegaly. ABDOMEN/PELVIS: FDG avid liver lesions measuring up to SUV Max 11.2. Focal FDG activity in the left adrenal gland SUV max 4.8. FDG avid abdominal lymphadenopathy. For example, karyn hepatis/portacaval measuring up to SUV Max 14, retroperitoneal SUV max 4.9. Artifactual absence of signal within the pelvis limits evaluation. Enlarged prostate gland with central FDG activity SUV max 8.4. Nonspecific bowel activity particularly in the cecum and ascending colon measuring up to SUV Max 8.6. Diverticulosis. Cholecystectomy. MUSCULOSKELETAL: FDG avid nodules in the gluteus musculature bilaterally SUV max 8.5 on the left and 12.4 on the right. Innumerable FDG avid osseous lesions. For example in the right femur SUV Max 13.7, left femur SUV Max 13, left iliac bone SUV max 11.1, right iliac crest SUV max 7.0, right anterior fifth rib SUV max 13.4, sternum 12.0, left humerus SUV Max 8.3, and diffuse activity within the thoracic and lumbar spine most significantly at T3 SUV Max 11.3. Procedure Note Snow Wynne MD - 03/17/2025 INDICATION: Malignant melanoma, lung and liver lesions -- restaging TECHNIQUE: FDG PET-CT imaging was performed from the head through the toesin a single acquisition with data set reconstructed in axial, coronal, andsagittal planes at the computer workstation with fused data from both thePET imaging study and attenuation correction CT. The CT portion of theexamination was done strictly for attenuation correction and is not a truediagnostic CT examination. DLP: 1298 mGy-cm Radiopharmaceutical: 12.6 mCi of F-18 FDG IV. Blood glucose: 108 mg/dl. COMPARISON: Prior PET CT 05/[address] of the abdomen andpelvis dated February 2025 FINDINGS: HEAD AND NECK: FDG avid right supraclavicular lymph node SUV max 4.2. THORAX: FDG avid left axillary and retropectoral lymph nodes measuring upto SUV Max 19.2. Surgical clips in the axilla bilaterally. FDG avid thoracic and hilar lymphadenopathy. For example, left upperparatracheal SUV max 12.1, prevascular/anterior mediastinal/mammary SUVMax 15.7, right paratracheal SUV max 9.6, AP window/left paratracheal SUVmax 11.5 , pericardial SUV Max 5.6, right hilar SUV max 12, [id number] SUV Max and left hilar SUV max 4.8. FDG avid 18 x 27 mm juxtapleural left lower lobe lung nodule SUV max 17.5.Smaller right lower lobe pulmonary nodules measuring up to SUV Max 1.5. Trace bilateral pleural effusions measuring up to SUV Max 1.7. Thoracicaortic and coronary artery calcifications. Cardiomegaly. ABDOMEN/PELVIS: FDG avid liver lesions measuring up to SUV Max 11.2.Focal FDG activity in the left adrenal gland SUV max 4.8. FDG avid abdominal lymphadenopathy. For example, karyn hepatis/portacavalmeasuring up to SUV Max 14, retroperitoneal SUV max 4.9. Artifactual absence of signal within the pelvis limits evaluation.Enlarged prostate gland with central FDG activity SUV max 8.4. Nonspecific bowel activity particularly in the cecum and ascending colonmeasuring up to SUV Max 8.6. Diverticulosis. Cholecystectomy. MUSCULOSKELETAL: FDG avid nodules in the gluteus musculature bilaterallySUV max 8.5 on the left and 12.4 on the right. Innumerable FDG avid osseous lesions. For example in the right femur SUVMax 13.7, left femur SUV Max 13, left iliac bone SUV max 11.1, right iliaccrest SUV max 7.0, right anterior fifth rib SUV max 13.4, sternum 12.0,left humerus SUV Max 8.3, and diffuse activity within the thoracic andlumbar spine most significantly at T3 SUV Max 11.3. IMPRESSION: 1. FDG avid pulmonary nodules, liver lesions, osseous and soft tissueactivity within the gluteus musculature suspicious for underlyingmalignancy 2. FDG avid right supraclavicular, left axillary/retropectoral, thoracicand abdominal lymphadenopathy suspicious for metastatic disease 3. FDG activity in the left adrenal gland worrisome for metastaticdisease 4. Enlarged prostate gland with focal FDG activity. Correlation withprostate- specific antigen values is suggested. Please note: The CT was acquired at a low radiation dose settings. The images are ofnondiagnostic quality and used solely for purposes of attenuationcorrection and slice localization for the PET scan. If a diagnostic CTstudy is desired it must be ordered separately. -------- FINAL REPORT -------- Dictated By: Snow Wynne Dictated Date: 03/17/2025 19:57 ET Assigned Physician: Snow Wynne Reviewed and Electronically Signed By: Snow Wynne Signed Date: 03/17/2025 21:29 ET Workstation ID: [id number] Transcribed By: Self Edit Transcribed Date: 03/17/2025 19:57 ET Emi Bruno MD IM NM PROCEDURES F inal Result * Lactate dehydrogenase (03/02/2025 1:56 PM EDT) LDH 243 120 - 246 unit/L LAB CHEMISTRY METHOD 03/02/2025 4:59 PM EDT [facility] Blood Venous blood specimen / Unknown Venipuncture / Unknown 03/02/2025 1:56 PM EDT 03/02/2025 4:34 PM EDT Emi Bruno MD LAB BLOOD ORDERABLE S Final Result [facility] [address] [place] [address], [place] [phone] from Last 3 Months Insurance [employer] MEDICAID - [place] Advance Directives * Full Code - Default (Latest Code Status on File) Date Activated Date Inactivated Comments 03/22/2025 6:44 PM 03/27/2025 1:58 PM This is orde r is used when code status has not been discussed with the patient, or code status is otherwise unknown/unconfirmed To update the patient's code status, place a code status order. Do not modify or discontinue any currently active code status orders. Care Teams Employment Service Specialist Relationship Specialty Start Date End Date Mati Richter MD [address] [place] [address] [address] [facility] [place] [address] PCP - General Internal Medicine 04/06/19
== END 2025-04-20 16:35 | disposition home or self-care (01) ==
LOC: HO.HMCH 15:20
PROVIDERS: PCP Internal Medicine; Visit Provider Nurse Practitioner Family
DX: I25.10 Atherosclerotic heart disease of native coronary artery without angina pectoris (principal); C43.9 Malignant melanoma of skin, unspecified; Z98.890 Other specified postprocedural states; Z87.81 Personal history of (healed) traumatic fracture

== ENCOUNTER → 2025-04-20 15:20 | Outpatient (BNVA) | payer MEDICARE, SELFPAY | PROVIDERS: PCP Internal Medicine; Visit Provider Nurse Practitioner Family | DX: I25.10 Atherosclerotic heart disease of native coronary artery without angina pectoris (principal); C43.9 Malignant melanoma of skin, unspecified; Z87.81 Personal history of (healed) traumatic fracture; Z98.890 Other specified postprocedural states | CPT/HCPCS: 96127; 99212 ==

== ENCOUNTER 2025-04-23 11:51 | Outpatient (REF) | payer MEDICARE, SELFPAY ==
--- OUTSIDE RECORDS SUMMARY | 2025-04-23 13:08 | XMS_ITS | Clinical Summary ---
Author Organization [facility] Address [address] [place] [address] Care Team Providers Care Free Lance Artist Name Role Phone Po, Mati Ramon MD Primary Care Provider [phone] Allergies Active Allergy Reactions Criticality Noted Date [...] angina pectoris 05/22/2019 Overview: Overview: S/p Old MD and stent Chronic neck and back pain [...] age to complete this topic Care Teams Free Lance Artist Relationship Specialty Start Date End Date Po, Mati Ramon MD [address] [place] [address] [address] [facility] [place] [address] PCP - General Internal Medicine 08/12/18
--- OUTSIDE RECORDS SUMMARY | 2025-04-23 13:08 | XMS_ITS | Encounter Summary ---
Author Organization [facility] Address [address] [address] Phone Care Team Providers Care Assistant Chief Of Police Name Role Phone Mati Richter MD Primary Care Provider [phone] Encounter Details Date Type Department Care Team (Late st Contact Info) Description 04/16/2025 Orders Only [facility] [address] [phone] Jeromy Mancia MD [address] [phone] Chronic kidney disease stage 2; [...] Office Visit [facility] [address] [phone] Jeromy Mancia MD [address] [phone] documented as of this encounter Visit Diagnoses Diagnosis Chronic kidney disease stage 2 Metabolic acidosis, not otherwise specified Hypertensive chronic kidney disease documented in this encounter Care Teams Assistant Chief Of Police Relationship Specialty Start Date End Date Mati Richter MD [address] [place], [place] PCP - General 09/16/20 documented as of this encounter
--- OUTSIDE RECORDS SUMMARY | 2025-04-23 13:08 | XMS_ITS | Clinical Summary ---
Author Organization [facility] Address [address] [place] [address] Phone Care Team Providers Care Liaison Inspection Laboratory Assistant Name Role Phone Mati Richter MD Primary Care Provider [phone] Allergies No known active allergies Medications amLODIPine [...] Amount: 20 mg 15 tablet 5 Active Active Problems Problem Noted Date Diagnosed Date Fall 03/22/2025 Secondary malignant neoplasm of skin of back ([facility] V24, 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 V24, [facility] V28) 03/02/2025 Seizure disorder ([facility] V24, [facility] V28) 02/05 Stage 3a chronic kidney disease ([facility] V24, [facility] V28) 03/02/2025 Malignant melanoma of torso excluding breast ([facility] V24, [facility] V28) 03/02/2025 Anemia complicating neoplastic disease 5 Encounters Date Type Department Care Team Description 04/12/2025 9:40 AM EDT - 04/12/2025 11:59 PM EDT Hospital Encounter [facility] Ortho Xray [address] [place] [address] Pain Discharge Disposition: Home or Self Care 04/05/2025 Lab Requisition [facility] Lab [address] [place] [phone] Lindsey Alexander PA Encounter for other general examination 04/04/2025 Lab Requisition [facility] Lab [address] [place] [address] Lindsey Alexander PA Encounter for other general examination 04/03/2025 Lab Requisition [facility] Lab [address] [place] [phone] Lindsey Alexander PA Encounter for other general examination 03/29/2025 Lab Requisition [facility] Lab [address] [place] [phone] Lindsey Alexander PA Encounter for other general examination 03/28/2025 Lab Requisition [facility] Lab [address] [place] [phone] Brenna Payton PA Encounter for other general examination 03/27/[address] [facility] Hematology Oncology [address] [place] [address] Emi Alejandra MD 03/23/2025 7:48 AM EDT Anesthesia Event [facility] Main OR [address] [place] [address] Jose Brunson MD 03/23/2025 7:30 AM EDT - 03/23/2025 9:[address] [facility] Main OR [address] [place] [phone] Thomas Alarcon MD ORIF FEMUR, GLOBUS NAIL 03/23/[address] [facility] Hematology Oncology [address] [place] [phone] Keerthi Gamboa MA 03/22/2025 1:41 PM EDT - 03/27/2025 11:53 AM EDT Hospital Encounter [facility] Urology Unit [address] [place] [address] Jose Perla MD Seralathan, Manikandan, MD Alam, Aroosa, MD Other fracture of right femur, initial encounter for closed fracture ([facility] V24, [facility] V28) (Primary Dx) Discharge Disposition: Residential Facility 03/14/2025 9:01 AM EDT - 03/14/2025 11:59 PM EDT Hospital Encounter [facility] PET Scan [address] [place] [address] Malignant melanoma of torso excluding breast ([facility] V24, [facility] V28) Discharge Disposition: Home or Self Care 03/02/2025 1:30 PM EDT Office Visit [facility] Hematology Oncology [address] [place] [phone] Emi Alejandra MD Malignant melanoma of torso excluding breast ([facility]/HCC V24, [facility] V28) (Primary Dx); Liver lesion; Lung nodule; Anemia complicating neoplastic disease; Secondary malignant neoplasm of skin of back ([facility] V24, 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 V24, [facility] V28); Seizure disorder ([facility] V24, [facility] V28); Stage 3a chronic kidney disease ([facility] V24[facility] V28) 02/21/[address] [facility] Hematology Oncology [address] [place] [phone] Keerthi Gamboa MA from Last 3 Months Surgical History Surgery Date Site/Laterality Comments CHOLECYSTECTOMY PROCEDURE: VT CHOLECYSTECTOMY OTHER SURGICAL HISTORY 05/15/2019 Left PROCEDURE: HISTORY OTHER; COMMENT: lateral to scar Malig melanoma,07/22/18left mid back-metastatic malignant melanoma,05/2010excision of Melanoma mid back,Bilat axil sentinel lymph node biopsies; HERNIA REPAIR Bilateral PROCEDURE: HISTORICAL HERNIA REPAIR/ING CL PCI - PERCUTANEOUS CORONARY INTERVENT Medical History Medical History Date Comments History of melanoma 05/22/201905/2010 origi nal left upper back, surveillance x 5yrs Seizure disorder ([facility] V2 4, [facility] V28) 05/22/2019 DX:Seizure disorder (HCC) Hyperlipidemia 05/22/2019 DX:Hyperlipidemi a GERD (gastroesophageal reflux disease) 05/22/2019 DX:GERD (gastroesophageal reflux disease) Hypertension 05/22/2019 DX:Hypertension Osteoarthritis 05/22/2019 DX:Osteoarthriti s Type 2 diabetes mellitus wit hout complications ([facility] V24, [facility] V28) 05/22/2019 DX:Type 2 diabetes mellitus without complications (HCC) CAD (coronary artery disease) 05/22/2019 DX :CAD (coronary artery disease); COMMENT: S/p Old [place] and stent Secondary malignant neoplasm of skin of back ([facility] V24, [facility] V28) 05/15/2019 DX:Secondary malign ant neoplasm of skin of back (HCC); COMMENT: Excision 07/2018, 05/2019; Dx 07/2016 Chronic neck and back pain 05/22/2019 DX:Ch ronic neck and back pain History of basal cell carcinoma (BCC) 07/26/2019 DX:History of basal cell carcinoma (BCC); COMMENT: 2018 L medial cheek CHF (congestive heart failur e) ([facility] V24, [facility] V28) Anemia CKD (chronic kidney disease) Metastatic melanoma ([facility] V24, [facility] V28) to lymph nodes [...] Description 04/30/2025 10:[address] [facility] Ultrasound [address] [place] [address] 05/03/2025 2:45 PM EDT Office Visit [facility] Hematology Oncology [address] [place] [address] Emi Bruno MD [address] [place] [address] Health Maintenance Due Date Last Done Comments [...] 09/06/2024 COVID-19 Vaccine (8 - Pfizer risk season) 2024 05/29/2024, 06/15/2023, 07/01/2022, Additional history exists Influenza [...] this topic Medical Devices Implanted Type Area Obstetrics Scrub Nurse Device Identifier Shelf Expiration Date Model / Serial / Lot K-Wire Ball Tip Guidewire [id number] [employer] - Sn/A - [id number] Implanted:Qty: 1 on 03/23/2025 by Thomas Alarcon MD at [facility] Internal and External Fixation Right: Femur [facility] [id number] 01/25/2032 6176.002 2S / N/A / [id number] K-Wire Thrd Drill Point [id number] - Sn/A - [id number] Implanted:Qty: 2 on 03/23/2025 by Thomas Alarcon MD at [facility] Internal and External Fixation Right: Femur [facility] [id number] 04/27/2031 6176.002 1S / N/A / [id number] Nail Trochant [id number] 130deg Rt [employer]ob[employer] Ti - Sn/A - [id number] Implanted:Qty: 1 on 03/23/2025 by Thomas Alarcon MD at [facility] Internal and External Fixation Right: Femur [facility] 08/23/2029 1176.604 0S / N/A / [id number] Screw Lag [id number] Ti [employer]obahn Troch Nail Sys - Sn/A - [id number] Implanted:Qty: 1 on 03/23/2025 by Thomas Alarcon MD at [facility] Internal and External Fixation Right: Femur [facility] 1176.011 0S / N/A / N/A Screw Lcking 5x45mm Ti Ft [employer]obahn Tibial Nail Sys - Sn/A - [id number] Implanted:Qty: 1 on 03/23/2025 by Thomas lAarcon MD at [facility] Internal and External Fixation Right: Femur [facility] [id number] 5S / N/A / N/A [...] resultswithin the time period is included. Narrative RIS PACS/VR - 04/12/2025 10:39 AM EDT This order has been auto-finalized and does not contain a result. us Raf Kaufman MD IMG XR PROCEDURES Final Resul t RIS PACS/VR * Osmolality (04/05/2025 5:27 AM EDT) Pathologist [facility] Osmolality Kyaw 290 280 - 300 mOsm/kg LAB CHEMISTRY METHOD 04/05/2025 10:11 AM [facility] Blood Venous blood specimen / Unknown Venipuncture / Unknown 04/05/2025 5:27 AM EDT 04/05/2025 8:15 AM EDT us Lindsey HIDALGO LAB BLOOD ORDERABLES Final Re sult [facility] [address] [place] [address], * (ABNORMAL) Basic metabolic panel (04/05/2025 5:27 AM EDT) [facility] Sodium 134 133 - 145 mmol/L LAB CHEMISTRY METHOD 04/05/2025 9:43 AM [facility] Potassium 4.2 3.5 - 5.5 mmol/L LAB CHEMISTRY METHOD 04/05/2025 9:43 AM [facility] Chloride 101 96 - 110 mmol/L LAB CHEMISTRY METHOD 04/05/2025 9:43 AM [facility] CO2 28 21 - 32 mmol/L LAB CHEMISTRY METHOD 04/05/2025 9:43 AM [facility] Anion Gap 5 3 - 11 LAB CHEMISTRY METHOD 04/05/2025 9:43 AM [facility] Glucose 70 70 - 100 mg/dL LAB CHEMISTRY METHOD 04/05/2025 9:43 AM [facility] BUN 12 5 - 25 mg/dL LAB CHEMISTRY METHOD 04/05/2025 9:43 AM [facility] Creatinine 0.64(L) 0.70 - 1.30 mg/dL LAB CHEMISTRY METHOD 04/05/2025 9:43 AM [facility] LAB eGFR 104 >=60 mL/min/1. 73m2 LAB CHEMISTRY METHOD 04/05/2025 9:43 AM EDT [facility] Comment:Calculation based on the Chronic Kidney Disease Epidemiology Collaboration (CKD-EPI) equation refit without adjustment for race. BUN/Creatinine Ratio 18.8 LAB CHEMISTRY METHOD 04/05/2025 9:43 AM EDT [facility] Calcium 10.0 8.5 - 10.5 mg/dL LAB CHEMISTRY METHOD 04/05/2025 9:43 AM EDT [facility] Blood Venous blood specimen / Unknown Venipuncture / Unknown 04/05/2025 5:27 AM EDT 04/05/2025 8:15 AM EDT Lindsey HIDALGO LAB BLOOD ORDERABLES Final Re sult Performing Organization Address [facility]/ZIP Co de Phone Number [facility] [address] [place] [address], * Sodium, urine, random (04/04/2025 5:46 AM EDT) Sodium, Ur 36 mmol/L LAB CHEMISTRY METHOD 04/04/2025 9:33 AM EDT [facility] Urine Urine specimen obtained by clean catch procedure / Unknown Non-blood Collection / Unknown 04/04/2025 5:46 AM EDT 04/04/2025 7:18 AM EDT Lindsey HIDALGO LAB URINE ORDERABLES Final Re sult [facility] [address] [place] [address], * (ABNORMAL) Osmolality, urine (04/04/2025 5:46 AM EDT) Osmolality, Urine 225(L) 300 - 1,300 mOsm/kg LAB CHEMISTRY METHOD 04/04/2025 9:43 AM EDT [facility] Urine Urine specimen obtained by clean catch procedure / Unknown Non-blood Collection / Unknown 04/04/2025 5:46 AM EDT 04/04/2025 7:18 AM EDT us Lindsey HIDALGO LAB URINE ORDERABLES Final Re sult [facility] [address] [place] [address], * (ABNORMAL) Complete blood count (04/03/2025 5:14 AM EDT) Only the most recent of2 resultswithin the time period is included. WBC 27.8(H) 4.8 - 10.8 K/mcL LAB HEMETOLOGY METHOD 04/03/2025 8:52 AM EDT [facility] RBC 2.80(L) 4.50 - 5.50 M/mcL LAB HEMETOLOGY METHOD 04/03/2025 8:52 AM EDT [facility] Hemoglobin 8.2(L) 13.5 - 17.5 g/dL LAB HEMETOLOGY METHOD 04/03/2025 8:52 AM EDT [facility] Hematocrit 27.7(L) 42.0 - 54.0 % LAB HEMETOLOGY METHOD 04/03/2025 8:[facility] MCV 98.6(H) 79.0 - 98.0 FL LAB HEMETOLOGY METHOD 04/03/2025 8:52 AM EDT [facility] MCH 29.2 27.0 - 32.0 pcg LAB HEMETOLOGY METHOD 04/03/2025 8:52 [facility] MCHC 29.6(L) 32.0 - 37.0 g/dL LAB HEMETOLOGY METHOD 04/03/2025 8:52 AM [facility] RDW 17.8(H) 11.0 - 15.0 % LAB HEMETOLOGY METHOD 04/03/2025 8:52 AM EDT [facility] Platelets 350 130 - 400 K/mcL [facility] 04/03/2025 8:52 AM EDT [facility] MPV 9.5 7.0 - 11.0 FL LAB HEMETOLOGY METHOD 04/03/2025 8:52 AM EDT [facility] NRBC 0.1 <1.0 % LAB HEMETOLOGY METHOD 04/03/2025 8:52 AM EDT [facility] NRBC Absolute 0.02 <0.10 K/mcL LAB [facility] METHOD 04/03/2025 8:52 AM T [facility] Blood Venous blood specimen / Unknown Venipuncture / Unknown 04/03/2025 5:14 AM EDT 04/03/2025 8:11 AM EDT us Lindsey HIDALGO LAB BLOOD ORDERABLES Final Re sult [facility] [address] [place] [address], * (ABNORMAL) Comprehensive metabolic panel (04/03/2025 5:14 AM EDT) Only the most recent of5 resultswithin the time period is included. Sodium 132(L) 133 - 145 mmol/L LAB CHEMISTRY METHOD 04/03/2025 9:34 AM T [facility] Potassium 4.1 3.5 - 5.5 mmol/L LAB CHEMISTRY METHOD 04/03/2025 9:34 AM T [facility] Chloride 100 96 - 110 mmol/L LAB CHEMISTRY METHOD 04/03/2025 9:34 AM [facility] CO2 24 21 - 32 mmol/L LAB CHEMISTRY METHOD 04/03/2025 9:34 AM EDT [facility] Anion Gap 8 3 - 11 LAB CHEMISTRY METHOD 04/03/2025 9:34 AM [facility] Glucose 72 70 - 100 mg/dL LAB CHEMISTRY METHOD 04/03/2025 9:34 AM [facility] BUN 16 5 - 25 mg/dL LAB CHEMISTRY METHOD 04/03/2025 9:34 AM [facility] Creatinine 0.67(L) 0.70 - 1.30 mg/dL LAB CHEMISTRY METHOD 04/03/2025 9:34 AM [facility] LAB eGFR 103 >=60 mL/min/1. 73m2 LAB CHEMISTRY METHOD 04/03/2025 9:34 AM [facility] Comment:Calculation based on the Chronic Kidney Disease Epidemiology Collaboration (CKD-EPI) equation refit without adjustment for race. BUN/Creatinine Ratio 23.9 LAB CHEMISTRY METHOD 04/03/2025 9:34 AM [facility] Calcium 9.7 8.5 - 10.5 mg/dL LAB CHEMISTRY METHOD 04/03/2025 9:34 AM [facility] AST (SGOT) 20 10 - 42 unit/L LAB CHEMISTRY METHOD 04/03/2025 9:34 AM [facility] ALT (SGPT) 19 10 - 60 unit/L LAB CHEMISTRY METHOD 04/03/2025 9:34 AM [facility] Alkaline Phosphatase 303(H) 42 - 121 unit/L LAB CHEMISTRY METHOD 04/03/2025 9:34 AM [facility] Total Protein 7.3 6.0 - 8.0 g/dL LAB CHEMISTRY METHOD 04/03/2025 9:34 AM [facility] Albumin 2.9(L) 3.2 - 5.0 g/dL LAB CHEMISTRY METHOD 04/03/2025 9:34 AM [facility] Total Bilirubin 0.5 0.0 - 1.4 mg/dL LAB CHEMISTRY METHOD 04/03/2025 9:34 AM EDT [facility] Blood Venous blood specimen / Unknown Venipuncture / Unknown 04/03/2025 5:14 AM EDT 04/03/2025 8:11 AM EDT us Lindsey HIDALGO LAB BLOOD ORDERABLES Final Re sult Performing Organization Address City/[facility]/ZIP Co de Phone Number [facility] [address] [place] [address], [place] [phone] * Type and screen (03/29/2025 5:25 AM EDT) ABO Group O 03/29/2025 10:03 AM EDT [facility] Rh Type Negative 03/29/2025 10:03 AM EDT [facility] Antibody Screen Negative 03/29/2025 10:03 AM EDT [facility] Blood Venous blood specimen / Unknown Venipuncture / Unknown 03/29/2025 5:25 AM EDT 03/29/2025 8:03 AM EDT us Ana Willson MD LAB BLOOD BANK TEST ORDERABLES Final Result Performing Organization Address [facility]/ZIP Co de Phone Number [facility] [address] [place] [address], [place] [phone] * (ABNORMAL) Iron and TIBC (03/29/2025 5:05 AM EDT) Iron 48(L) 50 - 160 mcg/dL LAB CHEMISTRY METHOD 03/29/2025 8:31 AM EDT [facility] TIBC 238(L) 250 - 450 mcg/dL LAB CHEMISTRY METHOD 03/29/2025 8:31 AM EDT [facility] Iron Saturation 20 20 - 50 % LAB CHEMISTRY METHOD 03/29/2025 8:31 AM EDT [facility] Blood Venous blood specimen / Unknown Venipuncture / Unknown 03/29/2025 5:05 AM EDT 03/29/2025 7:50 AM EDT Lindsey HIDALGO LAB BLOOD ORDERABLES Final Re sult Performing Organization Address [facility]/ZIP Co de Phone Number [facility] [address] [place] [address], [place] [phone] * (ABNORMAL) Ferritin (03/29/2025 5:05 AM EDT) Pathologist [facility] Ferritin 503(H) 26 - 388 ng/mL LAB CHEMISTRY METHOD 03/29/2025 8:31 AM EDT [facility] Blood Venous blood specimen / Unknown Venipuncture / Unknown 03/29/2025 5:05 AM EDT 03/29/2025 7:50 AM EDT Lindsey HIDALGO LAB BLOOD ORDERABLES Final Re sult Performing Organization Address City/[facility]/ZIP Co de Phone Number [facility] [address] [place] [address], [place] [phone] * (ABNORMAL) Manual differential (03/28/2025 7:02 AM EDT) Pathologist [facility] Neutrophils % 82.0 % LAB HEMETOLOGY METHOD 03/28/2025 9:36 AM EDT [facility] Lymphocytes % 6.0 % LAB HEMETOLOGY METHOD 03/28/2025 9:36 AM EDT [facility] Monocytes % 2.0 % LAB HEMETOLOGY METHOD 03/28/2025 9:36 AM EDT [facility] Eosinophils % 11.0 % LAB HEMETOLOGY METHOD 03/28/2025 9:36 AM EDT [facility] Basophils % 0.0 % LAB HEMETOLOGY METHOD 03/28/2025 9:36 AM EDT [facility] Neutrophils Absolute Manual 21.32(H) 1.50 - 7.00 K/[facility] LAB HEMETOLOGY METHOD 03/28/2025 9:36 AM EDT [facility] Lymphocytes Absolute 1.56 1.00 - 5.00 K/[facility] LAB HEMETOLOGY METHOD 03/28/2025 9:36 AM EDT [facility] Monocytes Absolute Manual 0.52 0.20 - 1.00 K/[facility] LAB HEMETOLOGY METHOD 03/28/2025 9:36 AM EDT [facility] Eosinophils Absolute Manual 2.86(H) 0.00 - 0.50 K/[facility] LAB HEMETOLOGY METHOD 03/28/2025 9:36 AM EDT [facility] Basophils Absolute Manual 0.00 0.00 - 0.20 K/[facility] LAB HEMETOLOGY METHOD 03/28/2025 9:36 AM EDT [facility] Rbc Morphology Consistent with indices Consistent with indices, Normal for LAB HEMETOLOGY METHOD 03/28/2025 9:36 AM EDT [facility] Comment:RBC: Morphology agre es with CBC Platelet Morphology - WAM See Note(A) Normal LAB HEMETOLOGY METHOD 03/28/2025 9:36 AM EDT [facility] Comment:PLT: Normal Blood Venous blood specimen / Unknown 03/28/2025 7:02 AM EDT 03/28/2025 8:10 AM EDT us Brenna HIDALGO LAB BLOOD ORDERABLES Final Re sult [facility]) [facility] [address] [place] [address], * (ABNORMAL) CBC auto differential (03/28/2025 7:02 AM EDT) Only the most recent of5 resultswithin the time period is included. WBC 26.0(H) 4.8 - 10.8 K/mcL LAB HEMETOLOGY METHOD 03/28/2025 9:36 AM [facility] RBC 2.50(L) 4.50 - 5.50 M/mcL LAB HEMETOLOGY METHOD 03/28/2025 9:36 AM [facility] Hemoglobin 7.3(L) 13.5 - 17.5 g/dL LAB HEMETOLOGY METHOD 03/28/2025 9:36 AM [facility] LAB Hematocrit 24.5(L) 42.0 - 54.0 % LAB HEMETOLOGY METHOD 03/28/2025 9:36 AM [facility] LAB MCV 96.8 79.0 - 98.0 FL LAB HEMETOLOGY METHOD 03/28/2025 9:36 AM [facility] LAB MCH 28.9 27.0 - 32.0 pcg LAB HEMETOLOGY METHOD 03/28/2025 9:36 AM [facility] MCHC 29.8(L) 32.0 - 37.0 g/dL LAB HEMETOLOGY METHOD 03/28/2025 9:36 AM [facility] LAB RDW 16.5(H) 11.0 - 15.0 % LAB HEMETOLOGY METHOD 03/28/2025 9:36 AM [facility] Platelets 327 130 - 400 K/[facility] LAB HEMETOLOGY METHOD 03/28/2025 9:36 AM [facility] LAB MPV 9.5 7.0 - 11.0 FL LAB HEMETOLOGY METHOD 03/28/2025 9:36 AM [facility] NRBC 0.0 <1.0 % LAB HEMETOLOGY METHOD 03/28/2025 9:36 AM [facility] NRBC Absolute 0.00 <0.10 K/[facility] LAB HEMETOLOGY METHOD 03/28/2025 9:36 AM EDT [facility] Blood Venous blood specimen / Unknown 03/28/2025 7:02 AM EDT 03/28/2025 8:10 AM EDT Brenna HIDALGO LAB BLOOD ORDERABLES Final Re sult Performing Organization Address [facility]/ZIP Co de Phone Number [facility] [address] [place] [address], [place] [phone] * Magnesium (03/28/2025 7:02 AM EDT) Magnesium 1.9 1.9 - 2.6 mg/dL LAB CHEMISTRY METHOD 03/28/2025 8:48 AM EDT [facility] Blood Venous blood specimen / Unknown Venipuncture / Unknown 03/28/2025 7:02 AM EDT 03/28/2025 8:10 AM EDT Brenna HIDALGO LAB BLOOD ORDERABLES Final Re sult Performing Organization Address [facility]/ZIP Co de Phone Number [facility] [address] [place] [address], [place] [phone] * (ABNORMAL) Ammonia (03/28/2025 7:02 AM EDT) Ammonia 37(H) 11 - 35 mcmol/L LAB CHEMISTRY METHOD 03/28/2025 8:36 AM EDT [facility] Blood Venous blood specimen / Unknown 03/28/2025 7:02 AM EDT 03/28/2025 8:10 AM EDT Brenna HIDALGO LAB BLOOD ORDERABLES Final Re sult Performing Organization Address City/[facility]/ZIP Co de Phone Number [facility] [address] [place] [address], [place] [phone] * (ABNORMAL) POCT Glucose, blood (03/27/2025 11:27 AM EDT) Only the most recent of20 resultswithin the time period is included. Glucose POCT 184(H) 70 - 100 mg/dL 03/27/2025 4:38 PM EDT [facility] Blood Capillary blood specimen / Unknown 03/27/2025 11:27 AM EDT 03/27/2025 4:40 PM EDT us Natali Saravia MD LAB POINT OF CARE TE ST DOCKED DEVICE UNSOLICITED RESULTS Final Result [facility] [address] [place] [address], [place] [phone] * TH AN ENDOTRACHEAL(NO CHARGE) (03/23/2025 8:13 [...] ECG 12 lead (03/22/2025 9:26 PM EDT) [facility] Ventricular Rate ECG 89 BPM GEMUSE Atrial Rate 89 BPM GEMUSE P-R Interval 182 ms GEMUSE QRS Duration 124 ms GEMUSE Q-T Interval 390 ms GEMUSE QTc 474 ms GEMUSE P Wave Orient 65 degrees GEMUSE R Orient 63 degrees GEMUSE T Orient 3 degrees GEMUSE ECG Interpretation Normal sinus rhythm Possible Left atrial enlargement Left ventricular hypertrophy with QRS widening T wave abnormality, consider inferior ischemia Abnormal ECG When compared with ECG of 23-APR-2020 22:02, Minimal criteria for Inferior infarct are no longer Present Nonspecific T wave abnormality now evident in Lateral leads QT has lengthened Confirmed by MD [place], [place] ([id number]) on 03/23/2025 5:36:01 PM GEMUSE 03/22/2025 9:26 PM EDT 03/23/2025 5:36 PM EDT us Sanjuana HIDALGO ECG ORDERABLES Final Result GEMUSE * Troponin I high sensitivity (03/22/2025 9:22 PM EDT) Only the most recent of2 resultswithin the time period is included. [facility] High Sensitivity Troponin I 5 <=79 ng/L LAB CHEMISTRY METHOD 03/22/2025 10:06 PM EDT [facility] Blood Venous blood specimen / Unknown Venipuncture / Unknown 03/22/2025 9:22 PM EDT 03/22/2025 9:34 PM EDT Narrative [facility] - 03/22/2025 10:06 PM EDT High levels of biotin in samples may falsely decrease hsTroponin values. Use caution when interpreting hsTroponin results in patients taking biotin who exhibit renal impairment (eGFR <60) or in patients taking more than 20 mg/day of biotin. us Sanjuana HIDALGO LAB BLOOD ORDERABLES Final Resu lt [facility] [address] [place] [address], [place] [phone] * (ABNORMAL) Urinalysis with reflex microscopic and culture (03/22/2025 7:32 PM EDT) Specific [place] Urine 1.026 1.003 - 1.030 LAB URINALYSIS - AUTOMATED METHOD 03/22[facility]2025 [facility] pH, Urine 7.0 5.0 - 8.0 pH LAB URINALYSIS - AUTOMATED METHOD 03/22/2025 8:04 PM [facility] Leukocytes, Urine Negative Negative LAB URINALYSIS - AUTOMATED METHOD 03/22/2025 8:04 PM [facility] Nitrite, Urine Negative Negative LAB URINALYSIS - AUTOMATED METHOD 03/22/2025 8:04 PM [facility] Protein, Urine 30(A) <=Trace mg/dL LAB URINALYSIS - AUTOMATED METHOD 03/22/2025 8:04 PM [facility] Glucose, Urine Negative Negative mg/dL LAB URINALYSIS - AUTOMATED METHOD 03/22/2025 8:04 PM [facility] Ketones, Urine Trace(A) Negative mg/dL LAB URINALYSIS - AUTOMATED METHOD 03/22/2025 8:04 PM [facility] Urobilinogen , Urine 1.0 0.2 - 1.0 mg/dL LAB URINALYSIS - AUTOMATED METHOD 03/22/2025 8:04 PM [facility] Bilirubin, Urine Negative Negative LAB URINALYSIS - AUTOMATED METHOD 03/22/2025 8:04 PM [facility] Blood, Urine Small(A) Negative LAB URINALYSIS - AUTOMATED METHOD 03/22/2025 8:04 PM [facility] RBC, Urine 18.2(H) 0 - 4 /HPF LAB URINALYSIS - AUTOMATED METHOD 03/22/2025 8:04 PM EDT [facility] WBC, Urine 1.3 0 - 4 /HPF LAB URINALYSIS - AUTOMATED METHOD 03/22/2025 8:04 PM EDT [facility] Squamous Epithelial, Urine 60 0 - 60 /LPF LAB URINALYSIS - AUTOMATED METHOD 03/22/2025 8:04 PM EDT [facility] Non-Squamous Epithelial, Urine 5-10 Transitional epithelial cells. /LPF 03/22/2025 8:04 PM EDT [facility] Bacteria, Urine Negative Negative /HPF LAB URINALYSIS - AUTOMATED METHOD 03/22/2025 8:04 PM EDT [facility] Hyaline Casts, Urine 1.2 0 - 3 /LPF LAB URINALYSIS - AUTOMATED METHOD 03/22/2025 8:04 PM EDT [facility] Urine Urine specimen obtained by clean catch procedure / Unknown Non-blood Collection / Unknown 03/22/2025 7:32 PM EDT 03/22/2025 7:42 PM EDT us Jose Perla MD LAB URINE ORDERABLES Final Resul t [facility] [address] [place] [address], * Ty urine culture tube (03/22/2025 7:32 PM EDT) Extra Tube Hold for add-ons. 03/22/2025 9:01 PM EDT [facility] Comment:Auto resulted. Urine Urine specimen obtained by clean catch procedure / Unknown Non-blood Collection / Unknown 03/22/2025 7:32 PM EDT 03/22/2025 7:42 PM EDT us Jose Perla MD LAB URINE ORDERABLES Final Resul t [facility] [address] [place] [address], * CT Lower Extremity wo Contrast Right [...] Signed Date: 03/22/2025 16:47 ET Workstation ID: [id number] Transcribed By: Self Edit Transcribed Date: 03/22/2025 16:39 ET Narrative 03/22/2025 4:47 PM EDT INDICATION: Trauma with right leg pain with concern for femoral fracture TECHNIQUE: CT scan of the right lower extremity obtained from just above the right hip through the right knee. Scanner: Warp [employer] BiopeWarby Parker 64 slice VCT Dose reduction technique: ASIR [...] right hip through the right knee. Scanner: OMsignal 64 slice VCT Dose reduction technique: ASIR [...] Signed Date: 03/22/2025 16:47 ET Workstation ID: [id number] Transcribed By: Self Edit Transcribed Date: 03/22/2025 16:39 ET Jose Perla MD IM CT PROCEDURES Final Result * CT Pelvis [...] Signed Date: 03/22/2025 16:55 ET Workstation ID: [id number] Transcribed By: Self Edit Transcribed Date: 03/22/2025 16:47 ET Narrative 03/22/2025 4:55 PM EDT INDICATION: Pelvic trauma TECHNIQUE: CT scan of the pelvis obtained without contrast. Scanner: Warp [employer] Biopeed 64 slice VCT Dose reduction technique: ASIR [...] of the pelvis obtained without contrast. Scanner: Warp [employer] Biopeed 64 slice VCT Dose reduction technique: ASIR [...] 2025. -------- FINAL REPORT -------- Dictated By: Keley Brwon Dictated Date: 03/22/2025 16:47 ET Assigned Physician: Keely Brown Reviewed and Electronically Signed By: Keely Brown Signed Date: 03/22/2025 16:55 ET Workstation ID: [id number] Transcribed By: Self Edit Transcribed Date: 03/22/2025 16:47 ET Jose Perla MD IMG CT PROCEDURES Final Result * CT Cervical [...] Signed Date: 03/22/2025 16:31 ET Workstation ID: [id number] Transcribed By: Self Edit Transcribed Date: 03/22/2025 16:21 ET Narrative 03/22/2025 4:31 PM EDT INDICATION: Neck trauma Technique: CT scan of the cervical spine obtained without contrast. Scanner: GuiaBolso LightSpeed 64 slice VCT Dose reduction technique: [...] the cervical spine obtained without contrast. Scanner: Warp [address] Biopeed 64 slice VCT Dose reduction technique: ASIR [...] Signed Date: 03/22/2025 16:31 ET Workstation ID: [id number] Transcribed By: Self Edit Transcribed Date: 03/22/2025 16:21 ET Jose Perla MD IM CT PROCEDURES Final Result * CT Head [...] Signed Date: 03/22/2025 16:11 ET Workstation ID: [id number] Transcribed By: Self Edit Transcribed Date: 03/22/2025 16:10 ET Narrative 03/22/2025 4:11 PM EDT INDICATION: Head trauma Technique: Axial images were obtained from the skull base to the vertex without contrast enhancement. Coronal and sagittal reformats obtained. Scanner: Warp Drive [employer]peWarby Parker 64 slice VCT Dose reduction technique: ASIR [...] enhancement. Coronal and sagittal reformats obtained. Scanner: Warp Drive [employer]peWarby Parker 64 slice VCT Dose reduction technique: ASIR [...] Signed Date: 03/22/2025 16:11 ET Workstation ID: [id number] Transcribed By: Self Edit Transcribed Date: 03/22/2025 [...] Signed Date: 03/17/2025 21:29 ET Workstation ID: [id number] Transcribed By: Self Edit Transcribed Date: 03/17/2025 [...] Max 5.6, right hilar SUV max 12, [id number] SUV Max and left hilar SUV max [...] Signed Date: 03/17/2025 21:29 ET Workstation ID: [id number] Transcribed By: Self Edit Transcribed Date: 03/17/2025 19:57 ET Subramony Damion MATA IMG NM PROCEDURES F inal Result * Lactate dehydrogenase (03/02/2025 1:56 PM EDT) LDH 243 120 - 246 unit/L LAB CHEMISTRY METHOD 03/02/2025 4:59 PM EDT [facility] Blood Venous blood specimen / Unknown Venipuncture / Unknown 03/02/2025 1:56 PM EDT 03/02/2025 4:34 PM EDT Subramony Damion MATA LAB BLOOD ORDERABLE S Final Result [facility] [address] [place] [address], from Last 3 Months Insurance [facility] [...] currently active code status orders. Care Teams Liaison Inspection Laboratory Assistant Relationship Specialty Start Date End Date Mati Richter MD [address] [place] [address] Dr [address] [facility] [place] [address] PCP - General Internal Medicine 04/06/19
--- OUTSIDE RECORDS SUMMARY | 2025-04-23 13:08 | XMS_ITS | Patient Health Record ---
Author Organization [facility] Address [address] [place] [address] Care Team Providers Care Retail Loss Prevention Officer Name Role Phone Po Mati MATA Primary Care Provider Juanito Hart [phone] Allergies No Known Allergies Reason For Referral [...] Problem Status W/U Status Risk Notes Problem 970955180 Encounter for screening for malignant neoplasm of colon (Z12.11) Active confirmed Problem 113908702 History of adenomatous polyp of colon (Z86.010) Active confirmed Problem Screening for malignant neoplasm of rectum (681173996) Encounter for screening for malignant neoplasm of rectum (Z12.12) Active confirmed Problem 99666200 Abdominal pain, epigastric (R10.13) Active confirmed Problem History of polyp of colon (269356521) History of colon polyps (Z86.010) Active confirmed Problem 187374368 Gastroesophageal reflux disease, esophagitis presence not specified (K21.9) Active confirmed Problem Diverticulosis of colon (412220204) Diverticulosis of colon (K57.30) Active confirmed Plan Of Treatment Future Test Test Name Order Date UPPER GI ENDOSCOPY 10/08/2015 COLONOSCOPY 10/08/2015 COLONOSCOPY 01/07/2022 Insurance Providers Payer Name Payer Address Payer Phone Subscriber Number Group Number Insured Name Patient Relationship to Insured Coverage Start Date Coverage End Date [facility] [facility] [address] [place] [phone] [id number] [place] Self - patient is the [...]
== END 2025-04-23 11:52 | disposition home or self-care (01) ==
LOC: HO.HOSX 11:51
PROVIDERS: Visit Provider Physician Assistant
DX: Z13.89 Encounter for screening for other disorder (principal)

== ENCOUNTER → 2025-04-25 23:02 | Outpatient (BNV) | payer MEDICARE, SELFPAY | PROVIDERS: Emergency Provider Emergency Medicine; PCP Internal Medicine; Visit Provider Radiology Diagnostic Radiology | DX: J98.11 Atelectasis (principal) | CPT/HCPCS: 71046 ==

== ENCOUNTER 2025-04-25 23:34 | Inpatient (IN) | payer MEDICARE, SELFPAY ==
--- NOTE | 2025-04-25 | ECG_ITS ---
Test Reason : SOB Blood Pressure : */* mmHG Vent. Rate : 84 BPM Atrial Rate : 84 BPM P-R Int : 182 ms QRS Dur : 126 ms QT Int : 382 ms P-R-T Axes : 68 54 23 degrees QTcB Int : 451 ms Normal sinus rhythm Possible Left atrial enlargement Left ventricular hypertrophy with QRS widening ( Mario product ) Cannot rule out Septal infarct , age undetermined Abnormal ECG When compared with ECG of 20-Feb-2025 13:51, No significant change was found Referred By: Generic ED Physician Electronically Signed By: WALT HAGAN MD
--- NOTE | ~2025-04-25 | XR_ITS ---
EXAMINATION: XR CHEST CLINICAL INFORMATION: Chf / pleural effusions / pain COMPARISON: 04/30/2025, 04/28/2025. CT chest 04/28/2025. TECHNIQUE: 2 views of the chest were obtained. FINDINGS: Mild cardiac enlargement again noted. Prominence of the vasculature in the hilar regions. Lungs demonstrate mild diffuse interstitial pulmonary edema with Alen B lines in the lung bases. There is a 1.3 cm nodule in the right apex. There are small left greater than right layering pleural effusions. Pleural-based masses in the left lower lobe and right middle lobe are not well distinguished on plain film. Lytic osseous metastases in the spine, manubrium, and ribs are not well distinguished on plain film. Numerous surgical clips in the left axilla. XR/XR chest 2V IMPRESSION: 1. No significant interval change from 04/30/2025. Mild cardiomegaly, interstitial pulmonary edema with small layering left greater than right pleural effusions. 2. There is a 1.3 cm nodule in the right apex. 3. Pleural-based masses in the left lower lobe and right middle lobe seen on CT are not well distinguished on this exam. 4. Lytic osseous metastases in the spine, manubrium, and ribs are not well distinguished on plain film. Electronically signed by: Jack Cohen MD 05/01/2025 10:16 AM EDT
--- NOTE | ~2025-04-25 | XR_ITS ---
CLINICAL HISTORY: SOB 2 view chest x-ray Comparison: CR/SR - XR CHEST 2V - 02/20/25 13:21 EDT Findings: Bywn-vyhtjof-qfth-right bibasilar atelectasis with small left effusion. No pneumothorax. Similar prominent/enlarged cardiac silhouette. No acute fracture. Bilateral axillary clips IMPRESSION: Flng-wdyzktf-dqno-right bibasilar atelectasis with small left effusion. This document has been electronically signed by: Dustin Corado MD on 04/26/2025 00:29:24
--- NOTE | ~2025-04-25 | XR_ITS ---
EXAMINATION: XR CHEST CLINICAL INFORMATION: chest pain COMPARISON: Chest radiograph on April 26, 2025. CT of the chest on April 26, 2025. TECHNIQUE: Frontal view of the chest was obtained. FINDINGS: Low lung volumes. Trace right pleural effusion obliterating the right costophrenic angle. Patient is status post left thoracentesis, with apparent resolution of previously seen left pleural effusion. No pneumothorax. Cardiomediastinal silhouette is within normal limits. Multiple metallic clips project over the bilateral axillary regions. XR/XR chest 1V IMPRESSION: 1. Status post left thoracentesis, with apparent resolution of the left pleural effusion. 2. Trace right pleural effusion. Electronically signed by: Rowdy Allison MD 04/27/2025 10:57 AM EDT
--- NOTE | ~2025-04-25 | US_ITS ---
EXAMINATION: ULTRASOUND-GUIDED left THORACENTESIS CLINICAL INFORMATION: Left pleural effusion. History of skin cancer with lung nodules and mediastinal adenopathy.. COMPARISON: CT chest angiography 04/26/2025. TECHNIQUE: Following explaining ultrasound-guided thoracentesis procedure, benefits and risk to patient, a written consent was obtained from the patient. Patient was placed sitting upright on a ER stretcher. Pulmonary ultrasound was obtained to the left posterior chest. An optimal site was selected on left inferior scapular line approximately 10th interspace and the area was marked with a marker. The marked site was cleaned and draped in usual sterile manner. 1% lidocaine was administered puncture site. Through a small skin incision a short 4 Fijian [employer] catheter was advanced from the skin into the pleural space. After observing fluid return, catheter was connected to vacuum bottle via connecting cannula. After obtaining all fluid and observing no more fluid return, catheter was withdrawn and complete hemostasis achieved at puncture site. A 4 x 4 gauze with Tegaderm was applied at the puncture site. Patient tolerated procedure well. Patient was hemodynamically stable in the ER during and after the procedure. FINDINGS: There is small to moderate amount of left pleural effusion. Approximately 4 mL of yellowish but clear fluid was collected from the left pleural space. The fluid was sent to lab for further evaluation as per referring physician's orders. There are no immediate complaints from the patient. US/US thoracentesis IMPRESSION: Successful ultrasound-guided left thoracentesis performed in the ER. Electronically signed by: Parvez Pennington MD 04/26/2025 02:27 PM EDT
--- NOTE | ~2025-04-25 | CT_ITS ---
EXAMINATION: CT HEAD WITHOUT CONTRAST CLINICAL INFORMATION: ?AMS - ?metastatic changes COMPARISON: None available. TECHNIQUE: Contiguous axial imaging was performed from the skull base to vertex without intravenous administration of contrast. This CT examination was performed using dose optimization techniques as appropriate, variously including the following: *Automated exposure control *Adjustment of mA and/or kV according to patient size (this includes techniques or standardized protocols for targeted exams where dose is matched to indication/reason for exam; i.e. extremities or head) *Use of iterative reconstruction technique DLP: 852 mGy-cm FINDINGS: No lytic or blastic lesions in the bony calvarium or the skull base. Traumatic deformity, nasal bone. Old traumatic deformity right lamina papyracea. There is a focal 5 mm calcific and or metallic foreign body at the medial aspect of the right eyeball just medial to the insertion of the middle extraocular rectus muscle. No acute intracranial hemorrhage, mass effect, midline shift, hydrocephalus or herniation. Ty-white matter differentiation is normal. Mild patchy deep periventricular white matter hypodensity involving centrum semiovale and vo radiata. Multifocal old lacunar infarcts in the basal ganglia and extracapsular and likely right mid brain/enid. Punctate 2 mm calcification at the left foramen Monro. Sellar/suprasellar region demonstrated no gross masses. Craniocervical junction demonstrates normal position of the cerebellar tonsils. No air-fluid levels in the paranasal sinuses. Tympanic cavities and mastoid cells are aerated. Calcified plaques in the cavernous supracavernous segments both ICAs. CT/CT head/brain wo IV con IMPRESSION: No acute intracranial hemorrhage. No lytic or blastic metastatic lesions in the bony calvarium. Small vessel occlusive disease. 2 mm calcification left foramen Monro. Probable foreign body medial aspect of the right eyeball. Traumatic deformities, nasal bones and right lamina papyracea. Electronically signed by: Jimmie Lugo MD 04/26/2025 08:33 AM EDT
--- NOTE | ~2025-04-25 | XR_ITS ---
CLINICAL HISTORY: pleural effusion 1 view chest x-ray Comparison: CR/SR - XR CHEST 1 VIEW - 04/27/2025 09:45 AM EDT Findings: There is interstitial consolidation, possible pneumonia or pulmonary edema. Normal size heart. No acute fracture. IMPRESSION: 1. Interstitial consolidation, differential considerations noted. This document has been electronically signed by: Bart Lee MD on 04/28/2025 09:18:24
--- NOTE | ~2025-04-25 | CT_ITS ---
CLINICAL HISTORY: CP, SOB, s p rehab leg fx, hx melanoma CT angiography chest with contrast. MIP postprocessing. Comparison: CR - XR CHEST 2V - 04/26/25 00:02 EDT Findings: Images degraded by respiratory motion. This precludes optimal evaluation of the pulmonary arteries. Given that limitation, no filling defects are seen within the main, lobar, and large or segmental pulmonary arteries to suggest pulmonary embolism. Thoracic aorta is nonaneurysmal with mild vascular calcification. Moderate sanchez chamber cardiac dilation. Moderate left pleural effusion with small right pleural effusion. Left pleural effusion is partially loculated. There is an 8 mm noncalcified pulmonary nodule in the right upper lobe on axial image number 23 Hazy density seen within the lungs bilaterally, primarily dependent in location. Numerous enlarged mediastinal, hilar, and bilateral axillary lymph nodes are identified. Tumbling And Rolling Supervisor lymph nodes include a 28 mm short axis prevascular lymph node, 17 mm short axis precarinal lymph node, 26 mm short axis subcarinal lymph node, 27 mm short axis right hilar lymph node, 47 mm short axis left axillary lymph node, and a 20 mm short axis right infrahilar lymph node. Liver appears enlarged. There subtle nodularity along the periphery of the liver. Subtle hypodense left lobe liver lesion measures 2.8 cm in size. Bulky lymphadenopathy is seen within the karyn hepatis measuring up to 5.2 x 3.2 cm in size. Spleen is enlarged. Mass lesion of the right adrenal gland measures 2.9 x 2.5 cm in size. Bony destructive change of the anterior right 5th rib with soft tissue mass measuring 3.5 x 2.6 cm in size. Lytic lesions are identified within the T2 and T3 vertebral bodies. This is most pronounced at T3 where there is a 2.6 x 2.3 cm lytic and destructive bony lesion. IMPRESSION: 1. No pulmonary emboli given the limitation of the patient motion. 2. Congestive heart failure. 3. Findings indicative of an extensive metastatic malignancy as fully discussed above. Clinical correlation advised. This document has been electronically signed by: Obinna Guadalupe MD on 04/26/2025 03:08:39
--- NOTE | ~2025-04-25 | XR_ITS ---
EXAMINATION: XR CHEST CLINICAL INFORMATION: Pneumonia, metastatic ca COMPARISON: April 28, 2025. TECHNIQUE: 2 views of the chest were obtained. FINDINGS: Pulmonary reticular pattern. Opacities in the lung bases and blunting of the costophrenic angles bilaterally. Less than 1 cm pulmonary nodule, right upper hemithorax. No pneumothorax. Cardiomediastinal silhouette size is prominent, unchanged. Vascular clips in the axillary and lateral aspect of the breast shadows, bilaterally. Multilevel thoracic and upper lumbar spondylosis. XR/XR chest 2V IMPRESSION: Worsening pulmonary edema and increased bilateral pleural effusions, moderate volume. Stable lung lesions. Electronically signed by: Jimmie Lugo MD 04/30/2025 10:51 AM EDT
--- NOTE | ~2025-04-25 | CT_ITS ---
CLINICAL HISTORY: Bumpin right upper chest area CT chest without contrast Comparison: CT/AK/SR - CT ANGIO CHEST PE PROTOCOL - 04/26/25 00:55 EDT Findings: Cardiomegaly without significant pericardial effusion. Coronary artery calcifications. Gynecomastia. Redemonstrated large bulky left axillary soft tissue masses/adenopathy, bulky mediastinal and hilar lymphadenopathy, right chest wall erosive mass anteriorly of the adjacent rib and dense left lower lobe pleural-parenchymal mass. Features are strongly suspicious for malignancy/metastases. Slightly decreased small bilateral pleural effusions. Minimal residual interlobular septal thickening, decreased from prior. Cirrhosis. Redemonstrated ill-defined low-density mass in the anterior liver measuring 4.8 cm. Metastases or primary hepatic neoplasm in the setting of cirrhosis such as HCC are differentials. Tissue sampling with dynamic liver MRI protocol may be helpful. Tiny nodularity anterior to the liver series 5, image 164, carcinomatosis not excluded. Redemonstrated right adrenal gland nodule, metastatic deposit not excluded. This may be further evaluated with biochemical assay and adrenal protocol imaging if indicated. Thoracic diffuse idiopathic skeletal hyperostosis. Osteopenia. Redemonstrated multilevel chronic appearing anterior fractured osteophytes. Redemonstrated osteolytic erosive axial and appendicular skeleton metastatic lesions, unchanged from prior. IMPRESSION: 1. Decreasing bilateral effusions with improving pulmonary edema. 2. Otherwise stable exam with extensive malignancy/metastatic disease detailed above as well better appreciated on prior contrast exam from 04/26/2025. This document has been electronically signed by: Dustin Corado MD on 04/28/2025 18:17:56
[2025-04-25 23:37] VITALS: BP 148/69; PULSE 89; RESP 20; TEMP 36.4; O2SAT 96; BMI 29.8
[2025-04-26] VITALS (14 sets, daily range): BP systolic 111–168; BP diastolic 48–72; PULSE 73–111; RESP 14–20; TEMP 36.6–37; O2SAT 93–96; BMI 30.6
[2025-04-26 00:07] LABS: Hematocrit 28.9 % (42.0-52.0); Hemoglobin 9.0 g/dl (14.0-18.0); Mean Corpuscular HGB Conc 31.1 g/dl (31.0-36.0); Mean Corpuscular Hemoglobin 29.7 pg (27.0-33.0); Mean Corpuscular Volume 95.4 fL (80.0-98.0); NRBC Abs Auto 0.000 X10*3/uL (0.0-0.012); NRBC Pct Auto 0.0 /100WBC (0.0-0.2); Platelet Count 397 X10*3/uL (160-400); Red Blood Count 3.03 X10*6/uL (4.60-5.80)
[2025-04-26 00:26] LABS: Alanine Aminotransferase 13 U/L (0-40); Albumin Level 3.3 g/dL (3.5-5.0); Alkaline Phosphatase 344 U/L (39-117); Anion Gap 10 (12-20); Aspartate Amino Transferase 36 U/L (5-37); Blood Urea Nitrogen 12 mg/dL (9-16); Calcium 9.7 mg/dL (8.4-10.2); Carbon Dioxide 24 mmol/L (22-29); Chloride 106 mmol/L (96-108); Creatinine Clr Calc Pharmacy 144.4; Estimated Glomerular Filt Rate > 60; Potassium 4.1 mmol/L (3.3-5.1); Sodium 136 mmol/L (135-145); Total Protein 7.9 g/dL (6.5-8.0)
[2025-04-26 00:30] LABS: Troponin-I High Sensitivity 3.0 ng/L (<3.5-35.0); White Blood Count 41.6 X10*3/uL (4.8-10.8)
[2025-04-26 00:32] LABS: B Type Natriuretic Peptide 1146 pg/mL (<100)
--- NOTE | 2025-04-26 00:44 | ED.SOB ---
HPI - SOB/Dyspnea General Chief Complaint: Dyspnea Stated Complaint: sob Time Seen by Provider: 04/26/25 00:25 Source: patient and family Mode of arrival: ambulatory Limitations: no limitations History of Present Illness ED Provider: Dr. Edyta Oneal HPI Narrative: Patient comes to the emergency room complaining of shortness of breath. According to the patient, it has been going on for 2 weeks. Patient left rehab 2 weeks ago, he was there for a leg fracture. Since then, patient states that he has been having some cough, yellow sputum, shortness of breath. Patient states that his lower extremities have been a bit more swollen than usual. Patient states that he was on Lovenox while he was in rehab and stopped taking it when he got discharged. Patient denies any chest pain. Related Data Home Medications ?Medication ?Instructions ?Recorded ?Confirmed aspirin 81 mg tablet,delayed 81 mg PO BEDTIME 09/10/20 02/27/25 release (Adult Aspirin Regimen) amlodipine 10 mg tablet 10 mg PO BEDTIME 02/20/25 02/27/25 glimepiride 4 mg tablet 4 mg PO DAILY 02/20/25 02/27/25 multivitamin with minerals-folic 1 tab PO DAILY 02/20/25 02/27/25 acid 80 mcg chewable tablet (Centrum Adult 50 Plus) omeprazole 40 mg capsule,delayed 40 mg PO DAILY@0630 02/20/25 02/27/25 release rosuvastatin 20 mg tablet 20 mg PO BEDTIME 02/20/25 02/27/25 semaglutide 2 mg/dose (8 mg/3 mL) 2 mg subcut TH 02/20/25 02/27/25 subcutaneous pen injector (Ozempic) Previous Rx's ?Medication ?Instructions ?Recorded sodium bicarbonate 650 mg tablet 650 mg PO BID #270 tabs 07/28/24 fenofibrate 160 mg tablet 160 mg PO DAILY 90 days #90 tabs 11/04/24 carbamazepine 200 mg tablet 400 mg (2 x 200 mg) PO BID #360 12/15/24 tabs diclofenac sodium 1 % topical gel 4 g topical QID #100 grams 02/17/25 (Voltaren Arthritis Pain) metoprolol tartrate 100 mg tablet 100 mg PO BID #180 tabs 02/17/25 tizanidine 4 mg tablet 4 mg PO Q8H PRN for muscle spasm 02/18/25 #90 tabs oxycodone 5 mg tablet 5 mg PO TID PRN pain #75 tabs 04/24/25 Allergies Allergy/AdvReac Type Severity Reaction Status Date / Time atorvastatin Allergy Intermediate Muscle Verified 04/25/25 23:39 cramps hydrochlorothiazide Allergy Intermediate advised to Verified 04/25/25 23:39 avoid metformin Allergy Intermediate Gastrointestinal Verified 04/25/25 23:39 Upset pembrolizumab (From [employer]) Allergy Intermediate creatinine Verified 04/25/25 23:39 lisinopril AdvReac Intermediate increase Verified 04/25/25 23:39 creatinine Review of Systems Review of Systems: Constitutional : No Weight loss, No Fever, No Chills, No Night Sweats, No Fatigue, No Malaise ENT/Mouth : No Hearing loss, No Ear Pain, No Nasal Congestion, No Sinus Pain, No Hoarseness, No sore throat, No Rhinorrhea, No Swallowing Difficulty Eyes: No Eye Pain, No Swelling, No Redness, No Foreign Body, No Discharge, No Vision Changes Cardiovascular : No Chest Pain, complaining of dyspnea, worse with exertion, no orthopnea, no palpitations, complaining of lower extremity edema Respiratory : Complaining of productive cough, no wheezing, complaining of shortness of breath Gastrointestinal : No Nausea, No Vomiting, No Diarrhea, No Constipation, No abdominal Pain, No Hematochezia, No Melena Genitourinary : no irregular bleeding, No Dysuria, No Urinary Frequency, No Hematuria, No Urinary Incontinence, No Urgency, No Flank Pain, No Urinary Flow Changes, No Hesitancy Musculoskeletal : No joint pain, No Myalgias, No Joint Swelling Skin : No Skin Lesions, No rash Neuro : No Weakness, No Numbness, No Paresthesias, No Loss of Consciousness, No Dizziness, No Headache Psych : No Anxiety/Panic, No Depression, No SI/HI/AH/VH, No Social Issues, Heme/Lymph: No Bruising, No Bleeding,No Lymphadenopathy Endocrine : No Polyuria, No Polydipsia, No Temperature Intolerance [facility] Past Medical History Medical History CKD (chronic kidney disease) stage 3, GFR 30-59 ml/min Hypertension Type 2 diabetes mellitus with hyperglycemia Anxiety GERD (gastroesophageal reflux disease) Bile salt-induced diarrhea Obesity (BMI 30-39.9) Melanoma Seizures Hypercholesterolemia Coronary artery disease DDD (degenerative disc disease), lumbar Surgical History (Updated 04/20/25 @ 17:18 by Barbara Snyder NP) S/P open reduction and internal fixation (ORIF) of fracture of lateral condyle of left femur History of surgery History of excision of mass History of cholecystectomy History of intravascular stent placement History of umbilical hernia repair History of melanoma excision History of inguinal hernia repair Family History Family History Father No problems noted. Mother Myocardial infarction Diabetes Hypertension CVD (cardiovascular disease) Son In good health Daughter In good health Social History Social History Household Members: Spouse Housing: House Are you a primary career center advisor to a significant other at home: No Do you presently have visiting nurse or other home services: No Alcohol intake: former Patient Tobacco Use Status: Former Tobacco user Tobacco use type: Cigarette Years Smoked: quit 1997 Smoked in Last 30 Days: No e-Cigarette/Vaping Use: Never Used Second Hand Smoke Exposure: No Use of substances other than those prescribed or required for medical reasons: No Advance Directives: No Advance Directives Information Provided: Yes service: No Current occupational status: disabled Cognitive needs: No Hearing needs: No Vision needs: Yes Physical Exam Exam: Exam: Appearance: Alert. Oriented X3. No acute distress. Eyes: Pupils equal, round and reactive to light. ENT: Pharynx normal. Neck: Normal inspection. Neck supple. No lymph nodes noted. No crepitus CVS: Normal heart rate and rhythm. Pulses normal. Normal S1 and S2 Respiratory: No respiratory distress, no wheezing, good air movement Abdomen: Soft and nontender. No rigidity. No distention. Skin: Skin warm and dry. Normal skin color. Normal skin turgor. Extremities: +2 nonpitting edema in bilateral lower extremities, slightly more on the left leg. No Lacerations. No Rash Neuro: Oriented X 3. No motor deficit. No sensory deficit. Moving all extremities. No slurred speech. CN 2 through 12 grossly intact Psych: calm, cooperative, normal affect Vital Signs: Vital Signs: Last Vital Signs Temp 98.1 F 04/26/25 00:07 Pulse 93 04/26/25 03:11 Resp 20 04/26/25 03:11 BP 152/67 H 04/26/25 03:11 Pulse Ox 94 04/26/25 03:11 O2 Del Method Room Air 04/26/25 03:11 BMI result Body Mass Index 29.8 Medications Administered Discontinued Medications Generic Name Dose Route Start Last Admin Trade Name Shineq PRN Reason Stop Dose Admin Furosemide 40 mg 04/26/25 01:07 04/26/25 01:16 Furosemide 40 Mg/4 Ml Vial IVPUSH 04/26/25 01:08 40 mg ONCE ONE Administration Protocol Piperacillin Sod/Tazobactam 50 mls @ 100 mls/hr 04/26/25 00:40 04/26/25 01:44 Sod 3.375 gm/ Sodium Chloride IV 04/26/25 01:09 Infused ONCE ONE Infusion Sodium Chloride 200 mls @ 200 mls/hr 04/26/25 00:57 04/26/25 02:11 Ns IVCONT 04/26/25 01:56 Infused .Q1H ONE Infusion Vancomycin HCl 2,000 mg in 500 mls @ 250 mls/hr 04/26/25 01:15 04/26/25 01:44 Vancomycin/Ns IV 04/26/25 03:14 250 mls/hr ONCE ONE Administration Iohexol 75 ml 04/26/25 01:10 04/26/25 01:11 Iohexol 350 Mg/Ml 100 Ml Infus..Btl IV 04/26/25 01:11 75 ml ONCE ONE Administration Medical Decision Making Medical Decision Making [facility] Narrative: My interpretation of EKG: Normal sinus rhythm, heart rate 84, no ST segment depression, chronic elevation in V1 and V2, no T-wave inversions, QTC 451, no EKG changes seen since February of 2025 My interpretation of labs: Patient's white blood cell count is 41.6., no significant abnormality in patient's chemistry BNP is 1146, which is new for the patient. At this time, patient has not had any fever or tachycardia, no episodes of hypotension. At this time, 01:00, sepsis is not suspected. Initially, a L of fluids were ordered. However, given the patient's BNP which just resolved, we will only give a small amount of fluids. Patient getting IV Zosyn for empiric treatment. Given his medical history of melanoma, being in rehab secondary to a leg fracture and being more sedentary, along with the symptoms that he is presenting, we will obtain a CT for pulmonary embolism to rule out pulmonary embolism CT scan is negative for pulmonary embolism. However, patient has multiple metastases. Unclear where the primary cancers, possibly melanoma. Patient's states that yesterday they had an appointment with hospice, they have not made any decisions yet regarding hospice. In the meantime, we will admit the patient for shortness of breath, CHF exacerbation. Urinalysis negative for UTI It is possible that all of patient's abnormalities secondary to the metastatic cancer. Patient's blood pressure remained stable, no fever, no tachycardia. According to the patient's , he does have history of CHF, the patient states he does not. Overall, to avoid fluid overload, patient's fluids were decreased Empiric antibiotics were started I discussed the above-mentioned with Dr. Kirk, patient being admitted Patient and his will need case management/hospice help Differential Diagnosis Differential Diagnoses: The differential diagnosis associated with the presentation includes (CHF exacerbation, pneumonia, COPD, metastatic cancer) Lab Data MDM Lab Attestation statement: I reviewed the patient's lab results. 04/25/25 23:55 04/25/25 23:55 Labs: Lab Results 04/25/25 04/25/25 04/26/25 Range/Units 23:54 23:55 00:50 WBC 41.6 H* (4.8-10.8) X10*3/uL RBC 3.03 L (4.60-5.80) X10*6/uL Hgb 9.0 L (14.0-18.0) g/dl Hct 28.9 L (42.0-52.0) % MCV 95.4 (80.0-98.0) fL MCH 29.7 (27.0-33.0) pg MCHC 31.1 (31.0-36.0) g/dl RDW 17.1 H (11.0-16.0) % Plt Count 397 (160-400) X10*3/uL MPV 8.7 L (9.4-12.4) fL Immature Gran % (Auto) Cancelled Neut % (Auto) Cancelled Lymph % (Auto) Cancelled Tama % (Auto) Cancelled Eos % (Auto) Cancelled Baso % (Auto) Cancelled Lymph # (Auto) Cancelled Tama # (Auto) Cancelled Eos # (Auto) Cancelled Baso # (Auto) Cancelled Abs Immat Gran (auto) Cancelled Absolute Neuts (auto) Cancelled Absolute Nucleated RBC 0.000 (0.0-0.012) X10*3/uL Nucleated RBC % (auto) 0.0 (0.0-0.2) /100WBC Neutrophils % (Manual) 74 H (45-73) % Band Neutrophils % 23 H (3-5) % Lymphocytes % (Manual) 2 L (20-40) % Atypical Lymphs % (Man) 1 (0-6) % Abs Neuts (Manual) 40.4 H (2.0-8.3) X10*3/uL Lymphocytes # (Manual) 0.8 L (1.2-4.9) X10*3/uL Atyp Lymphs # (Manual) 0.4 x10*3/uL Toxic Granulation PRESENT Toxic Vacuolation PRESENT Dohle Bodies PRESENT Platelet Estimate NORMAL (NORMAL) Plt Morphology Comment NORMAL RBC Morphology NORMAL Polychromasia 1+ (0-2) /OIF Stomatocytes 1+ (5-14) /OIF Smear Tech's Comments VERIFIED Sodium 136 (135-145) mmol/L Potassium 4.1 (3.3-5.1) mmol/L Chloride 106 (96-108) mmol/L Carbon Dioxide 24 (22-29) mmol/L Anion Gap 10 L (12-20) BUN 12 (9-16) mg/dL Creatinine 0.58 (0.5-1.4) mg/dL Estim Creat Clear Calc 144.4 Estimated GFR > 60 Random Glucose 149 H (60-115) mg/dL Lactic Acid 1.2 (0.5-2.0) mmol/L Calcium 9.7 (8.4-10.2) mg/dL Total Bilirubin 0.3 (0.0-1.0) mg/dL AST 36 (5-37) U/L ALT 13 (0-40) U/L Alkaline Phosphatase 344 H (39-117) U/L Troponin I High Sens 3.0 (<3.5-35.0) ng/L B-Natriuretic Peptide 1146 H (<100) pg/mL Total Protein 7.9 (6.5-8.0) g/dL Albumin 3.3 L (3.5-5.0) g/dL Urine Color Urine Appearance Urine pH (5.0-9.0) Ur Specific [place] (1.005-1.025) Urine Protein (Neg-Trace) mg/dL Urine Glucose (UA) (Negative) mg/dL Urine Ketones (Negative) mg/dL Urine Blood (Negative) Urine Nitrite (Negative) Ur Leukocyte Esterase (Negative) Influenza Type A (PCR) NEGATIVE (Negative) Influenza Type B (PCR) NEGATIVE (Negative) RSV RNA Qual (PCR) NEGATIVE (Negative) SARS-CoV-2 RNA (RT-PCR) NEGATIVE (Negative) 04/26/25 Range/Units 01:51 WBC (4.8-10.8) X10*3/uL RBC (4.60-5.80) X10*6/uL Hgb (14.0-18.0) g/dl Hct (42.0-52.0) % MCV (80.0-98.0) fL MCH (27.0-33.0) pg MCHC (31.0-36.0) g/dl RDW (11.0-16.0) % Plt Count (160-400) X10*3/uL MPV (9.4-12.4) fL Immature Gran % (Auto) Neut % (Auto) Lymph % (Auto) Tama % (Auto) Eos % (Auto) Baso % (Auto) Lymph # (Auto) Tama # (Auto) Eos # (Auto) Baso # (Auto) Abs Immat Gran (auto) Absolute Neuts (auto) Absolute Nucleated RBC (0.0-0.012) X10*3/uL Nucleated RBC % (auto) (0.0-0.2) /100WBC Neutrophils % (Manual) (45-73) % Band Neutrophils % (3-5) % Lymphocytes % (Manual) (20-40) % Atypical Lymphs % (Man) (0-6) % Abs Neuts (Manual) (2.0-8.3) X10*3/uL Lymphocytes # (Manual) (1.2-4.9) X10*3/uL Atyp Lymphs # (Manual) x10*3/uL Toxic Granulation Toxic Vacuolation Dohle Bodies Platelet Estimate (NORMAL) Plt Morphology Comment RBC Morphology Polychromasia /OIF Stomatocytes /OIF Smear Tech's Comments Sodium (135-145) mmol/L Potassium (3.3-5.1) mmol/L Chloride (96-108) mmol/L Carbon Dioxide (22-29) mmol/L Anion Gap (12-20) BUN (9-16) mg/dL Creatinine (0.5-1.4) mg/dL Estim Creat Clear Calc Estimated GFR Random Glucose (60-115) mg/dL Lactic Acid (0.5-2.0) mmol/L Calcium (8.4-10.2) mg/dL Total Bilirubin (0.0-1.0) mg/dL AST (5-37) U/L ALT (0-40) U/L Alkaline Phosphatase (39-117) U/L Troponin I High Sens (<3.5-35.0) ng/L B-Natriuretic Peptide (<100) pg/mL Total Protein (6.5-8.0) g/dL Albumin (3.5-5.0) g/dL Urine Color Yellow Urine Appearance Clear Urine pH 7.0 (5.0-9.0) Ur Specific [place] >= 1.030 H (1.005-1.025) Urine Protein Negative (Neg-Trace) mg/dL Urine Glucose (UA) Negative (Negative) mg/dL Urine Ketones Negative (Negative) mg/dL Urine Blood Negative (Negative) Urine Nitrite Negative (Negative) Ur Leukocyte Esterase Negative (Negative) Influenza Type A (PCR) (Negative) Influenza Type B (PCR) (Negative) RSV RNA Qual (PCR) (Negative) SARS-CoV-2 RNA (RT-PCR) (Negative) Independent Interpretation I performed an independent interpretation of an: Plain X-Ray and CT Scan Radiology Impression Discussion of test interpretation with radiology: I have reviewed the radiologist's reading. Radiologist Impression: Images degraded by respiratory motion. This precludes optimal evaluation of the pulmonary arteries. Given that limitation, no filling defects are seen within the main, lobar, and large or segmental pulmonary arteries to suggest pulmonary embolism. Thoracic aorta is nonaneurysmal with mild vascular calcification. Moderate sanchez chamber cardiac dilation. Moderate left pleural effusion with small right pleural effusion. Left pleural effusion is partially loculated. There is an 8 mm noncalcified pulmonary nodule in the right upper lobe on axial image number 23 Hazy density seen within the lungs bilaterally, primarily dependent in location. Numerous enlarged mediastinal, hilar, and bilateral axillary lymph nodes are identified. Customer Services Supervisor lymph nodes include a 28 mm short axis prevascular lymph node, 17 mm short axis precarinal lymph node, 26 mm short axis subcarinal lymph node, 27 mm short axis right hilar lymph node, 47 mm short axis left axillary lymph node, and a 20 mm short axis right infrahilar lymph node. Liver appears enlarged. There subtle nodularity along the periphery of the liver. Subtle hypodense left lobe liver lesion measures 2.8 cm in size. Bulky lymphadenopathy is seen within the karyn hepatis measuring up to 5.2 x 3.2 cm in size. Spleen is enlarged. Mass lesion of the right adrenal gland measures 2.9 x 2.5 cm in size. Bony destructive change of the anterior right 5th rib with soft tissue mass measuring 3.5 x 2.6 cm in size. Lytic lesions are identified within the T2 and T3 vertebral bodies. This is most pronounced at T3 where there is a 2.6 x 2.3 cm lytic and destructive bony lesion. IMPRESSION: 1. No pulmonary emboli given the limitation of the patient motion. 2. Congestive heart failure. 3. Findings indicative of an extensive metastatic malignancy as fully discussed above. Clinical correlation advised. Critical Care Time Critical Care Time Critical Care Time: Yes Total Critical Care Time: 60 Attestation: I have personally provided critical care time. Time includes review of lab data, radiology results, discussion with consultants, and monitoring for potential decompensation. Intervention performed as documented. Discharge Plan Discharge Clinical Impression: Acute exacerbation of CHF (congestive heart failure), Metastatic cancer Patient Disposition: Admitted As Inpatient Print Language: Mongolian
[2025-04-26 00:48] LABS: Resp Syncy Virus RNA Qual PCR NEGATIVE (Negative); SARS COV2 PCR INHOUSE NEGATIVE (Negative)
[2025-04-26 01:10] LABS: Neutrophils Percent Manual 74 % (45-73)
[2025-04-26] MEDS: iohexoL 350 MG/ML 100 ML INFUS..BTL 75 ML IV (01:11)
[2025-04-26 01:14] LABS: Atypical Lymph Absolute Manual 0.4 x10*3/uL; Atypical Lymphs Percent Manual 1 % (0-6); Band Neutrophils Percent 23 % (3-5); Lymphocytes Absolute Manual 0.8 X10*3/uL (1.2-4.9); Lymphocytes Percent Manual 2 % (20-40); Neutrophils Absolute Manual 40.4 X10*3/uL (2.0-8.3)
[2025-04-26 01:15] LABS: RBC Morphology NORMAL
[2025-04-26 01:16] LABS: Polychromasia 1+ (0-2) /OIF; Stomatocytes 1+ (5-14) /OIF
[2025-04-26] MEDS: Furosemide 40 MG/4 ML VIAL IVPUSH ×2 (01:16→09:17)
[2025-04-26 01:17] LABS: Dohle Bodies PRESENT; Toxic Granulation PRESENT; Toxic Vacuolation PRESENT
[2025-04-26] MEDS: vancomycin/NS 2,000 MG/500 ML PLAST..BAG 250 MG IV (01:44)
[2025-04-26 02:02] LABS: Appearance Urine Clear; Glucose Urine UA Negative (Negative); PH 7.0 (5.0-9.0); Specific Gravity - Urine >= 1.030 (1.005-1.025)
--- NOTE | 2025-04-26 04:29 | PM.IMHP ---
History of Present Illness Date of Service: 04/26/25 Attending physician on admission: Shakila Kirk Chief Complaint: worsening SOB Patient is a 64-year-old male with past medical history hypertension, hyperlipidemia, PCI 2 stents, primary melanoma dx and treated 2010 with recurrence in 2018 now with 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 Patient now reports a cough with sputum that is yellow in color. Shortness of breath worse with walking or exertion. Patient is experiencing excessive all-over body pain but most importantly in the left upper chest left arm and spine. Patient also having edema in the lower extremities. Pt also states abdomen has gotten bigger over the last 3 weeks. Patient underwent a right femur fracture repair in February of 2025. Patient states he was in the shower and his femur bone literally snapped. Patient was told then by the orthopedist that he may have cancer. Patient was following with Oncology at [facility], Dr. Orozco, but patient has not actually seen the oncologist so far due to the femur fracture and rehabilitation for ongoing immobility. Patient has been re learning how to use of walker but recently family moved patient from the 2nd floor to the 1st floor. Family recently purchased patient a new wheelchair to make mobility easier at home. Most importantly though patient and family are not aware that patient has cancer in the liver, lungs, and bone at this time. Unclear if melanoma is the primary source noting treatment was in 2009 with recurrence in 2018. Learning this today is all new information for family. Pt and family are not well versed in Hospice and palliative care. Workup in the ED included CTA scan of the chest which was negative for PE but positive for evidence of CHF with metastatic malignancy involving the right adrenal gland, anterior right 5th rib with a soft tissue mass and lytic lesions in the thoracic spine. Nodularity also noted in the liver and patient does have a distended belly somewhat tender in the right upper quadrant. Patient does have a left lobe liver lesion that measures 2.8 cm in size and bulky lymphadenopathy within the karyn hepatis. Patient also has a moderate left pleural effusion with a small right pleural effusion and the left is partially loculated. Also present are numerous enlarged mediastinal, hilar and bilateral axillary lymph nodes. Patient also notes an elevated BNP 1146. Alk-phos 344, LFTs otherwise normal. Patient does have a impressive leukocytosis of 41.6 with 15% bandemia. Patient did report as above productive cough but currently cough is resolved. Patient was started on vancomycin and Zosyn in the ED. Blood cultures pending. UA negative for UTI. Concern for possible PNA, but CXR notes L.R basilar atelecatsis and effusions. CT scan with no evidence of obvious PNA. Recommend stopping Ozempic for diabetes management as patient reports weight loss with decreased appetite. Blood glucose levels in the 150 range. Pt is alert and orientated, not necessarily exhibiting encephalopthy but is cloudy at times. CT head pending. Review of Systems Review of Systems: Patient reports head-to-toe all-over body pain with increasing pain in the left upper chest and left arm. Patient states he can not walk due to chronic back pain. Patient states it is taking 20-25 minutes to be able to void. Patient believes he has an enlarged prostate. Patient denies any nausea, vomiting but is reporting mild abdominal tenderness in the right upper and lower quadrant. Patient states that distention in his belly started about 3 weeks prior while he was in rehabilitation for immobility. Yes all other systems are reviewed and are negative [facility] Medical History CKD (chronic kidney disease) stage 3, GFR 30-59 ml/min Hypertension Type 2 diabetes mellitus with hyperglycemia Anxiety GERD (gastroesophageal reflux disease) Bile salt-induced diarrhea Obesity (BMI 30-39.9) Melanoma Seizures Hypercholesterolemia Coronary artery disease DDD (degenerative disc disease), lumbar Cognitive capacity: Alert and orientated x3 Functional capacity: wheelchair bound Family History Father No problems noted. Mother Myocardial infarction Diabetes Hypertension CVD (cardiovascular disease) Son In good health Daughter In good health Surgical History S/P open reduction and internal fixation (ORIF) of fracture of lateral condyle of left femur History of surgery History of excision of mass History of cholecystectomy History of intravascular stent placement History of umbilical hernia repair History of melanoma excision History of inguinal hernia repair Social History Household Members: Spouse Housing: House Are you a primary care center manager to a significant other at home: No Do you presently have visiting nurse or other home services: No Alcohol intake: former Patient Tobacco Use Status: Former Tobacco user Tobacco use type: Cigarette Years Smoked: quit 1996 Smoked in Last 30 Days: No e-Cigarette/Vaping Use: Never Used Second Hand Smoke Exposure: No Use of substances other than those prescribed or required for medical reasons: No Advance Directives: No Advance Directives Information Provided: Yes service: No Current occupational status: disabled Cognitive needs: No Hearing needs: No Vision needs: Yes Meds Allergies Allergy/AdvReac Type Severity Reaction Status Date / Time atorvastatin Allergy Intermediate Muscle Verified 04/25/25 23:39 cramps hydrochlorothiazide Allergy Intermediate advised to Verified 04/25/25 23:39 avoid metformin Allergy Intermediate Gastrointestinal Verified 04/25/25 23:39 Upset pembrolizumab (From [employer]) Allergy Intermediate creatinine Verified 04/25/25 23:39 lisinopril AdvReac Intermediate increase Verified 04/25/25 23:39 creatinine Active Medications: Current Medications Acetaminophen (Acetaminophen 325 Mg Tablet) 650 mg PO Q6H PRN PRN Reason: Pain, Mild 1-3,fever,headache Albuterol/Ipratropium (Albuterol/Iprat 2.5/0.5mg 3 Ml Ampul.Neb) 3 ml INHALE Q4H PRN PRN Reason: Shortness of Breath/Wheezing Calcium Carbonate (Calcium Carbonate 750 Mg Tab.Chew) 750 mg PO Q4H PRN PRN Reason: Heartburn Piperacillin Sod/Tazobactam (Sod 4.5 gm/ Sodium Chloride) 100 mls @ 200 mls/hr IV Q6H ILA Magnesium Hydroxide (Milk Of Magnesia 30 Ml Oral.Susp) 30 ml PO DAILY PRN PRN Reason: Constipation Melatonin (Melatonin 3 Mg Tablet) 6 mg PO BEDTIME PRN PRN Reason: Insomnia Ondansetron HCl (Ondansetron Hcl 4 Mg/2 Ml Vial) 4 mg IVPUSH Q8H PRN PRN Reason: Nausea and Vomiting Pharmacy Consult (Consult Rx Vancomycin Dosing) 1 each MISCELLANE DAILY PRN PRN Reason: Consult order Polyethylene Glycol (Polyethylene Glycol 3350 17 Gm Powd.Pack) 17 gm PO DAILY PRN PRN Reason: Constipation Senna (Sennosides 8.6 Mg Tablet) 17.2 mg PO BEDTIME ILA Sodium Chloride (0.9 % Sodium Chloride Flush 3 Ml Syringe) 3 ml IVFLUSH QSHIFT ILA Home Medications ?Medication ?Instructions ?Recorded ?Confirmed ?Last Taken ?Type aspirin 81 mg tablet,delayed 81 mg PO BEDTIME 09/10/20 02/27/25 02/19/25 History release (Adult Aspirin Regimen) amlodipine 10 mg tablet 10 mg PO BEDTIME 02/20/25 02/27/25 02/19/25 History glimepiride 4 mg tablet 4 mg PO DAILY 02/20/25 02/27/25 02/20/25 History multivitamin with minerals-folic 1 tab PO DAILY 02/20/25 02/27/25 02/20/25 History acid 80 mcg chewable tablet (Centrum Adult 50 Plus) omeprazole 40 mg capsule,delayed 40 mg PO DAILY@0630 02/20/25 02/27/25 02/20/25 History release rosuvastatin 20 mg tablet 20 mg PO BEDTIME 02/20/25 02/27/25 02/19/25 History semaglutide 2 mg/dose (8 mg/3 mL) 2 mg subcut TH 02/20/25 02/27/25 02/15/25 History subcutaneous pen injector (Ozempic) Physical Exam Vital Signs and Narrative: Vital Signs: Last Vital Signs Temp 98.1 F 04/26/25 00:07 Pulse 93 04/26/25 03:11 Resp 20 04/26/25 03:11 BP 152/67 H 04/26/25 03:11 Pulse Ox 94 04/26/25 03:11 O2 Del Method Room Air 04/26/25 03:11 BMI result Body Mass Index 29.8 Alert and orientated X3, able to give good history. Pt presents not encephalopathic but with a haze or cloudiness . Neuro: CN II-X11, visual acuity intact EYES: PERRLA, EOM intact, sclera nonicteric, conjunctiva pink ENT: hearing intact, no issues with swallowing, uvula midline, lips moist, nares patent no epistaxis Cardiac: S1 S2 RRR Rate 96, no murmur, no JVD, mild edema in Lower ext Pulmonary: lungs diminshed B, L>R Abdominal: BS active in all 4 quadrants, no guarding, with mild tenderness R upper and lower quadrants, no rebounding, distension noted with tympanic changes MSK: strength 1/5 in lower extremities : no CVA tenderness, bladder distension noted Extremities: mild edema in lower extremities, PT and DP pulses palpable +2 Psych: mood mildly anxious, judgement and insight good, pt has insight into disease progression but somewhat overwhelmed Results Labs 04/25/25 23:55 04/25/25 23:55 Labs: Laboratory Results - last 24 hr 04/25/25 04/25/25 04/26/25 23:54 23:55 00:50 MCV 95.4 MCH 29.7 MCHC 31.1 RDW 17.1 H Plt Count 397 MPV 8.7 L Immature Gran % (Auto) Cancelled Neut % (Auto) Cancelled Lymph % (Auto) Cancelled [place] % (Auto) Cancelled Eos % (Auto) Cancelled Baso % (Auto) Cancelled Lymph # (Auto) Cancelled [place] # (Auto) Cancelled Eos # (Auto) Cancelled Baso # (Auto) Cancelled Abs Immat Gran (auto) Cancelled Absolute Neuts (auto) Cancelled Absolute Nucleated RBC 0.000 Nucleated RBC % (auto) 0.0 Neutrophils % (Manual) 74 H Band Neutrophils % 23 H Lymphocytes % (Manual) 2 L Atypical Lymphs % (Man) 1 Abs Neuts (Manual) 40.4 H Lymphocytes # (Manual) 0.8 L Atyp Lymphs # (Manual) 0.4 Toxic Granulation PRESENT Toxic Vacuolation PRESENT Dohle Bodies PRESENT Platelet Estimate NORMAL Plt Morphology Comment NORMAL RBC Morphology NORMAL Polychromasia 1+ (0-2) Stomatocytes 1+ (5-14) Smear Tech's Comments VERIFIED Anion Gap 10 L Estim Creat Clear Calc 144.4 Estimated GFR > 60 Random Glucose 149 H Lactic Acid 1.2 Calcium 9.7 Total Bilirubin 0.3 AST 36 ALT 13 Alkaline Phosphatase 344 H B-Natriuretic Peptide 1146 H Total Protein 7.9 Albumin 3.3 L Urine Color Urine Appearance Urine pH Ur Specific [place] Urine Protein Urine Glucose (UA) Urine Ketones Urine Blood Urine Nitrite Ur Leukocyte Esterase Influenza Type A (PCR) NEGATIVE Influenza Type B (PCR) NEGATIVE RSV RNA Qual (PCR) NEGATIVE SARS-CoV-2 RNA (RT-PCR) NEGATIVE 04/26/25 01:51 MCV MCH MCHC RDW Plt Count MPV Immature Gran % (Auto) Neut % (Auto) Lymph % (Auto) [place] % (Auto) Eos % (Auto) Baso % (Auto) Lymph # (Auto) [place] # (Auto) Eos # (Auto) Baso # (Auto) Abs Immat Gran (auto) Absolute Neuts (auto) Absolute Nucleated RBC Nucleated RBC % (auto) Neutrophils % (Manual) Band Neutrophils % Lymphocytes % (Manual) Atypical Lymphs % (Man) Abs Neuts (Manual) Lymphocytes # (Manual) Atyp Lymphs # (Manual) Toxic Granulation Toxic Vacuolation Dohle Bodies Platelet Estimate Plt Morphology Comment RBC Morphology Polychromasia Stomatocytes Smear Tech's Comments Anion Gap Estim Creat Clear Calc Estimated GFR Random Glucose Lactic Acid Calcium Total Bilirubin AST ALT Alkaline Phosphatase B-Natriuretic Peptide Total Protein Albumin Urine Color Yellow Urine Appearance Clear Urine pH 7.0 Ur Specific [place] >= 1.030 H Urine Protein Negative Urine Glucose (UA) Negative Urine Ketones Negative Urine Blood Negative Urine Nitrite Negative Ur Leukocyte Esterase Negative Influenza Type A (PCR) Influenza Type B (PCR) RSV RNA Qual (PCR) SARS-CoV-2 RNA (RT-PCR) Imaging Radiologist's Impressions: CTA IMPRESSION: 1. No pulmonary emboli given the limitation of the patient motion. 2. Congestive heart failure. 3. Findings indicative of an extensive metastatic malignancy as fully discussed above. Clinical correlation advised. CXR IMPRESSION: [id number] bibasilar atelectasis with small left effusion. HEAD CT pending Assessment and Plan (1) Acute exacerbation of CHF (congestive heart failure): Qualifiers: Heart failure type: diastolic Qualified Code(s): I50.33 - Acute on chronic diastolic (congestive) heart failure Status: Acute (2) Metastatic cancer: Qualifiers: Area of secondary neoplastic involvement: respiratory structure Laterality: unspecified laterality Respiratory structure secondary neoplasm location: metastatic to lung Qualified Code(s): C78.00 - Secondary malignant neoplasm of unspecified lung Status: Acute Plan Patient is a 64-year-old male with past medical history hypertension, hyperlipidemia, PCI 2 stents, primary melanoma dx and treated 2010 with recurrence in 2018 now with 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 Patient now reports a cough with sputum that is yellow in color. Shortness of breath worse with walking or exertion. Patient is experiencing excessive all-over body pain but most importantly in the left upper chest left arm and spine. Patient also having edema in the lower extremities. Pt also states abdomen has gotten bigger over the last 3 weeks. Pt does not meet criteria for sepsis at this time. 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 Diuretic Leukocytosis with bandemia Patient currently on vanco and Zosyn Significant leukocytosis with 15% bandemia UA is currently negative Maybe secondary to malignancy Follow Blood Cultures LA 1.2 Melanoma primary cancer? with metastases to lung, liver and now bone with excessive pain issues Recent right femur fracture with repair February 2025 - femur snapped while patient was taking a shower CT scan notes mass lesion of the right adrenal gland, bony destructive changes of the anterior right 5th rib and soft tissue mass, lytic lesions in the thoracic spine Oncology consulted Patient is learning today that he has a metastatic cancer to the lung, liver, bone Evidence of decline includes decreased mobility, decreased appetite and weight loss. Patient is currently on Ozempic and it is recommended that patient has stopped Ozempic. Pain management to include IV morphine and extended-release OxyContin twice daily CT negative for PE CT HEAD pending CM consulted, family not well versed in Hospice Care, overwhelmed with this new information Recent right femur fracture with repair February of 2025 Patient has limited mobility after attending rehab Patient showing evidence of decline noting metastatic cancer to the bone PT eval ordered Bone lytic changes noted on CT scan involving R rib, thoracic spine Diabetes type 2 Sliding scale insulin for NPO status, change to ACHS when able Diabetic diet once no longer NPO Recommend patient stop Ozempic as he has been losing weight and has metastatic cancer Hypertension Blood pressure currently controlled Monitor closely Low-salt diet Hyperlipidemia Patient normally on statin Cardiac diet DVT prophylaxis: Lovenox - please order for after thoracentesis Med rec pending FULL CODE - discussed with pt on admission Quality Stroke Does the patient have a stroke diagnosis?: No Reason for No Anti-thrombotic by Day Two: N/A - Med Ordered VTE Prior VTE?: No VTE Risk Level:: Medical - moderate - high VTE Device Contraindication: N/A - Device Ordered VTE Drug Contraindication: N/A - Med Ordered
[2025-04-26 06:18] LABS: Hematocrit 29.3 % (42.0-52.0); Hemoglobin 9.1 g/dl (14.0-18.0); Imm Gran Abs Auto 1.91 X10*3/uL (0.00-0.03); Imm Gran Pct Auto 4.0 % (0.0-0.4); Lymphocytes Absolute Auto 1.4 X10*3/uL (1.2-4.9); MANUAL DIFF FLAG SCAN; Mean Corpuscular HGB Conc 31.1 g/dl (31.0-36.0); Mean Corpuscular Hemoglobin 29.7 pg (27.0-33.0); Mean Corpuscular Volume 95.8 fL (80.0-98.0); NRBC Abs Auto 0.000 X10*3/uL (0.0-0.012); NRBC Pct Auto 0.0 /100WBC (0.0-0.2); Platelet Count 471 X10*3/uL (160-400); Red Blood Count 3.06 X10*6/uL (4.60-5.80); SCAN SMEAR FLAG 1
[2025-04-26 06:19] LABS: Anion Gap 12 (12-20); Blood Urea Nitrogen 11 mg/dL (9-16); Calcium 9.8 mg/dL (8.4-10.2); Carbon Dioxide 24 mmol/L (22-29); Chloride 104 mmol/L (96-108); Creatinine Clr Calc Pharmacy 139.6; Estimated Glomerular Filt Rate > 60; Potassium 3.7 mmol/L (3.3-5.1); Sodium 136 mmol/L (135-145)
[2025-04-26 06:24] LABS: Glucose, Whole Blood 144 mg/dL (60-115)
[2025-04-26 06:43] LABS: Procalcitonin 0.52 ng/mL
--- NOTE | 2025-04-26 07:00 | CA_ITS ---
Transthoracic Echocardiogram Patient (Last, First, Middle): Dedrick Cali S Gender: Male Date of : 1960 Age: 64 Procedure Date: 04/26/2025 Procedure Type: Transthoracic Echocardiogram Location: ER Height: 177. cm Weight: 94.35 kg BSA: 2.12 m2 Heart Rate: 94 bpm BP: 162 / 62 mmHg Rotor Pilot: ADDY/SANA Referring MD: Tisha Mcdonnell [facility] Sales Producer: Rene Matson MD Symptoms: CHF and SOB Study Quality: Adequate ECG Rhythm: Sinus Conclusions: - 1. Mildly reduced LV ejection fraction 45-50% with regional wall motion of any consistent with prior coronary disease with impaired relaxation filling pattern 2. Mildly dilated left atrium 3. Increased gradient across aortic valve without severe aortic stenosis 4. Trivial pericardial effusion Findings Procedure Information The quality of the study was technically difficult. The study quality is limited by an uncooperative patient. Left Ventricle Normal left ventricular cavity size. There is normal left ventricular wall thickness. The left ventricular systolic function is mildly decreased. The visually estimated ejection fraction is between 45-50%. Spectral Doppler is indicative of an impaired relaxation filling pattern. E/E prime ratio is between 8 and 15 consistent with indeterminate filling pressures. Wall Motion Rest Echo Findings The apical inferior and apical septum segments are hypokinetic. The inferoseptal wall, the basal inferior, and mid inferior segments are akinetic. All other scored wall segments showed normal motion. Right Ventricle Normal right ventricular cavity size and systolic function. Atria The left atrium is mildly dilated. There is no evidence of interatrial shunt. The right atrium is normal in size. Aortic Valve There is mild calcification of the aortic valve. There is no aortic valve stenosis. The peak aortic gradient is 13 mmHg.The mean gradient is 7 mmHg. There is no aortic valve regurgitation. Mitral Valve Normal mitral valve structure and function. There is trace mitral valve regurgitation. There is no mitral valve stenosis. Pulmonic Valve The pulmonic valve was not well visualized. Tricuspid Valve Likely normal tricuspid valve structure and function. Tricuspid regurgitation envelope is inadequate for calculation of right ventricular systolic pressure. Normal right atrial pressure. Great Vessels The pulmonary artery was not well visualized. There is mild dilatation of the sinuses of Valsalva and no dilatation of the ascending aorta measuring 3.40 cm. Venous The inferior vena cava is normal in size and collapses greater than 50% with inspiration. Pericardium/Pleural There is a trivial pericardial effusion. Prior Study Comparison No prior study available for comparison. Measurements 2D Linear Measurements IVSd: 1.17 0.6-0.9/0.6-1.0 cm LVIDd: 6.21 3.9-5.3/4.2-5.9 cm LVIDd Index: 2.93 2.4-3.2/2.2-3.1 cm/m2 LVIDs: 4.51 2.0-3.6 cm LVPWd: 1.08 0.7-1.1 cm LA Diam: 4.20 2.7-3.8/3.0-4.0 cm LAIDs Index: 1.98 1.5-2.3 cm/m2 LV Mass: 380.65 67-162/88-224 g LV Mass Index: 179.55 43-95/49-115 g/m2 LVOT Diam: 2.50 3.0+(-)1.3 cm 2D Systolic Function EF 4C: 47.10 >55% EF 2C: 46.20 >55% EF BiP: 45.20 >55% Mitral Valve MV Pk E: 0.93 MV PK A: 0.83 MV Decel Time: 102.00 E/A: 1.10 E'Lateral: 8.81 E'Medial: 5.00 E/E' Med: 18.60 E/E' Lat: 10.60 PHT: 30.00 MVA PHT: 7.33 Decel Elliott: 9.13 Aortic Valve AoV Pk Jay: 1.81 AoV Mn Jay: 1.26 AoV VTI: 0.38 AoV Pk Grad: 13.00 Aov Mn Grad: 7.00 JADE Cont.VTI: 3.00 LVOT LVOT Pk Jay: 1.05 LVOT Mn Jay: 0.71 LVOT VTI: 0.23 LVOT Pk Grad: 4.00 LVOT Mn Grad: 2.00 LVOT Diam: 2.50 LVOT Area: 4.91 Diastolic Function MV Pk E: 0.93 MV Pk A: 0.83 E/A: 1.10 E'Medial: 5.00 E/E' Med: 18.60 E' Laterial: 8.81 E/E' Lat: 10.60 Right Ventricle TAPSE (mm): 22.00 TVS' Jay: 15.20 Tricuspid Valve RA Press: 3.00 Great Vessels Aorta Sinus of Valsalva: 4.40 2.0-3.5 cm Ao Asc: 3.40 2.1-3.4 cm Pulmonary Valve PV Pk Jay: 1.19 Peak PV Grad: 6.00 Updated in Other Vendor System with Status of Final Rene Matson MD electronically signed on 04/26/2025 4:53:37 PM with status of Final
--- NOTE | 2025-04-26 08:15 | PM.HEMONCCN ---
Subjective - Subjective Chief complaint: Consult for: Metatatic Melanoma. Patient: new to practice Consult date: 04/26/25 Requesting Physician: Miriam Mcdonnell. Primary Care Provider: Mati Richter MD Family Provider: Dr. Richter. Medical Summary: DIAGNOSIS: Widely metastatic malignant melanoma. 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 Narrative: Dedrick Cali is a 64 year old gentleman with past medical history hypertension, hyperlipidemia, PCI 2 stents, primary melanoma dx and treated 2010 with recurrence in 2018 now with metastases to liver lung and now bone, recent right femur fracture with repair, osteoporosis, diverticulosis, chronic kidney disease, anxiety, GERD, seizures on Tegretol, CAD and degenerative disc disease in the lumbar back. He presented to the emergency department with complaints of shortness of breath that has been progressing over the past few weeks. Also reports a cough with sputum that is yellow in color. Shortness of breath worse with walking or exertion. Patient is experiencing excessive all-over body pain but most importantly in the left upper chest left arm and spine. He also had edema in the lower extremities. He noted that his abdomen has gotten bigger over the last 3 weeks. Recent history: Patient underwent a right femur fracture repair in February of 2025. Pt states he was in the shower and his femur bone literally snapped. Patient was told then by the orthopedist that he may have cancer. Patient was following with Oncology at [facility], Dr. Orozco, but patient has not actually seen the oncologist so far due to the femur fracture and rehabilitation for ongoing immobility. Patient has been re learning how to use of walker but recently family moved patient from the 2nd floor to the 1st floor. Family recently purchased patient a new wheelchair to make mobility easier at home. Most importantly though patient and family are not aware that patient has cancer in the liver, lungs, and bone at this time. Unclear if melanoma is the primary source noting treatment was in 2009 with recurrence in 2018. Learning this today is all new information for family. Workup in the ED included CTA scan of the chest which was negative for PE but positive for evidence of CHF with metastatic malignancy involving the right adrenal gland, anterior right 5th rib with a soft tissue mass and lytic lesions in the thoracic spine. Nodularity also noted in the liver and patient does have a distended belly somewhat tender in the right upper quadrant. Patient does have a left lobe liver lesion that measures 2.8 cm in size and bulky lymphadenopathy within the karyn hepatis. Patient also has a moderate left pleural effusion with a small right pleural effusion and the left is partially loculated. Also present are numerous enlarged mediastinal, hilar and bilateral axillary lymph nodes. Patient also notes an elevated BNP 1146. Alk-phos 344, LFTs otherwise normal. Patient does have a impressive leukocytosis of 41.6 with 15% bandemia. Patient did report as above productive cough but currently cough is resolved. Patient was started on vancomycin and Zosyn in the ED. Blood cultures pending. UA negative for UTI. Concern for possible PNA, but CXR notes L.R basilar atelecatsis and effusions. CT scan with no evidence of obvious PNA. Recommend stopping Ozempic for diabetes management as patient reports weight loss with decreased appetite. Blood glucose levels in the 150 range. Pt is alert and orientated, not necessarily exhibiting encephalopthy but is cloudy at times. CT head pending. Medical History:) 1. Malignant melanoma: Patient initially noted a lesion on his back in 2008. He had wide excision done followed by left axillary node biopsy. He had melanoma in his nodes. He was treated with immunotherapy. Most recently he was on Keytruda. However he developed renal toxicity so that has been on hold. He did have a recent PET scan at [facility]. CKD (chronic kidney disease) stage 3, GFR 30-59 ml/min Hypertension Type 2 diabetes mellitus with hyperglycemia Anxiety GERD (gastroesophageal reflux disease) Bile salt-induced diarrhea Obesity (BMI 30-39.9) Melanoma Seizures. Hypercholesterolemia Coronary artery disease DDD (degenerative disc disease), lumbar Cognitive capacity: Alert and orientated x3 Functional capacity: wheelchair bound Surgical History:) S/P open reduction and internal fixation (ORIF) of fracture of lateral condyle of left femur. History of surgery. History of excision of mass History of cholecystectomy History of intravascular stent placement History of umbilical hernia repair History of melanoma excision History of inguinal hernia repair Family History:) Father No problems noted. Mother Myocardial infarction Diabetes Hypertension CVD (cardiovascular disease) Son In good health Daughter In good health Social History:) Household Members: Spouse Housing: House Are you a primary pediatric care coordinator to a significant other at home: No Do you presently have visiting nurse or other home services: No Alcohol intake: former Patient Tobacco Use Status: Former Tobacco user Review of Systems Review of Systems: Patient reports head-to-toe all-over body pain with increasing pain in the left upper chest and left arm. Patient states he can not walk due to chronic back pain. Patient states it is taking 20-25 minutes to be able to void. Patient believes he has an enlarged prostate. Patient denies any nausea, vomiting but is reporting mild abdominal tenderness in the right upper and lower quadrant. Patient states that distention in his belly started about 3 weeks prior while he was in rehabilitation for immobility. Yes all other systems are reviewed and are negative Review of Systems - Constitutional Reports system reviewed and no additional complaints, except as documented - Eyes Reports system reviewed and no additional complaints, except as documented - ENT Reports system reviewed and no additional complaints, except as documented - Cardiovascular Reports system reviewed and no additional complaints, except as documented - Respiratory Reports no additional respiratory complaints - Gastrointestinal Reports system reviewed and no additional complaints, except as documented - Genitourinary Genitourinary: Reports no additional male genitourinary complaints - Musculoskeletal Reports system reviewed and no additional complaints, except as documented - Integumentary/Breasts Skin/Breast: Reports no additional skin complaints - Neurologic Reports system reviewed and no additional complaints, except as documented - Psychiatric Reports system reviewed and no additional complaints, except as documented - Endocrine Reports no additional endocrine complaints - Hematologic/Lymphatic Reports system reviewed and no additional complaints, except as documented - Allergic/Immunologic Reports system reviewed and no additional complaints, except as documented Oncology Screenings - ECOG Performance Status ECOG Performance Status: 0 [facility] Medical History: Medical History (Last Updated 04/27/25 @ 09:37 by Nikhil See MD) Anxiety Bile salt-induced diarrhea CKD (chronic kidney disease) stage 3, GFR 30-59 ml/min Coronary artery disease DDD (degenerative disc disease), lumbar GERD (gastroesophageal reflux disease) Hypercholesterolemia Hypertension Loculated pleural effusion Melanoma Obesity (BMI 30-39.9) Pneumonia Seizures Type 2 diabetes mellitus with hyperglycemia Functional capacity: wheelchair bound Patient : No Family History: Family History (Last Reviewed 04/26/25 @ 05:31 by PAULO Handy) Father No problems noted. Mother Myocardial infarction Diabetes Hypertension CVD (cardiovascular disease) Son In good health Daughter In good health Surgical History: Surgical History (Last Reviewed 04/26/25 @ 05:31 by PAULO Handy) History of cholecystectomy History of excision of mass History of inguinal hernia repair History of intravascular stent placement History of melanoma excision History of surgery History of umbilical hernia repair S/P open reduction and internal fixation (ORIF) of fracture of lateral condyle of left femur Social History: Social History (Last Reviewed 04/26/25 @ 05:31 by PAULO Handy) Living Situation History: Household Members: Spouse Housing: Apartment Are you a primary pediatric care coordinator to a significant other at home: No Do you presently have visiting nurse or other home services: No Tobacco History: Patient Tobacco Use Status: Former Tobacco user Tobacco use type: Cigarette Years Smoked: 1996 e-Cigarette/Vaping Use: Never Used Second Hand Smoke Exposure: No Occupation Assessmet: service: No Current occupational status: disabled Home Medications and Allergies Current Medications: Current Medications Acetaminophen (Acetaminophen 325 Mg Tablet) 650 mg PO Q6H PRN PRN Reason: Pain, Mild 1-3,fever,headache Albuterol/Ipratropium (Albuterol/Iprat 2.5/0.5mg 3 Ml Ampul.Neb) 3 ml INHALE Q4H PRN PRN Reason: Shortness of Breath/Wheezing Calcium Carbonate (Calcium Carbonate 750 Mg Tab.Chew) 750 mg PO Q4H PRN PRN Reason: Heartburn Dextrose (Dextrose 50 % 25 Gm/50 Ml Syringe) 25 gm IVPUSH Q15M PRN; Protocol PRN Reason: per Hypoglycemia Standing Ord. Furosemide (Furosemide 40 Mg/4 Ml Vial) 40 mg IVPUSH DAILY ILA; Protocol Glucose (Glucose Gel 15 Gm Gel..Gram.) 15 gm PO Q15M PRN; Protocol PRN Reason: per Hypoglycemia Standing Ord. Piperacillin Sod/Tazobactam (Sod 4.5 gm/ Sodium Chloride) 100 mls @ 200 mls/hr IV Q6H ILA Last Infusion: 04/26/25 07:11 Dose: Infused Vancomycin HCl 1,500 mg/ (Sodium Chloride) 500 mls @ 333.333 mls/hr IV Q12H ILA Insulin Human Lispro (Insulin Lispro 100 Unit/Ml 3 Ml Vial) 0 unit SUBCUT Q6H ILA; Protocol Last Admin: 04/26/25 06:08 Dose: Not Given Magnesium Hydroxide (Milk Of Magnesia 30 Ml Oral.Susp) 30 ml PO DAILY PRN PRN Reason: Constipation Melatonin (Melatonin 3 Mg Tablet) 6 mg PO BEDTIME PRN PRN Reason: Insomnia Morphine Sulfate (Morphine Sulfate 2 Mg/Ml Cartridge) 2 mg IVPUSH Q3H PRN; Protocol PRN Reason: Pain, Severe (Pain Scale 7-10) Ondansetron HCl (Ondansetron Hcl 4 Mg/2 Ml Vial) 4 mg IVPUSH Q8H PRN PRN Reason: Nausea and Vomiting Oxycodone HCl (Oxycodone Hcl Er 10 Mg Tab.Er.12h) 10 mg PO BID [facility] Pantoprazole Sodium (Pantoprazole Sodium 40 Mg/10 Ml Vial) 40 mg IVPUSH DAILY@06 [facility] Last Admin: 04/26/25 06:08 Dose: 40 mg Pharmacy Consult (Consult Rx Vancomycin Dosing) 1 each MISCELLANE DAILY PRN PRN Reason: Consult order Polyethylene Glycol (Polyethylene Glycol 3350 17 Gm Powd.Pack) 17 gm PO DAILY PRN PRN Reason: Constipation Senna (Sennosides 8.6 Mg Tablet) 17.2 mg PO BEDTIME [facility] Sodium Chloride (0.9 % Sodium Chloride Flush 3 Ml Syringe) 3 ml IVFLUSH QSHIFT [facility] Home Medications ?Medication ?Instructions ?Recorded ?Confirmed ?Type aspirin 81 mg tablet,delayed 81 mg PO BEDTIME 09/10/20 04/26/25 History release (Adult Aspirin Regimen) amlodipine 10 mg tablet 10 mg PO BEDTIME 02/20/25 04/26/25 History glimepiride 4 mg tablet 4 mg PO DAILY 02/20/25 04/26/25 History multivitamin with minerals-folic 1 tab PO DAILY 02/20/25 04/26/25 History acid 80 mcg chewable tablet (Centrum Adult 50 Plus) omeprazole 40 mg capsule,delayed 40 mg PO DAILY@0630 02/20/25 04/26/25 History release rosuvastatin 20 mg tablet 20 mg PO BEDTIME 02/20/25 04/26/25 History docusate sodium 100 mg capsule 100 mg PO BID PRN Constipation 04/26/25 04/26/25 History (Colace) ferrous sulfate 325 mg (65 mg 325 mg PO DAILY 04/26/25 04/26/25 History iron) tablet gabapentin 100 mg capsule 100 mg PO TID 04/26/25 04/26/25 History tizanidine 4 mg tablet 2 mg PO Q8H PRN for muscle spasm 04/26/25 04/26/25 History Allergies Allergy/AdvReac Type Severity Reaction Status Date / Time atorvastatin Allergy Intermediate Muscle Verified 04/25/25 23:39 cramps hydrochlorothiazide Allergy Intermediate advised to Verified 04/25/25 23:39 avoid metformin Allergy Intermediate Gastrointestinal Verified 04/25/25 23:39 Upset pembrolizumab (From [employer]) Allergy Intermediate creatinine Verified 04/25/25 23:39 lisinopril AdvReac Intermediate increase Verified 04/25/25 23:39 creatinine Physical Exam Vital signs: Vital Signs Temp 98.0 F 04/26/25 05:31 Pulse 95 04/26/25 06:07 Resp 18 04/26/25 06:07 BP 131/71 04/26/25 06:07 Pulse Ox 94 04/26/25 06:07 O2 Del Method Nasal Cannula 04/26/25 06:07 O2 Flow Rate 1 04/26/25 06:07 Intake & Output 04/25/25 04/26/25 04/26/25 18:59 06:59 18:59 Intake Total 750 / 750 100 / 100 Output Total 2325 / 2325 Balance -1575 / -1575 100 / 100 Urine Output (Average ml/kg/hr) 2.05 2.05 Intake: Intake, IV Amount 750 / 750 100 / 100 Piperacillin Sodium/Tazobactam 50 / 50 3.375 gm In 0.9 % Sodium Chloride 50 ml @ 100 mls/hr IV ONCE ONE Rx#:[id number] Piperacillin Sodium/Tazobactam 100 / 100 4.5 gm In 0.9 % Sodium Chloride 100 ml @ 200 mls/hr IV Q6H [facility] Rx#:[id number] vancomycin/NS 2,000 mg In 500 500 / 500 ml @ 250 mls/hr IV ONCE ONE Rx# :[id number] 0.9 % Sodium Chloride 200 ml @ 200 / 200 200 mls/hr IVCONT .Q1H ONE Rx#: [id number] Output: Output, Urine Amount 2325 / 2325 Other: Weight 94.347 kg Weight 94.347 kg - Constitutional Present: mild distress - Routine HEENT Exam Head: Present: normal inspection, normocephalic ENT: Present: mucous membranes moist - Routine Neck Exam Present: supple - Routine Respiratory Exam Present: CTAB - Routine Cardiovascular Exam Cardiovascular: Present: RRR, S1, S2 - Routine Abdominal Exam Present: nontender - Routine Extremities Exam Present: nontender - Routine Skin Exam Present: intact, normal turgor - Routine Neurological Exam Present: alert, oriented X3 - Detailed Neurological Exam: Coma Scale Eye Opening: Spontaneous (4) - Routine Psychiatric Exam Present: normal affect Hem/Onc Consult Result - Labs CBC & Chem 7: 04/29/25 08:27 04/29/25 05:28 Labs: Short CBC 04/25/25 04/26/25 Range/Units 23:55 05:33 WBC 41.6 H* 48.2 H* (4.8-10.8) X10*3/uL Hgb 9.0 L 9.1 L (14.0-18.0) g/dl Hct 28.9 L 29.3 L (42.0-52.0) % Plt Count 397 471 H (160-400) X10*3/uL BMP 04/25/25 04/26/25 23:55 05:33 Sodium 136 136 Potassium 4.1 3.7 Chloride 106 104 Carbon Dioxide 24 24 BUN 12 11 Creatinine 0.58 0.60 Calcium 9.7 9.8 Liver Function 04/25/25 Range/Units 23:55 Total Bilirubin 0.3 (0.0-1.0) mg/dL AST 36 (5-37) U/L ALT 13 (0-40) U/L Alkaline Phosphatase 344 H (39-117) U/L Albumin 3.3 L (3.5-5.0) g/dL Urine 04/26/25 Range/Units 01:51 Urine Color Yellow Urine Appearance Clear Urine pH 7.0 (5.0-9.0) Ur Specific [place] >= 1.030 H (1.005-1.025) Urine Protein Negative (Neg-Trace) mg/dL Urine Glucose (UA) Negative (Negative) mg/dL Assessment and Plan Patient Active problem list reviewed?: Yes (1) Metastatic cancer Status: Acute Assessment and plan: 64 year old gentleman admitted with shortness of breath. he has ahistory of primary melanoma dx and treated 2010 with recurrence in 2018 now with metastases to liver lung and now bone. He had a recent right femur fracture with repair, osteoporosis, diverticulosis, chronic kidney disease, anxiety, GERD, seizures on Tegretol, CAD and degenerative disc disease in the lumbar back. He presented to the ED with complaints of shortness of breath that has been progressing over the past few weeks. Patient now reports a cough with sputum that is yellow in color. Shortness of breath worse with walking or exertion. Patient is experiencing excessive all-over body pain but most importantly in the left upper chest left arm and spine. Patient also having edema in the lower extremities. Pt also states abdomen has gotten bigger over the last 3 weeks. Pt does not meet criteria for sepsis at this time. PROBLEMS: Left moderate pleural effusion: Plan for ultrasound-guided thoracentesis later today NPO Oxygen p.r.n. Diuretic Leukocytosis with bandemia: Significant leukocytosis with 15% bandemia. Leukemoid reaction secondary to malignancy. UA is currently negative Follow Blood Cultures. LA 1.2 Patient currently on vanco and Zosyn Recent right femur fracture with repair February of 2025 Patient has limited mobility after attending rehab Patient showing evidence of decline noting metastatic cancer to the bone PT eval ordered Bone lytic changes noted on CT scan involving R rib, thoracic spine Melanoma primary cancer? with metastases to lung, liver and now bone with excessive pain issues Recent right femur fracture with repair February 2025 - femur snapped while patient was taking a shower CT scan notes mass lesion of the right adrenal gland, bony destructive changes of the anterior right 5th rib and soft tissue mass, lytic lesions in the thoracic spine CT HEAD: No acute intracranial hemorrhage. No lytic or blastic metastatic lesions in the bony calvarium. Small vessel occlusive disease. 2 mm calcification left foramen Monro. Probable foreign body medial aspect of the right eyeball. Traumatic deformities, nasal bones and right lamina papyracea. CM consulted, family not well versed in Hospice Care, overwhelmed with this new information. DATA BASE: IMPRESSION: Numerous enlarged mediastinal, hilar, and bilateral axillary lymph nodes are identified. [employer] lymph nodes include a 28 mm short axis prevascular lymph node, 17 mm short axis precarinal lymph node, 26 mm short axis subcarinal lymph node, 27 mm short axis right hilar lymph node, 47 mm short axis left axillary lymph node, and a 20 mm short axis right infrahilar lymph node. Liver appears enlarged. There subtle nodularity along the periphery of the liver. Subtle hypodense left lobe liver lesion measures 2.8 cm in size. Bulky lymphadenopathy is seen within the karyn hepatis measuring up to 5.2 x 3.2 cm in size. Spleen is enlarged. Mass lesion of the right adrenal gland measures 2.9 x 2.5 cm in size. Bony destructive change of the anterior right 5th rib with soft tissue mass measuring 3.5 x 2.6 cm in size. Lytic lesions are identified within the T2 and T3 vertebral bodies. This is most pronounced at T3 where there is a 2.6 x 2.3 cm lytic and destructive bony lesion. Patient just learnt that he has a metastatic cancer to the lung, liver, bone. Evidence of decline includes decreased mobility, decreased appetite and weight loss. He is currently on Ozempic and it is recommended that patient has stopped Ozempic. Pain management to include IV morphine and extended-release OxyContin twice daily. CTA of chest negative for PE. 1. No pulmonary emboli given the limitation of the patient motion. 2. Congestive heart failure. 3. Findings indicative of an extensive metastatic malignancy as fully discussed above. Clinical correlation advised. Previous cat scan of abdomen from 02/20: Numerous indeterminate liver lesions are present that could represent metastatic disease or hepatocellular carcinoma. Consider nonemergent dynamic CT or MR liver exam after IV contrast has cleared. Indeterminate nodule in the posterior left lower lung contacting pleura. There is central fluid density, but the posterior wall is 5 mm thick and the cephalad half of the mass is not included in the study. Follow up CT chest with IV contrast. Splenomegaly, increased. Degenerative changes, increased. Vascular atherosclerotic disease, increased. Diverticulosis of the descending and sigmoid colon. No acute inflammation. The primary cancer is, likely to be melanoma. He underwent thoracentesis today by IR: Approximately 4 mL of yellowish but clear fluid was collected from the left pleural space. The fluid was sent to lab for further evaluation as per referring physician's orders. There are no immediate complaints from the patient. Malignant melanoma: Patient initially noted a lesion on his back in 2008. He had wide excision done followed by left axillary node biopsy. He had melanoma in his nodes. He was treated with immunotherapy. Most recently he was on Keytruda. However he developed renal toxicity so that has been on hold. He did have a recent PET scan at [facility]. PLAN: Will wait for the cytology on the ascitic fluid. He had a recent PET scan. I will obtain records from Dr. rdz's office. (oncologist at [facility].) Will see what further treatment options, if any would be available. His is concerned that she did not get to meet with hospice team. I will request hospice to make an informational visit. Thank you for the consult, I will follow along with you, CC: Dr. Healy. - Time Spent With Patient Time Spent with Patient (in minutes): 25
[2025-04-26 08:27] LABS: White Blood Count 48.2 X10*3/uL (4.8-10.8)
[2025-04-26] MEDS: oxyCODONE HCl ER 10 MG TAB.ER.12H PO ×2 (09:00→20:24)
[2025-04-26] MEDS: 0.9 % Sodium Chloride Flush 3 ML SYRINGE IVFLUSH (09:17)
--- NOTE | 2025-04-26 09:29 | MHC.CM.PN ---
IMM 04/26/25, Pt lives with his , Shawna, she is his HCP, copy is on file. He does not have home health services. He was at [facility] following fx of femure in February. For DME, he has a cane, walker, w/c. PCP confirmed: Dr. Richter. He can arrange transport home at [place], DCP; home, with services. CM to follow for DC needs.
--- NOTE | 2025-04-26 11:37 | PC.NURSE ---
Per MD William- no webb needed. Pt a/ox3, able to make needs known/when able to use bathroom. Monitoring I+O's with urinal at bedside. Output monitored in the chart.
[2025-04-26 12:08] LABS: Glucose, Whole Blood 118 mg/dL (60-115)
[2025-04-26] MEDS: Lidocaine HCl 1 % MPF 5 ML VIAL SUBCUT ×2 (12:38→13:10)
--- NOTE | 2025-04-26 13:00 | PC.NURSE ---
IR at bedside for thoracentesis, pt tolerated procedure well. Specimen collected and sent to lab. Vitals updated in worklist- cycling to monitor BP/continuous O2 probe. Call morrison within reach, all needs met at this time.
[2025-04-26 13:28] LABS: MN% 27.6 %; PMN% 72.4 %
[2025-04-26 13:32] LABS: WBC Pleural Fluid 0.445 X10*3/uL
[2025-04-26 14:10] LABS: BF Shift QC OK YES; Lymphocytes Pleural Fluid 15 %; Monocytes Pleural Fluid 2 %; Neutrophils Pleural Fluid 83 %
--- NOTE | 2025-04-26 15:38 | PHA.MEDREC ---
Addendum entered by Johana Clemens RPh 04/26/25 15:54: Reviewed by [facility] Original Note: Pharmacy Consult ? Medication Reconciliation Pharmacy has completed the medication reconciliation. Spoke with pt and spouse @bedside and they confirmed her medications. Pt and spouse confirmed he is not taking Diclofenac and Ozempic anymore; pt stopped using the Diclofenac and the Ozempic dropped the pt blood sugars too much, he stopped it ~2 weeks ago. Pt confirmed his Tizanidine 4mg tabs; confirming he cuts them in half and takes 2mg Q8H PRN for muscle spams.
--- NOTE | 2025-04-26 16:22 | PC.NURSE ---
Addendum entered by Dorys Liz RN 04/26/25 16:23: Patient is a 64-year-old male with past medical history hypertension, hyperlipidemia, PCI 2 stents, primary melanoma dx and treated 2010 with recurrence in 2018 now with 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 Shortness of breath worse with walking or exertion. Patient is experiencing excessive all-over body pain but most importantly in the left upper chest left arm and spine. Patient also having edema in the lower extremities. Most importantly though patient and family are not aware that patient has cancer in the liver, lungs, and bone at this time. CTA scan of the chest which was negative for PE but positive for evidence of CHF with metastatic malignancy involving the right adrenal gland, anterior right 5th rib with a soft tissue mass and lytic lesions in the thoracic spine. Nodularity also noted in the liver and patient does have a distended belly somewhat tender in the right upper quadrant. Patient does have a left lobe liver lesion that measures 2.8 cm in size and bulky lymphadenopathy within the karyn hepatis. Patient also has a moderate left pleural effusion with a small right pleural effusion and the left is partially loculated. Also present are numerous enlarged mediastinal, hilar and bilateral axillary lymph nodes. Patient alert, oriented and sl forgetful at time. Respirations even and non-labored. Left sided thoracentesis performed today and 4cc of pleural fluid removed and sent for pathology. Abdomen soft, s distended, with positive bowel sounds. Positive pedal pulses with LE edema noted. Original Note: Medical History CKD (chronic kidney disease) stage 3, GFR 30-59 ml/min Hypertension Type 2 diabetes mellitus with hyperglycemia Anxiety GERD (gastroesophageal reflux disease) Bile salt-induced diarrhea Obesity (BMI 30-39.9) Melanoma Seizures Hypercholesterolemia Coronary artery disease DDD (degenerative disc disease), lumbar
[2025-04-26 16:27] LABS: Glucose, Whole Blood 101 mg/dL (60-115)
--- NOTE | 2025-04-26 17:03 | PC.NURSE ---
Heme/onc consult obtained.
--- NOTE | 2025-04-26 19:19 | PM.EVENT ---
Event Note Date of Service: 04/26/25 Event Note: Patient seen and examined, Shortness of breaths improving Will be going for paracentesis Physical exam unchanged from h&P. Assessment and plan per h&P. Patient has leukocytosis//pleural tap shows 443 WBC with 83% neutrophil predominance-? Question inflammatory/infectious Blood culture and pleural cultures sent pending Leukocytosis could be also due to? Malignancy, currently not septic Heme-Onc/Pulmonary evaluation added ? chf execerabtion etiology unclera-continue i lasix Time Spent With Patient Time: Total time managing care of this patient today ____ minutes.
--- NOTE | 2025-04-26 19:30 | PC.NURSE ---
pharmacy contacted this nurse regarding need for pt to have home rosuvastatin brought in. of pt made aware and verbally stated understanding
[2025-04-26] MEDS: Aspirin Enteric Coated 81 MG TABLET.DR PO (20:04)
[2025-04-26 20:23] LABS: Glucose, Whole Blood 169 mg/dL (60-115)
[2025-04-27] VITALS (15 sets, daily range): BP systolic 134–160; BP diastolic 61–81; PULSE 83–96; RESP 16–20; TEMP 36.4–36.9; O2SAT 90–99; BMI 30.6
--- NOTE | 2025-04-27 06:31 | PC.NURSE ---
hx cancer with evidence of metastasis. no acute events overnight. alert and oriented. makes needs known. sits at bedside independently. calm, cooperative. was able to sleep for a few hours last night, requires diligent scheduled and PRN med administration in order to be comfortable. no other complaints. VSS. #20 IV RFA. pills whole. ate dinner. lispro changed to QIDACHS. able to use urinal without assistance. call morrison in reach. plan of care ongoing
[2025-04-27 07:14] LABS: Albumin Pleural Fluid 2.0
[2025-04-27 07:19] LABS: Creatinine Clr Calc Pharmacy 82.3; Estimated Glomerular Filt Rate > 60
[2025-04-27 07:27] LABS: Glucose, Whole Blood 135 mg/dL (60-115)
--- NOTE | 2025-04-27 07:46 | PC.NURSE ---
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 Shortness of breath worse with walking or exertion. Patient is experiencing excessive all-over body pain but most importantly in the left upper chest left arm and spine. Patient also having edema in the lower extremities. CTA scan of the chest which was negative for PE but positive for evidence of CHF with metastatic malignancy involving the right adrenal gland, anterior right 5th rib with a soft tissue mass and lytic lesions in the thoracic spine. Nodularity also noted in the liver and patient does have a distended belly somewhat tender in the right upper quadrant. Patient does have a left lobe liver lesion that measures 2.8 cm in size and bulky lymphadenopathy within the karyn hepatis. Patient also has a moderate left pleural effusion with a small right pleural effusion and the left is partially loculated. Also present are numerous enlarged mediastinal, hilar and bilateral axillary lymph nodes. Patient alert, oriented and sl forgetful at time. Respirations even and non-labored. Left sided thoracentesis performed yesterday and ? 400cc of pleural fluid removed and sent for pathology. Abdomen soft, sl distended, with positive bowel sounds. Positive pedal pulses with LE edema noted. Patient pending admission bed assignment and would benefit from palliative versus hospice care. Original Note: Medical History CKD (chronic kidney disease) stage 3, GFR 30-59 ml/min Hypertension Type 2 diabetes mellitus with hyperglycemia Anxiety GERD (gastroesophageal reflux disease) Bile salt-induced diarrhea Obesity (BMI 30-39.9) Melanoma Seizures Hypercholesterolemia Coronary artery disease DDD (degenerative disc disease), lumbar
[2025-04-27] MEDS: oxyCODONE HCl ER 10 MG TAB.ER.12H PO ×2 (08:33→20:35)
[2025-04-27] MEDS: Ferrous Sulfate 324 MG TABLET.DR 325 MG PO (08:33)
[2025-04-27] MEDS: 0.9 % Sodium Chloride Flush 3 ML SYRINGE IVFLUSH ×3 (08:36→22:13)
[2025-04-27 08:58] LABS: Anion Gap 10 (12-20); Blood Urea Nitrogen 16 mg/dL (9-16); Calcium 9.0 mg/dL (8.4-10.2); Carbon Dioxide 26 mmol/L (22-29); Chloride 106 mmol/L (96-108); Potassium 3.2 mmol/L (3.3-5.1); Sodium 139 mmol/L (135-145)
--- NOTE | 2025-04-27 09:31 | P.CONPL_ITS ---
History of Present Illness History of Present Illness Consult date: 04/27/25 Chief complaint: dyspnea Narrative: This is a pulmonary consultation. 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 Patient now reports a cough with sputum that is yellow in color. Shortness of breath worse with walking or exertion. Patient is experiencing excessive all-over body pain but most importantly in the left upper chest left arm and spine. Patient also having edema in the lower extremities. Pt also states abdomen has gotten bigger over the last 3 weeks. Patient underwent a right femur fracture repair in February of 2025. Patient states he was in the shower and his femur bone literally snapped. Patient was told then by the orthopedist that he may have cancer. Patient was following with Oncology at [facility], Dr. Orozco, but patient has not actually seen the oncologist so far due to the femur fracture and rehabilitation for ongoing immobility. Patient has been re learning how to use of walker but recently family moved patient from the 2nd floor to the 1st floor. Family recently purchased patient a new wheelchair to make mobility easier at home. Most importantly though patient and family are not aware that patient has cancer in the liver, lungs, and bone at this time. Unclear if melanoma is the primary source noting treatment was in 2009 with recurrence in 2018. Learning this today is all new information for family. Pt and family are not well versed in Hospice and palliative care. Workup in the ED included CTA scan of the chest, personally reviewed by me, which was negative for PE but positive for evidence of CHF with metastatic malignancy involving the right adrenal gland, anterior right 5th rib with a soft tissue mass and lytic lesions in the thoracic spine. Nodularity also noted in the liver and patient does have a distended belly somewhat tender in the right upper quadrant. Patient does have a left lobe liver lesion that measures 2.8 cm in size and bulky lymphadenopathy within the karyn hepatis. There appears to be a loculated left-sided pleural effusion resulting in significant pleuritic discomfort. The patient underwent a thoracentesis consistent with a neutrophilic predominant process suspicious for a complicated parapneumonic effusion. After the thoracentesis still having significant pain. My concern that isn't with the even with the antibiotics the pleural effusion may return. The patient may need either a placement of a chest tube for tPA DNase versus decortication. At this point will follow-up with his x-rays if he has any worsening disease then we can request for chest tube placement. However, We do not have thoracic surgery backup. Review of Systems 2 Review of Systems: Constitutional : No Weight loss, No Fever, No Chills, No Night Sweats, No Fatigue, No Malaise ENT/Mouth : No Hearing loss, No Ear Pain, No Nasal Congestion, No Sinus Pain, No Hoarseness, No sore throat, No Rhinorrhea, No Swallowing Difficulty Eyes: No Eye Pain, No Swelling, No Redness, No Foreign Body, No Discharge, No Vision Changes Cardiovascular : No Chest Pain, complaining of dyspnea, worse with exertion, no orthopnea, no palpitations, complaining of lower extremity edema Respiratory : Complaining of productive cough, no wheezing, complaining of shortness of breath +pleuritic chest pain Gastrointestinal : No Nausea, No Vomiting, No Diarrhea, No Constipation, No abdominal Pain, No Hematochezia, No Melena Genitourinary : no irregular bleeding, No Dysuria, No Urinary Frequency, No Hematuria, No Urinary Incontinence, No Urgency, No Flank Pain, No Urinary Flow Changes, No Hesitancy Musculoskeletal : No joint pain, No Myalgias, No Joint Swelling Skin : No Skin Lesions, No rash Neuro : No Weakness, No Numbness, No Paresthesias, No Loss of Consciousness, No Dizziness, No Headache Psych : No Anxiety/Panic, No Depression, No SI/HI/AH/VH, No Social Issues, Heme/Lymph: No Bruising, No Bleeding,No Lymphadenopathy Endocrine : No Polyuria, No Polydipsia, No Temperature Intolerance [facility] Past Medical History Medical History (Updated 04/27/25 @ 09:38 by Nikhil See MD) Loculated pleural effusion Pneumonia CKD (chronic kidney disease) stage 3, GFR 30-59 ml/min Hypertension Type 2 diabetes mellitus with hyperglycemia Anxiety GERD (gastroesophageal reflux disease) Bile salt-induced diarrhea Obesity (BMI 30-39.9) Melanoma Seizures Hypercholesterolemia Coronary artery disease DDD (degenerative disc disease), lumbar Family History Family History Father No problems noted. Mother Myocardial infarction Diabetes Hypertension CVD (cardiovascular disease) Son In good health Daughter In good health Surgical History Surgical History (Updated 04/26/25 @ 08:20 by Josselin Jimenez MD) S/P open reduction and internal fixation (ORIF) of fracture of lateral condyle of left femur History of surgery History of excision of mass History of cholecystectomy History of intravascular stent placement History of umbilical hernia repair History of melanoma excision History of inguinal hernia repair Social History Social History Household Members: Spouse Housing: House Are you a primary hemodialysis patient care specialist to a significant other at home: No Do you presently have visiting nurse or other home services: No Alcohol intake: former Patient Tobacco Use Status: Former Tobacco user Tobacco use type: Cigarette Years Smoked: quit 1997 Smoked in Last 30 Days: No e-Cigarette/Vaping Use: Never Used Second Hand Smoke Exposure: No Use of substances other than those prescribed or required for medical reasons: No Advance Directives: No Advance Directives Information Provided: Yes Nutrition Risks: No Nutritional Risk service: No Current occupational status: disabled Cognitive needs: No Hearing needs: No Vision needs: Yes Meds Allergies Allergy/AdvReac Type Severity Reaction Status Date / Time atorvastatin Allergy Intermediate Muscle Verified 04/25/25 23:39 cramps hydrochlorothiazide Allergy Intermediate advised to Verified 04/25/25 23:39 avoid metformin Allergy Intermediate Gastrointestinal Verified 04/25/25 23:39 Upset pembrolizumab (From [employer]) Allergy Intermediate creatinine Verified 04/25/25 23:39 lisinopril AdvReac Intermediate increase Verified 04/25/25 23:39 creatinine Active Medications: Current Medications Acetaminophen (Acetaminophen 325 Mg Tablet) 650 mg PO Q6H PRN PRN Reason: Pain, Mild 1-3,fever,headache Last Admin: 04/27/25 03:24 Dose: 650 mg Albuterol/Ipratropium (Albuterol/Iprat 2.5/0.5mg 3 Ml Ampul.Neb) 3 ml INHALE Q4H PRN PRN Reason: Shortness of Breath/Wheezing Amlodipine Besylate (Amlodipine Besylate 10 Mg Tablet) 10 mg PO BEDTIME [facility]; Protocol Last Admin: 04/26/25 20:04 Dose: 10 mg Aspirin (Aspirin Enteric Coated 81 Mg Tablet.) 81 mg PO BEDTIME [facility] Last Admin: 04/26/25 20:04 Dose: 81 mg Calcium Carbonate (Calcium Carbonate 750 Mg Tab.Chew) 750 mg PO Q4H PRN PRN Reason: Heartburn Carbamazepine (Carbamazepine 200 Mg Tablet) 400 mg PO BID [facility] Last Admin: 04/26/25 20:24 Dose: 400 mg Dextrose (Dextrose 50 % 25 Gm/50 Ml Syringe) 25 gm IVPUSH Q15M PRN; Protocol PRN Reason: per Hypoglycemia Standing Ord. Docusate Sodium (Docusate Sodium 100 Mg Capsule) 100 mg PO BID PRN PRN Reason: Constipation Fenofibrate (Fenofibrate 160 Mg Tablet) 160 mg PO DAILY [facility] Ferrous Sulfate (Ferrous Sulfate 324 Mg Tablet.) 325 mg PO DAILY [facility] Last Admin: 04/27/25 08:33 Dose: 325 mg Gabapentin (Gabapentin 100 Mg Capsule) 100 mg PO TID [facility] Last Admin: 04/27/25 08:33 Dose: 100 mg Glucose (Glucose Gel 15 Gm Gel..Gram.) 15 gm PO Q15M PRN; Protocol PRN Reason: per Hypoglycemia Standing Ord. Piperacillin Sod/Tazobactam (Sod 4.5 gm/ Sodium Chloride) 100 mls @ 200 mls/hr IV Q6H [facility] Last Infusion: 04/27/25 05:32 Dose: Infused Vancomycin HCl 1,500 mg/ (Sodium Chloride) 500 mls @ 333.333 mls/hr IV Q12H [facility] Last Infusion: 04/27/25 02:47 Dose: Infused Insulin Human Lispro (Insulin Lispro 100 Unit/Ml 3 Ml Vial) 0 unit SUBCUT QIDACHS [facility]; Protocol Last Admin: 04/27/25 07:59 Dose: Not Given Magnesium Hydroxide (Milk Of Magnesia 30 Ml Oral.Susp) 30 ml PO DAILY PRN PRN Reason: Constipation Melatonin (Melatonin 3 Mg Tablet) 6 mg PO BEDTIME PRN PRN Reason: Insomnia Metoprolol Tartrate (Metoprolol Tartrate 100 Mg Tablet) 100 mg PO BID [facility]; Protocol Last Admin: 04/26/25 20:23 Dose: 100 mg Morphine Sulfate (Morphine Sulfate 2 Mg/Ml Cartridge) 2 mg IVPUSH Q3H PRN; Protocol PRN Reason: Pain, Severe (Pain Scale 7-10) Last Admin: 04/27/25 03:23 Dose: 2 mg Multivitamins/Vitamin C (Multivitamin Tablet) 1 tab PO DAILY [facility] Last Admin: 04/27/25 08:33 Dose: 1 tab Non-Formulary Medication (Rosuvastatin) 20 mg PO BEDTIME [facility] Ondansetron HCl (Ondansetron Hcl 4 Mg/2 Ml Vial) 4 mg IVPUSH Q8H PRN PRN Reason: Nausea and Vomiting Oxycodone HCl (Oxycodone Hcl Er 10 Mg Tab.Er.12h) 10 mg PO BID [facility] Last Admin: 04/27/25 08:33 Dose: 10 mg Pantoprazole Sodium (Pantoprazole Sodium 40 Mg/10 Ml Vial) 40 mg IVPUSH DAILY@0630 [facility] Last Admin: 04/27/25 05:44 Dose: 40 mg Pharmacy Consult (Consult Rx Vancomycin Dosing) 1 each MISCELLANE DAILY PRN PRN Reason: Consult order Polyethylene Glycol (Polyethylene Glycol 3350 17 Gm Powd.Pack) 17 gm PO DAILY PRN PRN Reason: Constipation Senna (Sennosides 8.6 Mg Tablet) 17.2 mg PO BEDTIME [facility] Last Admin: 04/26/25 20:05 Dose: 17.2 mg Sodium Bicarbonate (Sodium Bicarbonate 650 Mg Tablet) 650 mg PO BID [facility] Last Admin: 04/26/25 20:24 Dose: 650 mg Sodium Chloride (0.9 % Sodium Chloride Flush 3 Ml Syringe) [facility] Last Admin: 04/27/25 08:36 Dose: 3 ml Tizanidine HCl (Tizanidine Hcl 4 Mg Tablet) 2 mg PO Q8H PRN PRN Reason: for muscle spasm Last Admin: 04/27/25 04:58 Dose: 2 mg Home Medications ?Medication ?Instructions ?Recorded ?Confirmed ?Last Taken ?Type aspirin 81 mg tablet,delayed 81 mg PO BEDTIME 09/10/20 04/26/25 04/25/25 History release (Adult Aspirin Regimen) amlodipine 10 mg tablet 10 mg PO BEDTIME 02/20/2504/25/25 History glimepiride 4 mg tablet 4 mg PO DAILY 02/20/2504/2604/25/25 History multivitamin with minerals-folic 1 tab PO DAILY 04/26/25 04/25/25 History acid 80 mcg chewable tablet (Centrum Adult 50 Plus) omeprazole 40 mg capsule,delayed 40 mg PO DAILY@0630 0 02/20/25 04/26/25 04/25/25 History release rosuvastatin 20 mg tablet 20 mg PO BEDTIME 02/20/2504/25/25 History docusate sodium 100 mg capsule 100 mg PO BID PRN Const ipation 04/26/25 04/26/25 Unknown History (Colace) ferrous sulfate 325 mg (65 mg 325 mg PO DAILY 04/26/25 04/26/25 04/25/25 History iron) tablet gabapentin 100 mg capsule 100 mg PO TID 04/26/2504/2604/25/25 History tizanidine 4 mg tablet 2 mg PO Q8H PRN for muscle s pasm 04/26/25 04/26/25 Unknown History Physical Exam 2 Exam: Exam: Appearance: Alert. Oriented X3. No acute distress. Eyes: Pupils equal, round and reactive to light. ENT: Pharynx normal. Neck: Normal inspection. Neck supple. No lymph nodes noted. No crepitus CVS: Normal heart rate and rhythm. Pulses normal. Normal S1 and S2 Respiratory: No respiratory distress, no wheezing, good air movement Abdomen: Soft and nontender. No rigidity. No distention. Skin: Skin warm and dry. Normal skin color. Normal skin turgor. Extremities: +2 nonpitting edema in bilateral lower extremities, slightly more on the left leg. No Lacerations. No Rash Neuro: Oriented X 3. No motor deficit. No sensory deficit. Moving all extremities. No slurred speech. CN 2 through 12 grossly intact Psych: calm, cooperative, normal affect Vital Signs: Vital Signs: Last Vital Signs Temp 97.8 F 04/27/25 08:00 Pulse 94 04/27/25 08:00 Resp 17 04/27/25 08:00 BP 160/81 H 04/27/25 08:00 Pulse Ox 91 L 04/27/25 08:00 O2 Del Method Room Air 04/27/25 08:00 O2 Flow Rate 1 04/26/25 06:07 BMI result Body Mass Index 30.6 Results Laboratory Findings 04/26/25 05:33 04/27/25 06:47 Abnormal lab findings: Abnormal Labs 04/25/25 04/25/25 04/26/25 23:54 23:55 01:51 WBC 41.6 H* RBC 3.03 L Hgb 9.0 L Hct 28.9 L RDW 17.1 H Plt Count MPV 8.7 L Immature Gran % (Auto) Neut % (Auto) Lymph % (Auto) Eos # (Auto) Baso # (Auto) Abs Immat Gran (auto) Absolute Neuts (auto) Neutrophils % (Manual) 74 H Band Neutrophils % 23 H Lymphocytes % (Manual) 2 L Abs Neuts (Manual) 40.4 H Lymphocytes # (Manual) 0.8 L Potassium Anion Gap 10 L POC Glucose Random Glucose 149 H Alkaline Phosphatase 344 H B-Natriuretic Peptide 1146 H Albumin 3.3 L Ur Specific [place] >= 1.030 H 04/26/25 04/26/25 04/26/25 05:33 06:02 11:59 WBC 48.2 H* RBC 3.06 L Hgb 9.1 L Hct 29.3 L RDW 17.0 H Plt Count 471 H MPV 9.1 L Immature Gran % (Auto) 4.0 H Neut % (Auto) 87.7 H Lymph % (Auto) 2.9 L Eos # (Auto) 1.2 H Baso # (Auto) 0.3 H Abs Immat Gran (auto) 1.91 H Absolute Neuts (auto) 42.3 H Neutrophils % (Manual) Band Neutrophils % Lymphocytes % (Manual) Abs Neuts (Manual) Lymphocytes # (Manual) Potassium Anion Gap POC Glucose 144 H 118 H Random Glucose 156 H Alkaline Phosphatase B-Natriuretic Peptide Albumin Ur Specific [place] 04/26/25 04/27/25 04/27/25 20:20 06:47 07:21 WBC RBC Hgb Hct RDW Plt Count MPV Immature Gran % (Auto) Neut % (Auto) Lymph % (Auto) Eos # (Auto) Baso # (Auto) Abs Immat Gran (auto) Absolute Neuts (auto) Neutrophils % (Manual) Band Neutrophils % Lymphocytes % (Manual) Abs Neuts (Manual) Lymphocytes # (Manual) Potassium 3.2 L Anion Gap 10 L POC Glucose 169 H 135 H Random Glucose 165 H Alkaline Phosphatase B-Natriuretic Peptide Albumin Ur Specific [place] Microbiology: Microbiology 04/26/25 13:01 Thoracentesis Fluid Gram Stain - Final 04/26/25 13:01 Thoracentesis Fluid Anaerobic Culture - Preliminary No growth to date. 04/26/25 13:01 Thoracentesis Fluid Body Fluid Culture - Preliminary No growth to date. 04/26/25 01:14 Blood - Venous Blood Culture - Preliminary No growth after 24 hours. 04/26/25 00:50 Blood - Venous Blood Culture - Preliminary No growth after 24 hours. Assessment and Plan (1) Metastatic cancer: Qualifiers: Area of secondary neoplastic involvement: respiratory structure L aterality: unspecified laterality Respiratory structure secondary neoplasm location: metastatic to lung Qualified Code(s): C78.00 - Secondary malignant neoplasm of unspecified lung Status: Acute (2) Melanoma: Qualifiers: Melanoma location: unspecified site Qualified Code(s): C43.9 - Malignant melanoma of skin, unspecified Status: Acute (3) Pneumonia: Qualifiers: Pneumonia type: due to unspecified organism Laterality: left Lung location: lower lobe of lung Qualified Code(s): J18.9 - Pneumonia, unspecified organism Status: Acute (4) Loculated pleural effusion: Status: Acute Plan Continue broad spectrum abx serial CXR pain management may need indwelling chest tube for TPA/DNAse if effusions reoccurs Procedures Date of Service Date of Service: 04/27/25
[2025-04-27 11:30] LABS: Glucose, Whole Blood 195 mg/dL (60-115)
[2025-04-27] MEDS: oxyCODONE HCl Immed Release 5 MG TABLET PO (11:38)
[2025-04-27 12:43] LABS: Hematocrit 34.4 % (42.0-52.0); Hemoglobin 9.9 g/dl (14.0-18.0); Mean Corpuscular HGB Conc 28.8 g/dl (31.0-36.0); Mean Corpuscular Hemoglobin 28.9 pg (27.0-33.0); Mean Corpuscular Volume 100.6 fL (80.0-98.0); NRBC Abs Auto 0.000 X10*3/uL (0.0-0.012); NRBC Pct Auto 0.0 /100WBC (0.0-0.2); Platelet Count 416 X10*3/uL (160-400); Red Blood Count 3.42 X10*6/uL (4.60-5.80)
[2025-04-27 12:52] LABS: White Blood Count 38.0 X10*3/uL (4.8-10.8)
--- NOTE | 2025-04-27 13:36 | MHC.CLN ---
NUTRITION DIET=REGULAR. DIET LIBERALIZED TO PROMOTE PO INTAKE. SIGNIFICANT WEIGHT LOSS CAUSAL LIKELY METASTATIC CANCER AND TAKING OZEMPIC. PER PROVIDER NOTE, OZEMPIC NOT RECOMMENDED WITH METS CANCER DX. METASTATIC DX NEW TO PATIENT THIS ADM. FOLLOW FOR PO INTAKE AND PLAN OF CARE. SEE CLINICAL NUTRITION ASSESSMENT 04/27/25.
[2025-04-27] MEDS: oxyCODONE HCl Immed Release 5 MG TABLET 10 MG PO (14:23)
--- NOTE | 2025-04-27 15:56 | HO.PM.IMPN ---
Subjective Subjective Date of Service: 04/27/25 Interval History: pleural effusion,pneumonia,Metastatic cancer Review of Systems sob seems somewhat improving has pain Review of Systems: Yes all other systems are reviewed and are negative Physical Exam Exam: Exam: Appearance: Alert.? Oriented X3.? cvs: [id number], [id number] . res: air entry improving , breath sound dec on left side. abd: no rebound or guarding ,nt, bs present. ext pulses present , no cyanosis . neuro: axo3 , nonfocal. Vital Signs: Vital Signs: Last Vital Signs Temp 98.5 F 04/27/25 15:45 Pulse 83 04/27/25 15:45 Resp 16 04/27/25 12:46 BP 134/61 04/27/25 15:45 Pulse Ox 90 L 04/27/25 15:45 O2 Del Method Room Air 04/27/25 15:45 O2 Flow Rate 1 04/26/25 06:07 BMI result Body Mass Index 30.6 Objective Data Active Medications Acetaminophen (Acetaminophen 325 Mg Tablet) 650 mg PO Q6H PRN PRN Reason: Pain, Mild 1-3,fever,headache Last Admin: 04/27/25 14:23 Dose: 650 mg Documented By: LAUREN Albuterol/Ipratropium (Albuterol/Iprat 2.5/0.5mg 3 Ml Ampul.Neb) 3 ml INHALE Q4H PRN PRN Reason: Shortness of Breath/Wheezing Amlodipine Besylate (Amlodipine Besylate 10 Mg Tablet) 10 mg PO BEDTIME [facility]; Protocol Last Admin: 04/26/25 20:04 Dose: 10 mg Documented By: INES Aspirin (Aspirin Enteric Coated 81 Mg Tablet.Dr) 81 mg PO BEDTIME [facility] Last Admin: 04/26/25 20:04 Dose: 81 mg Documented By: INES Calcium Carbonate (Calcium Carbonate 750 Mg Tab.Chew) 750 mg PO Q4H PRN PRN Reason: Heartburn Carbamazepine (Carbamazepine 200 Mg Tablet) 400 mg PO BID [facility] Last Admin: 04/27/25 09:49 Dose: 400 mg Documented By: SCIRPOS Dextrose (Dextrose 50 % 25 Gm/50 Ml Syringe) 25 gm IVPUSH Q15M PRN; Protocol PRN Reason: per Hypoglycemia Standing Ord. Docusate Sodium (Docusate Sodium 100 Mg Capsule) 100 mg PO BID PRN PRN Reason: Constipation Fenofibrate (Fenofibrate 160 Mg Tablet) 160 mg PO DAILY [facility] Last Admin: 04/27/25 09:49 Dose: 160 mg Documented By: TESSA Ferrous Sulfate (Ferrous Sulfate 324 Mg Tablet.Dr) 325 mg PO DAILY [facility] Last Admin: 04/27/25 08:33 Dose: 325 mg Documented By: TESSA Gabapentin (Gabapentin 100 Mg Capsule) 100 mg PO TID [facility] Last Admin: 04/27/25 14:23 Dose: 100 mg Documented By: LUAREN Glucose (Glucose Gel 15 Gm Gel..Gram.) 15 gm PO Q15M PRN; Protocol PRN Reason: per Hypoglycemia Standing Ord. Piperacillin Sod/Tazobactam (Sod 4.5 gm/ Sodium Chloride) 100 mls @ 200 mls/hr IV Q6H [facility] Last Infusion: 04/27/25 12:18 Dose: Infused Documented By: LAUREN Vancomycin HCl 1,000 mg/ (Sodium Chloride) 270 mls @ 270 mls/hr IV Q12H [facility] Insulin Human Lispro (Insulin Lispro 100 Unit/Ml 3 Ml Vial) 0 unit SUBCUT QIDACHS [facility]; Protocol Last Admin: 04/27/25 11:38 Dose: 2 unit Documented By: LAUREN Magnesium Hydroxide (Milk Of Magnesia 30 Ml Oral.Susp) 30 ml PO DAILY PRN PRN Reason: Constipation Melatonin (Melatonin 3 Mg Tablet) 6 mg PO BEDTIME PRN PRN Reason: Insomnia Metoprolol Tartrate (Metoprolol Tartrate 100 Mg Tablet) 100 mg PO BID [facility]; Protocol Last Admin: 04/27/25 09:49 Dose: 100 mg Documented By: TESSA Morphine Sulfate (Morphine Sulfate 2 Mg/Ml Cartridge) 2 mg IVPUSH Q3H PRN; Protocol PRN Reason: Pain, Severe (Pain Scale 7-10) Last Admin: 04/27/25 12:36 Dose: 2 mg Documented By: LAUREN Multivitamins/Vitamin C (Multivitamin Tablet) 1 tab PO DAILY [facility] Last Admin: 04/27/25 08:33 Dose: 1 tab Documented By: TESSA Non-Formulary Medication (Rosuvastatin) 20 mg PO BEDTIME [facility] Ondansetron HCl (Ondansetron Hcl 4 Mg/2 Ml Vial) 4 mg IVPUSH Q8H PRN PRN Reason: Nausea and Vomiting Oxycodone HCl (Oxycodone Hcl Er 10 Mg Tab.Er.12h) 10 mg PO BID [facility] Last Admin: 04/27/25 08:33 Dose: 10 mg Documented By: TESSA Oxycodone HCl (Oxycodone Hcl Immed Release 5 Mg Tablet) 10 mg PO TID PRN PRN Reason: Pain, Severe (Pain Scale 7-10) Pantoprazole Sodium (Pantoprazole Sodium 40 Mg/10 Ml Vial) 40 mg IVPUSH DAILY@0630 [facility] Last Admin: 04/27/25 05:44 Dose: 40 mg Documented By: INES Pharmacy Consult (Consult Rx Vancomycin Dosing) 1 each MISCELLANE DAILY PRN PRN Reason: Consult order Polyethylene Glycol (Polyethylene Glycol 3350 17 Gm Powd.Pack) 17 gm PO DAILY PRN PRN Reason: Constipation Senna (Sennosides 8.6 Mg Tablet) 17.2 mg PO BEDTIME [facility] Last Admin: 04/26/25 20:05 Dose: 17.2 mg Documented By: INES Sodium Bicarbonate (Sodium Bicarbonate 650 Mg Tablet) 650 mg PO BID [facility] Last Admin: 04/27/25 09:49 Dose: 650 mg Documented By: TESSA Sodium Chloride (0.9 % Sodium Chloride Flush 3 Ml Syringe) 3 ml IVFLUSH QSHIFT [facility] Last Admin: 04/27/25 08:36 Dose: 3 ml Documented By: TESSA Tizanidine HCl (Tizanidine Hcl 4 Mg Tablet) 2 mg PO Q8H PRN PRN Reason: for muscle spasm Last Admin: 04/27/25 14:23 Dose: 2 mg Documented By: LAUREN Labs 04/27/25 11:59 04/27/25 06:47 Labs: Laboratory Results - last 24 hr 04/26/25 04/26/25 04/26/25 13:01 16:24 20:20 MCV MCH MCHC RDW Plt Count MPV Absolute Nucleated RBC Nucleated RBC % (auto) Anion Gap Estim Creat Clear Calc Estimated GFR POC Glucose 101 169 H Random Glucose Calcium Pleural Total Protein 3.3 Pleural Albumin 2.0 Pleural LDH 94 Pleural Glucose 142 Random Vancomycin 04/27/25 04/27/25 04/27/25 06:47 07:21 11:26 MCV MCH MCHC RDW Plt Count MPV Absolute Nucleated RBC Nucleated RBC % (auto) Anion Gap 10 L Estim Creat Clear Calc 82.3 Estimated GFR > 60 POC Glucose 135 H 195 H Random Glucose 165 H Calcium 9.0 D Pleural Total Protein Pleural Albumin Pleural LDH Pleural Glucose Random Vancomycin 04/27/25 11:59 MCV 100.6 H MCH 28.9 MCHC 28.8 L RDW 17.4 H Plt Count 416 H MPV 9.7 Absolute Nucleated RBC 0.000 Nucleated RBC % (auto) 0.0 Anion Gap Estim Creat Clear Calc Estimated GFR POC Glucose Random Glucose Calcium Pleural Total Protein Pleural Albumin Pleural LDH Pleural Glucose Random Vancomycin 20.2 H Microbiology Microbiology Results: Microbiology 04/26/25 13:01 Direct Acid Fast Bacilli Smear - Final Pleura 04/26/25 13:01 Gram Stain - Final Thoracentesis Fluid Anaerobic Culture - Preliminary No growth to date. Body Fluid Culture - Preliminary No growth to date. 04/26/25 01:14 Blood Culture - Preliminary Blood - Venous No growth after 24 hours. 04/26/25 00:50 Blood Culture - Preliminary Blood - Venous No growth after 24 hours. Assessment and Plan (1) Pneumonia: Status: Acute Plan 64-year-old male with past medical history hypertension, hyperlipidemia, PCI 2 stents, primary melanoma dx and treated 2010 with recurrence in 2018 now with 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 Patient now reports a cough with sputum that is yellow in color. Shortness of breath worse with walking or exertion. Patient is experiencing excessive all-over body pain but most importantly in the left upper chest left arm and spine. Patient also having edema in the lower extremities. Pt also states abdomen has gotten bigger over the last 3 weeks. Pt does not meet criteria for sepsis at this time. Acute exacerbation of CHF without hypoxia/ HX PCI Stents X2 2004 BNP elevated Troponin neg, ECG neg ischemic changes Echo : ef 45-50% plan: low dose Lasix 20 IV BID, hypokalemia replacements ordered Bladder scan noting issues with voiding, webb if BS > 250 possible pneumonia /effusion pleural fluid : wbc 445 , 83% neutrophils Plan for ultrasound-guided thoracentesis-s/p thoracentesis -4 ml fluid removed , cultures sent Oxygen p.r.n. Leukocytosis with bandemia-improving,LA 1.2, blood culture preliminary negative at 24 hour, pleural and pleural fluid cultures are pending Patient currently on vanco and Zosyn Significant leukocytosis with 15% bandemia UA is currently negative Melanoma primary cancer? with metastases to lung, liver and now bone with excessive pain issues Recent right femur fracture with repair February 2025 - femur snapped while patient was taking a shower CT scan notes mass lesion of the right adrenal gland, bony destructive changes of the anterior right 5th rib and soft tissue mass, lytic lesions in the thoracic spine Patient is learning today that he has a metastatic cancer to the lung, liver, bone Evidence of decline includes decreased mobility, decreased appetite and weight loss. Patient is currently on Ozempic and it is recommended that patient has stopped Ozempic. Pain management to include IV morphine and extended-release OxyContin twice daily CT negative for PE CT HEAd-No acute intracranial hemorrhage. No lytic or blastic metastatic lesions in the bony calvarium. Small vessel occlusive disease. CM consulted, family not well versed in Hospice Care, overwhelmed with this new information Oncology following Recent right femur fracture with repair February of 2025 Patient has limited mobility after attending rehab Patient showing evidence of decline noting metastatic cancer to the bone PT eval ordered Bone lytic changes noted on CT scan involving R rib, thoracic spine Diabetes type 2 Sliding scale insulin for NPO status, change to ACHS when able Diabetic diet once no longer NPO Recommend patient stop Ozempic as he has been losing weight and has metastatic cancer Hypertension Blood pressure currently controlled Monitor closely Low-salt diet Hyperlipidemia Patient normally on statin Cardiac diet DVT prophylaxis: Lovenox. family updated. Quality Stroke Does the patient have a stroke diagnosis?: No Reason for No Anti-thrombotic by Day Two: N/A - Med Ordered VTE Prior VTE?: No VTE Risk Level:: Medical - moderate - high VTE Device Contraindication: N/A - Device Ordered VTE Drug Contraindication: N/A - Med Ordered
[2025-04-27 16:08] LABS: Glucose, Whole Blood 147 mg/dL (60-115)
[2025-04-27] MEDS: Magnesium Hydrox/Alum Hydrox 30 ML ORAL.SUSP 15 ML PO ×2 (16:16→23:46)
[2025-04-27] MEDS: Furosemide 20 MG/2 ML VIAL IVPUSH (16:29)
[2025-04-27] MEDS: Potassium Chloride ER 20 MEQ TAB.ER.PRT PO (16:29)
--- NOTE | 2025-04-27 18:07 | PC.NURSE ---
Pt assisted into recliner with standby and use of walker. Unsteady gait. C/o heartburn, Dr William notified. Maalox ordered and given with good effect. and son at bedside and spoke with Dr William in person regarding pt status. Pt tolerating po well at this time and not verbalizing any further pain. Voiding in urinal after IV lasix given
[2025-04-27 20:07] LABS: Glucose, Whole Blood 216 mg/dL (60-115)
[2025-04-27] MEDS: Aspirin Enteric Coated 81 MG TABLET.DR PO (20:34)
--- NOTE | 2025-04-27 21:45 | PC.NURSE ---
2100: This RN resumed care at 1900, pt AOx4, able to make needs known, speaking in full sentences. Reporting 10/10 pain on initial assessment, c/o heartburn at this time describes chest pain as burning, maalox given with good effect. Meds given per NOV. Lung sounds diminished, productive strong cough, with white sputum, BSx4, non-tender, +1 pitting edema BLE, pt refusing sequential's. Ambulates to with SBA w/ walker & unsteady gait. 220: Pt reporting SOB/difficulty breathing, respiratory at bedside giving treatment, with good effect. 0030: All with good effect, patient is able to sleep in bed with no apparent distress at this time, Bed in lowest position, bed alarm on, Call morrison within reach. Will continue to reassess.
[2025-04-27] MEDS: Albuterol/Iprat 2.5/0.5MG 3 ML AMPUL.NEB INHALE (23:44)
[2025-04-28] VITALS (10 sets, daily range): BP systolic 122–167; BP diastolic 58–74; PULSE 78–110; RESP 12–20; TEMP 36.2–37.1; O2SAT 93–96
[2025-04-28] MEDS: Furosemide 20 MG/2 ML VIAL IVPUSH (05:15)
[2025-04-28] MEDS: Magnesium Hydrox/Alum Hydrox 30 ML ORAL.SUSP 15 ML PO ×2 (06:12→12:09)
[2025-04-28 06:33] LABS: Creatinine Clr Calc Pharmacy 78.5; Estimated Glomerular Filt Rate > 60
[2025-04-28] MEDS: 0.9 % Sodium Chloride Flush 3 ML SYRINGE IVFLUSH ×3 (07:30→19:57)
[2025-04-28 07:39] LABS: Glucose, Whole Blood 145 mg/dL (60-115)
[2025-04-28] MEDS: oxyCODONE HCl ER 10 MG TAB.ER.12H PO ×2 (08:17→19:56)
[2025-04-28] MEDS: Ferrous Sulfate 324 MG TABLET.DR 325 MG PO (08:19)
[2025-04-28] MEDS: oxyCODONE HCl Immed Release 5 MG TABLET 10 MG PO ×2 (08:19→16:07)
--- NOTE | 2025-04-28 08:28 | HO.PM.IMPN ---
Subjective Subjective Date of Service: 04/28/25 Interval History: pleural effusion/?pneumonia Review of Systems sob seems somewhat improving has pain Review of Systems: Yes all other systems are reviewed and are negative Physical Exam Exam: Exam: Appearance: Alert.? Oriented X3.? cvs: [id number], [id number] . res: air entry improving , breath sound dec on left side. abd: no rebound or guarding ,nt, bs present. ext pulses present , no cyanosis . neuro: axo3 , nonfocal. Vital Signs: Vital Signs: Last Vital Signs Temp 98.3 F 04/28/25 07:41 Pulse 95 04/28/25 07:41 Resp 20 04/28/25 07:41 BP 167/74 H 04/28/25 07:41 Pulse Ox 93 04/28/25 07:41 O2 Del Method Room Air 04/28/25 07:41 O2 Flow Rate 1 04/26/25 06:07 BMI result Body Mass Index 30.6 Objective Data Active Medications Acetaminophen (Acetaminophen 325 Mg Tablet) 650 mg PO Q6H PRN PRN Reason: Pain, Mild 1-3,fever,headache Last Admin: 04/27/25 14:23 Dose: 650 mg Documented By: LAUREN Al Hydroxide/Mg Hydroxide (Magnesium Hydrox/Alum Hydrox 30 Ml Oral.Susp) 15 ml PO Q6H PRN PRN Reason: stomach Last Admin: 04/28/25 06:12 Dose: 15 ml Documented By: PABLO Albuterol/Ipratropium (Albuterol/Iprat 2.5/0.5mg 3 Ml Ampul.Neb) 3 ml INHALE Q4H PRN PRN Reason: Shortness of Breath/Wheezing Last Admin: 04/27/25 23:44 Dose: 3 ml Documented By: TAVARES Amlodipine Besylate (Amlodipine Besylate 10 Mg Tablet) 10 mg PO BEDTIME [facility]; Protocol Last Admin: 04/27/25 20:32 Dose: 10 mg Documented By: PABLO Aspirin (Aspirin Enteric Coated 81 Mg Tablet.Dr) 81 mg PO BEDTIME [facility] Last Admin: 04/27/25 20:34 Dose: 81 mg Documented By: PABLO Calcium Carbonate (Calcium Carbonate 750 Mg Tab.Chew) 750 mg PO Q4H PRN PRN Reason: Heartburn Last Admin: 04/28/25 07:35 Dose: 750 mg Documented By: TALYA Carbamazepine (Carbamazepine 200 Mg Tablet) 400 mg PO BID [facility] Last Admin: 04/28/25 08:18 Dose: 400 mg Documented By: TALYA Dextrose (Dextrose 50 % 25 Gm/50 Ml Syringe) 25 gm IVPUSH Q15M PRN; Protocol PRN Reason: per Hypoglycemia Standing Ord. Docusate Sodium (Docusate Sodium 100 Mg Capsule) 100 mg PO BID PRN PRN Reason: Constipation Enoxaparin Sodium (Enoxaparin Sodium 40 Mg/0.4 Ml Syringe) 40 mg SUBCUT Q24H [facility] Last Admin: 04/27/25 20:37 Dose: 40 mg Documented By: PABLO Fenofibrate (Fenofibrate 160 Mg Tablet) 160 mg PO DAILY [facility] Last Admin: 04/28/25 08:17 Dose: 160 mg Documented By: TALYA Ferrous Sulfate (Ferrous Sulfate 324 Mg Tablet.Dr) 325 mg PO DAILY [facility] Last Admin: 04/28/25 08:19 Dose: 325 mg Documented By: TALYA Furosemide (Furosemide 20 Mg/2 Ml Vial) 20 mg IVPUSH Q12H [facility]; Protocol On Hold: 04/28/25 08:25 Last Admin: 04/28/25 05:15 Dose: 20 mg Documented By: PABLO Gabapentin (Gabapentin 100 Mg Capsule) 100 mg PO TID [facility] Last Admin: 04/28/25 08:18 Dose: 100 mg Documented By: TALYA Glucose (Glucose Gel 15 Gm Gel..Gram.) 15 gm PO Q15M PRN; Protocol PRN Reason: per Hypoglycemia Standing Ord. Piperacillin Sod/Tazobactam (Sod 4.5 gm/ Sodium Chloride) 100 mls @ 200 mls/hr IV Q6H [facility] Last Infusion: 04/28/25 06:05 Dose: Infused Documented By: PABLO Vancomycin HCl 1,000 mg/ (Sodium Chloride) 270 mls @ 270 mls/hr IV Q12H [facility] Last Infusion: 04/28/25 07:29 Dose: Infused Documented By: TALYA Insulin Human Lispro (Insulin Lispro 100 Unit/Ml 3 Ml Vial) 0 unit SUBCUT QIDACHS [facility]; Protocol Last Admin: 04/28/25 07:36 Dose: Not Given Documented By: TALYA Non-Admin Reason: No Insulin Coverage Magnesium Hydroxide (Milk Of Magnesia 30 Ml Oral.Susp) 30 ml PO DAILY PRN PRN Reason: Constipation Melatonin (Melatonin 3 Mg Tablet) 6 mg PO BEDTIME PRN PRN Reason: Insomnia Last Admin: 04/27/25 23:30 Dose: 6 mg Documented By: PABLO Metoprolol Tartrate (Metoprolol Tartrate 100 Mg Tablet) 100 mg PO BID [facility]; Protocol Last Admin: 04/28/25 08:17 Dose: 100 mg Documented By: TALYA Morphine Sulfate (Morphine Sulfate 2 Mg/Ml Cartridge) 2 mg IVPUSH Q3H PRN; Protocol PRN Reason: Pain, Severe (Pain Scale 7-10) Last Admin: 04/28/25 06:23 Dose: 2 mg Documented By: PABLO Multivitamins/Vitamin C (Multivitamin Tablet) 1 tab PO DAILY [facility] Last Admin: 04/28/25 08:18 Dose: 1 tab Documented By: TALYA Omeprazole (Omeprazole 20 Mg Capsule.Dr) 20 mg PO DAILY@0630 [facility] Ondansetron HCl (Ondansetron Hcl 4 Mg/2 Ml Vial) 4 mg IVPUSH Q8H PRN PRN Reason: Nausea and Vomiting Oxycodone HCl (Oxycodone Hcl Er 10 Mg Tab.Er.12h) 10 mg PO BID [facility] Last Admin: 04/28/25 08:17 Dose: 10 mg Documented By: TALYA Oxycodone HCl (Oxycodone Hcl Immed Release 5 Mg Tablet) 10 mg PO TID PRN PRN Reason: Pain, Severe (Pain Scale 7-10) Last Admin: 04/28/25 08:19 Dose: 10 mg Documented By: TALYA Pharmacy Consult (Consult Rx Vancomycin Dosing) 1 each MISCELLANE DAILY PRN PRN Reason: Consult order Polyethylene Glycol (Polyethylene Glycol 3350 17 Gm Powd.Pack) 17 gm PO DAILY PRN PRN Reason: Constipation Senna (Sennosides 8.6 Mg Tablet) 17.2 mg PO BEDTIME [facility] Last Admin: 04/27/25 20:34 Dose: 17.2 mg Documented By: PABLO Sodium Bicarbonate (Sodium Bicarbonate 650 Mg Tablet) 650 mg PO BID [facility] Last Admin: 04/28/25 08:18 Dose: 650 mg Documented By: TALYA Sodium Chloride (0.9 % Sodium Chloride Flush 3 Ml Syringe) 3 ml IVFLUSH QSHIFT [facility] Last Admin: 04/28/25 07:30 Dose: 3 ml Documented By: TALYA Tizanidine HCl (Tizanidine Hcl 4 Mg Tablet) 2 mg PO Q8H PRN PRN Reason: for muscle spasm Last Admin: 04/28/25 08:18 Dose: 2 mg Documented By: TALYA Labs 04/27/25 11:59 04/28/25 05:15 Labs: Laboratory Results - last 24 hr 04/27/25 04/27/25 04/27/25 06:47 11:26 11:59 MCV 100.6 H MCH 28.9 MCHC 28.8 L RDW 17.4 H Plt Count 416 H MPV 9.7 Absolute Nucleated RBC 0.000 Nucleated RBC % (auto) 0.0 Hold Purple Top Anion Gap 10 L Estim Creat Clear Calc 82.3 Estimated GFR > 60 POC Glucose 195 H Random Glucose 165 H Calcium 9.0 D Random Vancomycin 20.2 H 04/27/25 04/27/25 04/28/25 16:04 19:33 05:15 MCV MCH MCHC RDW Plt Count MPV Absolute Nucleated RBC Nucleated RBC % (auto) Hold Purple Top SEE NOTE Anion Gap Estim Creat Clear Calc 78.5 Estimated GFR > 60 POC Glucose 147 H 216 H Random Glucose Calcium Random Vancomycin 04/28/25 07:34 MCV MCH MCHC RDW Plt Count MPV Absolute Nucleated RBC Nucleated RBC % (auto) Hold Purple Top Anion Gap Estim Creat Clear Calc Estimated GFR POC Glucose 145 H Random Glucose Calcium Random Vancomycin Microbiology Microbiology Results: Microbiology 04/26/25 01:14 Blood Culture - Preliminary Blood - Venous No growth after 48 hours. 04/26/25 00:50 Blood Culture - Preliminary Blood - Venous No growth after 48 hours. 04/26/25 13:01 Direct Acid Fast Bacilli Smear - Final Pleura 04/26/25 13:01 Gram Stain - Final Thoracentesis Fluid Anaerobic Culture - Preliminary No growth to date. Body Fluid Culture - Preliminary No growth to date. Assessment and Plan (1) Pneumonia: Status: Acute Plan 64-year-old male with past medical history hypertension, hyperlipidemia, PCI 2 stents, primary melanoma dx and treated 2009 with recurrence in 2018 now with 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 Patient now reports a cough with sputum that is yellow in color. Shortness of breath worse with walking or exertion. Patient is experiencing excessive all-over body pain but most importantly in the left upper chest left arm and spine. Patient also having edema in the lower extremities. Pt also states abdomen has gotten bigger over the last 3 weeks. Pt does not meet criteria for sepsis at this time. Acute exacerbation of CHF without hypoxia/ HX PCI Stents X2 2004 BNP elevated Troponin neg, ECG neg ischemic changes Echo : ef 45-50% plan: seems more euvolemic,hold Lasix 20 IV BID, hypokalemia replacements ordered. switch to po lasix Bladder scan noting issues with voiding, webb if BS > 250 possible pneumonia /effusion cxr today:There is interstitial consolidation, possible pneumonia or pulmonary edema pleural fluid : wbc 445 , 83% neutrophils Plan for ultrasound-guided thoracentesis-s/p thoracentesis -4 ml fluid removed , cultures sent Oxygen p.r.n. Leukocytosis with bandemia-improving,LA 1.2, blood culture preliminary negative @48 hour, pleural fluid cultures prelim(no growth),pleural fluid afb /pathology pending vanco trough is 20.2 yesterday ,vanco adjusted ,continue Zosyn Significant leukocytosis with 15% bandemia UA is currently negative Hypokalemia : po replacements added. Melanoma primary cancer? with metastases to lung, liver and now bone with excessive pain issues Recent right femur fracture with repair February 2025 - femur snapped while patient was taking a shower CT scan notes mass lesion of the right adrenal gland, bony destructive changes of the anterior right 5th rib and soft tissue mass, lytic lesions in the thoracic spine Patient is learning today that he has a metastatic cancer to the lung, liver, bone Evidence of decline includes decreased mobility, decreased appetite and weight loss. Patient is currently on Ozempic and it is recommended that patient has stopped Ozempic. Pain management to include IV morphine and extended-release OxyContin twice daily CT negative for PE CT HEAd-No acute intracranial hemorrhage. No lytic or blastic metastatic lesions in the bony calvarium. Small vessel occlusive disease. CM consulted, family not well versed in Hospice Care, overwhelmed with this new information Oncology following:cytology on the pleural fluid, recent PET scan,hospice eval Recent right femur fracture with repair February of 2025 Patient has limited mobility after attending rehab Patient showing evidence of decline noting metastatic cancer to the bone PT eval ordered Bone lytic changes noted on CT scan involving R rib, thoracic spine Diabetes type 2 Sliding scale insulin for NPO status, change to ACHS when able Diabetic diet once no longer NPO Recommend patient stop Ozempic as he has been losing weight and has metastatic cancer Hypertension Blood pressure currently controlled Monitor closely Low-salt diet Hyperlipidemia Patient normally on statin Cardiac diet DVT prophylaxis: Lovenox. family updated. Quality Stroke Does the patient have a stroke diagnosis?: No Reason for No Anti-thrombotic by Day Two: N/A - Med Ordered VTE Prior VTE?: No VTE Risk Level:: Medical - moderate - high VTE Device Contraindication: N/A - Device Ordered VTE Drug Contraindication: N/A - Med Ordered
[2025-04-28 08:47] LABS: Anion Gap 15 (12-20); Blood Urea Nitrogen 17 mg/dL (9-16); Calcium 9.2 mg/dL (8.4-10.2); Carbon Dioxide 24 mmol/L (22-29); Chloride 103 mmol/L (96-108); Potassium 3.2 mmol/L (3.3-5.1); Sodium 139 mmol/L (135-145)
[2025-04-28 11:21] LABS: Glucose, Whole Blood 294 mg/dL (60-115)
[2025-04-28] MEDS: Potassium Chloride ER 20 MEQ TAB.ER.PRT PO (15:04)
[2025-04-28 15:50] LABS: Glucose, Whole Blood 171 mg/dL (60-115)
--- NOTE | 2025-04-28 16:48 | PC.NURSE ---
Pt A/Ox4. Intermittently c/o left chest, arm, pain along with back pain. Medicated with morphine and oxycodone per MAR with temporary effect. Also often c/o of heartburn, medicated with tums, maalox and Omeprazole per md order. Pt will sleep intermittently throughout day awakens with much anxiety. States he does not take any medication at home for anxiety. Per , was prescribed anxiety med at home but refused to take anxiety med. Dr William aware, no new orders at this time. Assisted OOB to recliner where pt sat up most of the day. Tolerating po. Painful lump noted to left chest where patient extremely anxious. Dr William notified and to bedside to evaluate. Pt to have CT chest, ordered by
[2025-04-28] MEDS: Aspirin Enteric Coated 81 MG TABLET.DR PO (19:56)
[2025-04-28 21:08] LABS: Glucose, Whole Blood 337 mg/dL (60-115)
[2025-04-28] MEDS: ROSUVASTATIN 20 MG 20 EACH PO (21:19)
[2025-04-29] VITALS (13 sets, daily range): BP systolic 141–169; BP diastolic 63–77; PULSE 90–133; RESP 18–20; TEMP 36.1–38.6; O2SAT 87–96
[2025-04-29] MEDS: Magnesium Hydrox/Alum Hydrox 30 ML ORAL.SUSP 15 ML PO (01:38)
[2025-04-29] MEDS: oxyCODONE HCl Immed Release 5 MG TABLET 10 MG PO ×2 (02:22→10:59)
[2025-04-29 06:47] LABS: Anion Gap 11 (12-20); Blood Urea Nitrogen 19 mg/dL (9-16); Calcium 9.0 mg/dL (8.4-10.2); Carbon Dioxide 25 mmol/L (22-29); Chloride 103 mmol/L (96-108); Creatinine Clr Calc Pharmacy 75.7; Estimated Glomerular Filt Rate > 60; Potassium 3.3 mmol/L (3.3-5.1); Sodium 136 mmol/L (135-145)
[2025-04-29 06:59] LABS: Creatinine Clr Calc Pharmacy 77.1; Estimated Glomerular Filt Rate > 60
[2025-04-29 07:03] LABS: Hematocrit 25.2 % (42.0-52.0); Hemoglobin 7.7 g/dl (14.0-18.0); Mean Corpuscular HGB Conc 30.6 g/dl (31.0-36.0); Mean Corpuscular Hemoglobin 29.3 pg (27.0-33.0); Mean Corpuscular Volume 95.8 fL (80.0-98.0); NRBC Abs Auto 0.000 X10*3/uL (0.0-0.012); NRBC Pct Auto 0.0 /100WBC (0.0-0.2); Platelet Count 342 X10*3/uL (160-400); Red Blood Count 2.63 X10*6/uL (4.60-5.80); White Blood Count 28.7 X10*3/uL (4.8-10.8)
[2025-04-29] MEDS: 0.9 % Sodium Chloride Flush 3 ML SYRINGE IVFLUSH ×3 (07:38→23:29)
[2025-04-29 07:40] LABS: Glucose, Whole Blood 161 mg/dL (60-115)
[2025-04-29] MEDS: oxyCODONE HCl ER 10 MG TAB.ER.12H PO ×2 (08:16→20:00)
[2025-04-29] MEDS: Ferrous Sulfate 324 MG TABLET.DR 325 MG PO (08:16)
[2025-04-29] MEDS: guaiFEN/Codeine SF 200/20/10ML 10 ML LIQUID PO ×2 (08:41→15:10)
[2025-04-29 08:50] LABS: Hematocrit 30.0 % (42.0-52.0); Hemoglobin 9.1 g/dl (14.0-18.0)
--- NOTE | 2025-04-29 09:34 | PC.NURSE ---
Pt c/o pain to left arm and back. Medicated with IV morphine with good effect. Coughing noted, Dr William ordered Robitussin with codeine- given to pt with good effect. Ambulated to with walker and 1 assist. Voided without difficulty. Lower extremity edema noted bilaterally, Sitting in recliner with legs elevated.
[2025-04-29 11:24] LABS: Glucose, Whole Blood 283 mg/dL (60-115)
--- NOTE | 2025-04-29 12:03 | HO.PM.IMPN ---
Subjective Subjective Date of Service: 04/29/25 Interval History: Melanoma primary cancer? with metastases to lung, liver and now bone with excessive pain issues Review of Systems pain seems similar has cough no fever or sob Physical Exam Exam: Exam: Appearance: Alert.? Oriented X3.? cvs: rrr, [id number] . res: air entry improving , breath sound dec on left side. abd: no rebound or guarding ,nt, bs present. ext pulses present , no cyanosis . neuro: axo3 , nonfocal. Vital Signs: Vital Signs: Last Vital Signs Temp 98.6 F 04/29/25 08:11 Pulse 94 04/29/25 08:11 Resp 20 04/29/25 08:11 BP 147/65 H 04/29/25 08:11 Pulse Ox 94 04/29/25 08:11 O2 Del Method Room Air 04/29/25 08:11 O2 Flow Rate 1 04/26/25 06:07 BMI result Body Mass Index 30.6 Objective Data Active Medications Acetaminophen (Acetaminophen 325 Mg Tablet) 650 mg PO Q6H PRN PRN Reason: Pain, Mild 1-3,fever,headache Last Admin: 04/29/25 10:59 Dose: 650 mg Documented By: TALYA Al Hydroxide/Mg Hydroxide (Magnesium Hydrox/Alum Hydrox 30 Ml Oral.Susp) 15 ml PO Q6H PRN PRN Reason: stomach Last Admin: 04/29/25 01:38 Dose: 15 ml Documented By: MARY Albuterol/Ipratropium (Albuterol/Iprat 2.5/0.5mg 3 Ml Ampul.Neb) 3 ml INHALE Q4H PRN PRN Reason: Shortness of Breath/Wheezing Last Admin: 04/27/25 23:44 Dose: 3 ml Documented By: TAVARES Amlodipine Besylate (Amlodipine Besylate 10 Mg Tablet) 10 mg PO BEDTIME ILA; Protocol Last Admin: 04/28/25 19:55 Dose: 10 mg Documented By: MARY Aspirin (Aspirin Enteric Coated 81 Mg Tablet.Dr) 81 mg PO BEDTIME ILA Last Admin: 04/28/25 19:56 Dose: 81 mg Documented By: MARY Calcium Carbonate (Calcium Carbonate 750 Mg Tab.Chew) 750 mg PO Q4H PRN PRN Reason: Heartburn Last Admin: 04/28/25 15:04 Dose: 750 mg Documented By: TALYA Carbamazepine (Carbamazepine 200 Mg Tablet) 400 mg PO BID [facility] Last Admin: 04/29/25 08:17 Dose: 400 mg Documented By: TALYA Dextrose (Dextrose 50 % 25 Gm/50 Ml Syringe) 25 gm IVPUSH Q15M PRN; Protocol PRN Reason: per Hypoglycemia Standing Ord. Docusate Sodium (Docusate Sodium 100 Mg Capsule) 100 mg PO BID PRN PRN Reason: Constipation Last Admin: 04/28/25 08:47 Dose: 100 mg Documented By: TALYA Fenofibrate (Fenofibrate 160 Mg Tablet) 160 mg PO DAILY [facility] Last Admin: 04/29/25 08:16 Dose: 160 mg Documented By: TALYA Ferrous Sulfate (Ferrous Sulfate 324 Mg Tablet.Dr) 325 mg PO DAILY [facility] Last Admin: 04/29/25 08:16 Dose: 325 mg Documented By: TALYA Gabapentin (Gabapentin 100 Mg Capsule) 100 mg PO TID [facility] Last Admin: 04/29/25 08:17 Dose: 100 mg Documented By: TALYA Glipizide (Glipizide 10 Mg Tablet) 10 mg PO DAILY [facility] Glucose (Glucose Gel 15 Gm Gel..Gram.) 15 gm PO Q15M PRN; Protocol PRN Reason: per Hypoglycemia Standing Ord. Guaifenesin/Codeine Phosphate (Guaifen/Codeine Sf 200/20/10ml 10 Ml Liquid) 10 ml PO Q6H PRN PRN Reason: Cough Last Admin: 04/29/25 08:41 Dose: 10 ml Documented By: TALYA Piperacillin Sod/Tazobactam (Sod 4.5 gm/ Sodium Chloride) 100 mls @ 200 mls/hr IV Q6H [facility] Last Infusion: 04/29/25 11:32 Dose: Infused Documented By: TALYA Vancomycin HCl 500 mg/ Sodium (Chloride) 110 mls @ 110 mls/hr IV Q12H [facility] Last Infusion: 04/29/25 07:12 Dose: Infused Documented By: TALYA Insulin Human Lispro (Insulin Lispro 100 Unit/Ml 3 Ml Vial) 0 unit SUBCUT QIDACHS [facility]; Protocol Last Admin: 04/29/25 11:31 Dose: 6 unit Documented By: TALYA Magnesium Hydroxide (Milk Of Magnesia 30 Ml Oral.Susp) 30 ml PO DAILY PRN PRN Reason: Constipation Melatonin (Melatonin 3 Mg Tablet) 6 mg PO BEDTIME PRN PRN Reason: Insomnia Last Admin: 04/27/25 23:30 Dose: 6 mg Documented By: PABLO Metoprolol Tartrate (Metoprolol Tartrate 100 Mg Tablet) 100 mg PO BID [facility]; Protocol Last Admin: 04/29/25 08:17 Dose: 100 mg Documented By: TALYA Morphine Sulfate (Morphine Sulfate 2 Mg/Ml Cartridge) 2 mg IVPUSH Q3H PRN; Protocol PRN Reason: Pain, Severe (Pain Scale 7-10) Last Admin: 04/29/25 07:37 Dose: 2 mg Documented By: TAYLA Multivitamins/Vitamin C (Multivitamin Tablet) 1 tab PO DAILY [facility] Last Admin: 04/29/25 08:16 Dose: 1 tab Documented By: TALYA Pt Own (Rosuvastatin (20 Mg Tablet)) 20 mg PO BEDTIME [facility] Last Admin: 04/28/25 21:19 Dose: 20 mg Documented By: MARY Omeprazole (Omeprazole 40 Mg Capsule.Dr) 40 mg PO DAILY@0630 [facility] Last Admin: 04/29/25 05:34 Dose: 40 mg Documented By: MARY Ondansetron HCl (Ondansetron Hcl 4 Mg/2 Ml Vial) 4 mg IVPUSH Q8H PRN PRN Reason: Nausea and Vomiting Oxycodone HCl (Oxycodone Hcl Er 10 Mg Tab.Er.12h) 10 mg PO BID [facility] Last Admin: 04/29/25 08:16 Dose: 10 mg Documented By: TALYA Oxycodone HCl (Oxycodone Hcl Immed Release 5 Mg Tablet) 10 mg PO TID PRN PRN Reason: Pain, Severe (Pain Scale 7-10) Last Admin: 04/29/25 10:59 Dose: 10 mg Documented By: TALYA Pharmacy Consult (Consult Rx Vancomycin Dosing) 1 each MISCELLANE DAILY PRN PRN Reason: Consult order Polyethylene Glycol (Polyethylene Glycol 3350 17 Gm Powd.Pack) 17 gm PO DAILY PRN PRN Reason: Constipation Senna (Sennosides 8.6 Mg Tablet) 17.2 mg PO BEDTIME [facility] Last Admin: 04/28/25 19:55 Dose: 17.2 mg Documented By: MARY Sodium Bicarbonate (Sodium Bicarbonate 650 Mg Tablet) 650 mg PO BID [facility] Last Admin: 04/29/25 08:17 Dose: 650 mg Documented By: TALYA Sodium Chloride (0.9 % Sodium Chloride Flush 3 Ml Syringe) 3 ml IVFLUSH QSHIFT [facility] Last Admin: 04/29/25 07:38 Dose: 3 ml Documented By: TALYA Tizanidine HCl (Tizanidine Hcl 4 Mg Tablet) 2 mg PO Q8H PRN PRN Reason: for muscle spasm Last Admin: 04/29/25 04:10 Dose: 2 mg Documented By: MARY Labs 04/29/25 08:27 04/29/25 05:28 Labs: Laboratory Results - last 24 hr 04/28/25 04/28/25 04/28/25 15:40 15:43 21:03 MCV MCH MCHC RDW Plt Count MPV Absolute Nucleated RBC Nucleated RBC % (auto) Anion Gap Estim Creat Clear Calc Estimated GFR POC Glucose 171 H 337 H Random Glucose Calcium Random Vancomycin 18.1 Blood Type Antibody Screen 04/29/25 04/29/25 04/29/25 05:28 05:28 05:28 MCV 95.8 MCH 29.3 MCHC 30.6 L RDW 17.3 H Plt Count 342 MPV 9.4 Absolute Nucleated RBC 0.000 Nucleated RBC % (auto) 0.0 Anion Gap 11 L Estim Creat Clear Calc 75.7 77.1 Estimated GFR > 60 > 60 POC Glucose Random Glucose 162 H Calcium 9.0 Random Vancomycin Blood Type Antibody Screen 04/29/25 04/29/25 04/29/25 07:37 08:27 11:10 MCV MCH MCHC RDW Plt Count MPV Absolute Nucleated RBC Nucleated RBC % (auto) Anion Gap Estim Creat Clear Calc Estimated GFR POC Glucose 161 H 283 H Random Glucose Calcium Random Vancomycin Blood Type O Negative Antibody Screen NEGATIVE Microbiology Microbiology Results: Microbiology 04/26/25 13:01 Gram Stain - Final Thoracentesis Fluid Anaerobic Culture - Preliminary No growth to date. Body Fluid Culture - Final No growth after 2 days Assessment and Plan (1) Pneumonia: Status: Acute Plan 64-year-old male with past medical history hypertension, hyperlipidemia, PCI 2 stents, primary melanoma dx and treated 2009 with recurrence in 2018 now with 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 Patient now reports a cough with sputum that is yellow in color. Shortness of breath worse with walking or exertion. Patient is experiencing excessive all-over body pain but most importantly in the left upper chest left arm and spine. Patient also having edema in the lower extremities. Pt also states abdomen has gotten bigger over the last 3 weeks. Pt does not meet criteria for sepsis at this time. Acute exacerbation of CHF without hypoxia/ HX PCI Stents X2 2004 BNP elevated Troponin neg, ECG neg ischemic changes Echo : ef 45-50% plan: seems more euvolemic,hold Lasix 20 IV BID, hypokalemia replacements ordered. switch to po lasix Bladder scan noting issues with voiding, webb if BS > 250 possible pneumonia /effusion cxr today:There is interstitial consolidation, possible pneumonia or pulmonary edema pleural fluid : wbc 445 , 83% neutrophils Plan for ultrasound-guided thoracentesis-s/p thoracentesis -4 ml fluid removed , cultures sent Oxygen p.r.n. Leukocytosis with bandemia-improving,LA 1.2, blood culture preliminary negative @48 hour, pleural fluid cultures prelim(no growth),pleural fluid afb /pathology pending vanco trough is 20.2 yesterday ,vanco adjusted ,continue Zosyn Significant leukocytosis with 15% bandemia UA is currently negative Hypokalemia : po replacements added. Melanoma primary cancer? with metastases to lung, liver and now bone with excessive pain issues Recent right femur fracture with repair February 2025 - femur snapped while patient was taking a shower CT scan notes mass lesion of the right adrenal gland, bony destructive changes of the anterior right 5th rib and soft tissue mass, lytic lesions in the thoracic spine Patient is learning today that he has a metastatic cancer to the lung, liver, bone Evidence of decline includes decreased mobility, decreased appetite and weight loss. Patient is currently on Ozempic and it is recommended that patient has stopped Ozempic. Pain management to include IV morphine and extended-release OxyContin twice daily CT negative for PE CT HEAd-No acute intracranial hemorrhage. No lytic or blastic metastatic lesions in the bony calvarium.Small vessel occlusive disease. chest Ct repeated last night -Redemonstrated large bulky left axillary soft tissue masses/adenopathy, bulky mediastinal and hilar lymphadenopathy, right chest wall erosive mass ,anteriorly of the adjacent rib and dense left lower lobe pleural-parenchymal mass. Features are strongly suspicious for malignancy/metastases.Slightly decreased small bilateral pleural effusions.Minimal residual interlobular septal thickening, decreased from prior. impression of chest ct: Decreasing bilateral effusions with improving pulmonary edema. Otherwise stable exam with extensive malignancy/metastatic disease detailed above as well better appreciated on prior contrast exam from 04/26/2025. CM consulted, family not well versed in Hospice Care, overwhelmed with this new information Oncology following:cytology on the pleural fluid, recent PET scan,hospice [facility] pain meds -oxycodone ,oxycontin , morphine iv, also added hycodan for cough Recent right femur fracture with repair February of 2025 Patient has limited mobility after attending rehab Patient showing evidence of decline noting metastatic cancer to the bone PT eval ordered Bone lytic changes noted on CT scan involving R rib, thoracic spine Diabetes type 2 Sliding scale insulin for NPO status, change to ACHS when able Diabetic diet once no longer NPO Recommend patient stop Ozempic as he has been losing weight and has metastatic cancer Hypertension Blood pressure currently controlled Monitor closely Low-salt diet Hyperlipidemia Patient normally on statin Cardiac diet DVT prophylaxis: Lovenox. family updated. Quality Stroke Does the patient have a stroke diagnosis?: No Reason for No Anti-thrombotic by Day Two: N/A - Med Ordered VTE Prior VTE?: No VTE Risk Level:: Medical - moderate - high VTE Device Contraindication: N/A - Device Ordered VTE Drug Contraindication: N/A - Med Ordered
--- NOTE | 2025-04-29 13:17 | P.PNHO-ONC_ITS ---
Medical Summary - Medical Summary Date of Service: 04/29/25 Chief complaint: F/U for melanoma. Primary Care Provider: Mati Richter MD Medical Summary: DIAGNOSIS: Widely metastatic malignant melanoma. Stain Remover Utilized?: No - Armenian Speaking Interval History Interval history: Dedrick Cali is a 64 year old gentleman admitted on 04/26, with SOB. More comfortable after left thoracentesis. HPI: past medical history : 1. MALIGNANT MELANOMA: Review of records from Dr. Healy, [facility] from 03/02/2025: May of 2007 he was diagnosed with stage II pT4a, N0, melanoma of the back on the left side. This is a B Albaro mutated lesion. He had surgery July 2018. Thereafter he had disease progression, had a left axillary lymph node metastases and had an left axillary ramirez dissection in September 2019. He was on adjuvant Keytruda since 10/12/2019. He had several side effects and thereafter it was discontinued. He was last seen in clinic on 05/09/2020 by Trang Burgos. 03/26: Imaging showed stable hilar adenopathy, surgical clips in the left axilla and pulmonary emphysema. No new nodules. No disease in liver or bones. CT chest 03/31/2021: Stable right upper lobe ground-glass opacity and right hilar adenopathy. Left colon diverticulosis. At that time he elected to follow-up with his PCP and Dermatology. He declined further CAT scans at that point. 03/02/2026 note mentioned that recent imaging indicates lung nodule and liver metastases concerning for recurrent disease. Plan: Will request IR for biopsy of 1 of the liver lesions for diagnosis and staging. If it is indeed a recurrence of melanoma, will obtain B Albaro mutation testing. He may be a candidate for oral medications. If mutation is negative immunotherapy would be the other option. Would need to proceed with extreme caution as he had severe dehydration and renal failure previously. Patient is agreeable for consideration of treatment. 2. Hypertension, hyperlipidemia, PCI 2 stents, primary melanoma dx and treated 2009 with recurrence in 2018 now with metastases to liver lung and now bone, recent right femur fracture with repair, osteoporosis, diverticulosis, chronic kidney disease, anxiety, GERD, seizures on Tegretol, CAD and degenerative disc disease in the lumbar back. He presented to the emergency department with complaints of shortness of breath that has been progressing over the past few weeks. Also reports a cough with sputum that is yellow in color. Shortness of breath worse with walking or exertion. Patient is experiencing excessive all-over body pain but most importantly in the left upper chest left arm and spine. He also had edema in the lower extremities. He noted that his abdomen has gotten bigger over the last 3 weeks. Recent history: Patient underwent a right femur fracture repair in February of 2025. Pt states he was in the shower and his femur bone literally snapped. Patient was told then by the orthopedist that he may have cancer. Patient was following with Oncology at [facility], Dr. Orozco, but patient has not actually seen the oncologist so far due to the femur fracture and rehabilitation for ongoing immobility. Patient has been re learning how to use of walker but recently family moved patient from the 2nd floor to the 1st floor. Family recently purchased patient a new wheelchair to make mobility easier at home. Most importantly though patient and family are not aware that patient has cancer in the liver, lungs, and bone at this time. Unclear if melanoma is the primary source noting treatment was in 2009 with recurrence in 2018. Learning this today is all new information for family. Workup in the ED included CTA scan of the chest which was negative for PE but positive for evidence of CHF with metastatic malignancy involving the right adrenal gland, anterior right 5th rib with a soft tissue mass and lytic lesions in the thoracic spine. Nodularity also noted in the liver and patient does have a distended belly somewhat tender in the right upper quadrant. Patient does have a left lobe liver lesion that measures 2.8 cm in size and bulky lymphadenopathy within the karyn hepatis. Patient also has a moderate left pleural effusion with a small right pleural effusion and the left is partially loculated. Also present are numerous enlarged mediastinal, hilar and bilateral axillary lymph nodes. Patient also notes an elevated BNP 1146. Alk-phos 344, LFTs otherwise normal. Patient does have a impressive leukocytosis of 41.6 with 15% bandemia. Patient did report as above productive cough but currently cough is resolved. Patient was started on vancomycin and Zosyn in the ED. Blood cultures taken. UA negative for UTI. Concern for possible PNA, but CXR notes L.R basilar atelecatsis and effusions. CT scan with no evidence of obvious PNA. Recommend stopping Ozempic for diabetes management as patient reports weight loss with decreased appetite. Blood glucose levels in the 150 range. Pt is alert and orientated, not necessarily exhibiting encephalopthy but is cloudy at times. CT head pending. Medical History:) 1. Malignant melanoma: Patient initially noted a lesion on his back in 2008. He had wide excision done followed by left axillary node biopsy. He had melanoma in his nodes. He was treated with immunotherapy, Keytruda in the adjuvant setting. However he developed renal toxicity so that has been on hold. He did have a recent PET scan at [facility]. CKD (chronic kidney disease) stage 3, GFR 30-59 ml/min Hypertension Type 2 diabetes mellitus with hyperglycemia Anxiety GERD (gastroesophageal reflux disease) Bile salt-induced diarrhea Obesity (BMI 30-39.9) Melanoma Seizures. Hypercholesterolemia Coronary artery disease DDD (degenerative disc disease), lumbar Cognitive capacity: Alert and orientated x3 Functional capacity: wheelchair bound Surgical History:) S/P open reduction and internal fixation (ORIF) of fracture of lateral condyle of left femur. History of surgery. History of excision of mass History of cholecystectomy History of intravascular stent placement History of umbilical hernia repair History of melanoma excision History of inguinal hernia repair Family History:) Father No problems noted. Mother Myocardial infarction Diabetes Hypertension CVD (cardiovascular disease) Son In good health Daughter In good health Social History:) Household Members: Spouse Housing: House Are you a primary health care aide to a significant other at home: No Do you presently have visiting nurse or other home services: No Alcohol intake: former Patient Tobacco Use Status: Former Tobacco user Review of Systems 2 Review of Systems: Patient reports head-to-toe all-over body pain with increasing pain in the left upper chest and left arm. Patient states he can not walk due to chronic back pain. Patient states it is taking 20-25 minutes to be able to void. Patient believes he has an enlarged prostate. He denies any nausea, vomiting but is reporting mild abdominal tenderness in the right upper and lower quadrant. Distention in his belly started about 3 weeks prior while he was in rehabilitation for immobility. All other systems are reviewed and are negative Review of Systems - Neurologic Reports system reviewed and no additional complaints, except as documented [facility] Medical History: Medical History (Last Updated 04/27/25 @ 09:37 by Nikhil See MD) Anxiety Bile salt-induced diarrhea CKD (chronic kidney disease) stage 3, GFR 30-59 ml/min Coronary artery disease DDD (degenerative disc disease), lumbar GERD (gastroesophageal reflux disease) Hypercholesterolemia Hypertension Loculated pleural effusion Melanoma Obesity (BMI 30-39.9) Pneumonia Seizures Type 2 diabetes mellitus with hyperglycemia Functional capacity: wheelchair bound Patient : No Family History: Family History (Last Reviewed 04/26/25 @ 05:31 by PAULO Handy) Father No problems noted. Mother Myocardial infarction Diabetes Hypertension CVD (cardiovascular disease) Son In good health Daughter In good health Surgical History: Surgical History (Last Reviewed 04/26/25 @ 05:31 by KASIE Handy) History of cholecystectomy History of excision of mass History of inguinal hernia repair History of intravascular stent placement History of melanoma excision History of surgery History of umbilical hernia repair S/P open reduction and internal fixation (ORIF) of fracture of lateral condyle of left femur Social History: Social History (Last Reviewed 04/26/25 @ 05:31 by PAULO Handy) Living Situation History: Household Members: Spouse Housing: Apartment Are you a primary health care aide to a significant other at home: No Do you presently have visiting nurse or other home services: No Tobacco History: Patient Tobacco Use Status: Former Tobacco user Tobacco use type: Cigarette Years Smoked: quit 1996 e-Cigarette/Vaping Use: Never Used Second Hand Smoke Exposure: No Occupation Assessmet: service: No Current occupational status: disabled Oncology Screenings - ECOG Performance Status ECOG Performance Status: 2 Home Medications and Allergies Current Medications: Current Medications Acetaminophen (Acetaminophen 325 Mg Tablet) 650 mg PO Q6H PRN PRN Reason: Pain, Mild 1-3,fever,headache Last Admin: 04/29/25 10:59 Dose: 650 mg Al Hydroxide/Mg Hydroxide (Magnesium Hydrox/Alum Hydrox 30 Ml Oral.Susp) 15 ml PO Q6H PRN PRN Reason: stomach Last Admin: 04/29/25 01:38 Dose: 15 ml Albuterol/Ipratropium (Albuterol/Iprat 2.5/0.5mg 3 Ml Ampul.Neb) 3 ml INHALE Q4H PRN PRN Reason: Shortness of Breath/Wheezing Last Admin: 04/27/25 23:44 Dose: 3 ml Amlodipine Besylate (Amlodipine Besylate 10 Mg Tablet) 10 mg PO BEDTIME [facility]; Protocol Last Admin: 04/28/25 19:55 Dose: 10 mg Aspirin (Aspirin Enteric Coated 81 Mg Tablet.) 81 mg PO BEDTIME [facility] Last Admin: 04/28/25 19:56 Dose: 81 mg Calcium Carbonate (Calcium Carbonate 750 Mg Tab.Chew) 750 mg PO Q4H PRN PRN Reason: Heartburn Last Admin: 04/28/25 15:04 Dose: 750 mg Carbamazepine (Carbamazepine 200 Mg Tablet) 400 mg PO BID [facility] Last Admin: 04/29/25 08:17 Dose: 400 mg Dextrose (Dextrose 50 % 25 Gm/50 Ml Syringe) 25 gm IVPUSH Q15M PRN; Protocol PRN Reason: per Hypoglycemia Standing Ord. Docusate Sodium (Docusate Sodium 100 Mg Capsule) 100 mg PO BID PRN PRN Reason: Constipation Last Admin: 04/28/25 08:47 Dose: 100 mg Fenofibrate (Fenofibrate 160 Mg Tablet) 160 mg PO DAILY [facility] Last Admin: 04/29/25 08:16 Dose: 160 mg Ferrous Sulfate (Ferrous Sulfate 324 Mg Tablet.) 325 mg PO DAILY [facility] Last Admin: 04/29/25 08:16 Dose: 325 mg Gabapentin (Gabapentin 100 Mg Capsule) 100 mg PO TID [facility] Last Admin: 04/29/25 08:17 Dose: 100 mg Glipizide (Glipizide 10 Mg Tablet) 10 mg PO DAILY [facility] Glucose (Glucose Gel 15 Gm Gel..Gram.) 15 gm PO Q15M PRN; Protocol PRN Reason: per Hypoglycemia Standing Ord. Guaifenesin/Codeine Phosphate (Guaifen/Codeine Sf 200/20/10ml 10 Ml Liquid) 10 ml PO Q6H PRN PRN Reason: Cough Last Admin: 04/29/25 08:41 Dose: 10 ml Piperacillin Sod/Tazobactam (Sod 4.5 gm/ Sodium Chloride) 100 mls @ 200 mls/hr IV Q6H [facility] Last Infusion: 04/29/25 11:32 Dose: Infused Vancomycin HCl 500 mg/ Sodium (Chloride) 110 mls @ 110 mls/hr IV Q12H [facility] Last Infusion: 04/29/25 07:12 Dose: Infused Insulin Human Lispro (Insulin Lispro 100 Unit/Ml 3 Ml Vial) 0 unit SUBCUT QIDACHS [facility]; Protocol Last Admin: 04/29/25 11:31 Dose: 6 unit Magnesium Hydroxide (Milk Of Magnesia 30 Ml Oral.Susp) 30 ml PO DAILY PRN PRN Reason: Constipation Melatonin (Melatonin 3 Mg Tablet) 6 mg PO BEDTIME PRN PRN Reason: Insomnia Last Admin: 04/27/25 23:30 Dose: 6 mg Metoprolol Tartrate (Metoprolol Tartrate 100 Mg Tablet) 100 mg PO BID [facility]; Protocol Last Admin: 04/29/25 08:17 Dose: 100 mg Morphine Sulfate (Morphine Sulfate 2 Mg/Ml Cartridge) 2 mg IVPUSH Q3H PRN; Protocol PRN Reason: Pain, Severe (Pain Scale 7-10) Last Admin: 04/29/25 07:37 Dose: 2 mg Multivitamins/Vitamin C (Multivitamin Tablet) 1 tab PO DAILY [facility] Last Admin: 04/29/25 08:16 Dose: 1 tab Pt Own (Rosuvastatin (20 Mg Tablet)) 20 mg PO BEDTIME [facility] Last Admin: 04/28/25 21:19 Dose: 20 mg Omeprazole (Omeprazole 40 Mg Capsule.Dr) 40 mg PO DAILY@0630 [facility] Last Admin: 04/29/25 05:34 Dose: 40 mg Ondansetron HCl (Ondansetron Hcl 4 Mg/2 Ml Vial) 4 mg IVPUSH Q8H PRN PRN Reason: Nausea and Vomiting Oxycodone HCl (Oxycodone Hcl Er 10 Mg Tab.Er.12h) 10 mg PO BID [facility] Last Admin: 04/29/25 08:16 Dose: 10 mg Oxycodone HCl (Oxycodone Hcl Immed Release 5 Mg Tablet) 10 mg PO TID PRN PRN Reason: Pain, Severe (Pain Scale 7-10) Last Admin: 04/29/25 10:59 Dose: 10 mg Pharmacy Consult (Consult Rx Vancomycin Dosing) 1 each MISCELLANE DAILY PRN PRN Reason: Consult order Polyethylene Glycol (Polyethylene Glycol 3350 17 Gm Powd.Pack) 17 gm PO DAILY PRN PRN Reason: Constipation Senna (Sennosides 8.6 Mg Tablet) 17.2 mg PO BEDTIME [facility] Last Admin: 04/28/25 19:55 Dose: 17.2 mg Sodium Bicarbonate (Sodium Bicarbonate 650 Mg Tablet) 650 mg PO BID [facility] Last Admin: 04/29/25 08:17 Dose: 650 mg Sodium Chloride (0.9 % Sodium Chloride Flush 3 Ml Syringe) 3 ml IVFLUSH QSHIFT [facility] Last Admin: 04/29/25 07:38 Dose: 3 ml Tizanidine HCl (Tizanidine Hcl 4 Mg Tablet) 2 mg PO Q8H PRN PRN Reason: for muscle spasm Last Admin: 04/29/25 04:10 Dose: 2 mg Home Medications ?Medication ?Instructions ?Recorded ?Confirmed ?Type aspirin 81 mg tablet,delayed 81 mg PO BEDTIME 09/10/20 04/26/25 Histo ry release (Adult Aspirin Regimen) amlodipine 10 mg tablet 10 mg PO BEDTIME 02/20/25 04/26/25 Histo ry glimepiride 4 mg tablet 4 mg PO DAILY 02/20/25 04/26/25 History multivitamin with minerals-folic 1 tab PO DAILY 02/20/25 04/26/25 History acid 80 mcg chewable tablet (Centrum Adult 50 Plus) omeprazole 40 mg capsule,delayed 40 mg PO DAILY@0630 02/20/25 04/26/25 Hi story release rosuvastatin 20 mg tablet 20 mg PO BEDTIME 02/20/25 04/26/25 Histo ry docusate sodium 100 mg capsule 100 mg PO BID PRN Constipation 04/26/25 04/26/25 History (Colace) ferrous sulfate 325 mg (65 mg 325 mg PO DAILY 04/26/25 04/26/25 Histor y iron) tablet gabapentin 100 mg capsule 100 mg PO TID 04/26/25 04/26/25 History tizanidine 4 mg tablet 2 mg PO Q8H PRN for muscle spasm 5 04/26/25 History Allergies Allergy/AdvReac Type Severity Reaction Status Date / Time atorvastatin Allergy Intermediate Muscle Verified 04/25/25 23:39 cramps hydrochlorothiazide Allergy Intermediate advised to Verified 04/25/25 23:39 avoid metformin Allergy Intermediate Gastrointestinal Verified 04/25/25 23:39 Upset pembrolizumab (From Neurala) Allergy Intermediate creatinine Verified 04/25/25 23:39 lisinopril AdvReac Intermediate increase Verified 04/25/25 23:39 creatinine Exam Vital signs: Vital Signs Temp 98.0 F 04/29/25 12:29 Pulse 102 H 04/29/25 12:29 Resp 20 04/29/25 12:29 BP 143/66 H 04/29/25 12:29 Pulse Ox 94 04/29/25 12:29 O2 Del Method Room Air 04/29/25 12:29 O2 Flow Rate 1 04/26/25 06:07 Intake & Output 04/28/25 04/29/25 04/29/25 18:59 06:59 18:59 Intake Total 950 / 1620 670 / 1620 210 / 210 Output Total 350 / 350 Balance 600 / 1270 670 / 1270 210 / 210 Urine Output (Average ml/kg/hr) 0.30 0.30 0.30 Intake: Intake, Oral Amount 480 / 840 360 / 840 Intake, IV Amount 470 / 780 310 / 780 210 / 210 Piperacillin Sodium/Tazobactam 200 / 400 200 / 400 100 / 100 4.5 gm In 0.9 % Sodium Chloride 100 ml @ 200 mls/hr IV Q6H [facility] Rx#:[id number] vancomycin HCL 1,000 mg In 0.9 270 / 270 % Sodium Chloride 250 ml @ 270 mls/hr IV Q12H [facility] Rx#: [id number] vancomycin HCL 500 mg In 0.9 % 110 / 110 110 / 110 Sodium Chloride 100 ml @ 110 mls/hr IV Q12H [facility] Rx#: [id number] Output: Output, Urine Amount 350 / 350 Other: Breakfast % Eaten 100% Lunch % Eaten 75% Eating (Feeding) Ability Independent Number of Unmeasured Voids 1 1 1 Number of Bowel Movements 1 1 Urine Bathroom Bathroom Bathroom Urine Color Yellow Yellow Last Bowel Movement 04/28/25 04/28/25 04/29/25 Stool Bathroom Bathroom Stool Amount Small Moderate Stool Color Brown Stool Consistency Soft Soft Weight 96.9 kg BMI result Body Mass Index 30.6 - Constitutional Present: mild distress - Routine HEENT Exam Head: Present: normal inspection, normocephalic Eye: Present: normal appearance ENT: Present: mucous membranes moist - Routine Neck Exam Present: full ROM - Routine Respiratory Exam Present: CTAB - Routine Cardiovascular Exam Cardiovascular: Present: RRR, S1, S2 - Routine Abdominal Exam Present: nontender - Routine Extremities Exam Present: nontender - Routine Back/Spine/Pelvis Exam Back/Spine: Present: full ROM - Routine Skin Exam Present: intact, normal turgor - Routine Neurological Exam Present: alert, oriented X3 - Detailed Neurological Exam: Coma Scale Eye Opening: Spontaneous (4) - Routine Psychiatric Exam Present: normal affect Data - Labs CBC & Chem 7: 05/01/25 08:05 05/01/25 08:05 Labs: Laboratory Last Values WBC 28.7 X10*3/uL (4.8-10.8) H 04/29/25 05:28 RBC 2.63 X10*6/uL (4.60-5.80) L D 04/29/25 05:28 Hgb 9.1 g/dl (14.0-18.0) L 04/29/25 08:27 Hct 30.0 % (42.0-52.0) L 04/29/25 08:27 MCV 95.8 fL (80.0-98.0) 04/29/25 05:28 MCH 29.3 pg (27.0-33.0) 04/29/25 05:28 MCHC 30.6 g/dl (31.0-36.0) L 04/29/25 05:28 RDW 17.3 % (11.0-16.0) H 04/29/25 05:28 Plt Count 342 X10*3/uL (160-400) 04/29/25 05:28 MPV 9.4 fL (9.4-12.4) 04/29/25 05:28 Immature Gran % (Auto) 4.0 % (0.0-0.4) H 04/26/25 05:33 Neut % (Auto) 87.7 % (45-73) H 04/26/25 05:33 Lymph % (Auto) 2.9 % (20-40) L 04/26/25 05:33 Hancock % (Auto) 2.4 % (2-11) 04/26/25 05:33 Eos % (Auto) 2.4 % (0-4) 04/26/25 05:33 Baso % (Auto) 0.6 % (0-2) 04/26/25 05:33 Lymph # (Auto) 1.4 X10*3/uL (1.2-4.9) 04/26/25 05:33 Hancock # (Auto) 1.2 X10*3/uL (0.1-1.2) 04/26/25 05:33 Eos # (Auto) 1.2 X10*3/uL (0.0-0.4) H 04/26/25 05:33 Baso # (Auto) 0.3 X10*3/uL (0.0-0.2) H 04/26/25 05:33 Abs Immat Gran (auto) 1.91 X10*3/uL (0.00-0.03) H 04/26/25 05:33 Absolute Neuts (auto) 42.3 x10*3/uL (2.0-8.3) H 04/26/25 05:33 Absolute Nucleated RBC 0.000 X10*3/uL (0.0-0.012) 04/29/25 05:28 Nucleated RBC % (auto) 0.0 /100WBC (0.0-0.2) 04/29/25 05:28 Neutrophils % (Manual) 74 % (45-73) H 04/25/25 23:55 Band Neutrophils % 23 % (3-5) H 04/25/25 23:55 Lymphocytes % (Manual) 2 % (20-40) L 04/25/25 23:55 Atypical Lymphs % (Man) 1 % (0-6) 04/25/25 23:55 Abs Neuts (Manual) 40.4 X10*3/uL (2.0-8.3) H 04/25/25 23:55 Lymphocytes # (Manual) 0.8 X10*3/uL (1.2-4.9) L 04/25/25 23:55 Atyp Lymphs # (Manual) 0.4 x10*3/uL 04/25/25 23:55 Toxic Granulation PRESENT 04/25/25 23:55 Toxic Vacuolation PRESENT 04/25/25 23:55 Dohle Bodies PRESENT 04/25/25 23:55 Platelet Estimate NORMAL (NORMAL) 04/25/25 23:55 Plt Morphology Comment NORMAL 04/25/25 23:55 RBC Morphology NORMAL 04/25/25 23:55 Polychromasia 1+ (0-2) /OIF 04/25/25 23:55 Stomatocytes 1+ (5-14) /OIF 04/25/25 23:55 Smear Tech's Comments VERIFIED 04/25/25 23:55 Smear Path Review SEE NOTE 04/26/25 05:33 Hold Purple Top SEE NOTE 04/28/25 05:15 Sodium 136 mmol/L (135-145) 04/29/25 05:28 Potassium 3.3 mmol/L (3.3-5.1) 04/29/25 05:28 Chloride 103 mmol/L (96-108) 04/29/25 05:28 Carbon Dioxide 25 mmol/L (22-29) 04/29/25 05:28 Anion Gap 11 (12-20) L 04/29/25 05:28 BUN 19 mg/dL (9-16) H 04/29/25 05:28 Creatinine 1.10 mg/dL (0.5-1.4) 04/29/25 05:28 Creatinine 1.12 mg/dL (0.5-1.4) 04/29/25 05:28 Estim Creat Clear Calc 75.7 04/29/25 05:28 Estim Creat Clear Calc 77.1 04/29/25 05:28 Estimated GFR > 60 04/29/25 05:28 Estimated GFR > 60 04/29/25 05:28 POC Glucose 283 mg/dL (60-115) H 04/29/25 11:10 Random Glucose 162 mg/dL (60-115) H 04/29/25 05:28 Lactic Acid 1.2 mmol/L (0.5-2.0) 04/26/25 00:50 Calcium 9.0 mg/dL (8.4-10.2) 04/29/25 05:28 Total Bilirubin 0.3 mg/dL (0.0-1.0) 04/25/25 23:55 AST 36 U/L (5-37) 04/25/25 23:55 ALT 13 U/L (0-40) 04/25/25 23:55 Alkaline Phosphatase 344 U/L (39-117) H 04/25/25 23:55 Troponin I High Sens 3.0 ng/L (<3.5-35.0) 04/25/25 23:55 B-Natriuretic Peptide 1146 pg/mL (<100) H 04/25/25 23:54 Total Protein 7.9 g/dL (6.5-8.0) 04/25/25 23:55 Albumin 3.3 g/dL (3.5-5.0) L 04/25/25 23:55 Procalcitonin 0.52 ng/mL 04/26/25 05:33 Urine Color Yellow 04/26/25 01:51 Urine Appearance Clear 04/26/25 01:51 Urine pH 7.0 (5.0-9.0) 04/26/25 01:51 Ur Specific Cisco >= 1.030 (1.005-1.025) H 04/26/25 01:51 Urine Protein Negative mg/dL (Neg-Trace) 04/26/25 01:51 Urine Glucose (UA) Negative mg/dL (Negative) 04/26/25 01:51 Urine Ketones Negative mg/dL (Negative) 04/26/25 01:51 Urine Blood Negative (Negative) 04/26/25 01:51 Urine Nitrite Negative (Negative) 04/26/25 01:51 Ur Leukocyte Esterase Negative (Negative) 04/26/25 01:51 Pleural WBC 0.445 X10*3/uL 04/26/25 13:01 Pleural RBC < 0.002 X10*6/uL 04/26/25 13:01 Pleural Neutrophils 83 % 04/26/25 13:01 Pleural Lymphocytes 15 % 04/26/25 13:01 Pleural Monocytes 2 % 04/26/25 13:01 Pleural Total Protein 3.3 04/26/25 13:01 Pleural Albumin 2.0 04/26/25 13:01 Pleural LDH 94 04/26/25 13:01 Pleural Glucose 142 04/26/25 13:01 Random Vancomycin 18.1 mcg/mL (15-20) 04/28/25 15:43 Influenza Type A (PCR) NEGATIVE (Negative) 04/25/25 23:54 Influenza Type B (PCR) NEGATIVE (Negative) 04/25/25 23:54 RSV RNA Qual (PCR) NEGATIVE (Negative) 04/25/25 23:54 SARS-CoV-2 RNA (RT-PCR) NEGATIVE (Negative) 04/25/25 23:54 Blood Type O Negative 04/29/25 08:27 Antibody Screen NEGATIVE 04/29/25 08:27 - Imaging Radiologist's impression: ITS Impressions Head CT 04/26/25 07:07 IMPRESSION: No acute intracranial hemorrhage. No lytic or blastic metastatic lesions in the bony calvarium. Small vessel occlusive disease. 2 mm calcification left foramen Monro. Probable foreign body medial aspect of the right eyeball. Traumatic deformities, nasal bones and right lamina papyracea. Electronically signed by: Jimmie Lugo MD 04/26/2025 08:33 AM EDT RP Thoracentesis Ultrasound 04/26/25 11:27 IMPRESSION: Successful ultrasound-guided left thoracentesis performed in the ER. Electronically signed by: Parvez Pennington MD 04/26/2025 02:27 PM EDT RP Chest X-Ray 04/27/25 08:45 IMPRESSION: 1. Status post left thoracentesis, with apparent resolution of the left pleural effusion. 2. Trace right pleural effusion. Electronically signed by: Rowdy Allison MD 04/27/2025 10:57 AM EDT RP Assessment and Plan Patient Active problem list reviewed?: Yes (1) Metastatic cancer Status: Acute Assessment and plan: 64 year old gentleman admitted with shortness of breath. he has ahistory of primary melanoma dx and treated 2009 with recurrence in 2018 now with metastases to liver lung and now bone. He had a recent right femur fracture with repair, osteoporosis, diverticulosis, chronic kidney disease, anxiety, GERD, seizures on Tegretol, CAD and degenerative disc disease in the lumbar back. He presented to the ED with complaints of shortness of breath that has been progressing over the past few weeks. Patient now reports a cough with sputum that is yellow in color. Shortness of breath worse with walking or exertion. Patient is experiencing excessive all-over body pain but most importantly in the left upper chest left arm and spine. Patient also having edema in the lower extremities. Pt also states abdomen has gotten bigger over the last 3 weeks. Pt does not meet criteria for sepsis at this time. PROBLEMS: Left moderate pleural effusion: Plan for ultrasound-guided thoracentesis later today NPO Oxygen p.r.n. Diuretic Leukocytosis with bandemia: Significant leukocytosis with 15% bandemia. Leukemoid reaction secondary to malignancy. UA is currently negative Follow Blood Cultures. LA 1.2 Patient currently on vanco and Zosyn Recent right femur fracture with repair February of 2025 Patient has limited mobility after attending rehab Patient showing evidence of decline noting metastatic cancer to the bone PT eval ordered Bone lytic changes noted on CT scan involving R rib, thoracic spine Melanoma primary cancer? with metastases to lung, liver and now bone with excessive pain issues Recent right femur fracture with repair February 2025 - femur snapped while patient was taking a shower CT scan notes mass lesion of the right adrenal gland, bony destructive changes of the anterior right 5th rib and soft tissue mass, lytic lesions in the thoracic spine CT HEAD: No acute intracranial hemorrhage. No lytic or blastic metastatic lesions in the bony calvarium. Small vessel occlusive disease. 2 mm calcification left foramen Monro. Probable foreign body medial aspect of the right eyeball. Traumatic deformities, nasal bones and right lamina papyracea. CM consulted, family not well versed in Hospice Care, overwhelmed with this new information. DATA BASE: IMPRESSION: Numerous enlarged mediastinal, hilar, and bilateral axillary lymph nodes are identified. Forester Aide lymph nodes include a 28 mm short axis prevascular lymph node, 17 mm short axis precarinal lymph node, 26 mm short axis subcarinal lymph node, 27 mm short axis right hilar lymph node, 47 mm short axis left axillary lymph node, and a 20 mm short axis right infrahilar lymph node. Liver appears enlarged. There subtle nodularity along the periphery of the liver. Subtle hypodense left lobe liver lesion measures 2.8 cm in size. Bulky lymphadenopathy is seen within the karyn hepatis measuring up to 5.2 x 3.2 cm in size. Spleen is enlarged. Mass lesion of the right adrenal gland measures 2.9 x 2.5 cm in size. Bony destructive change of the anterior right 5th rib with soft tissue mass measuring 3.5 x 2.6 cm in size. Lytic lesions are identified within the T2 and T3 vertebral bodies. This is most pronounced at T3 where there is a 2.6 x 2.3 cm lytic and destructive bony lesion. Patient just learnt that he has a metastatic cancer to the lung, liver, bone. Evidence of decline includes decreased mobility, decreased appetite and weight loss. He is currently on Ozempic and it is recommended that patient has stopped Ozempic. Pain management to include IV morphine and extended-release OxyContin twice daily. CTA of chest negative for PE. 1. No pulmonary emboli given the limitation of the patient motion. 2. Congestive heart failure. 3. Findings indicative of an extensive metastatic malignancy as fully discussed above. Clinical correlation advised. Previous cat scan of abdomen from 02/20: Numerous indeterminate liver lesions are present that could represent metastatic disease or hepatocellular carcinoma. Consider nonemergent dynamic CT or MR liver exam after IV contrast has cleared. Indeterminate nodule in the posterior left lower lung contacting pleura. There is central fluid density, but the posterior wall is 5 mm thick and the cephalad half of the mass is not included in the study. Follow up CT chest with IV contrast. Splenomegaly, increased. Degenerative changes, increased. Vascular atherosclerotic disease, increased. Diverticulosis of the descending and sigmoid colon. No acute inflammation. The primary cancer is, likely to be melanoma. He underwent left thoracentesis today by IR: Approximately 4 mL of yellowish but clear fluid was collected from the left pleural space. The fluid was sent to lab for further evaluation as per referring physician's orders. There are no immediate complaints from the patient. Malignant melanoma: (review of records from Dr. 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 This was a BRAF mutated lesion. He had surgery July 2018. Thereafter he had disease progression, had a left axillary lymph node metastases and had an left axillary ramirez dissection in September 2019. He was on adjuvant Keytruda since 10/12/2019. He had several side effects and thereafter it was discontinued. He was last seen in clinic on 05/09/2020 by Trang Burgos. 03/26: Imaging showed stable hilar adenopathy, surgical clips in the left axilla and pulmonary emphysema. No new nodules. No disease in liver or bones. CT chest 03/31/2021: Stable right upper lobe ground-glass opacity and right hilar adenopathy. Left colon diverticulosis. At that time he elected to follow-up with his PCP and Dermatology. He declined further CAT scans at that point. He did have a recent PET scan at [facility]. 03/02/2026 note mentioned that recent imaging indicates lung nodule and liver metastases concerning for recurrent disease. Plan: Will request IR for biopsy of 1 of the liver lesions for diagnosis and staging. If it is indeed a recurrence of melanoma, will obtain B Albaro mutation testing. He may be a candidate for oral medications. Patient's states that yesterday they had an appointment with hospice, they have not made any decisions yet regarding hospice. PLAN: Will wait for the cytology on the pleural fluid.( negative.) He had a recent PET scan. I have requested records from Dr. rdz's office. (His oncologist at [facility].) Upon talking to him, his plan is to proceed with a biopsy of liver, to obtain tissue to confirm the diagnosis, and to get molecular testing done, to see if there is an actionable mutation, ie BRAF. The original biopsy is not available. Will then find out what further treatment options, are available. I have reached out to his , and discussed the plan with her. He is still trying to make up his mind as to how to proceed. Thank you for the consult, I will follow along with you, CC: Dr. Healy. - Time Spent With Patient Time Spent with Patient (in minutes): 25
[2025-04-29] MEDS: Albuterol/Iprat 2.5/0.5MG 3 ML AMPUL.NEB INHALE (15:11)
[2025-04-29 16:31] LABS: Glucose, Whole Blood 187 mg/dL (60-115)
--- NOTE | 2025-04-29 17:10 | PC.NURSE ---
Addendum entered by Vianca Carson RN 04/29/25 18:14: Pt resting quietly in recliner. at bedside. HR 120, O2 sat 87% on room air. Pt placed on 2L NC, O2 sats92%. Phlebotomy in to draw vanco level Original Note: 1345- Pt with increased restlessness and anxiety. Continuously wanted to get up from chair, States I can't breathe O2 sats 94% on room air. Lungs remain dim in bases. MS 2mg IV given to pt with minimal effect. Dr William notified, atarax ordered and given to pt at 1504. Pt still c/o difficulty breathing. Resp called and pt given UD, Robitussin AC given with some effect. 1626- Phlebotomy in to draw vanco level but unable to get due to pt restlessness and moving around too much when attempting. Dr William notified HR 133. Continues to be anxious. Dr Washington(covering) notified and new order placed for 1mg po Ativan- given to pt. Pending effect. continues to be at bedside throughout above
--- NOTE | 2025-04-29 18:34 | HE.PHANOTE ---
RE:vanco Level 04/29 came back at 11.5 mg/L, predicted level subtherapeutic. Increased dose to 1000mg Q12H with predicted trough of 16.4 mg/L, AUC of 521 mg/L. Next level to be drawn 04/30 @1800
[2025-04-29] MEDS: Aspirin Enteric Coated 81 MG TABLET.DR PO (19:45)
[2025-04-29] MEDS: ROSUVASTATIN 20 MG 20 EACH PO (19:46)
[2025-04-29 20:40] LABS: Glucose, Whole Blood 220 mg/dL (60-115)
[2025-04-30] VITALS (8 sets, daily range): BP systolic 121–147; BP diastolic 60–83; PULSE 86–105; RESP 14–20; TEMP 36.6–37.1; O2SAT 92–96
[2025-04-30] MEDS: Magnesium Hydrox/Alum Hydrox 30 ML ORAL.SUSP 15 ML PO (03:30)
[2025-04-30] MEDS: oxyCODONE HCl Immed Release 5 MG TABLET 10 MG PO ×4 (04:26→23:18)
[2025-04-30 06:13] LABS: Creatinine Clr Calc Pharmacy 77.1; Estimated Glomerular Filt Rate > 60
--- NOTE | 2025-04-30 06:54 | PC.NURSE ---
Access lost at approximately at 0500. This nurse attempted to obtain access, unable to obtain access. Another nurse came to bedside and unable to obtain access. Associate Professor Of English notified, ultrasound trained nurse unable to come to bedside.
[2025-04-30] MEDS: oxyCODONE HCl ER 10 MG TAB.ER.12H PO ×2 (07:19→20:52)
[2025-04-30] MEDS: 0.9 % Sodium Chloride Flush 3 ML SYRINGE IVFLUSH ×3 (07:20→20:56)
[2025-04-30] MEDS: Ferrous Sulfate 324 MG TABLET.DR 325 MG PO (07:20)
[2025-04-30 07:28] LABS: Glucose, Whole Blood 164 mg/dL (60-115)
--- NOTE | 2025-04-30 08:08 | HO.PM.IMPN ---
Subjective Subjective Date of Service: 04/30/25 Interval History: Melanoma primary cancer? with metastases to lung, liver and now bone with excessive pain issues Review of Systems sob /cough similar pain seems controlled with pain meds Review of Systems: Yes all other systems are reviewed and are negative Physical Exam Vital Signs: Vital Signs: Last Vital Signs Temp 97.8 F 04/30/25 08:00 Pulse 105 H 04/30/25 08:00 Resp 20 04/30/25 08:00 BP 145/64 H 04/30/25 08:00 Pulse Ox 96 04/30/25 08:00 O2 Del Method Room Air 04/30/25 08:00 O2 Flow Rate 2 04/30/25 00:00 BMI result Body Mass Index 30.6 Appearance: Alert.? Oriented X3.? cvs: rrr, [id number] . res: air entry improving , breath sound dec on left side. abd: no rebound or guarding ,nt, bs present. ext pulses present , no cyanosis . neuro: axo3 , nonfocal. Objective Data Active Medications Acetaminophen (Acetaminophen 325 Mg Tablet) 650 mg PO Q6H PRN PRN Reason: Pain, Mild 1-3,fever,headache Last Admin: 04/29/25 19:45 Dose: 650 mg Documented By: JILLIAN Al Hydroxide/Mg Hydroxide (Magnesium Hydrox/Alum Hydrox 30 Ml Oral.Susp) 15 ml PO Q6H PRN PRN Reason: stomach Last Admin: 04/30/25 03:30 Dose: 15 ml Documented By: JILLIAN Albuterol/Ipratropium (Albuterol/Iprat 2.5/0.5mg 3 Ml Ampul.Neb) 3 ml INHALE Q4H PRN PRN Reason: Shortness of Breath/Wheezing Last Admin: 04/29/25 15:11 Dose: 3 ml Documented By: TALYA Amlodipine Besylate (Amlodipine Besylate 10 Mg Tablet) 10 mg PO BEDTIME ILA; Protocol Last Admin: 04/29/25 19:45 Dose: 10 mg Documented By: JILLIAN Aspirin (Aspirin Enteric Coated 81 Mg Tablet.Dr) 81 mg PO BEDTIME ILA Last Admin: 04/29/25 19:45 Dose: 81 mg Documented By: JILLIAN Calcium Carbonate (Calcium Carbonate 750 Mg Tab.Chew) 750 mg PO Q4H PRN PRN Reason: Heartburn Last Admin: 04/28/25 15:04 Dose: 750 mg Documented By: TALYA Carbamazepine (Carbamazepine 200 Mg Tablet) 400 mg PO BID [facility] Last Admin: 04/30/25 07:20 Dose: 400 mg Documented By: LAUREN Dextrose (Dextrose 50 % 25 Gm/50 Ml Syringe) 25 gm IVPUSH Q15M PRN; Protocol PRN Reason: per Hypoglycemia Standing Ord. Docusate Sodium (Docusate Sodium 100 Mg Capsule) 100 mg PO BID PRN PRN Reason: Constipation Last Admin: 04/28/25 08:47 Dose: 100 mg Documented By: TALYA Fenofibrate (Fenofibrate 160 Mg Tablet) 160 mg PO DAILY [facility] Last Admin: 04/30/25 07:21 Dose: 160 mg Documented By: LAUREN Ferrous Sulfate (Ferrous Sulfate 324 Mg Tablet.Dr) 325 mg PO DAILY [facility] Last Admin: 04/30/25 07:20 Dose: 325 mg Documented By: LAUREN Gabapentin (Gabapentin 100 Mg Capsule) 100 mg PO TID [facility] Last Admin: 04/30/25 07:20 Dose: 100 mg Documented By: LAUREN Glipizide (Glipizide 10 Mg Tablet) 10 mg PO DAILY [facility] Last Admin: 04/30/25 07:20 Dose: 10 mg Documented By: LAUREN Glucose (Glucose Gel 15 Gm Gel..Gram.) 15 gm PO Q15M PRN; Protocol PRN Reason: per Hypoglycemia Standing Ord. Guaifenesin/Codeine Phosphate (Guaifen/Codeine Sf 200/20/10ml 10 Ml Liquid) 10 ml PO Q6H PRN PRN Reason: Cough Last Admin: 04/29/25 15:10 Dose: 10 ml Documented By: TALYA Hydroxyzine HCl (Hydroxyzine Hcl 25 Mg Tablet) 25 mg PO Q6H PRN PRN Reason: anxiety/restlessness Last Admin: 04/29/25 15:04 Dose: 25 mg Documented By: TALYA Piperacillin Sod/Tazobactam (Sod 4.5 gm/ Sodium Chloride) 100 mls @ 200 mls/hr IV Q6H [facility] Last Admin: 04/30/25 06:47 Dose: Not Given Documented By: LAUREN Non-Admin Reason: No Access Vancomycin HCl 1,000 mg/ (Sodium Chloride) 270 mls @ 270 mls/hr IV Q12H [facility] Last Infusion: 04/29/25 20:52 Dose: Infused Documented By: JILLIAN Insulin Human Lispro (Insulin Lispro 100 Unit/Ml 3 Ml Vial) 0 unit SUBCUT QIDACHS [facility]; Protocol Last Admin: 04/30/25 07:23 Dose: 2 unit Documented By: LAUREN Magnesium Hydroxide (Milk Of Magnesia 30 Ml Oral.Susp) 30 ml PO DAILY PRN PRN Reason: Constipation Melatonin (Melatonin 3 Mg Tablet) 6 mg PO BEDTIME PRN PRN Reason: Insomnia Last Admin: 04/27/25 23:30 Dose: 6 mg Documented By: PABLO Metoprolol Tartrate (Metoprolol Tartrate 100 Mg Tablet) 100 mg PO BID [facility]; Protocol Last Admin: 04/30/25 07:20 Dose: 100 mg Documented By: LAUREN Morphine Sulfate (Morphine Sulfate 2 Mg/Ml Cartridge) 2 mg IVPUSH Q3H PRN; Protocol PRN Reason: Pain, Severe (Pain Scale 7-10) Last Admin: 04/30/25 03:30 Dose: 2 mg Documented By: JILLIAN Multivitamins/Vitamin C (Multivitamin Tablet) 1 tab PO DAILY [facility] Last Admin: 04/30/25 07:21 Dose: 1 tab Documented By: LAUREN Pt Own (Rosuvastatin (20 Mg Tablet)) 20 mg PO BEDTIME [facility] Last Admin: 04/29/25 19:46 Dose: 20 mg Documented By: JILLIAN Omeprazole (Omeprazole 40 Mg Capsule.Dr) 40 mg PO DAILY@0630 [facility] Last Admin: 04/30/25 05:41 Dose: 40 mg Documented By: JILLIAN Ondansetron HCl (Ondansetron Hcl 4 Mg/2 Ml Vial) 4 mg IVPUSH Q8H PRN PRN Reason: Nausea and Vomiting Oxycodone HCl (Oxycodone Hcl Er 10 Mg Tab.Er.12h) 10 mg PO BID [facility] Last Admin: 04/30/25 07:19 Dose: 10 mg Documented By: LUAREN Oxycodone HCl (Oxycodone Hcl Immed Release 5 Mg Tablet) 10 mg PO Q6H PRN PRN Reason: Pain, Severe (Pain Scale 7-10) Last Admin: 04/30/25 07:45 Dose: 10 mg Documented By: LAUREN Pharmacy Consult (Consult Rx Vancomycin Dosing) 1 each MISCELLANE DAILY PRN PRN Reason: Consult order Polyethylene Glycol (Polyethylene Glycol 3350 17 Gm Powd.Pack) 17 gm PO DAILY PRN PRN Reason: Constipation Senna (Sennosides 8.6 Mg Tablet) 17.2 mg PO BEDTIME [facility] Last Admin: 04/29/25 20:48 Dose: Not Given Documented By: JILLIAN Non-Admin Reason: Patient Refused Sodium Bicarbonate (Sodium Bicarbonate 650 Mg Tablet) 650 mg PO BID [facility] Last Admin: 04/30/25 07:21 Dose: 650 mg Documented By: LAUREN Sodium Chloride (0.9 % Sodium Chloride Flush 3 Ml Syringe) 3 ml IVFLUSH QSHIFT [facility] Last Admin: 04/30/25 07:20 Dose: 3 ml Documented By: LAUREN Tizanidine HCl (Tizanidine Hcl 4 Mg Tablet) 2 mg PO Q8H PRN PRN Reason: for muscle spasm Last Admin: 04/29/25 04:10 Dose: 2 mg Documented By: CASTILM Labs 04/30/25 09:02 04/30/25 05:39 Labs: Laboratory Results - last 24 hr 04/29/25 04/29/25 04/29/25 08:27 11:10 16:27 Hold Purple Top Estim Creat Clear Calc Estimated GFR POC Glucose 283 H 187 H Random Vancomycin Blood Type O Negative Antibody Screen NEGATIVE 04/29/25 04/29/25 04/30/25 18:10 20:36 05:39 Hold Purple Top SEE NOTE Estim Creat Clear Calc 77.1 Estimated GFR > 60 POC Glucose 220 H Random Vancomycin 11.5 L Blood Type Antibody Screen 04/30/25 07:21 Hold Purple Top Estim Creat Clear Calc Estimated GFR POC Glucose 164 H Random Vancomycin Blood Type Antibody Screen Microbiology Microbiology Results: Microbiology 04/26/25 13:01 Gram Stain - Final Thoracentesis Fluid Anaerobic Culture - Preliminary No growth to date. Body Fluid Culture - Final No growth after 2 days Assessment and Plan (1) Pneumonia: Status: Acute Plan 64-year-old male with past medical history hypertension, hyperlipidemia, PCI 2 stents, primary melanoma dx and treated 2009 with recurrence in 2018 now with 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 Patient now reports a cough with sputum that is yellow in color. Shortness of breath worse with walking or exertion. Patient is experiencing excessive all-over body pain but most importantly in the left upper chest left arm and spine. Patient also having edema in the lower extremities. Pt also states abdomen has gotten bigger over the last 3 weeks. Pt does not meet criteria for sepsis at this time. Acute exacerbation of CHF without hypoxia/ HX PCI Stents X2 2004 BNP elevated Troponin neg, ECG neg ischemic changes Echo : ef 45-50% cxr today-possible pulm/edema plan:added Lasix 20 IV BID, hypokalemia replacements ordered. possible pneumonia /effusion cxr today:There is interstitial consolidation, possible pneumonia or pulmonary edema pleural fluid : wbc 445 , 83% neutrophils Plan for ultrasound-guided thoracentesis-s/p thoracentesis -4 ml fluid removed , cultures sent Oxygen p.r.n. Leukocytosis with bandemia-improving,LA 1.2, blood culture preliminary negative @48 hour, pleural fluid cultures prelim(no growth),pleural fluid afb /pathology pending vanco trough is 11.5 (04/29) , on vanco / Zosyn Significant leukocytosis with 15% bandemia UA is currently negative cxr-? worsening pulm edema with b/l pleural effusions plan : continue antibiotics ,added iv lasix , monitor renal function electrolyte closely. Hypokalemia : po replacements added. Melanoma primary cancer? with metastases to lung, liver and now bone with excessive pain issues Recent right femur fracture with repair February 2025 - femur snapped while patient was taking a shower CT scan notes mass lesion of the right adrenal gland, bony destructive changes of the anterior right 5th rib and soft tissue mass, lytic lesions in the thoracic spine Patient is learning today that he has a metastatic cancer to the lung, liver, bone Evidence of decline includes decreased mobility, decreased appetite and weight loss. Patient is currently on Ozempic and it is recommended that patient has stopped Ozempic. Pain management to include IV morphine and extended-release OxyContin twice daily CT negative for PE CT HEAd-No acute intracranial hemorrhage. No lytic or blastic metastatic lesions in the bony calvarium.Small vessel occlusive disease. chest Ct repeated last night -Redemonstrated large bulky left axillary soft tissue masses/adenopathy, bulky mediastinal and hilar lymphadenopathy, right chest wall erosive mass ,anteriorly of the adjacent rib and dense left lower lobe pleural-parenchymal mass. Features are strongly suspicious for malignancy/metastases.Slightly decreased small bilateral pleural effusions.Minimal residual interlobular septal thickening, decreased from prior. impression of chest ct: Decreasing bilateral effusions with improving pulmonary edema. Otherwise stable exam with extensive malignancy/metastatic disease detailed above as well better appreciated on prior contrast exam from 04/26/2025. CM consulted, family not well versed in Hospice Care, overwhelmed with this new information Oncology following:cytology on the pleural fluid, recent PET scan,hospice [facility] pain meds -oxycodone ,oxycontin , morphine iv,hycodan for cough anemia normocytic -unclear etiology denies any kristy bleeding or melena added iron studies ,b12&folate type and cross avoid blood thinner moniter cbc closely Recent right femur fracture with repair February of 2025 Patient has limited mobility after attending rehab Patient showing evidence of decline noting metastatic cancer to the bone PT eval ordered Bone lytic changes noted on CT scan involving R rib, thoracic spine Diabetes type 2 Sliding scale insulin for NPO status, change to ACHS when able Diabetic diet once no longer NPO Recommend patient stop Ozempic as he has been losing weight and has metastatic cancer Hypertension Blood pressure currently controlled Monitor closely Low-salt diet Hyperlipidemia Patient normally on statin Cardiac diet DVT prophylaxis: hold Lovenox due to anemia . family updated. Quality Stroke Does the patient have a stroke diagnosis?: No Reason for No Anti-thrombotic by Day Two: N/A - Med Ordered VTE Prior VTE?: No VTE Risk Level:: Medical - moderate - high VTE Device Contraindication: N/A - Device Ordered VTE Drug Contraindication: N/A - Med Ordered
[2025-04-30 08:25] LABS: Anion Gap 14 (12-20); Blood Urea Nitrogen 20 mg/dL (9-16); Calcium 9.2 mg/dL (8.4-10.2); Carbon Dioxide 25 mmol/L (22-29); Chloride 101 mmol/L (96-108); Potassium 3.5 mmol/L (3.3-5.1); Sodium 136 mmol/L (135-145)
[2025-04-30] MEDS: Albuterol/Iprat 2.5/0.5MG 3 ML AMPUL.NEB INHALE (08:37)
[2025-04-30 09:28] LABS: Hematocrit 26.0 % (42.0-52.0); Hemoglobin 8.0 g/dl (14.0-18.0)
[2025-04-30 11:25] LABS: Glucose, Whole Blood 223 mg/dL (60-115)
--- NOTE | 2025-04-30 11:57 | MHC.CLN ---
F/U DIET=REGULAR. DIET LIBERALIZED TO PROMOTE PO INTAKE. PO INTAKE 50-100%. FOLLOW FOR PO INTAKE AND PLAN OF CARE.
--- NOTE | 2025-04-30 12:08 | MHC.CM.PN ---
Addendum entered by Thuy Reyes RN 04/30/25 14:25: Per [facility], patient accepted by [facility] to provide services on dc. Original Note: Per MD rounds patient not medically cleared for dc, likely 1-2 days. [facility] updated. CM will continue to follow.
[2025-04-30] MEDS: Furosemide 20 MG/2 ML VIAL IVPUSH (13:57)
[2025-04-30 14:19] LABS: Mean Corpuscular HGB Conc 29.8 g/dl (31.0-36.0); Mean Corpuscular Hemoglobin 29.0 pg (27.0-33.0); Mean Corpuscular Volume 97.5 fL (80.0-98.0); NRBC Abs Auto 0.000 X10*3/uL (0.0-0.012); NRBC Pct Auto 0.0 /100WBC (0.0-0.2); Platelet Count 339 X10*3/uL (160-400); Red Blood Count 2.79 X10*6/uL (4.60-5.80)
[2025-04-30 14:31] LABS: White Blood Count 36.9 X10*3/uL (4.8-10.8)
[2025-04-30 14:36] LABS: Iron 20 mcg/dL (45-160); Percent Iron Saturation 12 % (15-50); Total Iron Binding Capacity 168 mcg/dL (228-428); Unsaturated Iron Binding 148 ug/dL
[2025-04-30 14:38] LABS: B Type Natriuretic Peptide 2076 pg/mL (<100)
[2025-04-30 15:10] LABS: Folate 11.6 ng/mL (> or = 4.0); Vitamin B12 > 2000 pg/mL (200-900)
[2025-04-30 15:14] LABS: Band Neutrophils Percent 2 % (3-5); Eosinophils Absolute Manual 0.4 X10*3/uL (0.0-0.4); Eosinophils Percent Manual 1 % (0-4); Lymphocytes Absolute Manual 1.1 X10*3/uL (1.2-4.9); Lymphocytes Percent Manual 3 % (20-40); Monocytes Absolute Manual 1.1 X10*3/uL (0.1-1.2); Monocytes Percent Manual 3 % (2-11); Neutrophils Absolute Manual 34.3 X10*3/uL (2.0-8.3); Neutrophils Percent Manual 91 % (45-73)
[2025-04-30 15:15] LABS: RBC Morphology NOTED
[2025-04-30 15:16] LABS: Ovalocytes 1+ (5-14) /OIF; Toxic Vacuolation PRESENT
[2025-04-30 16:17] LABS: Glucose, Whole Blood 239 mg/dL (60-115)
[2025-04-30 20:51] LABS: Glucose, Whole Blood 190 mg/dL (60-115)
[2025-04-30] MEDS: Aspirin Enteric Coated 81 MG TABLET.DR PO (20:52)
[2025-04-30] MEDS: ROSUVASTATIN 20 MG 20 EACH PO (21:32)
[2025-05-01] VITALS (7 sets, daily range): BP systolic 131–163; BP diastolic 60–78; PULSE 52–103; RESP 16–20; TEMP 36.4–37.2; O2SAT 94–96
[2025-05-01] MEDS: Furosemide 20 MG/2 ML VIAL IVPUSH ×2 (01:13→13:08)
[2025-05-01] MEDS: oxyCODONE HCl Immed Release 5 MG TABLET 10 MG PO ×3 (05:21→23:32)
[2025-05-01 07:18] LABS: Glucose, Whole Blood 235 mg/dL (60-115)
[2025-05-01] MEDS: Ferrous Sulfate 324 MG TABLET.DR 325 MG PO (07:31)
[2025-05-01] MEDS: oxyCODONE HCl ER 10 MG TAB.ER.12H PO ×2 (07:31→20:04)
[2025-05-01] MEDS: 0.9 % Sodium Chloride Flush 3 ML SYRINGE IVFLUSH ×3 (07:37→23:26)
[2025-05-01 08:28] LABS: Hematocrit 27.4 % (42.0-52.0); Hemoglobin 8.2 g/dl (14.0-18.0); Mean Corpuscular HGB Conc 29.9 g/dl (31.0-36.0); Mean Corpuscular Hemoglobin 28.8 pg (27.0-33.0); Mean Corpuscular Volume 96.1 fL (80.0-98.0); NRBC Abs Auto 0.000 X10*3/uL (0.0-0.012); NRBC Pct Auto 0.0 /100WBC (0.0-0.2); Platelet Count 290 X10*3/uL (160-400); Red Blood Count 2.85 X10*6/uL (4.60-5.80); White Blood Count 26.0 X10*3/uL (4.8-10.8)
[2025-05-01 08:40] LABS: Anion Gap 10 (12-20); Blood Urea Nitrogen 25 mg/dL (9-16); Calcium 9.0 mg/dL (8.4-10.2); Carbon Dioxide 25 mmol/L (22-29); Chloride 101 mmol/L (96-108); Creatinine Clr Calc Pharmacy 77.8; Estimated Glomerular Filt Rate > 60; Potassium 3.3 mmol/L (3.3-5.1); Sodium 133 mmol/L (135-145)
[2025-05-01 08:49] LABS: B Type Natriuretic Peptide 751 pg/mL (<100)
--- NOTE | 2025-05-01 09:35 | PC.NURSE ---
Addendum entered by Lelo Hernandez RN 05/01/25 18:39: 17:28 Pt continues to report 10/10 pain, MD William made aware, 1x dose IVP Dilaudid given with good effect. Pt and family educated that over sedation can cause drowsiness and respiratory depression, pt states he understands. Tele monitor ordered per MD William, rhythm ST low 100s. At pain reassessment pt up in chair talking with family, reports improvement with pain. All safety measures in place. Addendum entered by Lelo Hernandez RN 05/01/25 11:41: Pt continues to be sleeping on and off in chair. 11:40 pt awake, reporting 10/10 pain. MD William made aware, PRN Dilaudid given, pending results. Original Note: Pt reporting severe pain and anxiety this AM, PRN Zanaflex, PRN Atarax, and scheduled Oxy 10mg ER given with good effect. Upon pain reassessment pt sleeping in chair, raise and fall of chest noted no S&S of distress. All safety measures in place.
[2025-05-01 11:31] LABS: Glucose, Whole Blood 211 mg/dL (60-115)
--- NOTE | 2025-05-01 13:48 | HO.PM.IMPN ---
Subjective Subjective Date of Service: 05/01/25 Interval History: chf,lung mass Physical Exam Vital Signs: Vital Signs: Last Vital Signs Temp 98.6 F 05/01/25 07:09 Pulse 92 05/01/25 11:27 Resp 18 05/01/25 11:27 BP 147/77 H 05/01/25 13:08 Pulse Ox 94 05/01/25 11:27 O2 Del Method Room Air 05/01/25 11:27 O2 Flow Rate 2 04/30/25 00:00 BMI result Body Mass Index 30.6 Objective Data Active Medications Acetaminophen (Acetaminophen 325 Mg Tablet) 650 mg PO Q6H PRN PRN Reason: Pain, Mild 1-3,fever,headache Last Admin: 04/30/25 13:30 Dose: 650 mg Documented By: LAUREN Al Hydroxide/Mg Hydroxide (Magnesium Hydrox/Alum Hydrox 30 Ml Oral.Susp) 15 ml PO Q6H PRN PRN Reason: stomach Last Admin: 04/30/25 03:30 Dose: 15 ml Documented By: JILLIAN Albuterol/Ipratropium (Albuterol/Iprat 2.5/0.5mg 3 Ml Ampul.Neb) 3 ml INHALE Q4H PRN PRN Reason: Shortness of Breath/Wheezing Last Admin: 04/30/25 08:37 Dose: 3 ml Documented By: HUE Amlodipine Besylate (Amlodipine Besylate 10 Mg Tablet) 10 mg PO BEDTIME ILA; Protocol Last Admin: 04/30/25 20:52 Dose: 10 mg Documented By: SABRINA Aspirin (Aspirin Enteric Coated 81 Mg Tablet.Dr) 81 mg PO BEDTIME ILA Last Admin: 04/30/25 20:52 Dose: 81 mg Documented By: SABRINA Calcium Carbonate (Calcium Carbonate 750 Mg Tab.Chew) 750 mg PO Q4H PRN PRN Reason: Heartburn Last Admin: 04/28/25 15:04 Dose: 750 mg Documented By: TALYA Carbamazepine (Carbamazepine 200 Mg Tablet) 400 mg PO BID [facility] Last Admin: 05/01/25 07:32 Dose: 400 mg Documented By: OKSANA Dextrose (Dextrose 50 % 25 Gm/50 Ml Syringe) 25 gm IVPUSH Q15M PRN; Protocol PRN Reason: per Hypoglycemia Standing Ord. Docusate Sodium (Docusate Sodium 100 Mg Capsule) 100 mg PO BID PRN PRN Reason: Constipation Last Admin: 04/28/25 08:47 Dose: 100 mg Documented By: TALYA Fenofibrate (Fenofibrate 160 Mg Tablet) 160 mg PO DAILY [facility] Last Admin: 05/01/25 07:32 Dose: 160 mg Documented By: OKSANA Ferrous Sulfate (Ferrous Sulfate 324 Mg Tablet.Dr) 324 mg PO DAILY [facility] Furosemide (Furosemide 20 Mg/2 Ml Vial) 20 mg IVPUSH Q12H ILA; Protocol Last Admin: 05/01/25 13:08 Dose: 20 mg Documented By: OKSANA Gabapentin (Gabapentin 100 Mg Capsule) 100 mg PO TID [facility] Last Admin: 05/01/25 07:32 Dose: 100 mg Documented By: OKSANA Glipizide (Glipizide 10 Mg Tablet) 10 mg PO DAILY [facility] Last Admin: 05/01/25 07:32 Dose: 10 mg Documented By: OKSANA Glucose (Glucose Gel 15 Gm Gel..Gram.) 15 gm PO Q15M PRN; Protocol PRN Reason: per Hypoglycemia Standing Ord. Guaifenesin/Codeine Phosphate (Guaifen/Codeine Sf 200/20/10ml 10 Ml Liquid) 10 ml PO Q6H PRN PRN Reason: Cough Last Admin: 04/29/25 15:10 Dose: 10 ml Documented By: TALYA Hydromorphone HCl (Hydromorphone Hcl 1 Mg/Ml Syringe) 1 mg IVPUSH Q3H PRN; Protocol PRN Reason: Pain, Severe (Pain Scale 7-10) Last Admin: 05/01/25 11:36 Dose: 1 mg Documented By: OKSANA Hydroxyzine HCl (Hydroxyzine Hcl 25 Mg Tablet) 25 mg PO Q6H PRN PRN Reason: anxiety/restlessness Last Admin: 05/01/25 13:08 Dose: 25 mg Documented By: OKSANA Levofloxacin (Levaquin) 750 mg in 150 mls @ 100 mls/hr IV Q24H [facility] Last Infusion: 04/30/25 17:19 Dose: Infused Documented By: TOM Insulin Human Lispro (Insulin Lispro 100 Unit/Ml 3 Ml Vial) 0 unit SUBCUT QIDACHS [facility]; Protocol Last Admin: 05/01/25 11:30 Dose: 4 unit Documented By: OKSANA Magnesium Hydroxide (Milk Of Magnesia 30 Ml Oral.Susp) 30 ml PO DAILY PRN PRN Reason: Constipation Melatonin (Melatonin 3 Mg Tablet) 6 mg PO BEDTIME PRN PRN Reason: Insomnia Last Admin: 04/27/25 23:30 Dose: 6 mg Documented By: PABLO Metoprolol Tartrate (Metoprolol Tartrate 100 Mg Tablet) 100 mg PO BID [facility]; Protocol Last Admin: 05/01/25 07:32 Dose: 100 mg Documented By: OKSANA Multivitamins/Vitamin C (Multivitamin Tablet) 1 tab PO DAILY [facility] Last Admin: 05/01/25 07:30 Dose: 1 tab Documented By: OKSANA Pt Own (Rosuvastatin (20 Mg Tablet)) 20 mg PO BEDTIME [facility] Last Admin: 04/30/25 21:32 Dose: 20 mg Documented By: SABRINA Omeprazole (Omeprazole 40 Mg Capsule.Dr) 40 mg PO DAILY@0630 [facility] Last Admin: 05/01/25 05:21 Dose: 40 mg Documented By: SABRINA Ondansetron HCl (Ondansetron Hcl 4 Mg/2 Ml Vial) 4 mg IVPUSH Q8H PRN PRN Reason: Nausea and Vomiting Oxycodone HCl (Oxycodone Hcl Immed Release 5 Mg Tablet) 10 mg PO Q6H PRN PRN Reason: Pain, Severe (Pain Scale 7-10) Last Admin: 05/01/25 05:21 Dose: 10 mg Oxycodone HCl (Oxycodone Hcl Er 10 Mg Tab.Er.12h) 10 mg PO BID [facility] Polyethylene Glycol (Polyethylene Glycol 3350 17 Gm Powd.Pack) 17 gm PO DAILY PRN PRN Reason: Constipation Senna (Sennosides 8.6 Mg Tablet) 17.2 mg PO BEDTIME [facility] Last Admin: 04/30/25 21:30 Dose: Not Given Documented By: SABRINA Non-Admin Reason: Patient Refused Sodium Bicarbonate (Sodium Bicarbonate 650 Mg Tablet) 650 mg PO BID [facility] Last Admin: 05/01/25 07:32 Dose: 650 mg Documented By: OKSANA Sodium Chloride (0.9 % Sodium Chloride Flush 3 Ml Syringe) 3 ml IVFLUSH QSHIFT [facility] Last Admin: 05/01/25 07:37 Dose: 3 ml Documented By: OKSANA Tizanidine HCl (Tizanidine Hcl 4 Mg Tablet) 2 mg PO Q8H PRN PRN Reason: for muscle spasm Last Admin: 05/01/25 07:34 Dose: 2 mg Documented By: OKSANA Labs 05/01/25 08:05 05/01/25 08:05 Labs: Laboratory Results - last 24 hr 04/30/25 04/30/25 04/30/25 09:02 13:59 16:14 MCV 97.5 MCH 29.0 MCHC 29.8 L RDW 17.1 H Plt Count 339 MPV 9.8 Immature Gran % (Auto) Cancelled Neut % (Auto) Cancelled Lymph % (Auto) Cancelled Crockett % (Auto) Cancelled Eos % (Auto) Cancelled Baso % (Auto) Cancelled Lymph # (Auto) Cancelled Crockett # (Auto) Cancelled Eos # (Auto) Cancelled Baso # (Auto) Cancelled Abs Immat Gran (auto) Cancelled Absolute Neuts (auto) Cancelled Absolute Nucleated RBC 0.000 Nucleated RBC % (auto) 0.0 Neutrophils % (Manual) 91 H Band Neutrophils % 2 L Lymphocytes % (Manual) 3 L Monocytes % (Manual) 3 Eosinophils % (Manual) 1 Abs Neuts (Manual) 34.3 H Lymphocytes # (Manual) 1.1 L Monocytes # (Manual) 1.1 Eosinophils # (Manual) 0.4 Toxic Vacuolation PRESENT Platelet Estimate NORMAL Plt Morphology Comment NORMAL RBC Morphology NOTED Ovalocytes 1+ (5-14) Anion Gap Estim Creat Clear Calc Estimated GFR POC Glucose 239 H Random Glucose Calcium Iron 20 L TIBC 168 L % Saturation 12 L Unsat Iron Binding 148 B-Natriuretic Peptide 2076 H Vitamin B12 > 2000 H Folate 11.6 Random Vancomycin 04/30/25 04/30/25 05/01/25 18:03 20:31 07:12 MCV MCH MCHC RDW Plt Count MPV Immature Gran % (Auto) Neut % (Auto) Lymph % (Auto) Crockett % (Auto) Eos % (Auto) Baso % (Auto) Lymph # (Auto) Crockett # (Auto) Eos # (Auto) Baso # (Auto) Abs Immat Gran (auto) Absolute Neuts (auto) Absolute Nucleated RBC Nucleated RBC % (auto) Neutrophils % (Manual) Band Neutrophils % Lymphocytes % (Manual) Monocytes % (Manual) Eosinophils % (Manual) Abs Neuts (Manual) Lymphocytes # (Manual) Monocytes # (Manual) Eosinophils # (Manual) Toxic Vacuolation Platelet Estimate Plt Morphology Comment RBC Morphology Ovalocytes Anion Gap Estim Creat Clear Calc Estimated GFR POC Glucose 190 H 235 H Random Glucose Calcium Iron TIBC % Saturation Unsat Iron Binding B-Natriuretic Peptide Vitamin B12 Folate Random Vancomycin 14.1 L 05/01/25 05/01/25 08:05 11:27 MCV 96.1 MCH 28.8 MCHC 29.9 L RDW 16.8 H Plt Count 290 MPV 9.7 Immature Gran % (Auto) Neut % (Auto) Lymph % (Auto) Crockett % (Auto) Eos % (Auto) Baso % (Auto) Lymph # (Auto) Crockett # (Auto) Eos # (Auto) Baso # (Auto) Abs Immat Gran (auto) Absolute Neuts (auto) Absolute Nucleated RBC 0.000 Nucleated RBC % (auto) 0.0 Neutrophils % (Manual) Band Neutrophils % Lymphocytes % (Manual) Monocytes % (Manual) Eosinophils % (Manual) Abs Neuts (Manual) Lymphocytes # (Manual) Monocytes # (Manual) Eosinophils # (Manual) Toxic Vacuolation Platelet Estimate Plt Morphology Comment RBC Morphology Ovalocytes Anion Gap 10 L Estim Creat Clear Calc 77.8 Estimated GFR > 60 POC Glucose 211 H Random Glucose 229 H Calcium 9.0 Iron TIBC % Saturation Unsat Iron Binding B-Natriuretic Peptide 751 H Vitamin B12 Folate Random Vancomycin Microbiology Microbiology Results: Microbiology 04/26/25 13:01 Gram Stain - Final Thoracentesis Fluid Anaerobic Culture - Final NO GROWTH AFTER 5 DAYS Body Fluid Culture - Final No growth after 2 days 04/26/25 01:14 Blood Culture - Final Blood - Venous No growth after 5 days. 04/26/25 00:50 Blood Culture - Final Blood - Venous No growth after 5 days. Assessment and Plan (1) Pneumonia: Status: Acute Plan 64-year-old male with past medical history hypertension, hyperlipidemia, PCI 2 stents, primary melanoma dx and treated 2010 with recurrence in 2018 now with 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 Patient now reports a cough with sputum that is yellow in color. Shortness of breath worse with walking or exertion. Patient is experiencing excessive all-over body pain but most importantly in the left upper chest left arm and spine. Patient also having edema in the lower extremities. Pt also states abdomen has gotten bigger over the last 3 weeks. Pt does not meet criteria for sepsis at this time. Acute exacerbation of CHF without hypoxia/ HX PCI Stents X2 2004 BNP elevated Troponin neg, ECG neg ischemic changes Echo : ef 45-50% cxr today seems similar -possible pulm/edema plan:added Lasix 20 IV BID, hypokalemia replacements ordered. possible pneumonia /effusion cxr today:There is interstitial consolidation, possible pneumonia or pulmonary edema pleural fluid : wbc 445 , 83% neutrophils Plan for ultrasound-guided thoracentesis-s/p thoracentesis -4 ml fluid removed , cultures sent Oxygen p.r.n. Leukocytosis with bandemia-improving,LA 1.2, blood culture preliminary negative @48 hour, pleural fluid cultures prelim(no growth),pleural fluid afb /pathology pending vanco trough is 11.5 (04/29) , on vanco / Zosyn Significant leukocytosis with 15% bandemia UA is currently negative cxr-? worsening pulm edema with b/l pleural effusions plan : continue antibiotics ,added iv lasix , monitor renal function electrolyte closely. Hypokalemia : po replacements added. Melanoma primary cancer? with metastases to lung, liver and now bone with excessive pain issues Recent right femur fracture with repair February 2025 - femur snapped while patient was taking a shower CT scan notes mass lesion of the right adrenal gland, bony destructive changes of the anterior right 5th rib and soft tissue mass, lytic lesions in the thoracic spine Patient is learning today that he has a metastatic cancer to the lung, liver, bone Evidence of decline includes decreased mobility, decreased appetite and weight loss. Patient is currently on Ozempic and it is recommended that patient has stopped Ozempic. Pain management to include IV morphine and extended-release OxyContin twice daily CT negative for PE CT HEAd-No acute intracranial hemorrhage. No lytic or blastic metastatic lesions in the bony calvarium.Small vessel occlusive disease. chest Ct repeated last night -Redemonstrated large bulky left axillary soft tissue masses/adenopathy, bulky mediastinal and hilar lymphadenopathy, right chest wall erosive mass ,anteriorly of the adjacent rib and dense left lower lobe pleural-parenchymal mass. Features are strongly suspicious for malignancy/metastases.Slightly decreased small bilateral pleural effusions.Minimal residual interlobular septal thickening, decreased from prior. impression of chest ct: Decreasing bilateral effusions with improving pulmonary edema. Otherwise stable exam with extensive malignancy/metastatic disease detailed above as well better appreciated on prior contrast exam from 04/26/2025. CM consulted, family not well versed in Hospice Care, overwhelmed with this new information Oncology following:cytology on the pleural fluid, recent PET scan,hospice [facility] pain meds -oxycodone ,oxycontin , morphine iv,hycodan for cough anemia normocytic -unclear etiology denies any kristy bleeding or melena added iron studies ,b12&folate type and cross avoid blood thinner moniter cbc closely Recent right femur fracture with repair February of 2025 Patient has limited mobility after attending rehab Patient showing evidence of decline noting metastatic cancer to the bone PT eval ordered Bone lytic changes noted on CT scan involving R rib, thoracic spine Diabetes type 2 Sliding scale insulin for NPO status, change to ACHS when able Diabetic diet once no longer NPO Recommend patient stop Ozempic as he has been losing weight and has metastatic cancer Hypertension Blood pressure currently controlled Monitor closely Low-salt diet Hyperlipidemia Patient normally on statin Cardiac diet DVT prophylaxis: hold Lovenox due to anemia . family updated. Quality Stroke Does the patient have a stroke diagnosis?: No Reason for No Anti-thrombotic by Day Two: N/A - Med Ordered VTE Prior VTE?: No VTE Risk Level:: Medical - moderate - high VTE Device Contraindication: N/A - Device Ordered VTE Drug Contraindication: N/A - Med Ordered
--- NOTE | 2025-05-01 15:14 | P.CDIM_ITS ---
PROVIDER RESPONSE TEXT: To clarify, the appropriate diagnosis supported by the clinical indicators: Systolic: chf with reduced ef QUERY TEXT: PHYSICIAN'S DOCUMENTATION REQUEST Date of Query: 05/01/2025 09:43 AM EDT Patient Name: Dedrick Cali Admit Date: 04/26/2025 Dear Warner William MD, A review of the medical record indicates additional documentation may be needed. Please review below and update the documentation accordingly. Clinical Indicators: BNP 1146 Acute CHF exacerbation ECHO: ef 45-50% CXR 04/30/25: worsening pulmonary edema and increased bilateral pleural effusions IV Lasix Please provide further specificity regarding the most likely type and acuity of CHF you are evaluating, treating, or monitoring. Systolic Please specify if Acute, Chronic, or Acute on chronic, or Unable to determine Diastolic Please specify if Acute, Chronic, or Acute on chronic, or Unable to determine Combined Systolic/Diastolic Please specify if Acute, Chronic, or Acute on chronic, or Unable to determine Other (explain) Clinically unable to determine (explain) Thank you, Jeanne Cross RN Use of terms such as suspected, likely, concern for, or probable (associated with a specific diagnosis that is being evaluated, monitored, or treated as if it exists) are acceptable and can be coded in the inpatient setting, when documented at the time of discharge. Please use your independent medical judgment in providing your response. THIS QUERY IS PART OF THE PERMANENT MEDICAL RECORD
[2025-05-01 16:14] LABS: Glucose, Whole Blood 204 mg/dL (60-115)
[2025-05-01] MEDS: Aspirin Enteric Coated 81 MG TABLET.DR PO (20:03)
[2025-05-01 20:04] LABS: Glucose, Whole Blood 209 mg/dL (60-115)
[2025-05-01] MEDS: ROSUVASTATIN 20 MG 20 EACH PO (20:04)
[2025-05-02] MEDS: Furosemide 20 MG/2 ML VIAL IVPUSH (01:31)
[2025-05-02 03:17] VITALS: BP 135/63; PULSE 83; RESP 18; TEMP 36.4; O2SAT 95
[2025-05-02] MEDS: oxyCODONE HCl Immed Release 5 MG TABLET 10 MG PO ×3 (06:58→12:14)
[2025-05-02] MEDS: 0.9 % Sodium Chloride Flush 3 ML SYRINGE IVFLUSH (06:59)
[2025-05-02 07:04] VITALS: BP 144/63; PULSE 86; RESP 18; TEMP 36.9; O2SAT 96
[2025-05-02] MEDS: Ferrous Sulfate 324 MG TABLET.DR PO (07:15)
[2025-05-02] MEDS: oxyCODONE HCl ER 10 MG TAB.ER.12H PO (07:15)
[2025-05-02 07:16] LABS: Glucose, Whole Blood 170 mg/dL (60-115)
--- NOTE | 2025-05-02 10:40 | PM.DS ---
DS: Providers Provider Date of Service: 05/02/25 Date of admission: 04/26/25 04:16 Date of discharge: 05/02/25 Primary care physician: Mati Richter MD Consults: 04/26/25 05:08 Consult to Hematology / Oncology Routine Consulting Provider: [facility] [place] Oncology/Hematology Reason for consultation: metstatic cancer, pt has no knowledge, needs guidance, ? Hospice Has provider been notified: No 04/26/25 19:21 Consult to Pulmonology Routine Consulting Provider: [facility] [place] Pulmonology Services Reason for consultation: ? inflamtory/infectious pulm effusion Has provider been notified: No 04/30/25 15:21 Consult to Infectious Diseases Routine Consulting Provider: [facility] [place] Infectious Disease Center Reason for consultation: pneumonia /pleural effusion Has provider been notified: No DS: Diagnosis Discharge Diagnosis (1) Pneumonia: Status: Acute DS: Summary Hospital Course Hospital Course: from initial hpi: 64-year-old male with past medical history hypertension, hyperlipidemia, PCI 2 stents, primary melanoma dx and treated 2009 with recurrence in 2018 now with 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 Patient now reports a cough with sputum that is yellow in color. Shortness of breath worse with walking or exertion. Patient is experiencing excessive all-over body pain but most importantly in the left upper chest left arm and spine. Patient also having edema in the lower extremities. Pt also states abdomen has gotten bigger over the last 3 weeks. Patient underwent a right femur fracture repair in February of 2025. Patient states he was in the shower and his femur bone literally snapped. Patient was told then by the orthopedist that he may have cancer. Patient was following with Oncology at [facility], Dr. Orozco, but patient has not actually seen the oncologist so far due to the femur fracture and rehabilitation for ongoing immobility. Patient has been re learning how to use of walker but recently family moved patient from the 2nd floor to the 1st floor. Family recently purchased patient a new wheelchair to make mobility easier at home. Most importantly though patient and family are not aware that patient has cancer in the liver, lungs, and bone at this time. Unclear if melanoma is the primary source noting treatment was in 2010 with recurrence in 2018. Learning this today is all new information for family. Pt and family are not well versed in Hospice and palliative care. Workup in the ED included CTA scan of the chest which was negative for PE but positive for evidence of CHF with metastatic malignancy involving the right adrenal gland, anterior right 5th rib with a soft tissue mass and lytic lesions in the thoracic spine. Nodularity also noted in the liver and patient does have a distended belly somewhat tender in the right upper quadrant. Patient does have a left lobe liver lesion that measures 2.8 cm in size and bulky lymphadenopathy within the karyn hepatis. Patient also has a moderate left pleural effusion with a small right pleural effusion and the left is partially loculated. Also present are numerous enlarged mediastinal, hilar and bilateral axillary lymph nodes. Patient also notes an elevated BNP 1146. Alk-phos 344, LFTs otherwise normal. Patient does have a impressive leukocytosis of 41.6 with 15% bandemia. Patient did report as above productive cough but currently cough is resolved. Patient was started on vancomycin and Zosyn in the ED. Blood cultures pending. UA negative for UTI. Concern for possible PNA, but CXR notes L.R basilar atelecatsis and effusions. CT scan with no evidence of obvious PNA. Recommend stopping Ozempic for diabetes management as patient reports weight loss with decreased appetite. Blood glucose levels in the 150 range. Pt is alert and orientated, not necessarily exhibiting encephalopthy but is cloudy at times. CT head pending. hospital course: Patient was admitted for acute systolic CHF. Was treated with IV Lasix diuresed well and on discharge we will continue 40 mg daily, echo showed EF of 45%. Further complicated by pneumonia was seen by Pulmonary recommended levofloxacin we will continue 4 more days on discharge, blood cultures were negative, pleural fluid did not grow, for acute hypokalemia received replacement. For metastatic melanoma discussions were had with family, currently leaning towards transitioning to hospice at home. For diabetes continued on insulin sliding scale. Patient is feeling better will be discharged home. Time Attestation Discharge Coordination Time (in mins): 34 Quality: Safe Use of Opioids Does Pt have an Active Cancer Diagnosis on the Problem List?: Yes Opioid Measure Date for CMS Report: 04/02/25 Opioid Measure Time for CMS Report: 10:41 Quality: Stroke Does the patient have a stroke diagnosis?: No Physical Exam Exam: Exam: General: AO X 3, no acute distress Resp: CTA bilateral, no accessory muscles used CVS: S1,S2,RRR GI: soft, non tender, non distended Neuro: motor grossly intact, alert Psych: appropriate affect, appropriate insight Vital Signs: Vital Signs: Last Vital Signs Temp 98.4 F 05/02/25 07:04 Pulse 86 05/02/25 07:04 Resp 18 05/02/25 07:04 BP 144/63 H 05/02/25 07:04 Pulse Ox 96 05/02/25 07:04 O2 Del Method Room Air 05/02/25 07:04 O2 Flow Rate 2 04/30/25 00:00 BMI result Body Mass Index 30.6 DS: Data Data Completed and Pending Labs on day of discharge: Laboratory Results - last 24 hr 05/01/25 05/01/25 05/01/25 11:27 16:10 19:59 POC Glucose 211 H 204 H 209 H 05/02/25 07:11 POC Glucose 170 H Discharge Plan Discharge Anticipated Discharge Date/Time: 05/02/25 10:35 Patient Disposition: Home Health Service Discharge Diagnosis: pna, chf, malignant melanoma with mets Referrals: [facility] [Outside] - 3-5 Days Po,Mati Ramon MD [Primary Care Provider, Internal Medicine] - 1 Week Discharge Medications: New oxycodone [OxyContin] 10 mg Tablet,Oral Only,Ext.Rel.12 Hr 10 mg PO BID Qty: 60 0RF Rx Instructions: Partial Fill upon patient request. polyethylene glycol 3350 17 gram Powder In Packet 17 g PO DAILY PRN (Reason: Constipation) 90 Days Qty: 100 0RF oxycodone 5 mg Tablet 10 mg PO Q4H PRN (Reason: Pain, Severe (Pain Scale 7-10)) Qty: 30 0RF Rx Instructions: Partial Fill upon patient request. furosemide [Lasix] 40 mg tablet 40 mg PO DAILY Qty: 90 0RF levofloxacin 750 mg tablet 750 mg PO DAILY Qty: 4 0RF Continued sodium bicarbonate 650 mg tablet 650 mg PO BID Qty: 270 2RF fenofibrate 160 mg tablet 160 mg PO DAILY 90 Days Qty: 90 3RF carbamazepine 200 mg tablet 400 mg PO BID Qty: 360 2RF metoprolol tartrate 100 mg tablet 100 mg PO BID Qty: 180 1RF oxycodone 5 mg tablet 5 mg PO TID PRN (Reason: pain) Qty: 75 0RF Rx Instructions: Partial Fill upon patient request. gabapentin 100 mg capsule 100 mg PO TID ferrous sulfate 325 mg (65 mg iron) Tablet 325 mg PO DAILY docusate sodium [Colace] 100 mg Capsule 100 mg PO BID PRN (Reason: Constipation) tizanidine 4 mg tablet 2 mg PO Q8H PRN (Reason: for muscle spasm) omeprazole 40 mg capsule,delayed release(DR/EC) 40 mg PO DAILY@0630 glimepiride 4 mg tablet 4 mg PO DAILY amlodipine 10 mg tablet 10 mg PO BEDTIME rosuvastatin 20 mg tablet 20 mg PO BEDTIME Centrum Adult 50 Plus 80 mcg Tablet,Chewable 1 tab PO DAILY aspirin [Adult Aspirin Regimen] 81 mg tablet,delayed release (DR/EC) 81 mg PO BEDTIME Discharge Orders: Discharge Order (Routine); Ordered 05/02/25 Ordered By: Avila Wheatley Diet: Advance to usual diet Activity on Discharge: As tolerated Stand Alone Forms: Patient Portal Discharge page Print Language: Wolof Care Plan Goals: Manage symptoms Health Concerns: CHF, pneumonia, metastatic melanoma Plan of Treatment: For more days of levofloxacin, starting on Lasix, pain control, consider transitioned to hospice Assessment: See above
[2025-05-02 11:15] LABS: Glucose, Whole Blood 152 mg/dL (60-115)
--- NOTE | 2025-05-02 11:21 | MHC.CM.PN ---
Per MD patient medically cleared for dc. CM met with patient at bedside and , Shawna, via telephone to discuss. Plan was home w/ services & outpatient Oncology follow up. However, at this point they would like to move forward with hospice services via [facility]. An informational was completed earlier in the hospitalization (direct referral from Oncology). Patient would still like to dc home today. [facility] aware of dc today and will f/u outpatient with planned SOC tomorrow. Patient, , and MD aware. will provide transport at 12pm. RN aware. IMM delivered.
--- NOTE | 2025-05-02 11:30 | MHC.CLN ---
F/U PO INTAKE VARIABLE RANGING FROM 25-100% DIET RX:REGULAR--DIET LIBERALIZED TO PROMOTE PO INTAKE CONTINUE TO MONITOR PO INTAKE AND WEIGHTS PT SCHEDULED TO D/C TODAY
[2025-05-02 11:45] VITALS: BP 142/61; PULSE 85; RESP 16; TEMP 36.9; O2SAT 95
== END 2025-05-02 12:38 | disposition hospice, home (50) | DRG 291 ==
LOC: HO.ED 04-26 03:33 → HO.EDOVER 04-26 04:42 → HO.S3 04-27 10:08
PROVIDERS: Internal Medicine; Nurse Practitioner Family; Admitting Provider Student in an Organized Health Care Education/Training Program; Emergency Provider Emergency Medicine; PCP Internal Medicine; Visit Provider Internal Medicine
DX: I11.0 Hypertensive heart disease with heart failure (principal); I50.23 Acute on chronic systolic (congestive) heart failure; J18.9 Pneumonia, unspecified organism; C78.7 Secondary malignant neoplasm of liver and intrahepatic bile duct; C79.51 Secondary malignant neoplasm of bone; C79.71 Secondary malignant neoplasm of right adrenal gland; C77.8 Secondary and unspecified malignant neoplasm of lymph nodes of multiple regions; C78.02 Secondary malignant neoplasm of left lung; J91.8 Pleural effusion in other conditions classified elsewhere; D63.0 Anemia in neoplastic disease; E87.6 Hypokalemia; C43.59 Malignant melanoma of other part of trunk; I25.10 Atherosclerotic heart disease of native coronary artery without angina pectoris; G89.3 Neoplasm related pain (acute) (chronic); E78.5 Hyperlipidemia, unspecified; Z95.5 Presence of coronary angioplasty implant and graft; Z20.822 Contact with and (suspected) exposure to COVID-19; Z87.891 Personal history of nicotine dependence; Z79.82 Long term (current) use of aspirin; Z79.899 Other long term (current) drug therapy
CPT/HCPCS: 32555; 36415; 70450; 71045; 71046; 71250; 71275; 80048; 80053; 80202; 81003; 82042; 82565; 82607; 82746; 82945; 82947; 83540; 83605; 83615; 83880; 84145; 84157; 84484; 85007; 85014; 85018; 85025; 85027; 86850; 86900; 86901; 87040; 87070; 87073; 87116; 87205; 87206; 87637; 88112; 88305; 88341; 88342; 89051; 93005; 93306; 94640; 99213; 99285; 99499; J1171; J1650; J1938; J1956; J2003; J2270; J2470; J2543; J3373; J3374; Q9957; Q9967

== ENCOUNTER → 2025-04-25 23:47 | Outpatient (BNV) | payer MEDICARE, SELFPAY | PROVIDERS: Admitting Provider Student in an Organized Health Care Education/Training Program; Emergency Provider Emergency Medicine; PCP Internal Medicine; Visit Provider Internal Medicine Cardiovascular Disease | DX: I51.7 Cardiomegaly (principal) | CPT/HCPCS: 93010 ==

== ENCOUNTER → 2025-04-26 00:39 | Outpatient (BNV) | payer MEDICARE, SELFPAY | PROVIDERS: Emergency Provider Emergency Medicine; PCP Internal Medicine; Visit Provider Radiology Diagnostic Radiology | DX: J90 Pleural effusion, not elsewhere classified (principal); J81.0 Acute pulmonary edema; R90.82 White matter disease, unspecified | CPT/HCPCS: 32555; 70450; 71275 ==

== ENCOUNTER 2025-04-26 04:16 | Outpatient (BNV) | payer MEDICARE, SELFPAY | END 2025-04-26 07:00 | PROVIDERS: Admitting Provider Student in an Organized Health Care Education/Training Program; Emergency Provider Emergency Medicine; PCP Internal Medicine; Visit Provider Internal Medicine Cardiovascular Disease | DX: I31.39 Other pericardial effusion (noninflammatory) (principal) | CPT/HCPCS: 93306 ==

== ENCOUNTER 2025-04-26 04:16 | Outpatient (BNV) | payer MEDICARE, SELFPAY | END 2025-04-30 09:42 | PROVIDERS: Admitting Provider Student in an Organized Health Care Education/Training Program; Emergency Provider Emergency Medicine; PCP Internal Medicine; Visit Provider Radiology Diagnostic Radiology | DX: J18.9 Pneumonia, unspecified organism (principal); C78.00 Secondary malignant neoplasm of unspecified lung; J90 Pleural effusion, not elsewhere classified; J81.0 Acute pulmonary edema | CPT/HCPCS: 71046 ==

== ENCOUNTER 2025-04-26 04:16 | Outpatient (BNV) | payer MEDICARE, SELFPAY | END 2025-04-28 08:00 | PROVIDERS: Admitting Provider Student in an Organized Health Care Education/Training Program; Emergency Provider Emergency Medicine; PCP Internal Medicine; Visit Provider Specialist | DX: J90 Pleural effusion, not elsewhere classified (principal); J81.1 Chronic pulmonary edema | CPT/HCPCS: 71045; 71250 ==

== ENCOUNTER 2025-04-26 04:16 | Outpatient (BNV) | payer MEDICARE, SELFPAY | END 2025-04-27 09:41 | PROVIDERS: Admitting Provider Student in an Organized Health Care Education/Training Program; Emergency Provider Emergency Medicine; PCP Internal Medicine; Visit Provider Radiology Body Imaging | DX: J90 Pleural effusion, not elsewhere classified (principal) | CPT/HCPCS: 71045 ==

== ENCOUNTER 2025-04-26 04:16 | Outpatient (BNV) | payer MEDICARE, SELFPAY | END 2025-05-01 09:02 | PROVIDERS: Admitting Provider Student in an Organized Health Care Education/Training Program; Emergency Provider Emergency Medicine; PCP Internal Medicine; Visit Provider Radiology Diagnostic Radiology | DX: R91.1 Solitary pulmonary nodule (principal) | CPT/HCPCS: 71046 ==

== ENCOUNTER → 2025-04-26 04:16 | Outpatient (BNV) | payer MEDICARE, SELFPAY | PROVIDERS: Admitting Provider Student in an Organized Health Care Education/Training Program; Emergency Provider Emergency Medicine; PCP Internal Medicine; Visit Provider Internal Medicine Medical Oncology | DX: C43.59 Malignant melanoma of other part of trunk (principal); C78.7 Secondary malignant neoplasm of liver and intrahepatic bile duct; C78.02 Secondary malignant neoplasm of left lung; C79.51 Secondary malignant neoplasm of bone | CPT/HCPCS: 99222 ==

== ENCOUNTER → 2025-04-26 04:16 | Outpatient (BNV) | payer MEDICARE, SELFPAY | PROVIDERS: Admitting Provider Student in an Organized Health Care Education/Training Program; Emergency Provider Emergency Medicine; PCP Internal Medicine; Visit Provider Hospitalist | DX: C78.00 Secondary malignant neoplasm of unspecified lung (principal); C43.9 Malignant melanoma of skin, unspecified; J18.9 Pneumonia, unspecified organism; J90 Pleural effusion, not elsewhere classified | CPT/HCPCS: 99223 ==

== ENCOUNTER → 2025-04-26 04:16 | Outpatient (BNV) | payer MEDICARE, SELFPAY | PROVIDERS: Admitting Provider Student in an Organized Health Care Education/Training Program; Emergency Provider Emergency Medicine; PCP Internal Medicine; Visit Provider Nurse Practitioner Family | DX: I50.33 Acute on chronic diastolic (congestive) heart failure (principal); C78.00 Secondary malignant neoplasm of unspecified lung | CPT/HCPCS: 99223; 99231; 99232 ==